=== PATIENT | female | born 1950 | race Caucasian/White ===

== ENCOUNTER 2020-04-11 15:49 | Inpatient (IN) | payer MEDICARE, MEDICAID, SELFPAY ==
[2020-04-11] VITALS (9 sets, daily range): BP systolic 111–132; BP diastolic 52–91; PULSE 130–148; RESP 18–24; TEMP 36.2–37.3; O2SAT 95–98; BMI 43.4
--- NOTE | ~2020-04-11 | US_ITS ---
EXAMINATION: US venous doppler LE DATE: 04/12/2020 12:02 INDICATION: Lower limb swelling TECHNIQUE: Grayscale ultrasound images without and with compression and Doppler ultrasound images of the bilateral lower extremity veins were obtained. COMPARISON: 08/10/2014 FINDINGS: The visualized portions of right common femoral vein, profunda (deep) femoral vein, femoral vein, pop liteal vein, posterior tibial veins, peroneal veins, gastrocnemius vein and greater saphenous vein ou tflow are patent. The visualized portions of left common femoral vein, profunda femoral vein, femoral vein, popliteal v ein, posterior tibial veins, gastrocnemius vein and greater saphenous vein outflow are patent. The le ft peroneal veins are again unable to be identified likely due to patient body habitus. IMPRESSION: 1. No deep venous thrombosis in either lower limb. Reviewed, dictated and finalized at location A. BLOWER
--- NOTE | ~2020-04-11 | XR_ITS ---
EXAMINATION: XR chest 2V EXAM DATE: 04/11/2020 16:45 INDICATION: elevated heart rate, HX HTN . TECHNIQUE: Frontal and lateral projections of the chest obtained and reviewed. There is no prior pilo dy for comparison. FINDINGS: There is cardiomegaly. There is pulmonary vascular congestion. No confluent consolidation, pneumothorax or pleural effusion suspected. There are mild bony degenerative changes. IMPRESSION: 1. Cardiomegaly, congestion. Reviewed, dictated and finalized at location B. E SALES LEADER
--- NOTE | 2020-04-11 15:55 | ECG_ITS ---
Measurements Intervals [employer] Rate: 37 P: -14 [place]: 127 QRS: 44 QRSD: 197 T: 0 QT: 297 QTc: 235 Interpretive Statements ATRIAL FLUTTER/TACHYCARDIA WITH RAPID VENTRICULAR RESPONSE RSR' IN V1 OR V2, CONSIDER RIGHT VENTRICULAR HYPERTROPHY OR RIGHT VCD MINIMAL Q WAVES- INFERIOR LEADS BASELINE ARTIFACT- V3-V5 ABNORMAL ECG Electronically Signed On 04-11-2020 18:55:36 RETAIL PROPERTY MANAGER by Jarek Hall D.O.
[2020-04-11 16:14] LABS: Basophils Percent Auto 0.2 % (0.2-1.2); Hematocrit 44.8 % (37.0-47.0); Hemoglobin 15.1 g/dL (12.0-15.0); Immature Granulocyte Absolute 0.01 K/mm3 (0.00-0.031); Immature Granulocyte Percent A 0.2 % (0-0.5); Lymphocytes Absolute Auto 1.98 K/mm3 (0.9-3.2); Lymphocytes Percent Auto 39.1 % (18.3-44.2); Mean Corpuscular HGB Conc 33.7 g/dl (32-36); Mean Corpuscular Hemoglobin 33.4 pg (26-34); Mean Corpuscular Volume 99.1 fl (80-100); Mean Platelet Volume 9.8 fl (7.4-10.4); Monocytes Absolute Auto 0.5 K/mm3 (0.1-0.6); Monocytes Percent Auto 10.1 % (2.6-8.5); Neutrophils Absolute Auto 2.6 K/mm3 (1.3-6.7); Neutrophils Percent Auto 50.4 % (45.5-73.1); Platelet Count Result 244 k/mm3 (150-375); Red Blood Count 4.52 M/mm3 (4.2-5.4); White Blood Count 5.1 K/mm3 (4.5-10.0)
--- NOTE | 2020-04-11 16:23 | ED.ARRPALP ---
HPI - Arrhythmia/Palpitations General Chief Complaint: Arrhythmia/Palpitations Stated Complaint: aflutter, sent from md office Time Seen by Provider: 04/11/20 16:15 Source: patient Mode of arrival: ambulatory Limitations: no limitations History of Present Illness HPI narrative: Patient is 69 years old white female had a phone call from her art consultant to go to the emergency room for blood work-up because of her Holter monitor showing tachyarrhythmia. Patient is asymptomatic. Patient had exposure to one family member with COVID-19 1 week ago. Patient denies any fever, chills, nausea, vomiting, diarrhea, chest pain, shortness of breath, lightheadedness, headache, sore throat, body aches or chills. History of hypertension hyperlipidemia and hypothyroidism. Patient does not smoke or drink. Related Data Allergies Allergy/AdvReac Type Severity Reaction Status Date / Time No Known Allergies Allergy Unverified 10/06/19 14:22 Review of Systems Review of Systems: Narrative: CONSTITUTIONAL: Denies fever, chills, or sweats. EYES: Denies visual changes, redness, or discharge. ENT: Denies rhinorrhea, congestion, sore throat, or otalgia. CARDIOVASCULAR: Denies chest pain, palpitations, or edema. RESPIRATORY: Denies cough or dyspnea. GASTROINTESTINAL: Denies abdominal pain, nausea, vomiting, or diarrhea. GENITOURINARY: Denies dysuria or hematuria. SKIN: Denies rash or itching. MUSCULOSKELETAL: Denies back pain, joint pain, or myalgia. NEUROLOGIC: Denies headache, numbness, or weakness. PSYCHIATRIC: Denies anxiety or depression. PMFSH Past Medical History Medical History (Updated 04/11/20 @ 17:36 by Elvira Flynn MD) Anxiety Dementia Hyperlipidemia Hypertension Hypothyroid Localized edema Restless leg syndrome Family History Family History Father Hypertension Sibling Hypertension Social History Social History Smoking status: Never smoker Second hand tobacco smoke exposure: No Alcohol intake: current Exam Narrative: Exam Narrative: General appearance: Well-developed, well-nourished Skin: Normal color Head: Normocephalic, nontraumatic Eyes: Clear conjunctiva ENT: Oropharynx normal, ears normal, nose normal Neck: Supple, nontender Chest and respiratory: Airway patent, no respiratory distress, no accessory muscle use Heart: Irregular irregularity, tachycardia Abdomen: Soft, nontender, no organomegaly, quiet bowel sounds Vascular: Normal peripheral pulses, normal capillary refill. Musculoskeletal: Normal range of motion, nontender back Neurologic: Alert and oriented ?3, CHAR HOUSE SUPERVISOR is normal as tested, no gross motor deficit Course Consultations Consultation #1: Dr. Ortiz Unaware what the Holter monitor showed. Date: 04/11/20 Time: 17:33 Vital Signs Vital signs: Vital Signs Temperature 36.2 C L 04/11/20 15:57 Pulse Rate 137 H 04/11/20 15:57 Respiratory Rate 24 H 04/11/20 15:57 Blood Pressure 132/91 H 04/11/20 15:57 Pulse Oximetry 96 04/11/20 15:57 Temperature 36.2 C L 04/11/20 15:57 Pulse Rate 137 H 04/11/20 15:57 Respiratory Rate 24 H 04/11/20 15:57 Blood Pressure 132/91 H 04/11/20 15:57 Pulse Oximetry 96 04/11/20 15:57 MDM - Arrhythmia/Palpitations MDM Narrative Medical decision making narrative: Patient referred to the ED because of abnormal heart valve monitor rhythm. Patient is asymptomatic. EKG showing possible sinus tachycardia with frequent premature complexes. Versus atrial flutter. Patient started on Cardizem bolus and drip. Patient was exposed to her brother who was Covid +6 days ago. Patient i
[2020-04-11 16:25] LABS: Anion Gap 9 mmol/L (8-16); Blood Urea Nitrogen 18 mg/dL (7-17); Calcium 9.4 mg/dL (8.4-10.2); Carbon Dioxide 29 mmol/L (22-30); Chloride 100 mmol/L (98-107); Estimated Glomerular Filt Rate 55; Glucose 101 mg/dL (65-105); Potassium 4.1 mmol/L (3.4-5.0); Sodium 138 mmol/L (137-145)
[2020-04-11 16:26] LABS: INR 0.9; Prothrombin Time 12.9 Seconds (11.1-14.7)
[2020-04-11 16:27] LABS: Partial Thromboplastin Time 28.6 SECONDS (22.3-36.8)
[2020-04-11 16:37] LABS: Troponin I < 0.012 ng/mL (0.000-0.034)
[2020-04-11 17:05] LABS: Thyroid Stimulating Hormone 0.755 uIU/mL (0.465-4.680)
[2020-04-11] MEDS: dilTIAZem HCl INJ 25 MG/5 ML VIAL 10 MG IV PUSH ×2 (17:14→17:45)
--- NOTE | 2020-04-11 17:38 | ECG_ITS ---
Measurements Intervals [place] Rate: 78 P: [place]: 0 QRS: -41 QRSD: 97 T: 28 QT: 309 QTc: 353 Interpretive Statements ATRIAL FLUTTER/TACHYCARDIA WITH RAPID VENTRICULAR RESPONSE RSR' IN V1 OR V2, CONSIDER RIGHT VENTRICULAR HYPERTROPHY OR RIGHT VCD ABNORMAL ECG Electronically Signed On 04-11-2020 18:58:36 SHUTTLER by Jarek Hall D.O.
[2020-04-11] MEDS: FUROSEMIDE INJ 40 MG/4 ML VIAL IV PUSH (18:51)
[2020-04-11 19:27] LABS: NT Pro B Type Natriuretic Pept 1880 PG/ML (5-100); Troponin I < 0.012 ng/mL (0.000-0.034)
--- NOTE | 2020-04-11 19:55 | ADMGEN ---
This patient, Denise Motley, was admitted to Intensive Care Unit-11. Patient/family oriented to hospital policies and general routines including ID bracelet, bed and alarms, visiting hours, pain management, procedures, bathroom and other care routines, personal items, smoking policy, room service/diet, and visiting hours. Information on how to activate the Rapid Response Team has been discussed. Patient/Family are encouraged to report perceived risks to care and to ask questions if they do not understand what they are told or what they should do.
--- NOTE | 2020-04-11 20:40 | PM.IMHP ---
H&P: HPI History of Present Illness Date/Time: 04/11/20 20:40 Chief complaint: A FLUTTER/CHF Narrative: Denise Motley is a 69 year old female who has a history of dementia and is very hard of hearing. The patient tells me that she went to her primary care doctor who discovered a fast heart rate. She was then referred to a gusset maker who is in put her on a Holter monitor. The patient believes she was just on it for 24 hours. The patient received a phone call from her gusset maker today stating that she needed to come to the emergency room. The patient stated that she has seen Dr. kitchen in the past however cannot see and office visit note. The patient is not having any symptoms. No chest pain or palpitations. No fever chills. The patient stated that she was around a group of people a 1 week ago and that her brother that she shook hands with her brother who was found to have COVID-19. This was 1 week ago. However the patient has not had any symptoms. No cough. Patient was found to have atrial flutter with a rapid response. Patient was given IV Cardizem and then started on a drip. She was given Lasix an Ativan as well. Her chest x-ray was read as cardiomegaly congestion. Cardiology consult has been placed. Patient's heart rate remains in the 140s. Blood pressure 127/71. The patient does not appear to be responding to the Cardizem. The patient is on metoprolol at home. Patient is a full admission. She is in IMU status in ICU. Date of service is 04/11/2020 Review of Systems Review of Systems: All systems reviewed & are unremarkable except as noted in HPI and below Constitutional: Constitutional: Reports as per HPI and Reports no additional constitutional complaints Eyes: Eyes: Reports as per HPI and Reports no additional eye complaints ENT: Reports system reviewed and no additional complaints, except as documented and Reports Normal hearing present Cardiovascular: Cardiovascular: Reports no additional cardiovascular complaints Respiratory: Respiratory: Reports no additional respiratory complaints and Reports no additional respiratory complaints Gastrointestinal: Gastrointestinal: Reports as per HPI and Reports no additional gastrointestinal complaints Musculoskeletal: Musculoskeletal: Reports no additional musculoskeletal complaints Integumentary/Breasts: Skin/Breast: Reports system reviewed and no additional complaints, except as docu and Reports as per HPI Neurologic: Reports system reviewed and no additional complaints, except as documented, Reports as per HPI and Reports Normal hearing present Psychiatric: Psychiatric: Reports no additional psychiatric complaints and Reports as per HPI Endocrine: Endocrine: Reports no additional endocrine complaints Hematologic/Lymphatic: Hematologic/Lymphatic: Reports no additional hematologic/lymphatic complaints Allergic/Immunologic: Allergic/Immunologic: Reports no additional allergic/immunologic complaints PMFSH Past Medical History Medical History (Updated 04/11/20 @ 21:05 by Nicolasa Stockton NP) Anxiety Dementia Hyperlipidemia Hypertension Hypothyroid Localized edema Restless leg syndrome Surgical History Surgical History (Updated 04/11/20 @ 20:49 by Nicolasa Stockton NP) H/O splenectomy H/O total hysterectomy History of right hip hemiarthroplasty History of right knee joint replacement Hx of cholecystectomy Family History Family History Father Hypertension Sibling Hypertension Social History Social History (Updated 04/11/20 @ 20:52 by Nicolasa Stockton NP) Social History: the patient stated that she is from her . The patient has a total of 4 children. Chayito Causey is her daughter who is the durable power deputy attorney general for healthcare. The patient desires to be a full code. 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 the patient stated she has never smoked, used
[2020-04-11 22:26] LABS: Troponin I < 0.012 ng/mL (0.000-0.034)
[2020-04-11] MEDS: ENOXAPARIN 100 MG/ML SYRINGE SUB-Q (22:59)
[2020-04-12] VITALS (26 sets, daily range): BP systolic 91–150; BP diastolic 48–98; PULSE 72–147; RESP 14–22; TEMP 36.2–36.9; O2SAT 90–100
[2020-04-12] MEDS: LEVOTHYROXINE SODIUM 100 MCG TABLET PO (05:35)
[2020-04-12] MEDS: LEVOTHYROXINE SODIUM 75 MCG TABLET PO (05:35)
[2020-04-12 05:53] LABS: Basophils Percent Auto 0.2 % (0.2-1.2); Hematocrit 41.5 % (37.0-47.0); Hemoglobin 14.3 g/dL (12.0-15.0); Immature Granulocyte Absolute 0.01 K/mm3 (0.00-0.031); Immature Granulocyte Percent A 0.2 % (0-0.5); Lymphocytes Percent Auto 34.7 % (18.3-44.2); Mean Corpuscular HGB Conc 34.5 g/dl (32-36); Mean Corpuscular Hemoglobin 33.1 pg (26-34); Mean Corpuscular Volume 96.1 fl (80-100); Mean Platelet Volume 10.1 fl (7.4-10.4); Monocytes Absolute Auto 0.5 K/mm3 (0.1-0.6); Monocytes Percent Auto 11.7 % (2.6-8.5); Neutrophils Absolute Auto 2.5 K/mm3 (1.3-6.7); Neutrophils Percent Auto 53.2 % (45.5-73.1); Platelet Count Result 248 k/mm3 (150-375); Red Blood Count 4.32 M/mm3 (4.2-5.4); Red Cell Distribution Width 12.8 % (11.5-14.5); White Blood Count 4.6 K/mm3 (4.5-10.0)
[2020-04-12 06:05] LABS: Alanine Aminotransferase 26 U/L (4-35); Albumin Level 3.4 g/dL (3.5-5.1); Alkaline Phosphatase 66 U/L (38-126); Anion Gap 6 mmol/L (8-16); Aspartate Amino Transferase 32 U/L (14-36); Bilirubin,Total 0.9 mg/dL (0.2-1.3); Blood Urea Nitrogen 19 mg/dL (7-17); Carbon Dioxide 30 mmol/L (22-30); Chloride 102 mmol/L (98-107); Estimated CRCL calculation 49 ml/min; Estimated Glomerular Filt Rate 55; Glucose 89 mg/dL (65-105); Lactate Dehydrogenase 452 U/L (313-618); Magnesium 2.1 mg/dL (1.6-2.3); Sodium 138 mmol/L (137-145)
[2020-04-12] MEDS: DULoxetine HCL 30 MG CAPSULE.DR PO (09:20)
[2020-04-12] MEDS: ENOXAPARIN 100 MG/ML SYRINGE SUB-Q ×2 (09:20→22:58)
[2020-04-12] MEDS: busPIRone HCL 10 MG TABLET PO ×2 (09:20→17:07)
[2020-04-12] MEDS: POTASSIUM CHLORIDE 20 MEQ TABLET.ER PO (09:20)
[2020-04-12] MEDS: FUROSEMIDE INJ 40 MG/4 ML VIAL IV PUSH (09:21)
--- NOTE | 2020-04-12 14:34 | PM.CNCAR ---
Assessment and Plan Assessment and plan (1) Atrial flutter: Code(s): I48.92 - Unspecified atrial flutter Status: Acute Assessment and Plan: will check a free T4 level. Continue diltiazem drip for now. will keep her NPO. she will undergo a ELENITA guided cardioversion this afternoon. ELENITA needed because I am uncertain how long she has been in atrial flutter but certainly greater than 48 hours. Risks, benefits alternatives are discussed. She is agreeable. Enoxaparin 1 milligram/kilogram subcu q.12 hours. Transition to oral anticoagulation before discharge. Preferably Xarelto 20 mg daily or Eliquis 5 mg p.o. b.i.d. depending on cost (2) Hypothyroidism: Qualifiers: Hypothyroidism type: unspecified Qualified Code(s): E03.9 - Hypothyroidism, unspecified Code(s): E03.9 - Hypothyroidism, unspecified Status: Acute Assessment and Plan: on replacement (3) Hypertension: Qualifiers: Hypertension type: essential hypertension Qualified Code(s): I10 - Essential (primary) hypertension Code(s): I10 - Essential (primary) hypertension Status: Chronic Assessment and Plan: at goal (4) Pulmonary edema: Code(s): J81.1 - Chronic pulmonary edema Status: Acute Assessment and Plan: Furosemide 40 mg IV daily. transition to oral furosemide tomorrow History of Present Illness History of Present Illness Consult date/time: 04/12/20 14:34 Requesting physician: Elvira Flynn MD Consult reason: Other ( atrial flutter) Reason For Visit: A FLUTTER/CHF Narrative: date of service 04/12/2020 Reason consultation atrial flutter History: Patient is a 69-year-old female who is a patient of Dr. Sun. She is clearly in atrial flutter. A monitor was put on as an outpatient, her heart rate was noted to be elevated although was elevated in the office also. Regardless she was told to come to the hospital because of some shortness of breath that she was experiencing yesterday. Reportedly she was more dyspneic with walking to and from the bathroom. She has had some exposure COVID-19 in is in the process of being investigated. Test is still pending. She was started on diltiazem drip and her heart rate is better but still bounces around 100-130 beats per minute. Her breathing is much improved today. She denies any chest pain, syncope, presyncope, paroxysmal nocturnal dyspnea, orthopnea, edema or palpitations. It is uncertain how long she has been in atrial fibrillation But likely at least since January when she was seen in Dr. Billy Meza . Review of Systems Review of Systems: All systems reviewed & are unremarkable except as noted in HPI and below Constitutional: Constitutional: Denies weakness Eyes: Eyes: Denies blurry vision ENT: Comments: Hard of hearing Cardiovascular: Cardiovascular: Denies chest pain Respiratory: Respiratory: Reports dyspnea Gastrointestinal: Gastrointestinal: Denies abdominal pain Genitourinary: Genitourinary: Denies flank pain Musculoskeletal: Musculoskeletal: Denies neck pain Integumentary/Breasts: Skin/Breast: Denies dry skin Neurologic: Denies headache(s) and Denies numbness Psychiatric: Psychiatric: Denies anxiety and Denies confusion Endocrine: Endocrine: Denies fatigue and Denies flushing Hematologic/Lymphatic: Hematologic/Lymphatic: Denies easy bleeding and Denies easy bruising Allergic/Immunologic: Allergic/Immunologic: Denies GI upset with certain foods and Denies lip swelling PMFSH Past Medical History Medical History Anxiety Dementia Hyperlipidemia Hypertension Hypothyroid Localized edema Restless leg syndrome Surgical History Surgical History H/O splenectomy H/O total hysterectomy History of right hip hemiarthroplasty History of right knee joint replacement Hx of cholecy
[2020-04-12 15:20] LABS: SARS-CoV-2 RNA PCR Negative
--- NOTE | 2020-04-12 15:41 | WPDMODSED ---
Moderate Sedation Note-Pt Data Patient Data Diagnosis: Atrial flutter Present Complaint: atrial flutter Procedure to be performed/Plan: multiplanar transesophageal echocardiography with color-flow pulse-wave Doppler Moderate sedation Electrical cardioversion Agitated saline study Allergies Allergy/AdvReac Type Severity Reaction Status Date / Time No Known Allergies Allergy Unverified 10/06/19 14:22 Home Medications Medication Instructions Recorded Confirmed Type buspirone 10 mg PO BID 04/11/20 04/11/20 History duloxetine 30 mg PO DAILY 04/11/20 04/11/20 History furosemide 40 mg PO DAILY 04/11/20 04/11/20 History levothyroxine 175 mcg PO QAM 04/11/20 04/11/20 History lovastatin 20 mg PO HS 04/11/20 04/11/20 History metoprolol succinate 100 mg PO HS 04/11/20 04/11/20 History potassium chloride 20 meq PO DAILY 04/11/20 04/11/20 History ropinirole 0.5 mg PO HS 04/11/20 04/11/20 History trazodone 50 mg PO HS 04/11/20 04/11/20 History Current Medications: Active Medications Buspirone HCl (Buspirone Hcl 10 Mg Tablet) 10 mg PO BID [facility] Last Admin: 04/12/20 09:20 Dose: 10 mg Documented by: Duloxetine HCl (Duloxetine Hcl 30 Mg Capsule.Dr) 30 mg PO DAILY [facility] Last Admin: 04/12/20 09:20 Dose: 30 mg Documented by: Enoxaparin Sodium (Enoxaparin 100 Mg/Ml Syringe) 100 mg SUB-Q Q12HR [facility] Last Admin: 04/12/20 09:20 Dose: 100 mg Documented by: Furosemide (Furosemide Inj 40 Mg/4 Ml Vial) 40 mg IV PUSH DAILY [facility] Last Admin: 04/12/20 09:21 Dose: 40 mg Documented by: Acetaminophen (Ofirmev 1,000 Mg Ivpb) 1,000 mg in 100 mls @ 400 mls/hr IVPB Q6H PRN PRN Reason: Mild Pain (1-3) or Fever Stop: 04/12/20 18:13 Diltiazem HCl (Cardizem 100 Mg/D5w 100 Ml) 100 mg in 100 mls @ 5 mls/hr IV CONT .Q20H [facility]; Protocol Last Admin: 04/12/20 11:05 Dose: 15 mg/hr, 15 mls/hr Documented by: Levothyroxine Sodium (Levothyroxine Sodium 100 Mcg Tablet) 100 mcg PO DAILY@0630 [facility] Last Admin: 04/12/20 05:35 Dose: 100 mcg Documented by: Levothyroxine Sodium (Levothyroxine Sodium 75 Mcg Tablet) 75 mcg PO DAILY@0630 [facility] Last Admin: 04/12/20 05:35 Dose: 75 mcg Documented by: Lovastatin (Lovastatin 20 Mg Tablet) 20 mg PO [facility] Last Admin: 04/12/20 01:49 Dose: Not Given Documented by: Potassium Chloride (Potassium Chloride 20 Meq Tablet.Er) 20 meq PO DAILY@0800 [facility] Last Admin: 04/12/20 09:20 Dose: 20 meq Documented by: Ropinirole HCl (Ropinirole Hcl 0.5 Mg Tablet) 0.5 mg PO [facility] Last Admin: 04/12/20 01:49 Dose: Not Given Documented by: Trazodone HCl (Trazodone Hcl 50 Mg Tablet) 50 mg PO [facility] Last Admin: 04/12/20 01:49 Dose: Not Given Documented by: Sedation/Anesthesia: No previous sedation/anesthesia problems (including family history). [facility] Past Medical History Medical History Anxiety Dementia Hyperlipidemia Hypertension Hypothyroid Localized edema Restless leg syndrome Surgical History Surgical History H/O splenectomy H/O total hysterectomy History of right hip hemiarthroplasty History of right knee joint replacement Hx of cholecystectomy Family History Family History Father Hypertension Sibling Hypertension Social History Social History Social History: the patient stated that she is from her . The patient has a total of 4 children. Chayito Causey is her daughter who is the durable power energy attorney for healthcare. The patient desires to be a full code. 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 the patient stated she has never smoked, used marijuana, or use illicit drugs. Smoking status: Never smoker Second hand tobacco smoke exposure: No Alcohol intake: unknown Substance use: unknown Living arrangements: with family
--- NOTE | 2020-04-12 16:14 | PM.IMPN ---
Progress Note: A&P Assessment and Plan (1) Tachyarrhythmia: Code(s): R00.0 - Tachycardia, unspecified Status: Acute Assessment and Plan: The patient is currently on a Cardizem drip. However her atrial flutter is not responding very well to the Cardizem drip. Cardiology has been consulted. Plans for a possible cardioversion, she is asymptomatic despite the persistent RVR. (2) Pulmonary edema: Code(s): J81.1 - Chronic pulmonary edema Status: Acute Assessment and Plan: Echo pending. Continue IV lasix for now, the pulmonary edema was probably triggered by A.Flutter with RVR. (3) Suspected COVID-19 virus infection: Code(s): Z20.828 - Contact with and (suspected) exposure to other viral communicable diseases Status: Acute Assessment and Plan: the patient was in contact the COVID positive person a week ago. Patient is been placed in isolation and Her test is pending. (4) Hypothyroidism: Qualifiers: Hypothyroidism type: unspecified Qualified Code(s): E03.9 - Hypothyroidism, unspecified Code(s): E03.9 - Hypothyroidism, unspecified Status: Acute Assessment and Plan: TSH wnl. (5) Hyperlipidemia: Qualifiers: Hyperlipidemia type: unspecified Qualified Code(s): E78.5 - Hyperlipidemia, unspecified Code(s): E78.5 - Hyperlipidemia, unspecified Status: Chronic Assessment and Plan: Continue with home medications (6) Dementia: Qualifiers: Dementia type: unspecified type Dementia behavioral disturbance: without behavioral disturbance Qualified Code(s): F03.90 - Unspecified dementia without behavioral disturbance Code(s): F03.90 - Unspecified dementia without behavioral disturbance Status: Chronic Assessment and Plan: Alert and answering appropriately to basic questions.. Subjective Date/time seen: No complains, denies chest pain, palpitations , no dyspnea. 04/12/20 16:14 Review of Systems Review of Systems: All systems reviewed & are unremarkable except as noted in HPI and below Exam Const: General: cooperative and comfortable Neck: Neck: supple and no JVD Resp: Effort & Inspection: able to speak in complete sentences Auscultation: clear to auscultation bilaterally and diminished lung sounds Cardio: Jugular venous distension: no JVD Rate: tachycardic Rhythm: abnormal rhythm Other: Irregularly irregular rhythm , tachycardic. GI: GI Palp: Yes Soft to palpation and Yes No hepatosplenomegaly present Auscultation: normal bowel sounds Skin: General skin exam: no rashes or lesions noted Neuro: General: patient oriented x3 and no focal motor deficits Extrem: General: no clubbing, cyanosis or edema Objective Data Vital Signs Vital Signs: Vital Signs - 24 hr 04/11/20 17:10 04/11/20 18:38 04/11/20 19:38 Temperature Pulse Rate 137 H 137 H 135 H Respiratory Rate 18 18 Blood Pressure 130/80 114/73 111/52 L Pulse Oximetry 97 98 04/11/20 20:00 04/11/20 20:15 04/11/20 21:30 Temperature 99.1 F Pulse Rate 148 H 139 H 130 H Respiratory Rate 21 H 20 Blood Pressure 128/83 Pulse Oximetry 96 95 04/11/20 22:00 04/11/20 23:43 04/12/20 00:00 Temperature 98.1 F Pulse Rate 139 H 118 H Respiratory Rate 21 H Blood Pressure 96/80 L Pulse Oximetry 96 04/12/20 02:00 04/12/20 03:21 04/12/20 03:50 Temperature 98.1 F Pulse Rate 137 H 138 H Respiratory Rate Blood Pressure 124/69 Pulse Oximetry 04/12/20 04:00 04/12/20 05:57 04/12/20 08:00 Temperature 97.4 F L Pulse Rate 137 H 139 H 140 H Respiratory Rate 21 H 18 Blood Pressure 127/79 133/87 Pulse Oximetry 96 96 04/12/20 10:00 04/12/20 11:05 04/12/20 11:16 Temperature 97.6 F Pulse Rate 113 H 140 H 131 H Respiratory Rate 18 Blood Pressure 113/67 Pulse Oximetry 96 04/12/20 12:00 04/12/20 14:00 04/12/20 15:58 Temperature Pulse Rate
--- NOTE | 2020-04-12 16:17 | ECG_ITS ---
Measurements Intervals [place] Rate: 81 P: 87 [place]: 219 QRS: 40 QRSD: 91 T: 73 QT: 379 QTc: 441 Interpretive Statements SINUS RHYTHM WITH FIRST DEGREE AV BLOCK ATRIAL PREMATURE COMPLEX CONSIDER INFERIOR INFARCT, AGE INDETERMINATE BASELINE WANDER- V4-V6 ABNORMAL ECG Electronically Signed On 04-15-2020 8:35:39 BUSINESS OBJECTS ANALYST by Jarek Hall D.O.
--- NOTE | 2020-04-12 16:18 | P.PCNTEECA_ITS ---
ELENITA with Cardioversion Date of procedure: 04/12/20 Procedure Type: 1. Multiplanar transesophageal echocardiography with color flow and pulse wave Doppler 2. Agitated saline study 3. Electrical cardioversion 4. Moderate sedation Diagnosis: atrial flutter Indications: atrial flutter Description of Procedure: after discussing the risks benefits alternatives of procedure the patient agreeable via verbal and written informed consent. Risks discussed included esophageal rupture perforation, need for surgery, bleeding, pain, infection, , shocking into more problematic heart rhythm, adverse reaction to anesthesia, skin irritation or burn, stroke. After establishing continuous equipment monitor phototypesetting, pulse oxygenation and serial blood pressure assessments, time-out was taken and procedure was started. Procedure start time 4:02 p.m. Procedure stop time 4:12 p.m. Complications: None Blood loss: None Medications were administered and patient was monitored by Sandra Zacarias RN Sedation: Hurricaine spray to hypopharynx x2 for topical anesthetic. A total of 4 mg of Versed and 50 mcg of fentanyl were given in divided dosages. Findings: transesophageal echocardiogram: Normal left ventricular size. Ejection fraction estimated at 70%. There is at least [id number] left ventricular hypertrophy. Normal right ventricular size and function. Normal biatrial size. At least moderate left atrial enlargement. There is a normal appearing mitral valve with mild mitral regurgitation. Tricuspid valve is normal with mild tricuspid regurgitation. The pulmonic valve is normal with trivial pulmonic insufficiency. The aortic valve is trileaflet minimally sclerotic. There is no significant aortic insufficiency. The aortic root measures 3.6 cm at the sinus of Valsalva. There is no pericardial effusion. The atrial septum is intact without color flow or agitated saline evidence of shunting. Left atrial appendage is normal with pulse-wave velocities of up to 80-90 centimeters/second. Electrical cardioversion: Successful jainism of sinus rhythm from atrial flutter using 125 joules of biphasic synchronized energy Conclusion: 1. Normal left ventricular size and function with left ventricle hypertrophy noted 2. Mild mitral regurgitation 3. At least moderate left atrial enlargement 4. Left atrial appendage is free of mass or thrombus 5. Successful jainism of sinus rhythm using 125 joules of synchronized biphasic energy 6. Negative agitated saline study 7. Moderate sedation
[2020-04-12] MEDS: traZODone HCL 50 MG TABLET PO (22:58)
[2020-04-12] MEDS: LOVASTATIN 20 MG TABLET PO (22:58)
[2020-04-12] MEDS: rOPINIRole HCL 0.5 MG TABLET PO (22:59)
[2020-04-13] VITALS (11 sets, daily range): BP systolic 91–122; BP diastolic 48–94; PULSE 77–97; RESP 16–18; TEMP 36.2–37.1; O2SAT 91–100
--- NOTE | 2020-04-13 | ECHO_ITS ---
Patient Info Name: Denise Motley Age: 69 years : 1950 Gender: Female Ht: 60 in Wt: 222 lbs BSA: 2.13 m2 HR: 93 bpm BP: 122 / 65 mmHg Heart Rhythm: Sinus Rhythm Technical Quality: Good Exam Date: 04/13/2020 9:43 AM Exam Location: [facility] Pulmonary Exam Room: 209 Patient Status: Inpatient Admit Date: 04/11/2020 Staff Ordering Physician: Nicolasa Stockton NP Casino Accountant: Tiffany Mcclellan RDCS Attending Provider: Yves Munson MD Referring Physician: Kath PALUMBO; Exam Type: CA echo doppler color flow Study Info Indications - afib s/p cardioversion chf Complete two-dimensional, color flow and Doppler transthoracic echocardiogram is performed. Summary 1. Complete two-dimensional, color flow and Doppler transthoracic echocardiogram is performed. 2. Left ventricular systolic function is normal, estimated at 65-70%. 3. Left ventricular wall thickness upper limits of normal. 4. The left ventricular diastolic function is abnormal. 5. Right ventricular chamber dimension is mildly enlarged. 6. Right ventricular systolic function is normal. 7. Left atrial chamber dimension is moderately enlarged. 8. Right atrial chamber dimension is moderately enlarged. 9. There is no aortic valve stenosis. 10. There is mild mitral valve regurgitation. 11. There is mild tricuspid valve regurgitation. 12. No pulmonary hypertension, estimated pulmonary arterial systolic pressure is 32 mmHg. Left Ventricle Left ventricular chamber dimension is normal. Left ventricular systolic function is normal, estimated at 65-70%. Left ventricular wall thickness upper limits of normal. The left ventricular diastolic function is abnormal. Right Ventricle Right ventricular chamber dimension is mildly enlarged. Right ventricular systolic function is normal. Left Atria Left atrial chamber dimension is moderately enlarged. Right Atria Right atrial chamber dimension is moderately enlarged. Aortic Valve The aortic valve is trileaflet. There is mild aortic valve sclerosis. There is no aortic valve stenosis. There is no aortic valve regurgitation. Pulmonic Valve The pulmonic valve is not well visualized. There is trace pulmonic regurgitation. Mitral Valve The mitral valve has normal leaflets. There is mild mitral valve regurgitation. The mitral valve annulus is moderately calcified. Tricuspid Valve The tricuspid valve leaflets are normal. There is mild tricuspid valve regurgitation. No pulmonary hypertension, estimated pulmonary arterial systolic pressure is 32 mmHg. Pericardium/Pleural The pericardium appears epicardial fat pad. There is no pericardial effusion. Inferior Vena Cava Normal inferior vena cava with >50% collapse upon inspiration consistent with normal right atrial pressure, 5 mmHg. Aorta The aortic root size at the sinus of Valsalva is normal. Left Ventricular Outflow Tract Name Value Normal LVOT 2D LVOT Diameter 2.0 cm LVOT Doppler LVOT Peak Gradient 4 mmHg LVOT Mean Gradient 3 mmHg LVOT VTI
[2020-04-13] MEDS: LEVOTHYROXINE SODIUM 100 MCG TABLET PO (06:34)
[2020-04-13] MEDS: LEVOTHYROXINE SODIUM 75 MCG TABLET PO (06:34)
[2020-04-13 07:13] LABS: Basophils Percent Auto 0.2 % (0.2-1.2); Hematocrit 41.6 % (37.0-47.0); Immature Granulocyte Absolute 0.01 K/mm3 (0.00-0.031); Immature Granulocyte Percent A 0.2 % (0-0.5); Lymphocytes Absolute Auto 1.46 K/mm3 (0.9-3.2); Lymphocytes Percent Auto 27.5 % (18.3-44.2); Mean Corpuscular HGB Conc 33.7 g/dl (32-36); Mean Corpuscular Hemoglobin 33.5 pg (26-34); Mean Corpuscular Volume 99.5 fl (80-100); Monocytes Absolute Auto 0.7 K/mm3 (0.1-0.6); Monocytes Percent Auto 12.4 % (2.6-8.5); Neutrophils Absolute Auto 3.2 K/mm3 (1.3-6.7); Neutrophils Percent Auto 59.7 % (45.5-73.1); Platelet Count Result 253 k/mm3 (150-375); Red Blood Count 4.18 M/mm3 (4.2-5.4); Red Cell Distribution Width 13.4 % (11.5-14.5); White Blood Count 5.3 K/mm3 (4.5-10.0)
[2020-04-13 07:19] LABS: Anion Gap 4 mmol/L (8-16); Blood Urea Nitrogen 27 mg/dL (7-17); Carbon Dioxide 34 mmol/L (22-30); Chloride 101 mmol/L (98-107); Estimated CRCL calculation 41 ml/min; Estimated Glomerular Filt Rate 44; Glucose 86 mg/dL (65-105); Magnesium 2.2 mg/dL (1.6-2.3); Potassium 3.7 mmol/L (3.4-5.0); Sodium 139 mmol/L (137-145)
[2020-04-13] MEDS: ENOXAPARIN 100 MG/ML SYRINGE SUB-Q (08:58)
[2020-04-13] MEDS: FUROSEMIDE INJ 40 MG/4 ML VIAL IV PUSH (08:58)
[2020-04-13] MEDS: DULoxetine HCL 30 MG CAPSULE.DR PO (08:58)
[2020-04-13] MEDS: METOPROLOL SUCCINATE EXT REL 50 MG TABCR PO ×2 (08:58→10:29)
[2020-04-13] MEDS: busPIRone HCL 10 MG TABLET PO (08:59)
[2020-04-13] MEDS: POTASSIUM CHLORIDE 20 MEQ TABLET.ER PO (08:59)
--- NOTE | 2020-04-13 09:49 | PM.PNCARD ---
Progress Note: A&P Assessment and Plan (1) Atrial flutter: Code(s): I48.92 - Unspecified atrial flutter Status: Acute Assessment and Plan: Status post ELENITA guided cardioversion restoring sinus rhythm. Brief self-limited episodes of SVT probable atrial flutter with RVR overnight. -increase Toprol XL to 100 mg daily. Give additional 50 mg p.o. x1 to equal 100 mg this morning. -patient already CV enoxaparin 1 milligram/kilogram subcutaneous this morning. Discontinue now. Eliquis 5 mg b.i.d. to begin this evening. Care coordination to ensure patient access and cost acceptable prior to discharge. -if patient stable, asymptomatic maintaining sinus rhythm unable to obtain medications patient may be discharged home follow up as an outpatient in the next 2-4 weeks as scheduled. -will review 2D echo being performed at bedside prior to discharge. -discussed anticipated referral for ablation as an outpatient with electrophysiology which is not performed at this institution. -COVID-19 negative. -patient in agreement with the above plan of care. All questions answered to her satisfaction. (2) Hypothyroidism: Qualifiers: Hypothyroidism type: unspecified Qualified Code(s): E03.9 - Hypothyroidism, unspecified Code(s): E03.9 - Hypothyroidism, unspecified Status: Acute Assessment and Plan: on replacement, TSH 1.10 (3) Hypertension: Qualifiers: Hypertension type: essential hypertension Qualified Code(s): I10 - Essential (primary) hypertension Code(s): I10 - Essential (primary) hypertension Status: Chronic Assessment and Plan: at goal (4) Pulmonary edema: Code(s): J81.1 - Chronic pulmonary edema Status: Acute Assessment and Plan: Discontinue IV, resume Lasix 40 mg p.o. daily to start tomorrow. Subjective Date/time seen: Date of service: 04/13/20 09:49 Follow-up for atrial flutter with rapid ventricular response status post cardioversion 04/12/2020 Patient feeling fine. She can tell her heart rate is no longer rapid. Denies shortness of breath. No chest pain. No issues overnight. Maintaining sinus rhythm although had 2 episodes of brief SVT/flutter with RVR spontaneously converted. Review of Systems Review of Systems: All systems reviewed & are unremarkable except as noted in HPI and below Constitutional: Constitutional: Denies fatigue, Denies headache(s) and Denies weakness Eyes: Eyes: Denies blurry vision ENT: Denies headache(s), Denies lip swelling and Denies neck pain Cardiovascular: Cardiovascular: Denies chest pain and Reports dyspnea Respiratory: Respiratory: Reports dyspnea Gastrointestinal: Gastrointestinal: Denies abdominal pain Genitourinary: Genitourinary: Denies flank pain Musculoskeletal: Musculoskeletal: Denies neck pain and Denies numbness Integumentary/Breasts: Skin/Breast: Denies dry skin Neurologic: Denies confusion, Denies headache(s), Denies numbness and Denies weakness Psychiatric: Psychiatric: Denies anxiety and Denies confusion Endocrine: Endocrine: Denies fatigue and Denies flushing Hematologic/Lymphatic: Hematologic/Lymphatic: Denies easy bleeding and Denies easy bruising Allergic/Immunologic: Allergic/Immunologic: Denies GI upset with certain foods and Denies lip swelling Exam Narrative: Exam Narrative: patient is awake alert. Appears to be in no acute distress Const: General: comfortable and no acute distress; No confusion Orientation/consciousness: No confusion HENMT: General nose exam: Normal nares present Eyes: Sclera: sclerae normal Neck: Neck: supple and no JVD Chest: Other: no reproducible chest wall pain to palpation Resp: Auscultation: clear to auscultation bilaterally Cardio: Jugular venous distension: no JVD Rate: regular rate Rhythm: regular rhythm Skin: General skin exam: normal color Other: slightly reddened bilateral anterior pretibial region, no warmth/e
--- NOTE | 2020-04-13 15:11 | PM.DS ---
DS: Admitting Diagnosis Admitting Diagnosis Admitting Diagnosis: A FLUTTER/CHF DS: Discharge Diagnosis Discharge Diagnosis (1) Tachyarrhythmia: Code(s): R00.0 - Tachycardia, unspecified Status: Acute Assessment and Plan: The patient is currently on a Cardizem drip. However her atrial flutter is not responding very well to the Cardizem drip. Cardiology has been consulted. Plans for a possible cardioversion, she is asymptomatic despite the persistent RVR. patient seen by Cardiology and had a ELENITA guided cardioversion patient converted to sinus rhythm, today patient is seen by Cardiology repeat cardiac echo is normal, patient is switched over to Eliquis, patient is clinically stable, will follow-up with network security analyst as scheduled. (2) Pulmonary edema: Code(s): J81.1 - Chronic pulmonary edema Status: Acute Assessment and Plan: Echo pending. Continue IV lasix for now, the pulmonary edema was probably triggered by A.Flutter with RVR. (3) Suspected COVID-19 virus infection: Code(s): Z20.828 - Contact with and (suspected) exposure to other viral communicable diseases Status: Acute Assessment and Plan: the patient was in contact the COVID positive person a week ago. Patient is been placed in isolation and Her test is pending. (4) Hypothyroidism: Qualifiers: Hypothyroidism type: unspecified Qualified Code(s): E03.9 - Hypothyroidism, unspecified Code(s): E03.9 - Hypothyroidism, unspecified Status: Acute Assessment and Plan: TSH wnl. (5) Hyperlipidemia: Qualifiers: Hyperlipidemia type: unspecified Qualified Code(s): E78.5 - Hyperlipidemia, unspecified Code(s): E78.5 - Hyperlipidemia, unspecified Status: Chronic Assessment and Plan: Continue with home medications (6) Dementia: Qualifiers: Dementia behavioral disturbance: without behavioral disturbance Dementia type: unspecified type Qualified Code(s): F03.90 - Unspecified dementia without behavioral disturbance Code(s): F03.90 - Unspecified dementia without behavioral disturbance Status: Chronic Assessment and Plan: Alert and answering appropriately to basic questions.. DS: Summary Hospital Course Reason for hospitalization: Chief complaint: A FLUTTER/CHF Narrative: Denise Motley is a 69 year old female who has a history of dementia and is very hard of hearing. The patient tells me that she went to her primary care doctor who discovered a fast heart rate. She was then referred to a network security analyst who is in put her on a Holter monitor. The patient believes she was just on it for 24 hours. The patient received a phone call from her network security analyst today stating that she needed to come to the emergency room. The patient stated that she has seen Dr. kitchen in the past however cannot see and office visit note. The patient is not having any symptoms. No chest pain or palpitations. No fever chills. The patient stated that she was around a group of people a 1 week ago and that her brother that she shook hands with her brother who was found to have COVID-19. This was 1 week ago. However the patient has not had any symptoms. No cough. Patient was found to have atrial flutter with a rapid response. Patient was given IV Cardizem and then started on a drip. She was given Lasix an Ativan as well. Her chest x-ray was read as cardiomegaly congestion. Cardiology consult has been placed. Patient's heart rate remains in the 140s. Blood pressure 127/71. The patient does not appear to be responding to the Cardizem. The patient is on metoprolol at home. Patient is a full admission. She is in IMU status in ICU. Date of service is 04/11/2020 Hospital Course: The patient is currently on a Cardizem drip. However her atrial flutter is not responding very well to the Cardizem drip. Cardiology has been consulted. Plans for a possible
== END 2020-04-13 16:34 | disposition home or self-care (01) | DRG 309 ==
LOC: ANHED 18:20 → ANHICU 23:04 → ANHIMU 04-12 15:42 → ANHICU 04-16 14:43 → ANHIMU 04-16 14:43
PROVIDERS: Emergency Medicine; Hospitalist; Internal Medicine Cardiovascular Disease; Nurse Practitioner; Admitting Provider Internal Medicine; Emergency Provider Emergency Medicine; PCP Family Medicine; Visit Provider Family Medicine
PROC: 5A2204Z Restoration of Cardiac Rhythm, Single (ICD-10-PCS; principal; 2020-04-12 16:00)
PROC: 5A2204Z Restoration of Cardiac Rhythm, Single (ICD-10-PCS; CPT 93312; 2020-04-12 16:00)
DX: I48.92 Unspecified atrial flutter (principal); J81.1 Chronic pulmonary edema; I47.1 Supraventricular tachycardia; Z20.828 Contact with and (suspected) exposure to other viral communicable diseases; Z23 Encounter for immunization; E78.5 Hyperlipidemia, unspecified; E03.9 Hypothyroidism, unspecified; F03.90 Unspecified dementia, unspecified severity, without behavioral disturbance, psychotic disturbance, mood disturbance, and anxiety; G25.81 Restless legs syndrome; F41.9 Anxiety disorder, unspecified; I10 Essential (primary) hypertension; Z96.651 Presence of right artificial knee joint; Z90.710 Acquired absence of both cervix and uterus; Z90.49 Acquired absence of other specified parts of digestive tract; Z90.81 Acquired absence of spleen
CPT/HCPCS: 36415; 71046; 80048; 80053; 82728; 83615; 83735; 83880; 84443; 84484; 85025; 85610; 85730; 87086; 87635; 90471; 90653; 92960; 93005; 93306; 93312; 93320; 93325; 93970; 96365; 99285; A9270; C9803; G0008; J1650; J1940; J2250; J3010; J7040; U0003

== ENCOUNTER 2020-10-24 14:29 | Observation (INO) | payer MEDICARE, MEDICAID, SELFPAY ==
--- NOTE | ~2020-10-24 | US_ITS ---
EXAMINATION: US venous doppler [facility] EXAM DATE: 10/24/2020 17:12 INDICATION: Bilateral leg pain and swelling. TECHNIQUE: Multiple grayscale, color flow and Doppler images of the lower extremity deep venous syste ms bilaterally were obtained and reviewed. There is no prior study for comparison. FINDINGS: Right side: The right common femoral, femoral and profunda veins demonstrate normal color flow, respi ratory variation, augmentation and compressibility. Compressibility, color flow confirmed within the right popliteal, posterior tibial, peroneal, and greater saphenous veins. Left side: The left common femoral, femoral and profunda veins demonstrate normal color flow, respira tory variation, augmentation and compressibility. Compressibility, color flow confirmed within the l eft popliteal, posterior tibial, peroneal, and greater saphenous veins. IMPRESSION: 1. No lower extremity deep venous thrombosis bilaterally. Reviewed, dictated and finalized at location A.
--- NOTE | ~2020-10-24 | XR_ITS ---
EXAMINATION: XR chest 2V DATE: 10/24/2020 15:23 INDICATION: Lower limb swelling TECHNIQUE: 05/01/2020 COMPARISON: None available FINDINGS: There is a mild diffuse interstitial pattern. There is no pleural effusion or pneumothorax. Cardiomegaly is noted. There is moderate thoracic spondylosis. Surgical clips in the right upper maximo drant are likely from prior cholecystectomy. IMPRESSION: 1. No acute cardiopulmonary abnormality. Reviewed, dictated and finalized at location A.
--- NOTE | 2020-10-24 15:04 | ECG_ITS ---
Measurements Intervals [place] Rate: 61 P: 58 MA: 231 QRS: 4 QRSD: 89 T: 27 QT: 398 QTc: 403 Interpretive Statements SINUS RHYTHM WITH FIRST DEGREE AV BLOCK ABNORMAL ECG Electronically Signed On 10-24-2020 15:15:05 CDT by Jarek Hall D.O.
[2020-10-24 15:05] VITALS: BP 149/78; PULSE 66; RESP 16; TEMP 36.6; O2SAT 98
[2020-10-24 15:24] LABS: Basophils Percent Auto 0.2 % (0.2-1.2); Hematocrit 40.3 % (37.0-47.0); Hemoglobin 13.6 g/dL (12.0-15.0); Immature Granulocyte Absolute 0.01 K/mm3 (0.00-0.031); Immature Granulocyte Percent A 0.2 % (0-0.5); Lymphocytes Absolute Auto 1.27 K/mm3 (0.9-3.2); Mean Corpuscular HGB Conc 33.7 g/dl (32-36); Mean Corpuscular Hemoglobin 32.6 pg (26-34); Mean Corpuscular Volume 96.6 fl (80-100); Mean Platelet Volume 9.3 fl (7.4-10.4); Monocytes Absolute Auto 0.6 K/mm3 (0.1-0.6); Monocytes Percent Auto 10.5 % (2.6-8.5); Neutrophils Absolute Auto 3.7 K/mm3 (1.3-6.7); Neutrophils Percent Auto 66.1 % (45.5-73.1); Platelet Count Result 261 k/mm3 (150-375); Red Blood Count 4.17 M/mm3 (4.2-5.4); Red Cell Distribution Width 12.3 % (11.5-14.5); White Blood Count 5.5 K/mm3 (4.5-10.0)
[2020-10-24 15:35] LABS: INR 1.1; Partial Thromboplastin Time 34.5 SECONDS (22.3-36.8); Prothrombin Time 14.9 Seconds (11.1-14.7)
[2020-10-24 15:36] LABS: Anion Gap 4 mmol/L (8-16); Blood Urea Nitrogen 18 mg/dL (7-17); Calcium 8.9 mg/dL (8.4-10.2); Carbon Dioxide 30 mmol/L (22-30); Chloride 94 mmol/L (98-107); Estimated CRCL calculation 60 ml/min; Estimated Glomerular Filt Rate > 60; Glucose 92 mg/dL (65-105); Potassium 4.3 mmol/L (3.4-5.0); Sodium 128 mmol/L (137-145)
[2020-10-24 15:48] LABS: NT Pro B Type Natriuretic Pept 873 pg/mL (5-100); Troponin I < 0.012 ng/mL (0.000-0.034)
--- NOTE | 2020-10-24 16:52 | PC.NURSE ---
pt to ultrasound
[2020-10-24] MEDS: SODIUM CHLORIDE 0.9% IV 1,000 ML 80 ML IV CONT (17:52)
[2020-10-24] MEDS: LORazepam INJ (*CRX) 2 MG/ML VIAL 0.5 MG IV PUSH (17:52)
[2020-10-24 18:00] LABS: Add Urine Microscopic? YES; Amorphous Sediment Urine Few; Appearance Urine Cloudy (Clear); Bilirubin Urine Negative (Negative); Blood Urine Negative (Negative); Color Urine Yellow (Yellow); Glucose Urine UA Negative (Negative); Ketones Urine Negative (Negative); Leukocyte Esterase Ur Negative LEU/UL (Negative); Mucus Urine Rare /lpf; Nitrate Urine Negative (Negative); Protein Urine Negative (Negative); RBC Urine 0-2 /hpf (0-2); Specific Grav Ur 1.018 (1.001-1.035); Squamous Epithelial Cell Urine Many /hpf (Few); Urobilinogen Urine Negative mg/dL (<2.0); WBC Urine 0-3 /hpf
--- NOTE | 2020-10-24 18:29 | ED.GENADULT ---
HPI - General Adult General Chief complaint: Extremity Problem,Nontraumatic <GISELL Tejada Last Filed: 10/24/20 18:34> Stated complaint: Swollen legs,difficulty standing up <GISELL Tejada Last Filed: 10/24/20 18:34> Time Seen by Provider: 10/24/20 16:04 <GISELL Tejada Last Filed: 10/24/20 18:34> Source: patient, RN notes reviewed and old records reviewed <GISELL Tejada Last Filed: 10/24/20 18:34> Mode of arrival: ambulatory <GISELL Tejada Last Filed: 10/24/20 18:34> Limitations: no limitations <GISELL Tejada Last Filed: 10/24/20 18:34> History of Present Illness HPI narrative: Patient is a 69-year-old female who presents with family for evaluation of leg pain and restlessness and weakness that was noticed today family does note that she was very ambulatory last night appeared to be uncomfortable and today was requesting to go to the hospital given leg pain. Patient on arrival notes aching pain to the bilateral lower extremities where she has history of chronic edema patient is on a water pill and family notes that she has been advised to increase water intake. Patient denies injury or trauma <GISELL Tejada Last Filed: 10/24/20 18:34> Related Data Home medications: Home Medications Medication Instructions Recorded Confirmed buspirone 10 mg PO BID 04/11/20 04/11/20 duloxetine 30 mg PO DAILY 04/11/20 04/11/20 furosemide 40 mg PO DAILY 04/11/20 04/11/20 levothyroxine 175 mcg PO QAM 04/11/20 04/11/20 lovastatin 20 mg PO HS 04/11/20 04/11/20 potassium chloride 20 meq PO DAILY 04/11/20 04/11/20 ropinirole 0.5 mg PO HS 04/11/20 04/11/20 <GISELL Tejada Last Filed: 10/24/20 18:34> Allergies/adverse reactions: Allergies Allergy/AdvReac Type Severity Reaction Status Date / Time No Known Allergies Allergy Verified 10/24/20 15:49 <Percy Duran PA-C - Last Filed: 10/24/20 18:34> Review of Systems Review of Systems: All systems reviewed & are unremarkable except as noted in HPI and below <Percy Duran PA-C - Last Filed: 10/24/20 18:34> [facility] Past Medical History Medical History: Medical History Anxiety Dementia Hyperlipidemia Hypertension Hypothyroid Localized edema Restless leg syndrome <Percy Duran PA-C - Last Filed: 10/24/20 18:34> Surgical History Surgical History: Surgical History H/O splenectomy H/O total hysterectomy History of right hip hemiarthroplasty History of right knee joint replacement Hx of cholecystectomy <Percy Duran PA-C - Last Filed: 10/24/20 18:34> Family History Family History: Family History Father Hypertension Sibling Hypertension <Percy Duran PA-C - Last Filed: 10/24/20 18:34> Social History Social History: Social History Social History: the patient stated that she is from her . The patient has a total of 4 children. Chayito Causey is her daughter who is the durable power make up operator for healthcare. The patient desires to be a full code. 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 the patient stated she has never smoked, used marijuana, or use illicit drugs. Smoking status: Never smoker Second hand tobacco smoke exposure: No Alcohol intake: unknown Substance use: unknown Gender identity (if verbalized by the patient): Female Spiritual care concerns: No <GISELL Tejada Last Filed: 10/24/20 18:34> Exam Narrative: Exam Narrative: GENERAL: Well-appearing, obese, and in no acute distress. HEAD: Normocephalic, atraumatic. EYES: PERRLA and EOMI. ENT: Nares clear, no rhinorrhea or epistaxis. Mucous membranes moist.
--- NOTE | 2020-10-24 18:45 | PC.NURSE ---
called lab to add on Phos MG, and BMP at 1844 -sravan tovar
[2020-10-24 19:01] LABS: Phosphorus 4.1 mg/dL (2.5-4.5)
[2020-10-24 19:43] VITALS: BP 143/51; PULSE 71; RESP 18; O2SAT 97
[2020-10-24 21:19] VITALS: BP 123/55; PULSE 66; RESP 20; TEMP 37; O2SAT 94; BMI 51.6
--- NOTE | 2020-10-24 21:19 | PC.NURSE ---
This patient, Denise Motley, was admitted to [facility] Surg Room 322-01 @1950. Patient/family oriented to hospital policies and general routines including ID bracelet, bed and alarms, visiting hours, pain management, procedures, bathroom and other care routines, personal items, smoking policy, room service/diet, and visiting hours. Information on how to activate the Rapid Response Team has been discussed. Patient/Family are encouraged to report perceived risks to care and to ask questions if they do not understand what they are told or what they should do.
[2020-10-24 21:38] VITALS: BP 123/55; PULSE 66; RESP 20; TEMP 37; O2SAT 94
[2020-10-24 22:33] LABS: Anion Gap 4 mmol/L (8-16); Blood Urea Nitrogen 16 mg/dL (7-17); Calcium 8.8 mg/dL (8.4-10.2); Carbon Dioxide 30 mmol/L (22-30); Chloride 96 mmol/L (98-107); Estimated CRCL calculation 54 ml/min; Estimated Glomerular Filt Rate 55; Glucose 109 mg/dL (65-105); Potassium 4.1 mmol/L (3.4-5.0); Sodium 130 mmol/L (137-145)
[2020-10-25] MEDS: LOVASTATIN 20 MG TABLET PO ×2 (00:22→20:57)
[2020-10-25] MEDS: rOPINIRole HCL 0.5 MG TABLET PO ×3 (00:22→20:56)
[2020-10-25] MEDS: APIXABAN 5 MG TABLET PO ×3 (00:22→20:56)
[2020-10-25 01:29] LABS: Sodium Urine Random 21 meq/L
[2020-10-25 02:32] LABS: Sodium 130 mmol/L (137-145)
[2020-10-25] MEDS: LEVOTHYROXINE SODIUM 75 MCG TABLET PO (05:53)
[2020-10-25] MEDS: LEVOTHYROXINE SODIUM 100 MCG TABLET PO (05:53)
[2020-10-25 06:00] VITALS: BP 122/56; PULSE 57; RESP 18; TEMP 37; O2SAT 96
[2020-10-25] MEDS: SODIUM CHLORIDE 0.9% IV 1,000 ML 80 ML IV CONT (06:00)
--- NOTE | 2020-10-25 06:05 | PM.IMHP ---
H&P: HPI History of Present Illness Date/Time: 10/25/20 05:30 Chief Complaint: Leg swelling and weakness Narrative: 69-year-old female with past medical history of dementia, hypothyroidism, CHF and restless leg syndrome who presented to the ER via private vehicle due to leg swelling and weakness for couple months. However it appears that the patient has chronic lower extremity swelling. On further questioning the patient tells me that her leg swelling goes down when she lays down at night. It seems like her lower extremity swelling is more chronic in nature. She has been evaluated by her primary care physician recently was told to increase her water intake. She reports that she has been drinking 6-8 8 oz glasses of water a day at home. She has continued to take her diuretic therapy. She denies any chest pain or shortness of breath. Her x-ray does not suggest evidence of acute CHF. The patient was admitted for CHF back in April at which time her BNP was 1800 in the ER BNP was 800. The patient has been having increasing leg discomfort but it sounds like her leg discomfort improves after she takes Requip and trazodone. Source of information is past medical records and patient report. The patient is poor to fair historian. Review of Systems Review of Systems: Narrative: 12 systems were reviewed with pertinent positives and negatives per HPI. Except as documented in the HPI, all other systems were reviewed and are negative. [facility] Past Medical History Medical History (Updated 10/25/20 @ 06:10 by Nicole Whaley DO) Anxiety Atrial flutter Dementia Hyperlipidemia Hypertension Hypothyroid Localized edema Restless leg syndrome Surgical History Surgical History H/O splenectomy H/O total hysterectomy History of right hip hemiarthroplasty History of right knee joint replacement Hx of cholecystectomy Family History Family History Father Hypertension Sibling Hypertension Social History Social History (Updated 10/25/20 @ 06:12 by Nicole Whaley DO) Social History: The patient stated that she is from her . The patient has a total of 4 children. Chayito Causey is her daughter who is the durable power banking attorney for healthcare. She lives with her daughter Chayito. The patient desires to be a full code. 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 the patient stated she has never smoked, used marijuana, or use illicit drugs. Smoking status: Never smoker Second hand tobacco smoke exposure: No Alcohol intake: never Substance use: never Gender identity (if verbalized by the patient): Female Spiritual care concerns: No Meds Home Medications and Allergies Home Medications Medication Instructions Recorded Confirmed Type buspirone 10 mg PO BID 04/11/20 10/24/20 History duloxetine 30 mg PO DAILY 04/11/20 10/24/20 History furosemide 40 mg PO DAILY 04/11/20 10/24/20 History levothyroxine 175 mcg PO QAM 04/11/20 10/24/20 History lovastatin 20 mg PO HS 04/11/20 10/24/20 History potassium chloride 20 meq PO DAILY 04/11/20 10/24/20 History ropinirole 0.5 mg PO HS 04/11/20 10/24/20 History apixaban [Eliquis] 5 mg PO Q12HR #60 tablet 04/13/20 10/24/20 Rx metoprolol succinate [Toprol XL] 100 mg PO QAM #30 tablet 04/13/20 10/24/20 Rx trazodone 100 mg tablet See Rx Instructions .ROUTE 10/07/20 10/24/20 Rx .COMPLEX #90 tablet Allergies Allergy/AdvReac Type Severity Reaction Status Date / Time No Known Allergies Allergy Verified 10/24/20 21:34 Vital Signs Vital Signs - 24 hr 10/24/20 15:05 10/24/20 19:43 10/24/20 21:19 Temperature 97.8 F 98.6 F Pulse Rate 66 71 66 Respiratory Rate 16 18 20 Blood Pressure 149/78 H 143/51 H 123/55 L Pulse Oximetry 98 97 94 10/24/20 21:38 Temperature 98.6 F Pulse Rate 66 Respiratory Rate 20 Blood Pressure 123/55 L P
[2020-10-25 06:06] LABS: Creatinine Urine 33.5 mg/dL
[2020-10-25 06:29] LABS: Basophils Percent Auto 0.2 % (0.2-1.2); Hematocrit 37.6 % (37.0-47.0); Hemoglobin 12.7 g/dL (12.0-15.0); Immature Granulocyte Absolute 0.01 K/mm3 (0.00-0.031); Immature Granulocyte Percent A 0.2 % (0-0.5); Lymphocytes Absolute Auto 1.35 K/mm3 (0.9-3.2); Lymphocytes Percent Auto 26.8 % (18.3-44.2); Mean Corpuscular HGB Conc 33.8 g/dl (32-36); Mean Corpuscular Volume 97.7 fl (80-100); Mean Platelet Volume 9.4 fl (7.4-10.4); Monocytes Absolute Auto 0.7 K/mm3 (0.1-0.6); Monocytes Percent Auto 12.9 % (2.6-8.5); Neutrophils Percent Auto 59.9 % (45.5-73.1); Platelet Count Result 256 k/mm3 (150-375); Red Blood Count 3.85 M/mm3 (4.2-5.4); Red Cell Distribution Width 12.2 % (11.5-14.5)
[2020-10-25 06:53] LABS: Alanine Aminotransferase 19 U/L (4-35); Albumin Level 3.3 g/dL (3.5-5.1); Alkaline Phosphatase 58 U/L (38-126); Anion Gap 4 mmol/L (8-16); Aspartate Amino Transferase 27 U/L (14-36); Bilirubin,Total 0.6 mg/dL (0.2-1.3); Blood Urea Nitrogen 15 mg/dL (7-17); Calcium 8.8 mg/dL (8.4-10.2); Carbon Dioxide 30 mmol/L (22-30); Chloride 97 mmol/L (98-107); Estimated CRCL calculation 60 ml/min; Estimated Glomerular Filt Rate > 60; Glucose 87 mg/dL (65-105); Potassium 4.1 mmol/L (3.4-5.0); Sodium 131 mmol/L (137-145)
[2020-10-25 09:04] VITALS: O2SAT 95
[2020-10-25] MEDS: DULoxetine HCL 30 MG CAPSULE.DR PO (09:25)
[2020-10-25] MEDS: busPIRone HCL 10 MG TABLET PO ×2 (09:25→17:08)
[2020-10-25] MEDS: POTASSIUM CHLORIDE 20 MEQ TABLET.ER PO (09:25)
[2020-10-25 09:26] VITALS: PULSE 63
[2020-10-25] MEDS: METOPROLOL SUCCINATE EXT REL 100 MG TABCR PO (09:26)
[2020-10-25 11:03] LABS: Sodium 130 mmol/L (137-145)
--- NOTE | 2020-10-25 13:55 | P.PNIM_ITS ---
Progress Note: A&P Assessment and Plan (1) Acute hyponatremia: Code(s): E87.1 - Hypo-osmolality and hyponatremia Status: Acute Assessment and Plan: * hyponatremia does not appear to be from Lasix as she is always on Lasix. * patient was following a very strict no sodium diet at home per [place] * plus patient was taking in 6-8 of 12-14 oz water tumblers per day. * placed her on sodium chloride 0.9% IV fluids of 50 mils an hour, down from 80ml/hr * changed her to a regular diet until her sodium level normalizes * ordered albumin IV Q4H overnight * consulted lymphedema/wound nurse for evaluation and treatment * ordered strict intake and output * ordered daily weights. * started 20 IV Lasix today, and if sodium level tolerates that Lasix dose, may increase to 40mg IV lasix tomorrow. * after discharge, continue to be managed by a Head Chopper Dr. Major on a close and frequent schedule to keep her BLE edema controlled and her CHF controlled. * continue check serial sodiums q.4 hours x3 and re-evaluate. Will also check serum osmolality. * TSH normal at 1.160 (2) Stasis edema of both lower extremities: Code(s): I87.303 - Chronic venous hypertension (idiopathic) without complications of bilateral lower extremity Status: Acute Assessment and Plan: * bilateral lower extremity edema is acute on chronic. * Patient also used to follow-up at the Wound lymphedema clinic for treatment and her lower extremity edema was more controlled. * Will order knee high [place] hose. * hyponatremia and increased free water at home is likely contributing . * daughter considering chcf placement for patient. * patient not elevating legs when possible * elevate lower extremities * daily weights * moss gatherer/PCP and/or patient needs real-time adjustment to Lasix dosing according to symptoms at that time * consulted lymphedema/wound nurse for evaluation and treatment * Control CHF and BLE edema * continue PT/OT to improve and MAINTAIN vascular health to BLE, especially venous return. (3) Restless leg syndrome: Code(s): G25.81 - Restless legs syndrome Status: Chronic Assessment and Plan: * The patient's symptoms of leg discomfort and restlessness seemed to be worsening. * chronic edema may conteribut, but lack of ambulation and activity do as well. * needs PT/OT eval and therapy to continue after discharge * Increased the patient's Requip to 0.5 mg q.12 hours on 10/24/20 * US venous doppler BLE = no DVT Additional Plan Patient has been admitted as observation status. Subjective Date/time seen: 10/25/20 13:55 Denise was quite talkative today. Her bilateral lower extremity edema is acute on chronic. She has hyponatremia, it does not appear to be from Lasix as she is always on Lasix. Her daughter was following a very strict no sodium diet AND patient was taking in 6-8 of 12-14 oz water tumblers per day. According to her daughter, the patient used to have Home Health PT and OT about 2 years ago and improved. Patient also used to follow-up at the Wound lymphedema clinic for treatment and her lower extremity edema was more controlled. I spoke with her daughter this evening, she stated that she may have to place her mother into a chcf as she is requiring 247 care. She stated that Denise has been getting up in the night, approximately every 2 or 3 hours, wandering around rooms and through the refrigerator. She stated that her mother said that her computer most of the day with her feet dangling on the ground. I explained how this could be contributing to her lo
--- NOTE | 2020-10-25 13:55 | PM.IMPN ---
Progress Note: A&P Assessment and Plan (1) Acute hyponatremia: Code(s): E87.1 - Hypo-osmolality and hyponatremia Status: Acute Assessment and Plan: hyponatremia does not appear to be from Lasix as she is always on Lasix. patient was following a very strict no sodium diet at home per [place] plus patient was taking in 6-8 of 12-14 oz water tumblers per day. placed her on sodium chloride 0.9% IV fluids of 50 mils an hour, down from 80ml/hr changed her to a regular diet until her sodium level normalizes ordered albumin IV Q4H overnight consulted lymphedema/wound nurse for evaluation and treatment ordered strict intake and output ordered daily weights. started 20 IV Lasix today, and if sodium level tolerates that Lasix dose, may increase to 40mg IV lasix tomorrow. after discharge, continue to be managed by a Hand Cooper Helper Dr. Major on a close and frequent schedule to keep her BLE edema controlled and her CHF controlled. continue check serial sodiums q.4 hours x3 and re-evaluate. Will also check serum osmolality. TSH normal at 1.160 (2) Stasis edema of both lower extremities: Code(s): I87.303 - Chronic venous hypertension (idiopathic) without complications of bilateral lower extremity Status: Acute Assessment and Plan: bilateral lower extremity edema is acute on chronic. Patient also used to follow-up at the Wound lymphedema clinic for treatment and her lower extremity edema was more controlled. Will order knee high [place] hose. hyponatremia and increased free water at home is likely contributing . daughter considering long term placement for patient. patient not elevating legs when possible elevate lower extremities daily weights electronic transaction implementer/PCP and/or patient needs real-time adjustment to Lasix dosing according to symptoms at that time consulted lymphedema/wound nurse for evaluation and treatment Control CHF and BLE edema continue PT/OT to improve and MAINTAIN vascular health to BLE, especially venous return. (3) Restless leg syndrome: Code(s): G25.81 - Restless legs syndrome Status: Chronic Assessment and Plan: The patient's symptoms of leg discomfort and restlessness seemed to be worsening. chronic edema may conteribut, but lack of ambulation and activity do as well. needs PT/OT eval and therapy to continue after discharge Increased the patient's Requip to 0.5 mg q.12 hours on 10/24/20 US venous doppler BLE = no DVT Additional Plan Patient has been admitted as observation status. Subjective Date/time seen: 10/25/20 13:55 Densie was quite talkative today. Her bilateral lower extremity edema is acute on chronic. She has hyponatremia, it does not appear to be from Lasix as she is always on Lasix. Her daughter was following a very strict no sodium diet AND patient was taking in 6-8 of 12-14 oz water tumblers per day. According to her daughter, the patient used to have Home Health PT and OT about 2 years ago and improved. Patient also used to follow-up at the Wound lymphedema clinic for treatment and her lower extremity edema was more controlled. I spoke with her daughter this evening, she stated that she may have to place her mother into a long term as she is requiring 247 care. She stated that Denise has been getting up in the night, approximately every 2 or 3 hours, wandering around rooms and through the refrigerator. She stated that her mother said that her computer most of the day with her feet dangling on the ground. I explained how this could be contributing to her lower extremity edema. I instructed the patient and her dauther that she should elevated legs at all times when not ambulating, placed her on sodium chloride 0.9% IV fluids of 50 mils an hour, changed her to a regular diet until her sodium level normalizes, ordered albumin IV Q4H overnight, consulted lymphedema/wound nurse for evaluation and treatment, ordered s
[2020-10-25 14:00] VITALS: BP 122/59; PULSE 59; RESP 20; TEMP 37; O2SAT 99
[2020-10-25 18:20] LABS: Sodium 130 mmol/L (137-145)
[2020-10-25] MEDS: SODIUM CHLORIDE 0.9% IV 1,000 ML 50 ML IV CONT (18:37)
[2020-10-25] MEDS: ALBUMIN HUMAN 25% 12.5 GM/50ML 50 ML IVPB ×2 (18:44→23:50)
[2020-10-25] MEDS: FUROSEMIDE INJ 40 MG/4 ML VIAL 20 MG IV PUSH (18:56)
[2020-10-25 22:00] VITALS: BP 133/59; PULSE 57; RESP 16; TEMP 36.4; O2SAT 97
[2020-10-26 06:00] VITALS: BP 142/63; PULSE 72; RESP 18; TEMP 36.2; O2SAT 100
[2020-10-26] MEDS: ALBUMIN HUMAN 25% 12.5 GM/50ML 50 ML IVPB ×2 (06:08→07:59)
[2020-10-26] MEDS: LEVOTHYROXINE SODIUM 100 MCG TABLET PO (06:09)
[2020-10-26] MEDS: LEVOTHYROXINE SODIUM 75 MCG TABLET PO (06:10)
[2020-10-26] MEDS: FUROSEMIDE INJ 40 MG/4 ML VIAL 20 MG IV PUSH (07:58)
[2020-10-26] MEDS: busPIRone HCL 10 MG TABLET PO ×2 (07:59→18:02)
[2020-10-26] MEDS: DULoxetine HCL 30 MG CAPSULE.DR PO (07:59)
[2020-10-26] MEDS: rOPINIRole HCL 0.5 MG TABLET PO ×2 (07:59→20:41)
[2020-10-26] MEDS: APIXABAN 5 MG TABLET PO ×2 (07:59→20:40)
[2020-10-26] MEDS: POTASSIUM CHLORIDE 20 MEQ TABLET.ER PO (07:59)
[2020-10-26 08:03] VITALS: PULSE 80
[2020-10-26] MEDS: METOPROLOL SUCCINATE EXT REL 100 MG TABCR PO (08:03)
[2020-10-26 08:04] LABS: Hematocrit 37.9 % (37.0-47.0); Hemoglobin 12.5 g/dL (12.0-15.0); Mean Corpuscular Hemoglobin 32.4 pg (26-34); Mean Corpuscular Volume 98.2 fl (80-100); Mean Platelet Volume 9.8 fl (7.4-10.4); Platelet Count Result 257 k/mm3 (150-375); Red Blood Count 3.86 M/mm3 (4.2-5.4); Red Cell Distribution Width 12.6 % (11.5-14.5); White Blood Count 4.2 K/mm3 (4.5-10.0)
[2020-10-26 08:17] LABS: Anion Gap 2 mmol/L (8-16); Blood Urea Nitrogen 19 mg/dL (7-17); Calcium 8.8 mg/dL (8.4-10.2); Carbon Dioxide 31 mmol/L (22-30); Chloride 99 mmol/L (98-107); Estimated CRCL calculation 63 ml/min; Estimated Glomerular Filt Rate > 60; Glucose 124 mg/dL (65-105); Potassium 4.1 mmol/L (3.4-5.0); Sodium 132 mmol/L (137-145)
[2020-10-26 08:25] LABS: NT Pro B Type Natriuretic Pept 1140 pg/mL (5-100)
--- NOTE | 2020-10-26 12:47 | P.PNIM_ITS ---
Progress Note: A&P Assessment and Plan (1) Acute hyponatremia: Code(s): E87.1 - Hypo-osmolality and hyponatremia Status: Acute Assessment and Plan: * hyponatremia does not appear to be from Lasix as she is always on Lasix. * patient was following a very strict no sodium diet at home per [place] * plus patient was taking in 6-8 of 12-14 oz water tumblers per day. * placed her on sodium chloride 0.9% IV fluids of 50 mils an hour, down from 80ml/hr * changed her to a regular diet until her sodium level normalizes * ordered albumin IV Q4H overnight * consulted lymphedema/wound nurse for evaluation and treatment * ordered strict intake and output * ordered daily weights. * started 20 IV Lasix * TSH normal at 1.160 * Continue to diuresis DC tomorrow (2) Stasis edema of both lower extremities: Code(s): I87.303 - Chronic venous hypertension (idiopathic) without complications of bilateral lower extremity Status: Acute Assessment and Plan: * bilateral lower extremity edema is acute on chronic. * Patient also used to follow-up at the Wound lymphedema clinic for treatment and her lower extremity edema was more controlled. * Will order knee high [place] hose. * hyponatremia and increased free water at home is likely contributing . * Control CHF and BLE edema * continue PT/OT to improve and MAINTAIN vascular health to BLE, especially venous return. (3) Restless leg syndrome: Code(s): G25.81 - Restless legs syndrome Status: Chronic Assessment and Plan: * The patient's symptoms of leg discomfort and restlessness seemed to be worsening. * US venous doppler BLE = no DVT Additional Plan Patient has been admitted as observation status. Subjective Date/time seen: 10/26/20 12:47 Review of Systems Review of Systems: All systems reviewed & are unremarkable except as noted in HPI and below Exam Narrative: Exam Narrative: HEENT: Mucous membranes are moist Respiratory: Clear to auscultation bilaterally Cardiovascular: Regular rate, regular rhythm, 2+ bilateral radial pedal pulses Gastrointestinal: Soft, nontender, obese, positive bowel sounds, no distension Skin: Chronic venous stasis dermatitis with bilateral lower extremity erythema Neurological: Alert oriented x3 but poor historian, speech is clear, very hard of hearing overall, [place] in the left ear, principal java developer strength is 5/5 bilaterally, no localizing neurologic deficits noted on limited exam Psychiatric: Appropriate mood and affect, pleasant and cooperative : Deferred, denies constipation Hematologic/lymphatic: No petechiae, no bruising Objective Data Vital Signs Vital Signs: Vital Signs - 24 hr 10/25/20 14:00 10/25/20 22:00 10/26/20 06:00 Temperature 37.0 C 36.4 C L 36.2 C L Pulse Rate 59 L 57 L 72 Respiratory Rate 20 16 18 Blood Pressure 122/59 L 133/59 L 142/63 H Pulse Oximetry 99 97 100 10/26/20 08:03 Temperature Pulse Rate 80 Respiratory Rate Blood Pressure Pulse Oximetry Intake/Output Intake/Output: Intake & Output 10/23/20 10/24/20 10/25/20 10/26/20 23:59 23:59 23:59 23:59 Intake Total 100 1925 960 Output Total 700 3200 Balance 100 1225 -2240 Meds/Results Medications: Active Medications G
--- NOTE | 2020-10-26 12:47 | PM.IMPN ---
Progress Note: A&P Assessment and Plan (1) Acute hyponatremia: Code(s): E87.1 - Hypo-osmolality and hyponatremia Status: Acute Assessment and Plan: hyponatremia does not appear to be from Lasix as she is always on Lasix. patient was following a very strict no sodium diet at home per [place] plus patient was taking in 6-8 of 12-14 oz water tumblers per day. placed her on sodium chloride 0.9% IV fluids of 50 mils an hour, down from 80ml/hr changed her to a regular diet until her sodium level normalizes ordered albumin IV Q4H overnight consulted lymphedema/wound nurse for evaluation and treatment ordered strict intake and output ordered daily weights. started 20 IV Lasix TSH normal at 1.160 Continue to diuresis DC tomorrow (2) Stasis edema of both lower extremities: Code(s): I87.303 - Chronic venous hypertension (idiopathic) without complications of bilateral lower extremity Status: Acute Assessment and Plan: bilateral lower extremity edema is acute on chronic. Patient also used to follow-up at the Wound lymphedema clinic for treatment and her lower extremity edema was more controlled. Will order knee high [place] hose. hyponatremia and increased free water at home is likely contributing . Control CHF and BLE edema continue PT/OT to improve and MAINTAIN vascular health to BLE, especially venous return. (3) Restless leg syndrome: Code(s): G25.81 - Restless legs syndrome Status: Chronic Assessment and Plan: The patient's symptoms of leg discomfort and restlessness seemed to be worsening. US venous doppler BLE = no DVT Additional Plan Patient has been admitted as observation status. Subjective Date/time seen: 10/26/20 12:47 Review of Systems Review of Systems: All systems reviewed & are unremarkable except as noted in HPI and below Exam Narrative: Exam Narrative: HEENT: Mucous membranes are moist Respiratory: Clear to auscultation bilaterally Cardiovascular: Regular rate, regular rhythm, 2+ bilateral radial pedal pulses Gastrointestinal: Soft, nontender, obese, positive bowel sounds, no distension Skin: Chronic venous stasis dermatitis with bilateral lower extremity erythema Neurological: Alert oriented x3 but poor historian, speech is clear, very hard of hearing overall, [place] in the left ear, packaging tech strength is 5/5 bilaterally, no localizing neurologic deficits noted on limited exam Psychiatric: Appropriate mood and affect, pleasant and cooperative : Deferred, denies constipation Hematologic/lymphatic: No petechiae, no bruising Objective Data Vital Signs Vital Signs: Vital Signs - 24 hr 10/25/20 14:00 10/25/20 22:00 10/26/20 06:00 Temperature 37.0 C 36.4 C L 36.2 C L Pulse Rate 59 L 57 L 72 Respiratory Rate 20 16 18 Blood Pressure 122/59 L 133/59 L 142/63 H Pulse Oximetry 99 97 100 10/26/20 08:03 Temperature Pulse Rate 80 Respiratory Rate Blood Pressure Pulse Oximetry Intake/Output Intake/Output: Intake & Output 10/23/20 10/24/20 10/25/20 10/26/20 23:59 23:59 23:59 23:59 Intake Total 100 1925 960 Output Total 700 3200 Balance 100 1225 -2240 Meds/Results Medications: Active Medications Generic Name Dose Route Start Last Admin Trade Name Freq PRN Reason Stop Dose Admin Acetaminophen 650 mg 10/24/20 18:35 Acetaminophen 325 Mg Tablet PO Q4H PRN Mild Pain (1-3) Apixaban 5 mg 10/24/20 23:25 10/26/20 07:59 Apixaban 5 Mg Tablet PO 5 mg Q12HR RAOUL Administration Buspirone HCl 10 mg 10/25/20 09:00 10/26/20 07:59 Buspirone Hcl 10 Mg Tablet PO 10 mg BID RAOUL Administration Duloxetine HCl 30 mg 10/25/20 09:00 10/26/20 07:59 Duloxetine Hcl 30 Mg Capsule.Dr PO 30 mg DAILY RAOUL Administration Furosemide 20 mg 10/26/20 09:00 10/26/20 07:58 Furosemide Inj 40 Mg/4 Ml Vial IV PUSH 20 mg DAILY RAOUL Administration Sodium Chloride 1,0
[2020-10-26 14:00] VITALS: BP 125/54; PULSE 74; RESP 18; TEMP 36.1; O2SAT 95
[2020-10-26 16:08] VITALS: PULSE 84; O2SAT 95
[2020-10-26] MEDS: SODIUM CHLORIDE 0.9% IV 1,000 ML 50 ML IV CONT (20:38)
[2020-10-26] MEDS: LOVASTATIN 20 MG TABLET PO (20:40)
[2020-10-26 22:00] VITALS: BP 134/59; PULSE 55; RESP 18; TEMP 36.2; O2SAT 95
[2020-10-27 06:00] VITALS: BP 137/50; PULSE 57; RESP 16; TEMP 36.6; O2SAT 96
[2020-10-27] MEDS: LEVOTHYROXINE SODIUM 100 MCG TABLET PO (06:08)
[2020-10-27] MEDS: LEVOTHYROXINE SODIUM 75 MCG TABLET PO (06:08)
[2020-10-27 06:36] LABS: Anion Gap 3 mmol/L (8-16); Blood Urea Nitrogen 20 mg/dL (7-17); Calcium 8.7 mg/dL (8.4-10.2); Carbon Dioxide 29 mmol/L (22-30); Chloride 99 mmol/L (98-107); Estimated CRCL calculation 57 ml/min; Estimated Glomerular Filt Rate > 60; Glucose 90 mg/dL (65-105); Potassium 4.1 mmol/L (3.4-5.0); Sodium 131 mmol/L (137-145)
[2020-10-27 08:40] VITALS: PULSE 60
[2020-10-27] MEDS: METOPROLOL SUCCINATE EXT REL 100 MG TABCR PO (08:40)
[2020-10-27] MEDS: APIXABAN 5 MG TABLET PO ×2 (08:41→22:40)
[2020-10-27] MEDS: FUROSEMIDE INJ 40 MG/4 ML VIAL 20 MG IV PUSH (08:41)
[2020-10-27] MEDS: busPIRone HCL 10 MG TABLET PO ×2 (08:41→17:28)
[2020-10-27] MEDS: rOPINIRole HCL 0.5 MG TABLET PO ×2 (08:41→22:41)
[2020-10-27] MEDS: POTASSIUM CHLORIDE 20 MEQ TABLET.ER PO (08:41)
[2020-10-27] MEDS: DULoxetine HCL 30 MG CAPSULE.DR PO (08:41)
--- NOTE | 2020-10-27 13:40 | P.PNIM_ITS ---
Progress Note: A&P Assessment and Plan (1) Acute hyponatremia: Code(s): E87.1 - Hypo-osmolality and hyponatremia Status: Acute Assessment and Plan: * hyponatremia does not appear to be from Lasix as she is always on Lasix. * patient was following a very strict no sodium diet at home per [place] * plus patient was taking in 6-8 of 12-14 oz water tumblers per day. * placed her on sodium chloride 0.9% IV fluids of 50 mils an hour, down from 80ml/hr * changed her to a regular diet until her sodium level normalizes * ordered albumin IV Q4H overnight * consulted lymphedema/wound nurse for evaluation and treatment * ordered strict intake and output * ordered daily weights. * started 20 IV Lasix * TSH normal at 1.160 * Continue to diuresis DC wednesday * sodium is 131 (2) Stasis edema of both lower extremities: Code(s): I87.303 - Chronic venous hypertension (idiopathic) without complications of bilateral lower extremity Status: Acute Assessment and Plan: * bilateral lower extremity edema is acute on chronic. * Patient also used to follow-up at the Wound lymphedema clinic for treatment and her lower extremity edema was more controlled. * Will order knee high [place] hose. * hyponatremia and increased free water at home is likely contributing . * Control CHF and BLE edema * continue PT/OT to improve and MAINTAIN vascular health to BLE, especially venous return. (3) Restless leg syndrome: Code(s): G25.81 - Restless legs syndrome Status: Chronic Assessment and Plan: * The patient's symptoms of leg discomfort and restlessness seemed to be worsening. * US venous doppler BLE = no DVT Subjective Date/time seen: 10/27/20 13:40 Interval history: 69-year-old female with past medical history of dementia, hypothyroidism, CHF and restless leg syndrome who presented to the ER via private vehicle due to leg swelling and weakness for couple months. legs are still swollen. pt is not confused but is [place]. 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 infrastructure 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 strength is 5/5 bilaterally, no localizing neurologic deficits noted on limited exam Psychiatric: Appropriate mood and affect, pleasant and cooperative : Deferred, denies constipation Hematologic/lymphatic: No petechiae, no bruising Objective Data Vital Signs Vital Signs: Vital Signs - 24 hr 10/26/20 14:00 10/26/20 16:08 10/26/20 22:00 Temperature 36.1 C L 36.2 C L Pulse Rate 74 84 55 L Respiratory Rate 18 18 Blood Pressure 125/54 L 134/59 L Pulse Oximetry 95 95 95 10/27/20 06:00 10/27/20 08:40 Temperature 36.6 C Pulse Rate 57 L 60 Respiratory Rate 16 Blood Pressure 137/50 L Pulse Oximetry 96 Intake/Output Intake/Output: Intake & Output 10/24/20 10/25/20 10/26/20 10/27/20
--- NOTE | 2020-10-27 13:40 | PM.IMPN ---
Progress Note: A&P Assessment and Plan (1) Acute hyponatremia: Code(s): E87.1 - Hypo-osmolality and hyponatremia Status: Acute Assessment and Plan: hyponatremia does not appear to be from Lasix as she is always on Lasix. patient was following a very strict no sodium diet at home per [place] plus patient was taking in 6-8 of 12-14 oz water tumblers per day. placed her on sodium chloride 0.9% IV fluids of 50 mils an hour, down from 80ml/hr changed her to a regular diet until her sodium level normalizes ordered albumin IV Q4H overnight consulted lymphedema/wound nurse for evaluation and treatment ordered strict intake and output ordered daily weights. started 20 IV Lasix TSH normal at 1.160 Continue to diuresis DC wednesday sodium is 131 (2) Stasis edema of both lower extremities: Code(s): I87.303 - Chronic venous hypertension (idiopathic) without complications of bilateral lower extremity Status: Acute Assessment and Plan: bilateral lower extremity edema is acute on chronic. Patient also used to follow-up at the Wound lymphedema clinic for treatment and her lower extremity edema was more controlled. Will order knee high [place] hose. hyponatremia and increased free water at home is likely contributing . Control CHF and BLE edema continue PT/OT to improve and MAINTAIN vascular health to BLE, especially venous return. (3) Restless leg syndrome: Code(s): G25.81 - Restless legs syndrome Status: Chronic Assessment and Plan: The patient's symptoms of leg discomfort and restlessness seemed to be worsening. US venous doppler BLE = no DVT Subjective Date/time seen: 10/27/20 13:40 Interval history: 69-year-old female with past medical history of dementia, hypothyroidism, CHF and restless leg syndrome who presented to the ER via private vehicle due to leg swelling and weakness for couple months. legs are still swollen. pt is not confused but is [place]. Review of Systems Review of Systems: All systems reviewed & are unremarkable except as noted in HPI and below Exam Narrative: Exam Narrative: HEENT: Mucous membranes are moist Respiratory: Clear to auscultation bilaterally Cardiovascular: Regular rate, regular rhythm, 2+ bilateral radial pedal pulses Gastrointestinal: Soft, nontender, obese, positive bowel sounds, no distension Skin: Chronic venous stasis dermatitis with bilateral lower extremity erythema Neurological: Alert oriented x3 but poor historian, speech is clear, very hard of hearing overall, [place] in the left ear, clearance diver strength is 5/5 bilaterally, no localizing neurologic deficits noted on limited exam Psychiatric: Appropriate mood and affect, pleasant and cooperative : Deferred, denies constipation Hematologic/lymphatic: No petechiae, no bruising Objective Data Vital Signs Vital Signs: Vital Signs - 24 hr 10/26/20 14:00 10/26/20 16:08 10/26/20 22:00 Temperature 36.1 C L 36.2 C L Pulse Rate 74 84 55 L Respiratory Rate 18 18 Blood Pressure 125/54 L 134/59 L Pulse Oximetry 95 95 95 10/27/20 06:00 10/27/20 08:40 Temperature 36.6 C Pulse Rate 57 L 60 Respiratory Rate 16 Blood Pressure 137/50 L Pulse Oximetry 96 Intake/Output Intake/Output: Intake & Output 10/24/20 10/25/20 10/26/20 10/27/20 23:59 23:59 23:59 23:59 Intake Total 100 1925 3420 980 Output Total 700 5200 550 Balance 100 1225 -1780 430 Meds/Results Medications: Active Medications Generic Name Dose Route Start Last Admin Trade Name Freq PRN Reason Stop Dose Admin Acetaminophen 650 mg 10/24/20 18:35 Acetaminophen 325 Mg Tablet PO Q4H PRN Mild Pain (1-3) Apixaban 5 mg 10/24/20 23:25 10/27/20 08:41 Apixaban 5 Mg Tablet PO 5 mg Q12HR RAOUL Administration Buspirone HCl 10 mg 10/25/20 09:00 10/27/20 08:41 Buspirone Hcl 10 Mg Tablet PO 10 mg BID RAOUL Administration Duloxetine HCl 30 mg 10/25
[2020-10-27 14:00] VITALS: BP 124/55; PULSE 62; RESP 16; TEMP 36.7; O2SAT 97
[2020-10-27] MEDS: SODIUM CHLORIDE 0.9% IV 1,000 ML 50 ML IV CONT (17:30)
[2020-10-27 21:10] VITALS: PULSE 56; RESP 18; O2SAT 94
[2020-10-27 21:39] VITALS: BP 126/60; PULSE 56; RESP 18; TEMP 37.1; O2SAT 94
[2020-10-27] MEDS: LOVASTATIN 20 MG TABLET PO (22:40)
[2020-10-28 05:17] LABS: Osmolality, Urine 203 mOsm/kg (50-1200)
[2020-10-28 06:00] VITALS: BP 148/74; PULSE 68; RESP 22; TEMP 36.3; O2SAT 96
[2020-10-28] MEDS: LEVOTHYROXINE SODIUM 75 MCG TABLET PO (06:11)
[2020-10-28] MEDS: LEVOTHYROXINE SODIUM 100 MCG TABLET PO (06:43)
[2020-10-28] MEDS: FUROSEMIDE INJ 40 MG/4 ML VIAL 20 MG IV PUSH (08:11)
[2020-10-28] MEDS: POTASSIUM CHLORIDE 20 MEQ TABLET.ER PO (08:12)
[2020-10-28] MEDS: rOPINIRole HCL 0.5 MG TABLET PO (08:12)
[2020-10-28] MEDS: DULoxetine HCL 30 MG CAPSULE.DR PO (08:12)
[2020-10-28] MEDS: busPIRone HCL 10 MG TABLET PO (08:12)
[2020-10-28 08:13] VITALS: PULSE 63
[2020-10-28] MEDS: APIXABAN 5 MG TABLET PO (08:13)
[2020-10-28] MEDS: METOPROLOL SUCCINATE EXT REL 100 MG TABCR PO (08:13)
[2020-10-28 14:00] VITALS: BP 135/64; PULSE 62; RESP 20; TEMP 36.9; O2SAT 94
--- NOTE | 2020-10-28 14:45 | P.DS_ITS ---
DS: Admitting Diagnosis Admitting Diagnosis Admitting Diagnosis: Leg swelling and weakness DS: Discharge Diagnosis Discharge Diagnosis (1) Acute hyponatremia: Code(s): E87.1 - Hypo-osmolality and hyponatremia Status: Acute Assessment and Plan: * hyponatremia does not appear to be from Lasix a * patient was following a very strict no sodium diet at home per hermilother * plus patient was taking in 6-8 of 12-14 oz water tumblers per day. * placed her on sodium chloride 0.9% IV fluids of 50 mils an hour, down from 80ml/hr * changed her to a regular diet until her sodium level normalizes * sodium is better pt ready for discharge * consulted lymphedema/wound nurse for evaluation and treatment * Pt can take regular diet not heart healthy * TSH normal at 1.160 (2) Stasis edema of both lower extremities: Code(s): I87.303 - Chronic venous hypertension (idiopathic) without complications of bilateral lower extremity Status: Acute Assessment and Plan: * bilateral lower extremity edema is acute on chronic. * Patient also used to follow-up at the [facility] for treatment and her lower extremity edema was more controlled. * Will order knee high [place] hose. * hyponatremia and increased free water at home is likely contributing . * Control CHF and BLE edema * continue PT/OT to improve and MAINTAIN vascular health to BLE, especially venous return. (3) Restless leg syndrome: Code(s): G25.81 - Restless legs syndrome Status: Chronic Assessment and Plan: * The patient's symptoms of leg discomfort and restlessness seemed to be worsening. * US venous doppler BLE = no DVT DS: Summary Hospital Course Hospital Course: 69-year-old female with past medical history of dementia, hypothyroidism, CHF and restless leg syndrome who presented to the ER via private vehicle due to leg swelling and weakness for couple months. legs are not swollen. pt is not confused but is [place]. Time Spent with Patient Time attestation: Total time spent providing and/or coordinating discharge services:40 minutes on day of discharge Exam Narrative: Exam Narrative: HEENT: Mucous membranes are moist Respiratory: Clear to auscultation bilaterally Cardiovascular: Regular rate, regular rhythm, 2+ bilateral radial pedal pulses Gastrointestinal: Soft, nontender, obese, positive bowel sounds, no distension Skin: Chronic venous stasis dermatitis with bilateral lower extremity erythema, not much swelling presently Neurological: Alert oriented x3 but poor historian, speech is clear, very hard of hearing overall, [place] in the left ear, 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, no localizing neurologic deficits noted on limited exam Psychiatric: Appropriate mood and affect, pleasant and cooperative : Deferred, denies constipation Hematologic/lymphatic: No petechiae, no bruising Neuro: Cranial nerves: No Normal hearing present (very hard of hearing) DS: Data Data Completed and Pending Labs on day of discharge: Labs from last 24 hours 10/25/20 00:21 Urine Osmolality 203 Discharge Plan Discharge Attending physician on discharge: Deidra Burgess Consulting providers: Percy Duran Discharging Clinician: Deidra Burgess Anticipated Discharge Date/Time: 10/28/20 14:44 Patient Disposition: Home, Self-Care Activity: as tolerated Diet: regular Discharge Instructions: If patien
--- NOTE | 2020-10-28 14:45 | PM.DS ---
DS: Admitting Diagnosis Admitting Diagnosis Admitting Diagnosis: Leg swelling and weakness DS: Discharge Diagnosis Discharge Diagnosis (1) Acute hyponatremia: Code(s): E87.1 - Hypo-osmolality and hyponatremia Status: Acute Assessment and Plan: hyponatremia does not appear to be from Lasix a patient was following a very strict no sodium diet at home per [place] plus patient was taking in 6-8 of 12-14 oz water tumblers per day. placed her on sodium chloride 0.9% IV fluids of 50 mils an hour, down from 80ml/hr changed her to a regular diet until her sodium level normalizes sodium is better pt ready for discharge consulted lymphedema/wound nurse for evaluation and treatment Pt can take regular diet not heart healthy TSH normal at 1.160 (2) Stasis edema of both lower extremities: Code(s): I87.303 - Chronic venous hypertension (idiopathic) without complications of bilateral lower extremity Status: Acute Assessment and Plan: bilateral lower extremity edema is acute on chronic. Patient also used to follow-up at the [facility]ema clinic for treatment and her lower extremity edema was more controlled. Will order knee high [place] hose. hyponatremia and increased free water at home is likely contributing . Control CHF and BLE edema continue PT/OT to improve and MAINTAIN vascular health to BLE, especially venous return. (3) Restless leg syndrome: Code(s): G25.81 - Restless legs syndrome Status: Chronic Assessment and Plan: The patient's symptoms of leg discomfort and restlessness seemed to be worsening. US venous doppler BLE = no DVT DS: Summary Hospital Course Hospital Course: 69-year-old female with past medical history of dementia, hypothyroidism, CHF and restless leg syndrome who presented to the ER via private vehicle due to leg swelling and weakness for couple months. legs are not swollen. pt is not confused but is [place]. Time Spent with Patient Time attestation: Total time spent providing and/or coordinating discharge services:40 minutes on day of discharge Exam Narrative: Exam Narrative: HEENT: Mucous membranes are moist Respiratory: Clear to auscultation bilaterally Cardiovascular: Regular rate, regular rhythm, 2+ bilateral radial pedal pulses Gastrointestinal: Soft, nontender, obese, positive bowel sounds, no distension Skin: Chronic venous stasis dermatitis with bilateral lower extremity erythema, not much swelling presently Neurological: Alert oriented x3 but poor historian, speech is clear, very hard of hearing overall, [place] in the left ear, 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, no localizing neurologic deficits noted on limited exam Psychiatric: Appropriate mood and affect, pleasant and cooperative : Deferred, denies constipation Hematologic/lymphatic: No petechiae, no bruising Neuro: Cranial nerves: No Normal hearing present (very hard of hearing) DS: Data Data Completed and Pending Labs on day of discharge: Labs from last 24 hours 10/25/20 00:21 Urine Osmolality 203 Discharge Plan Discharge Attending physician on discharge: Deidra Burgess Consulting providers: Percy Duran Discharging Clinician: Deidra Burgess Anticipated Discharge Date/Time: 10/28/20 14:44 Patient Disposition: Home, Self-Care Activity: as tolerated Diet: regular Discharge Instructions: If patient needs outpatient services for her lypmhedema, her Primary care provider can refer [facility]. Phone number is [phone]. Patient Instructions: Antibiotic Form, Apixaban (By mouth), Heart Failure (GEN), Hyponatremia (GEN), Blood Thinners (DC) Stand Alone Forms: General Discharge Information Follow-up/Referrals: Madisyn,Adriana Ibarra MD [Primary Care Provider] - Discharge Medications: Continued furosemide 40 mg tablet 40 mg PO DAILY RF: 0 levothyroxine 17
== END 2020-10-28 16:15 | disposition home or self-care (01) ==
LOC: ANHED 18:34 → ANH3MEDSUR 18:52
PROVIDERS: Emergency Medicine; Emergency Medicine Emergency Medical Services; Internal Medicine; Nurse Practitioner; Admitting Provider Family Medicine; Emergency Provider General Practice; PCP Family Medicine; Visit Provider Nurse Practitioner
DX: E87.1 Hypo-osmolality and hyponatremia (principal); I87.303 Chronic venous hypertension (idiopathic) without complications of bilateral lower extremity; G25.81 Restless legs syndrome; M79.662 Pain in left lower leg; M79.661 Pain in right lower leg; I10 Essential (primary) hypertension; E78.5 Hyperlipidemia, unspecified; I48.92 Unspecified atrial flutter; F03.90 Unspecified dementia, unspecified severity, without behavioral disturbance, psychotic disturbance, mood disturbance, and anxiety; E03.9 Hypothyroidism, unspecified; F41.9 Anxiety disorder, unspecified; Z79.01 Long term (current) use of anticoagulants
CPT/HCPCS: 36415; 71046; 80048; 80053; 81001; 82570; 83735; 83880; 83935; 84100; 84295; 84300; 84443; 84484; 85025; 85027; 85610; 85730; 93005; 93970; 96361; 96365; 96366; 96367; 96375; 96376; 99285; A9270; G0378; J0131; J1940; J2060; J7030; P9047

== ENCOUNTER 2020-11-27 16:29 | Inpatient (IN) | payer MEDICARE, MEDICAID, SELFPAY ==
[2020-11-27] VITALS (9 sets, daily range): BP systolic 94–125; BP diastolic 55–91; PULSE 84–168; RESP 16–20; TEMP 36.3–36.4; O2SAT 86–99; BMI 43.8
--- NOTE | ~2020-11-27 | US_ITS ---
EXAMINATION: US renal BI DATE: 11/28/2020 10:59 INDICATION: Acute kidney injury TECHNIQUE: Multiple grayscale and Doppler ultrasound images of the kidneys were obtained. COMPARISON: None. FINDINGS: The right kidney measures 8.5 x 4.2 x 4.7 cm. There is a 2.2 x 1.6 x 1.8 cm anechoic lesion with thin septation, posterior enhancement, and no internal vascularity of the right kidney. The lef t kidney measures 9.4 x 5.3 x 4.6 cm. The kidneys demonstrate normal parenchymal echogenicity. There is no hydronephrosis. The bladder is empty and not visualized. IMPRESSION: 1. Bilateral renal atrophy. Reviewed, dictated and finalized at location A. IMPRESSION: 1. Bilateral renal atrophy.
--- NOTE | ~2020-11-27 | XR_ITS ---
EXAMINATION: XR chest 2V DATE: 11/27/2020 17:14 INDICATION: Cough. TECHNIQUE: Frontal and lateral views of the chest were obtained. COMPARISON: Chest 2 views 10/24/2020, CT abdomen and pelvis 07/18/2014 FINDINGS: There is no pneumonia, pleural effusion, or pneumothorax. Cardiomegaly is noted. There are surgical clips in the abdomen. IMPRESSION: 1. Cardiomegaly. Reviewed, dictated and finalized at location A. IMPRESSION: 1. Cardiomegaly.
--- NOTE | 2020-11-27 16:34 | ECG_ITS ---
Measurements Intervals [place] Rate: 168 P: [place]: 0 QRS: -7 QRSD: 74 T: 28 QT: 266 QTc: 445 Interpretive Statements ATRIAL FIBRILLATION WITH RAPID VENTRICULAR RESPONSE BORDERLINE R WAVE PROGRESSION, ANTERIOR LEADS BASELINE ARTIFACT- I, II, III, AVR, AVL, AVF ABNORMAL ECG Electronically Signed On 11-27-2020 21:38:27 CDT by Jarek Hall D.O.
[2020-11-27 16:49] LABS: Basophils Percent Auto 0.2 % (0.2-1.2); Hematocrit 47.6 % (37.0-47.0); Hemoglobin 15.6 g/dL (12.0-15.0); Immature Granulocyte Absolute 0.01 K/mm3 (0.00-0.031); Immature Granulocyte Percent A 0.2 % (0-0.5); Lymphocytes Absolute Auto 1.81 K/mm3 (0.9-3.2); Lymphocytes Percent Auto 34.4 % (18.3-44.2); Mean Corpuscular HGB Conc 32.8 g/dl (32-36); Mean Corpuscular Hemoglobin 32.2 pg (26-34); Mean Corpuscular Volume 98.3 fl (80-100); Mean Platelet Volume 10.7 fl (7.4-10.4); Monocytes Absolute Auto 0.6 K/mm3 (0.1-0.6); Monocytes Percent Auto 12.2 % (2.6-8.5); Neutrophils Absolute Auto 2.8 K/mm3 (1.3-6.7); Platelet Count Result 219 k/mm3 (150-375); Red Blood Count 4.84 M/mm3 (4.2-5.4); Red Cell Distribution Width 13.2 % (11.5-14.5); White Blood Count 5.3 K/mm3 (4.5-10.0)
[2020-11-27 16:59] LABS: Anion Gap 12 mmol/L (8-16); Blood Urea Nitrogen 29 mg/dL (7-17); Calcium 8.9 mg/dL (8.4-10.2); Carbon Dioxide 24 mmol/L (22-30); Chloride 104 mmol/L (98-107); Estimated CRCL calculation 35 ml/min; Estimated Glomerular Filt Rate 37; Glucose 114 mg/dL (65-105); INR 1.2; Partial Thromboplastin Time 34.3 SECONDS (22.3-36.8); Potassium 3.9 mmol/L (3.4-5.0); Prothrombin Time 15.8 Seconds (11.1-14.7); Sodium 140 mmol/L (137-145)
--- NOTE | 2020-11-27 17:02 | PC.NURSE ---
starting Wednesday runny nose, cough, heavy breathing and wheezing , today went to PCP was was told she is in Afib w/RVR, then sent to fence erector office who then sent her here to ED. Today had first two pills of Z pac . Hx dementia, denies CP or palpitations. Per daughter Mar 2020 pt was shocked when she was in Afib w/RVR, they said if it happened again she would need an ablation
[2020-11-27 17:11] LABS: Troponin I 0.019 ng/mL (0.000-0.034)
[2020-11-27] MEDS: ASPIRIN 81 MG CHEWABLE TABLET 324 MG PO (17:38)
[2020-11-27] MEDS: dilTIAZem HCl INJ 25 MG/5 ML VIAL 15 MG IV PUSH (17:38)
[2020-11-27] MEDS: SODIUM CHLORIDE 0.9% IV 1,000 ML 150 ML IV CONT (17:38)
--- NOTE | 2020-11-27 18:04 | ED.ARRPALP ---
HPI - Arrhythmia/Palpitations General Chief Complaint: Arrhythmia/Palpitations Stated Complaint: fever,cough Time Seen by Provider: 11/27/20 17:26 Source: patient and other (By Dr. Major) Mode of arrival: wheelchair Limitations: dementia History of Present Illness HPI narrative: 70-year-old with a history of atrial fibrillation on Eliquis, dementia was sent from doctor's office with complaints of A. fib with RVR. Patient presently denies any chest pain or shortness of breath. Patient states my A. fib is acting up she denies any abdominal pain . Denies any fever or chills. complaint: rapid heart beat Onset (ago): day(s) (1) Duration: constant Severity: moderate Arrhythmia history: atrial fibrillation Associated symptoms: denies other symptoms Related Data Home Medications Medication Instructions Recorded Confirmed buspirone 10 mg PO BID 04/11/20 10/24/20 duloxetine 30 mg PO DAILY 04/11/20 10/24/20 furosemide 40 mg PO DAILY 04/11/20 10/24/20 levothyroxine 175 mcg PO QAM 04/11/20 10/24/20 lovastatin 20 mg PO HS 04/11/20 10/24/20 potassium chloride 20 meq PO DAILY 04/11/20 10/24/20 ropinirole 0.5 mg PO HS 04/11/20 10/24/20 Allergies Allergy/AdvReac Type Severity Reaction Status Date / Time No Known Allergies Allergy Verified 11/27/20 17:06 Review of Systems Review of Systems: All systems reviewed & are unremarkable except as noted in HPI and below Constitutional: Constitutional: Reports as per HPI and Reports no additional constitutional complaints Eyes: Eyes: Reports no additional eye complaints ENT: Reports system reviewed and no additional complaints, except as documented Cardiovascular: Cardiovascular: Reports as per HPI Respiratory: Respiratory: Reports no additional respiratory complaints Gastrointestinal: Gastrointestinal: Reports no additional gastrointestinal complaints Musculoskeletal: Musculoskeletal: Reports no additional musculoskeletal complaints [facility] Past Medical History Medical History Anxiety Atrial flutter Dementia Hyperlipidemia Hypertension Hypothyroid Localized edema Restless leg syndrome Surgical History Surgical History H/O splenectomy H/O total hysterectomy History of right hip hemiarthroplasty History of right knee joint replacement Hx of cholecystectomy Family History Family History Father Hypertension Sibling Hypertension Social History Social History Social History: The patient stated that she is from her . The patient has a total of 4 children. Chayito Causey is her daughter who is the durable power deputy commonwealth's attorney for healthcare. She lives with her daughter Chayito. The patient desires to be a full code. 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 the patient stated she has never smoked, used marijuana, or use illicit drugs. Smoking status: Never smoker Second hand tobacco smoke exposure: No Alcohol intake: never Substance use: never Gender identity (if verbalized by the patient): Female Spiritual care concerns: No Exam Narrative: Exam Narrative: GENERAL: Well-appearing, well-nourished, and in no acute distress, pleasantly confused HEAD: Normocephalic, atraumatic. EYES: PERRLA and EOMI. ENT: Nares clear, no rhinorrhea or epistaxis. Mucous membranes moist. NECK: Supple. CHEST: Clear to auscultation. No respiratory distress. HEART: Irregularly irregular tachycardic. ABDOMEN: Soft, nontender, nondistended, normal active bowel sounds. EXTREMITIES: Has compression dressings on the lower extremities.. SKIN: Warm, dry, no rash. NEURO: No focal deficits. Alert and oriented x3. PSYCH: Normal mood and affect. Course Course Emergency Course: Heart rate was in 150s to 160s upon arrival to the ED, I have
--- NOTE | 2020-11-27 18:49 | PC.NURSE ---
This patient, Denise Motley, was admitted to IMU Room 209-. Patient/family oriented to hospital policies and general routines including ID bracelet, bed and alarms, visiting hours, pain management, procedures, bathroom and other care routines, personal items, smoking policy, room service/diet, and visiting hours. Information on how to activate the Rapid Response Team has been discussed. Patient/Family are encouraged to report perceived risks to care and to ask questions if they do not understand what they are told or what they should do.
[2020-11-27] MEDS: SODIUM CHLORIDE 0.9% IV 1,000 ML 75 ML IV CONT (19:34)
[2020-11-27 20:32] LABS: Troponin I 0.019 ng/mL (0.000-0.034)
--- NOTE | 2020-11-27 22:07 | PM.IMHP ---
H&P: HPI History of Present Illness Date/Time: 11/27/20 22:07 Chief Complaint: Abnormal heart rate Narrative: This is a 70-year-old female with past medical history significant for dementia, atrial fibrillation rate control and anticoagulated patient had transesophageal cardioversion back in April of 2020 today patient was at her follow-up checkup at the quality assurance calibrator office and she was found to have atrial fibrillation with rapid ventricular response and she was sent over to the emergency room for this problem. Patient had a recent hospitalization to our hospital in the last part of October due to worsening bilateral lower extremity edema and she was found to have a low sodium she was successfully treated and discharged home. Patient states that she has dementia and that she cannot give much history she denies any chest discomfort or any other issues at this time she was able to tell me that she was sent over from his quality assurance calibrator's office for treatment of atrial fibrillation. Preliminary workup was significant for atrial fibrillation patient was placed on diltiazem drip and admitted to telemetry unit. Review of Systems Review of Systems: Narrative: I was sent here due to atrial fibrillation from my quality assurance calibrator office. ROS unobtainable: Yes unobtainable due to medical condition (Dementia) [facility] Past Medical History Medical History Anxiety Atrial flutter Dementia Hyperlipidemia Hypertension Hypothyroid Localized edema Restless leg syndrome Surgical History Surgical History H/O splenectomy H/O total hysterectomy History of right hip hemiarthroplasty History of right knee joint replacement Hx of cholecystectomy Family History Family History (Updated 11/27/20 @ 19:54 by Samira Connor RN) Father Hypertension Sibling Hypertension Breast cancer Social History Social History Social History: The patient stated that she is from her . The patient has a total of 4 children. Chayito Causey is her daughter who is the durable power criminal attorney for healthcare. She lives with her daughter Chayito. The patient desires to be a full code. 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 the patient stated she has never smoked, used marijuana, or use illicit drugs. Smoking status: Never smoker Second hand tobacco smoke exposure: No Alcohol intake: never Substance use: never Gender identity (if verbalized by the patient): Female Spiritual care concerns: No Meds Home Medications and Allergies Home Medications Medication Instructions Recorded Confirmed Type buspirone 10 mg PO BID 04/11/20 11/27/20 History duloxetine 30 mg PO DAILY 04/11/20 11/27/20 History furosemide 40 mg PO DAILY 04/11/20 11/27/20 History levothyroxine 175 mcg PO QAM 04/11/20 11/27/20 History lovastatin 20 mg PO HS 04/11/20 11/27/20 History potassium chloride 20 meq PO DAILY 04/11/20 11/27/20 History ropinirole 0.5 mg PO HS 04/11/20 11/27/20 History Eliquis 5 mg PO Q12HR #60 tablet 04/13/20 11/27/20 Rx metoprolol succinate [Toprol XL] 100 mg PO QAM #30 tablet 04/13/20 11/27/20 Rx albuterol sulfate 2 puff INHALATION Q4H PRN 11/27/20 11/27/20 History azithromycin 250 mg PO DAILY 11/27/20 11/27/20 History trazodone 50 mg PO HS PRN 11/27/20 11/27/20 History Allergies Allergy/AdvReac Type Severity Reaction Status Date / Time No Known Allergies Allergy Verified 11/27/20 21:05 Vital Signs Vital Signs - 24 hr 11/27/20 16:31 11/27/20 17:01 11/27/20 17:54 Temperature 97.6 F Pulse Rate 84 168 H 96 Respiratory Rate 16 20 18 Blood Pressure 125/91 H 94/60 L Pulse Oximetry 98 97 94 11/27/20 18:30 11/27/20 19:02 11/27/20 20:00 Temperature 97.4 F L 97.6 F Pulse Rate 125 H 115 H 142 H Respiratory Rate 18 20 20 Blood Pressure 101/78 119/55 L 122/60 P
[2020-11-27] MEDS: FUROSEMIDE INJ 40 MG/4 ML VIAL IV PUSH (23:15)
[2020-11-27 23:51] LABS: Troponin I 0.014 ng/mL (0.000-0.034)
[2020-11-28] VITALS (28 sets, daily range): BP systolic 109–135; BP diastolic 51–90; PULSE 80–142; RESP 12–22; TEMP 36.5–37.4; O2SAT 92–99
--- NOTE | 2020-11-28 | ECHO_ITS ---
Patient Info Name: Denise Motley Age: 70 years : 1950 Gender: Female Ht: 60 in Wt: 224 lbs BSA: 2.14 m2 HR: 81 bpm BP: 109 / 55 mmHg Heart Rhythm: Atrial Fibrillation Technical Quality: Good Exam Date: 11/28/2020 2:04 PM Exam Location: [facility] Patient Status: Outpatient Admit Date: 11/27/2020 Staff Ordering Physician: To Hernández MD Diving Board Assembler: Blair Galeana, TYRELLCS, RT Attending Provider: Marc Choi MD Referring Physician: Edgar BONILLA; Exam Type: CA echo doppler color flow Study Info Indications I48.1 - Persistent atrial fibrillation Complete two-dimensional, color flow and Doppler transthoracic echocardiogram is performed. Summary 1. Complete two-dimensional, color flow and Doppler transthoracic echocardiogram is performed. 2. Left ventricular chamber dimension is normal. 3. Left ventricular systolic function is normal, estimated at 50-55%. 4. There is trace mitral valve regurgitation. 5. The mitral valve annulus is mildly calcified. 6. Left atrial chamber dimension is severely enlarged. Left Ventricle Left ventricular chamber dimension is normal. Left ventricular systolic function is normal, estimated at 50-55%. The left ventricular diastolic function is indeterminate. Right Ventricle Right ventricular chamber dimension is normal. Left Atria Left atrial chamber dimension is severely enlarged. Right Atria Right atrial chamber dimension is mildly enlarged. Aortic Valve The aortic valve is normal. Pulmonic Valve The pulmonic valve is not well visualized. Mitral Valve The mitral valve has normal leaflets. There is trace mitral valve regurgitation. The mitral valve annulus is mildly calcified. Tricuspid Valve The tricuspid valve leaflets are normal. Pericardium/Pleural The pericardium appears normal. Aorta The aortic root size at the sinus of Valsalva is normal. Left Ventricular Outflow Tract Name Value Normal LVOT 2D LVOT Diameter 1.9 cm LVOT Doppler LVOT Peak Velocity 104 cm/s LVOT Peak Gradient 2 mmHg LVOT Mean Gradient 1 mmHg LVOT VTI 19 cm LVOT VTI/AV VTI Ratio 0.9 LVOT Stroke Volume 54 ml LVOT CO 3.5 l/min LVOT CI 1.6 l/min/m2 Mitral Valve Name Value Normal MV Doppler MV Decel Miller 418 cm/s2 MV PHT 54 ms MV Area (PHT) 4.1 cm2 4.0-5.0 MV Diastolic Function MV E Peak Velocity 78 cm/s MV A Peak Velocity 1 cm/s
[2020-11-28] MEDS: ALBUTEROL SULFATE NEB 2.5 MG/0.5 ML INH INHALATION ×4 (02:32→15:36)
[2020-11-28] MEDS: LEVOTHYROXINE SODIUM 75 MCG TABLET PO (05:14)
[2020-11-28] MEDS: LEVOTHYROXINE SODIUM 100 MCG TABLET PO (05:14)
[2020-11-28] MEDS: dilTIAZem HCl INJ 25 MG/5 ML VIAL 10 MG IV PUSH (07:22)
--- NOTE | 2020-11-28 09:47 | PM.CNCAR ---
Assessment and Plan Additional Plan 1-AFib with RVR 2-acute kidney injury. 3-history of hypertension 4-history of hyperlipidemia 5-history of hypothyroidism -regards to the atrial fibrillation with RVR, she is currently at home getting 100 mg of Toprol-XL along with Eliquis 5 mg b.i.d.. She is receiving in the hospital 10 milligrams/hour IV diltiazem and she is still in AFib with RVR. -will administer amiodarone 150 mg bolus and started on amiodarone 400 mg p.o. b.i.d. and wean off the diltiazem drip. -follow-up on echocardiogram. -monitor renal function because of the acute kidney injury History of Present Illness History of Present Illness Consult date/time: 11/28/20 09:47 Requesting physician: Dallin Dash MD Consult reason: atrial fibrillation Reason For Visit: Atrial fibrillation with RVR Narrative: This is a 70-year-old female with past medical history significant for dementia, atrial fibrillation rate control and anticoagulated with Eliquis 5 mg b.i.d. patient had transesophageal cardioversion back in April of 2020 . She follows up with Dr. Major and yesterday she was in his office and was found to AFib with RVR and therefore was sent to the emergency room. Patient had a recent hospitalization to our hospital in the last part of October due to worsening bilateral lower extremity edema and she was found to have a low sodium she was successfully treated and discharged home. Patient states that she has dementia but she states that she does not have chest pain or shortness of breath or dizziness or syncope. She is alert and oriented x3. Hemoglobin 15, serum creatinine 1.4 with a baseline 0.9, troponins x3 negative, chest x-ray reviewed and analyzed myself shows cardiomegaly. Last echo April 2020 shows ejection fraction 65%, moderate biatrial enlargement, mild enlargement of the right ventricle but normal systolic function, mild mitral and tricuspid regurg. EKG reviewed analyze myself shows atrial fibrillation with left axis deviation. TSH was 1.1 October 25, 2020 Review of Systems Constitutional: Constitutional: Denies chills, Denies fever(s) and Denies poor appetite Eyes: Eyes: Denies eye discharge, Denies loss of vision, Denies eye pain and Denies photophobia ENT: Denies dizziness, Denies epistaxis, Denies nasal congestion and Denies sore throat Cardiovascular: Cardiovascular: Denies chest pain, Denies syncope, Reports pedal edema, Reports leg edema, Denies palpitations, Denies dyspnea, Denies dyspnea on exertion and Denies orthopnea Respiratory: Respiratory: Denies cough, Denies dyspnea, Denies dyspnea on exertion and Denies wheezing Gastrointestinal: Gastrointestinal: Denies abdominal pain, Denies diarrhea, Denies nausea and Denies vomiting Genitourinary: Genitourinary: Denies hematuria, Denies genital lesions and Denies dysuria Musculoskeletal: Musculoskeletal: Denies arthralgias, Denies joint swelling and Denies numbness Integumentary/Breasts: Skin/Breast: Denies pruritus and Denies rash Neurologic: Denies dizziness, Denies syncope, Denies loss of vision and Denies numbness Psychiatric: Psychiatric: Denies anxiety and Denies depression Endocrine: Endocrine: Denies cold intolerance, Denies heat intolerance and Denies palpitations Hematologic/Lymphatic: Hematologic/Lymphatic: Denies easy bleeding and Denies easy bruising Allergic/Immunologic: Allergic/Immunologic: Denies urticaria and Denies wheezing PMFSH Past Medical History Medical History Anxiety Atrial flutter Dementia Hyperlipidemia Hypertension Hypothyroid Localized edema Restless leg syndrome Surgical History Surgical History H/O splenectomy H/O total hysterectomy History of right hip hemiarthroplasty History of right knee joint replacement Hx of cholecystectomy Family History Family History (Reviewed 11/28/20 @ 10:05 by Rick Aparicio
[2020-11-28] MEDS: DULoxetine HCL 30 MG CAPSULE.DR PO (09:48)
[2020-11-28] MEDS: APIXABAN 5 MG TABLET PO ×2 (09:48→21:44)
[2020-11-28] MEDS: METOPROLOL SUCCINATE EXT REL 100 MG TABCR PO (09:48)
[2020-11-28] MEDS: busPIRone HCL 10 MG TABLET PO ×2 (09:48→17:05)
[2020-11-28] MEDS: AMIODARONE 150 MG/D5W 100 ML 150 MG/100 ML BAG 600 MG IV CONT (12:12)
--- NOTE | 2020-11-28 13:02 | PM.IMPN ---
Progress Note: A&P Assessment and Plan (1) MICHELLE (acute kidney injury): Code(s): N17.9 - Acute kidney failure, unspecified Status: Acute Assessment and Plan: Monitor renal function and electrolytes Ultrasound negative for obstruction (2) Atrial fibrillation with RVR: Code(s): I48.91 - Unspecified atrial fibrillation Status: Acute Assessment and Plan: Cardiology recommended switching Cardizem drip to amiodarone Monitor heart rate and blood pressure closely Eliquis Rate control (3) Dementia: Qualifiers: Dementia type: unspecified type Dementia behavioral disturbance: without behavioral disturbance Qualified Code(s): F03.90 - Unspecified dementia without behavioral disturbance Code(s): F03.90 - Unspecified dementia without behavioral disturbance Status: Chronic Assessment and Plan: Monitor mental status (4) Hypertension: Qualifiers: Hypertension type: essential hypertension Qualified Code(s): I10 - Essential (primary) hypertension Code(s): I10 - Essential (primary) hypertension Status: Chronic Assessment and Plan: Continue home medications and monitor vital signs closely Subjective Date/time seen: 11/28/20 13:02 Interval history: Patient is resting comfortably, denies chest pain shortness of breath or palpitation, she is hungry. Exam Const: General: cooperative and no acute distress HENMT: Head: normal to inspection Eyes: General: appearance normal, both eyes and all related structures Neck: Neck: normal visual inspection Chest: Chest palpation & inspection: normal inspection of the chest Resp: Effort & Inspection: normal respiratory effort Cardio: Jugular venous distension: no JVD Rate: regular rate GI: Inspection: normal to inspection and non-distended Objective Data Vital Signs Vital Signs: Vital Signs - 24 hr 11/27/20 16:31 11/27/20 17:01 11/27/20 17:54 Temperature 97.6 F Pulse Rate 84 168 H 96 Respiratory Rate 16 20 18 Blood Pressure 125/91 H 94/60 L Pulse Oximetry 98 97 94 11/27/20 18:30 11/27/20 19:02 11/27/20 20:00 Temperature 97.4 F L 97.6 F Pulse Rate 125 H 115 H 98 Respiratory Rate 18 20 20 Blood Pressure 101/78 119/55 L 122/60 Pulse Oximetry 98 99 95 11/27/20 22:00 11/27/20 23:00 11/27/20 23:27 Temperature Pulse Rate 147 H Respiratory Rate Blood Pressure Pulse Oximetry 86 L 92 11/28/20 00:00 11/28/20 01:50 11/28/20 02:36 Temperature 97.7 F Pulse Rate 105 H 122 H Respiratory Rate 20 Blood Pressure 127/51 L Pulse Oximetry 93 99 11/28/20 02:37 11/28/20 03:46 11/28/20 04:00 Temperature 97.8 F Pulse Rate 111 H 119 H Respiratory Rate 18 20 Blood Pressure 109/55 L Pulse Oximetry 93 96 11/28/20 04:02 11/28/20 05:13 11/28/20 05:41 Temperature Pulse Rate 113 H 130 H 112 H Respiratory Rate 18 18 Blood Pressure Pulse Oximetry 11/28/20 05:48 11/28/20 08:00 11/28/20 10:00 Temperature 98.5 F Pulse Rate 100 134 H 132 H Respiratory Rate 12 Blood Pressure 113/74 Pulse Oximetry 97 11/28/20 11:04 11/28/20 12:00 11/28/20 12:12 Temperature 98.5 F Pulse Rate 120 H 130 H 134 H Respiratory Rate 18 20 Blood Pressure 122/86 Pulse Oximetry 97 Intake/Output Intake/Output: Intake & Output 11/25/20 11/26/20 11/27/20 11/28/20 23:59 23:59 23:59 23:59 Intake Total 1200 350 Output Total 700 Balance 1200 -350 Meds/Results Medications: Active Medications Generic Name Dose Route Start Last Admin Trade Name Freq PRN Reason Stop Dose Admin Acetaminophen 650 mg 11/27/20 18:01 Acetaminophen 325 Mg Tablet PO Q4H PRN Mild Pain (1-3) or Fever Albuterol 2.5 mg 11/28/20 00:00 11/28/20 11:04 Albuterol Sulfate Neb 2.5 Mg/0.5 Ml Inh INHALATION 2.5 mg Q4HRT RAOUL Administration Albuterol 2 puff 11/28/20 00:17 Albuterol Sulfate (*Sp) Aerosol 1 Puff INHALATION
[2020-11-28] MEDS: AMIODARONE HCL 200 MG TABLET 400 MG PO (14:53)
[2020-11-28] MEDS: AMIODARONE 360 MG/D5W 200 ML 360 MG/200 ML BAG 33.33 MG IV CONT ×2 (17:05→23:22)
[2020-11-28] MEDS: LOVASTATIN 20 MG TABLET PO (21:44)
[2020-11-28] MEDS: rOPINIRole HCL 0.5 MG TABLET PO (21:44)
[2020-11-28] MEDS: traZODone HCL 50 MG TABLET PO (22:27)
[2020-11-29] VITALS (28 sets, daily range): BP systolic 73–140; BP diastolic 53–92; PULSE 69–148; RESP 12–27; TEMP 36.2–37.6; O2SAT 91–100
[2020-11-29 05:25] LABS: Basophils Percent Auto 0.2 % (0.2-1.2); Hematocrit 40.7 % (37.0-47.0); Hemoglobin 13.3 g/dL (12.0-15.0); Immature Granulocyte Absolute 0.04 K/mm3 (0.00-0.031); Immature Granulocyte Percent A 0.4 % (0-0.5); Lymphocytes Absolute Auto 1.92 K/mm3 (0.9-3.2); Lymphocytes Percent Auto 17.8 % (18.3-44.2); Mean Corpuscular HGB Conc 32.7 g/dl (32-36); Mean Corpuscular Hemoglobin 31.8 pg (26-34); Mean Corpuscular Volume 97.4 fl (80-100); Monocytes Absolute Auto 0.9 K/mm3 (0.1-0.6); Neutrophils Percent Auto 73.6 % (45.5-73.1); Platelet Count Result 176 k/mm3 (150-375); Red Blood Count 4.18 M/mm3 (4.2-5.4); Red Cell Distribution Width 13.3 % (11.5-14.5); White Blood Count 10.8 K/mm3 (4.5-10.0)
[2020-11-29 05:37] LABS: Anion Gap 9 mmol/L (8-16); Blood Urea Nitrogen 29 mg/dL (7-17); Carbon Dioxide 24 mmol/L (22-30); Chloride 104 mmol/L (98-107); Estimated CRCL calculation 48 ml/min; Estimated Glomerular Filt Rate 55; Glucose 103 mg/dL (65-105); Magnesium 1.8 mg/dL (1.6-2.3); Phosphorus 4.3 mg/dL (2.5-4.5); Potassium 3.2 mmol/L (3.4-5.0); Sodium 137 mmol/L (137-145)
[2020-11-29] MEDS: LEVOTHYROXINE SODIUM 75 MCG TABLET PO (06:03)
[2020-11-29] MEDS: LEVOTHYROXINE SODIUM 100 MCG TABLET PO (06:03)
[2020-11-29] MEDS: AMIODARONE 360 MG/D5W 200 ML 360 MG/200 ML BAG 33.33 MG IV CONT ×2 (06:30→13:41)
[2020-11-29] MEDS: DULoxetine HCL 30 MG CAPSULE.DR PO (09:24)
[2020-11-29] MEDS: APIXABAN 5 MG TABLET PO ×2 (09:24→20:43)
[2020-11-29] MEDS: busPIRone HCL 10 MG TABLET PO ×2 (09:24→17:41)
[2020-11-29] MEDS: METOPROLOL SUCCINATE EXT REL 100 MG TABCR PO (09:24)
--- NOTE | 2020-11-29 10:58 | PM.IMPN ---
Progress Note: A&P Assessment and Plan (1) MICHELLE (acute kidney injury): Code(s): N17.9 - Acute kidney failure, unspecified Status: Acute Assessment and Plan: Monitor renal function and electrolytes Ultrasound negative for obstruction (2) Atrial fibrillation with RVR: Code(s): I48.91 - Unspecified atrial fibrillation Status: Acute Assessment and Plan: Cardiology recommended switching Cardizem drip to amiodarone Patient on amiodarone drip Monitor heart rate and blood pressure closely Eliquis Rate control (3) Dementia: Qualifiers: Dementia type: unspecified type Dementia behavioral disturbance: without behavioral disturbance Qualified Code(s): F03.90 - Unspecified dementia without behavioral disturbance Code(s): F03.90 - Unspecified dementia without behavioral disturbance Status: Chronic Assessment and Plan: Monitor mental status (4) Hypertension: Qualifiers: Hypertension type: essential hypertension Qualified Code(s): I10 - Essential (primary) hypertension Code(s): I10 - Essential (primary) hypertension Status: Chronic Assessment and Plan: Continue home medications and monitor vital signs closely Subjective Date/time seen: 11/29/20 10:58 Interval history: Patient is resting comfortably, denies chest pain shortness of breath or palpitation. Exam Const: General: cooperative and no acute distress HENMT: Head: normal to inspection Eyes: General: appearance normal, both eyes and all related structures Neck: Neck: normal visual inspection Chest: Chest palpation & inspection: normal inspection of the chest Resp: Effort & Inspection: normal respiratory effort Cardio: Jugular venous distension: no JVD Rate: regular rate GI: Inspection: normal to inspection and non-distended Objective Data Vital Signs Vital Signs: Vital Signs - 24 hr 11/28/20 11:04 11/28/20 11:15 11/28/20 12:00 Temperature 98.5 F Pulse Rate 120 H 125 H 103 H Respiratory Rate 18 18 20 Blood Pressure 122/86 Pulse Oximetry 97 11/28/20 12:12 11/28/20 14:00 11/28/20 15:36 Temperature Pulse Rate 134 H 125 H 136 H Respiratory Rate 20 Blood Pressure Pulse Oximetry 11/28/20 15:42 11/28/20 16:00 11/28/20 18:00 Temperature 99.3 F Pulse Rate 122 H 142 H 126 H Respiratory Rate 20 12 Blood Pressure 128/90 Pulse Oximetry 97 11/28/20 20:00 11/28/20 22:00 11/28/20 22:49 Temperature 99.1 F Pulse Rate 121 H 119 H 121 H Respiratory Rate 12 Blood Pressure 135/87 Pulse Oximetry 97 92 11/28/20 23:22 11/28/20 23:24 11/28/20 23:30 Temperature Pulse Rate 132 H 133 H 128 H Respiratory Rate 22 H 20 Blood Pressure Pulse Oximetry 11/28/20 23:58 11/29/20 00:00 11/29/20 01:42 Temperature 99.6 F Pulse Rate 137 H 127 H Respiratory Rate 13 Blood Pressure 140/88 Pulse Oximetry 92 91 11/29/20 03:58 11/29/20 04:00 11/29/20 04:03 Temperature 98.9 F Pulse Rate 69 142 H 132 H Respiratory Rate 20 12 20 Blood Pressure 139/80 Pulse Oximetry 95 11/29/20 05:23 11/29/20 06:00 11/29/20 06:30 Temperature Pulse Rate 140 H 148 H 140 H Respiratory Rate Blood Pressure Pulse Oximetry 11/29/20 07:59 11/29/20 08:00 11/29/20 10:00 Temperature 97.2 F L Pulse Rate 134 H 135 H 128 H Respiratory Rate 18 18 Blood Pressure 96/64 L Pulse Oximetry 92 97 Intake/Output Intake/Output: Intake & Output 11/26/20 11/27/20 11/28/20 11/29/20 23:59 23:59 23:59 23:59 Intake Total 1200 890 690 Output Total 1200 400 Balance 1200 -310 290 Meds/Results Medications: Active Medications Generic Name Dose Route Start Last Admin Trade Name Freq PRN Reason Stop Dose Admin Acetaminophen 650 mg 11/27/20 18:01 Acetaminophen 325 Mg Tablet PO Q4H PRN Mild Pain (1-3) or Fever Albuterol 2 puff 11/28/20 00:17 Albuterol Sulfate (*Sp) Aerosol 1 P
--- NOTE | 2020-11-29 11:02 | PM.PNCARD ---
Progress Note: A&P Additional Plan Obese 70-year-old lady with paroxysmal atrial fib admitted to 48 hours ago with a symptomatic recurrence. She is maintaining atrial fib despite IV amiodarone. She is chronically anticoagulated with apixaban. I would recommend proceeding with a DC cardioversion today did attempt to restore sinus rhythm once again. She was in sinus rhythm when she was here in the hospital in October of this year. Patient has been cardioverted last fall she has no questions about this and is agreeable and would like to proceed. Since she was fed breakfast I will wait to do this until mid afternoon. Fabian Perez MD [facility] Subjective Date/time seen: Date of service:11/29/20 11:02 Interval history: Follow-up visit in this 70-year-old woman with: Recurrent atrial fib with RVR patient has a symptomatic recurrence following cardioversion in the fall. She was taking metoprolol and has recurred back into atrial fib. She is now receiving intravenous amiodarone with improvement but very good heart rate control. She is chronically anticoagulated with apixaban and has been compliant with that. Appears to be comfortable otherwise today and offers no complaints. The patient was fed a full breakfast at 7:00 a.m.. Exam Const: General: comfortable and no acute distress Other: Obese woman no apparent distress BMI 43 HENMT: Mouth: Yes moist mucous membranes Eyes: Sclera: sclerae normal Pupils: Equal, round and reactive pupils present Neck: Neck: supple and no JVD Thyroid: thyroid normal Resp: Effort & Inspection: normal respiratory effort Auscultation: clear to auscultation bilaterally Cardio: Rhythm: abnormal rhythm irregularly irregular GI: GI Palp: Yes Soft to palpation Auscultation: normal bowel sounds Skin: General skin exam: normal color Neuro: Cognition (Neuro): normal cognition Extrem: General: normal to inspection Other: No significant edema adequate distal perfusion Objective Data Vital Signs Vital Signs: Vital Signs - 24 hr 11/28/20 11:04 11/28/20 11:15 11/28/20 12:00 Temperature 36.9 C Pulse Rate 120 H 125 H 103 H Respiratory Rate 18 18 20 Blood Pressure 122/86 Pulse Oximetry 97 11/28/20 12:12 11/28/20 14:00 11/28/20 15:36 Temperature Pulse Rate 134 H 125 H 136 H Respiratory Rate 20 Blood Pressure Pulse Oximetry 11/28/20 15:42 11/28/20 16:00 11/28/20 18:00 Temperature 37.4 C Pulse Rate 122 H 142 H 126 H Respiratory Rate 20 12 Blood Pressure 128/90 Pulse Oximetry 97 11/28/20 20:00 11/28/20 22:00 11/28/20 22:49 Temperature 37.3 C Pulse Rate 121 H 119 H 121 H Respiratory Rate 12 Blood Pressure 135/87 Pulse Oximetry 97 92 11/28/20 23:22 11/28/20 23:24 11/28/20 23:30 Temperature Pulse Rate 132 H 133 H 128 H Respiratory Rate 22 H 20 Blood Pressure Pulse Oximetry 11/28/20 23:58 11/29/20 00:00 11/29/20 01:42 Temperature 37.6 C Pulse Rate 137 H 127 H Respiratory Rate 13 Blood Pressure 140/88 Pulse Oximetry 92 91 11/29/20 03:58 11/29/20 04:00 11/29/20 04:03 Temperature 37.2 C Pulse Rate 69 142 H 132 H Respiratory Rate 20 12 20 Blood Pressure 139/80 Pulse Oximetry 95 11/29/20 05:23 11/29/20 06:00 11/29/20 06:30 Temperature Pulse Rate 140 H 148 H 140 H Respiratory Rate Blood Pressure Pulse Oximetry 11/29/20 07:59 11/29/20 08:00 11/29/20 10:00 Temperature 36.2 C L Pulse Rate 134 H 135 H 128 H Respiratory Rate 18 18 Blood Pressure 96/64 L Pulse Oximetry 92 97 Intake/Output Intake/Output: Intake & Output 11/26/20 11/27/20 11/28/20 11/29/20 23:59 23:59 23:59 23:59 Intake Total 1200 890 690 Output Total 1200 400 Balance 1200 -310 290 Meds/Results Medications: Active Medications Generic Name Dose Route Start Last Admin Trade Name José PRN Reason Stop Dose Admin Acetaminophen 650 mg 11/27/20 18:01 Acetaminophen 325 Mg Tablet PO
--- NOTE | 2020-11-29 15:46 | WPDMODSED ---
Moderate Sedation Note-Pt Data Patient Data Diagnosis: Atrial fib with RVR Present Complaint: Dyspnea Procedure to be performed/Plan: DC cardioversion Allergies Allergy/AdvReac Type Severity Reaction Status Date / Time No Known Allergies Allergy Verified 11/27/20 21:05 Home Medications Medication Instructions Recorded Confirmed Type buspirone 10 mg PO BID 04/11/20 11/27/20 History duloxetine 30 mg PO DAILY 04/11/20 11/27/20 History furosemide 40 mg PO DAILY 04/11/20 11/27/20 History levothyroxine 175 mcg PO QAM 04/11/20 11/27/20 History lovastatin 20 mg PO HS 04/11/20 11/27/20 History potassium chloride 20 meq PO DAILY 04/11/20 11/27/20 History ropinirole 0.5 mg PO HS 04/11/20 11/27/20 History Eliquis 5 mg PO Q12HR #60 tablet 04/13/20 11/27/20 Rx metoprolol succinate [Toprol XL] 100 mg PO QAM #30 tablet 04/13/20 11/27/20 Rx albuterol sulfate 2 puff INHALATION Q4H PRN 11/27/20 11/27/20 History azithromycin 250 mg PO DAILY 11/27/20 11/27/20 History trazodone 50 mg PO HS PRN 11/27/20 11/27/20 History Current Medications: Active Medications Acetaminophen (Acetaminophen 325 Mg Tablet) 650 mg PO Q4H PRN PRN Reason: Mild Pain (1-3) or Fever Albuterol (Albuterol Sulfate (*Sp) Aerosol 1 Puff) 2 puff INHALATION Q4H PRN PRN Reason: Wheezing Apixaban (Apixaban 5 Mg Tablet) 5 mg PO Q12HR [facility] Last Admin: 11/29/20 09:24 Dose: 5 mg Documented by: Buspirone HCl (Buspirone Hcl 10 Mg Tablet) 10 mg PO BID [facility] Last Admin: 11/29/20 09:24 Dose: 10 mg Documented by: Duloxetine HCl (Duloxetine Hcl 30 Mg Capsule.Dr) 30 mg PO DAILY [facility] Last Admin: 11/29/20 09:24 Dose: 30 mg Documented by: Amiodarone HCl/Dextrose (Nexterone 360 Mg/D5w 200 Ml) 360 mg in 200 mls @ 33.333 mls/hr IV CONT .Q6H [facility] Last Admin: 11/29/20 13:41 Dose: 1 mg/min, 33.33 mls/hr Documented by: Levalbuterol HCl (Levalbuterol Neb 1.25 Mg/0.5 Ml) 1.25 mg INHALATION Q4HRT [facility] Last Admin: 11/29/20 11:36 Dose: 1.25 mg Documented by: Levothyroxine Sodium (Levothyroxine Sodium 100 Mcg Tablet) 100 mcg PO DAILY@629 [facility] Last Admin: 11/29/20 06:03 Dose: 100 mcg Documented by: Levothyroxine Sodium (Levothyroxine Sodium 75 Mcg Tablet) 75 mcg PO DAILY@629 [facility] Last Admin: 11/29/20 06:03 Dose: 75 mcg Documented by: Lovastatin (Lovastatin 20 Mg Tablet) 20 mg PO [facility] Last Admin: 11/28/20 21:44 Dose: 20 mg Documented by: Metoprolol Succinate (Metoprolol Succinate Ext Rel 100 Mg Tabcr) [facility] [place] Last Admin: 11/29/20 09:24 Dose: 100 mg Documented by: Nitroglycerin (Nitroglycerin Sl 0.4 Mg Tablet) 0.4 mg SUBLINGUAL Q5MIN PRN PRN Reason: Chest Pain Ropinirole HCl (Ropinirole Hcl 0.5 Mg Tablet) 0.5 mg PO [facility] Last Admin: 11/28/20 21:44 Dose: 0.5 mg Documented by: Trazodone HCl (Trazodone Hcl 50 Mg Tablet) 50 mg PO HS PRN PRN Reason: Insomnia Last Admin: 11/28/20 22:27 Dose: 50 mg Documented by: Sedation/Anesthesia: No previous sedation/anesthesia problems (including family history). [facility] Past Medical History Medical History Anxiety Atrial flutter Dementia Hyperlipidemia Hypertension Hypothyroid Localized edema Restless leg syndrome Surgical History Surgical History H/O splenectomy H/O total hysterectomy History of right hip hemiarthroplasty History of right knee joint replacement Hx of cholecystectomy Family History Family History Father Hypertension Sibling Hypertension Breast cancer Social History Social History Social History: The patient stated that she is from her . The patient has a total of 4 children. Chayito Causey is her daughter who is the durable power coding educator for healthcare. She lives with her daughter Chayito. The patient desires to be a full code. The anna
--- NOTE | 2020-11-29 15:54 | ECG_ITS ---
Measurements Intervals [place] Rate: 78 P: 87 ND: 208 QRS: -1 QRSD: 105 T: 29 QT: 408 QTc: 467 Interpretive Statements SINUS RHYTHM ATRIAL PREMATURE COMPLEX BORDERLINE AV CONDUCTION DELAY INFERIOR INFARCT, AGE INDETERMINATE BASELINE WANDER- V6 ABNORMAL ECG Electronically Signed On 11-29-2020 16:10:16 CDT by Jarek Hall D.O.
--- NOTE | 2020-11-29 15:57 | P.PCNCC_ITS ---
Cardiac Cath Procedure Note Date of procedure:: 11/29/20 Performing physician:: Fabian Perez MD Indication:: Recurrent, persistent atrial fibrillation Brief clinical history:: This is a 70-year-old woman with a history of atrial fibrillation admitted for a symptomatic recurrence of this. The patient has been anticoagulated with apixaban. She has been given intravenous amiodarone for treatment of this and despite this is maintaining atrial fib. She is minimally symptomatic with this with some dyspnea. Procedure Procedure performed:: DC cardiovert Sedation/Medication given:: IV propofol 40 mg Estimated blood loss:: No blood loss Procedure note:: Patient was in this postabsorptive state brought to the cardiac catheterization lab holding area in the supine position. Defibrillator patches were placed in the AP position. The patient was then sedated with propofol using the peripheral IV in the left arm. One 40 mg bolus provided excellent sedation. She was then cardioverted with 200 joules in a synchronized fashion x1 shock which restored normal sinus rhythm. Findings:: As above Conclusion:: Successful uncomplicated DC cardioversion of atrial fib to sinus rhythm using 200 joules x1 shock I will transition the patient from IV to p.o. amiodarone to try to maintain sinus rhythm Fabian Perez MD [facility]
[2020-11-29] MEDS: AMIODARONE HCL 200 MG TABLET 400 MG PO ×2 (17:41→23:17)
[2020-11-29 18:48] LABS: Glucose Point of Care 89 mg/dl (65-105)
[2020-11-29 20:24] LABS: Glucose Point of Care 106 mg/dl (65-105)
[2020-11-29] MEDS: traZODone HCL 50 MG TABLET PO (20:43)
[2020-11-29] MEDS: rOPINIRole HCL 0.5 MG TABLET PO (20:43)
[2020-11-29] MEDS: LOVASTATIN 20 MG TABLET PO (20:43)
[2020-11-30] VITALS (32 sets, daily range): BP systolic 101–122; BP diastolic 43–69; PULSE 104–144; RESP 18–24; TEMP 36.1–36.6; O2SAT 88–98
[2020-11-30 05:51] LABS: Basophils Percent Auto 0.1 % (0.2-1.2); Hematocrit 40.7 % (37.0-47.0); Hemoglobin 13.5 g/dL (12.0-15.0); Immature Granulocyte Absolute 0.02 K/mm3 (0.00-0.031); Immature Granulocyte Percent A 0.3 % (0-0.5); Lymphocytes Absolute Auto 1.32 K/mm3 (0.9-3.2); Lymphocytes Percent Auto 16.7 % (18.3-44.2); Mean Corpuscular HGB Conc 33.2 g/dl (32-36); Mean Corpuscular Hemoglobin 32.1 pg (26-34); Mean Corpuscular Volume 96.9 fl (80-100); Mean Platelet Volume 11.7 fl (7.4-10.4); Monocytes Absolute Auto 0.6 K/mm3 (0.1-0.6); Monocytes Percent Auto 7.2 % (2.6-8.5); Neutrophils Percent Auto 75.7 % (45.5-73.1); Platelet Count Result 198 k/mm3 (150-375); Red Cell Distribution Width 13.2 % (11.5-14.5); White Blood Count 7.9 K/mm3 (4.5-10.0)
[2020-11-30 05:59] LABS: Anion Gap 7 mmol/L (8-16); Blood Urea Nitrogen 22 mg/dL (7-17); Calcium 8.2 mg/dL (8.4-10.2); Carbon Dioxide 27 mmol/L (22-30); Chloride 102 mmol/L (98-107); Estimated CRCL calculation 48 ml/min; Estimated Glomerular Filt Rate 55; Glucose 86 mg/dL (65-105); Magnesium 2.1 mg/dL (1.6-2.3); Phosphorus 3.8 mg/dL (2.5-4.5); Potassium 3.7 mmol/L (3.4-5.0); Sodium 136 mmol/L (137-145)
[2020-11-30] MEDS: LEVOTHYROXINE SODIUM 100 MCG TABLET PO (06:49)
[2020-11-30] MEDS: AMIODARONE HCL 200 MG TABLET 400 MG PO ×3 (06:49→21:17)
[2020-11-30] MEDS: LEVOTHYROXINE SODIUM 75 MCG TABLET PO (06:49)
[2020-11-30] MEDS: DULoxetine HCL 30 MG CAPSULE.DR PO (08:25)
[2020-11-30] MEDS: busPIRone HCL 10 MG TABLET PO ×2 (08:25→18:28)
[2020-11-30] MEDS: METOPROLOL SUCCINATE EXT REL 100 MG TABCR PO (08:25)
[2020-11-30] MEDS: APIXABAN 5 MG TABLET PO ×2 (08:50→21:17)
--- NOTE | 2020-11-30 12:30 | PM.IMPN ---
Progress Note: A&P Assessment and Plan (1) MICHELLE (acute kidney injury): Code(s): N17.9 - Acute kidney failure, unspecified Status: Acute Assessment and Plan: Monitor renal function and electrolytes Ultrasound negative for obstruction (2) Atrial fibrillation with RVR: Code(s): I48.91 - Unspecified atrial fibrillation Status: Acute Assessment and Plan: Cardiology recommended switching Cardizem drip to amiodarone Patient on amiodarone po now Monitor heart rate and blood pressure closely Eliquis Rate control (3) Dementia: Qualifiers: Dementia type: unspecified type Dementia behavioral disturbance: without behavioral disturbance Qualified Code(s): F03.90 - Unspecified dementia without behavioral disturbance Code(s): F03.90 - Unspecified dementia without behavioral disturbance Status: Chronic Assessment and Plan: Monitor mental status (4) Hypertension: Qualifiers: Hypertension type: essential hypertension Qualified Code(s): I10 - Essential (primary) hypertension Code(s): I10 - Essential (primary) hypertension Status: Chronic Assessment and Plan: Continue home medications and monitor vital signs closely Subjective Date/time seen: 11/30/20 12:30 Interval history: patient resting comfortably no shortness of breath chest pain or palpitation, patient failed cardioversion yesterday, and she still and AFib with heart rate between 120-140 beats per minute Exam Const: General: cooperative and no acute distress HENMT: Head: normal to inspection Eyes: General: appearance normal, both eyes and all related structures Neck: Neck: normal visual inspection Chest: Chest palpation & inspection: normal inspection of the chest Resp: Effort & Inspection: normal respiratory effort Cardio: Jugular venous distension: no JVD Rate: tachycardic Other: irregularly irregular GI: Inspection: normal to inspection and non-distended Objective Data Vital Signs Vital Signs: Vital Signs - 24 hr 11/29/20 14:00 11/29/20 15:10 11/29/20 15:15 Temperature Pulse Rate 129 H 125 H 125 H Respiratory Rate 21 H 22 H Blood Pressure 113/78 113/78 Pulse Oximetry 100 98 11/29/20 15:50 11/29/20 15:55 11/29/20 16:00 Temperature 97.6 F Pulse Rate 133 H 78 79 Respiratory Rate 20 25 H 27 H Blood Pressure 108/92 H 73/64 L 78/63 L Pulse Oximetry 98 92 97 11/29/20 16:15 11/29/20 16:30 11/29/20 18:00 Temperature Pulse Rate 138 H 115 H 131 H Respiratory Rate 25 H 20 Blood Pressure 118/82 101/82 Pulse Oximetry 100 100 11/29/20 20:00 11/29/20 22:00 11/29/20 23:30 Temperature 97.7 F 97.4 F L Pulse Rate 104 H 119 H 114 H Respiratory Rate 18 20 Blood Pressure 101/58 L 98/59 L Pulse Oximetry 95 98 11/29/20 23:57 11/30/20 00:00 11/30/20 02:00 Temperature Pulse Rate 120 H 126 H Respiratory Rate Blood Pressure Pulse Oximetry 92 11/30/20 02:10 11/30/20 02:11 11/30/20 03:23 Temperature 97.9 F Pulse Rate 114 H 144 H Respiratory Rate 18 20 Blood Pressure 109/65 109/57 L Pulse Oximetry 91 90 11/30/20 03:27 11/30/20 03:40 11/30/20 03:58 Temperature Pulse Rate 111 H Respiratory Rate 18 Blood Pressure Pulse Oximetry 90 88 L 11/30/20 04:00 11/30/20 06:00 11/30/20 06:49 Temperature Pulse Rate 123 H 129 H 135 H Respiratory Rate Blood Pressure Pulse Oximetry 11/30/20 07:27 11/30/20 08:11 11/30/20 08:20 Temperature 97.9 F Pulse Rate 133 H 124 H 122 H Respiratory Rate 20 24 H 20 Blood Pressure 113/59 L Pulse Oximetry 95 95 11/30/20 08:25 11/30/20 11:25 Temperature 97.4 F L Pulse Rate 123 H 120 H Respiratory Rate 20 Blood Pressure 122/69 Pulse Oximetry 98 Intake/Output Intake/Output: Intake & Output 11/27/20 11/28/20 11/29/20 11/30/20 23:59 23:59 23:59 23:59 Intake Total 1193 611 4135 540 Output Total 1200 625 450 Balance 1200
--- NOTE | 2020-11-30 17:51 | PM.PNCARD ---
Progress Note: A&P Assessment and Plan (1) Atrial fibrillation with RVR: Code(s): I48.91 - Unspecified atrial fibrillation Status: Acute Assessment and Plan: heart rate remains poorly controlled. Discontinue Toprol XL. Change to metoprolol tartrate 100 mg q.8 hours. Continue amiodarone oral 400 mg p.o. q.8 hours. Advanced EP evaluation and therapy may be required of heart rate remains refractory such as ablation and or pacemaker. This would not be performed at this institution and would require transfer to outside facility. Focus on heart rate control at this time. Continue systemic anticoagulation. Repeat cardioversion unlikely to be durable even if once again successful. discussed at length with the patient. She verbalized understanding and agreed with plan of care. Further recommendations to follow based upon tolerance medical therapy and heart rate control. Digoxin may be an additional consideration although concern given her advanced age and presentation with acute renal insufficiency. (2) Dementia: Qualifiers: Dementia type: unspecified type Dementia behavioral disturbance: without behavioral disturbance Qualified Code(s): F03.90 - Unspecified dementia without behavioral disturbance Code(s): F03.90 - Unspecified dementia without behavioral disturbance Status: Chronic Assessment and Plan: Per primary service. (3) Hyperlipidemia: Qualifiers: Hyperlipidemia type: unspecified Qualified Code(s): E78.5 - Hyperlipidemia, unspecified Code(s): E78.5 - Hyperlipidemia, unspecified Status: Chronic Assessment and Plan: Continue statin therapy. (4) Hypertension: Qualifiers: Hypertension type: essential hypertension Qualified Code(s): I10 - Essential (primary) hypertension Code(s): I10 - Essential (primary) hypertension Status: Chronic Assessment and Plan: Control, no acute issues. Avoid symptomatic hypotension. monitor volume status. Taken of Lasix due to acute renal insufficiency presentation which has resolved. (5) Hypothyroidism: Qualifiers: Hypothyroidism type: unspecified Qualified Code(s): E03.9 - Hypothyroidism, unspecified Code(s): E03.9 - Hypothyroidism, unspecified Status: Acute Assessment and Plan: Continue levothyroxine. Management per primary service. Subjective Date/time seen: Date of service: 11/30/20 17:51 Follow-up for AFib with RVR. Interval history: Follow-up visit in this 70-year-old woman with: Recurrent atrial fib with RVR patient has a symptomatic recurrence following cardioversion in the fall of 2019. Status post cardioversion which was successful but reverted back to AFib with RVR. Remains on oral amiodarone and Toprol XL 100 mg daily. Patient denies palpitations or significant shortness of breath or chest pain. Review of Systems Constitutional: Constitutional: Denies chills, Denies fever(s) and Denies poor appetite Eyes: Eyes: Denies eye discharge, Denies loss of vision, Denies eye pain and Denies photophobia ENT: Denies dizziness, Denies epistaxis, Denies nasal congestion and Denies sore throat Cardiovascular: Cardiovascular: Denies chest pain, Denies syncope, Reports pedal edema, Reports leg edema, Denies palpitations, Denies dyspnea, Denies dyspnea on exertion and Denies orthopnea Respiratory: Respiratory: Denies cough, Denies dyspnea, Denies dyspnea on exertion and Denies wheezing Gastrointestinal: Gastrointestinal: Denies abdominal pain, Denies diarrhea, Denies nausea and Denies vomiting Genitourinary: Genitourinary: Denies hematuria, Denies genital lesions and Denies dysuria Musculoskeletal: Musculoskeletal: Denies arthralgias, Denies joint swelling and Denies numbness Integumentary/Breasts: Skin/Breast: Denies pruritus and Denies rash Neurologic: Denies dizziness, Denies syncope, Denies loss of vision and Denies numbnes
[2020-11-30 20:07] LABS: Glucose Point of Care 116 mg/dl (65-105)
[2020-11-30] MEDS: LOVASTATIN 20 MG TABLET PO (21:15)
[2020-11-30] MEDS: METOPROLOL TARTRATE 50 MG TAB 100 MG PO (21:16)
[2020-11-30] MEDS: rOPINIRole HCL 0.5 MG TABLET PO (21:17)
[2020-11-30] MEDS: traZODone HCL 50 MG TABLET PO (21:17)
[2020-12-01] VITALS (32 sets, daily range): BP systolic 93–144; BP diastolic 53–90; PULSE 93–126; RESP 18–24; TEMP 35.8–36.4; O2SAT 86–100
[2020-12-01] MEDS: METOPROLOL TARTRATE 50 MG TAB 100 MG PO ×3 (06:31→22:40)
[2020-12-01] MEDS: LEVOTHYROXINE SODIUM 100 MCG TABLET PO (06:31)
[2020-12-01] MEDS: AMIODARONE HCL 200 MG TABLET 400 MG PO ×3 (06:31→21:13)
[2020-12-01] MEDS: LEVOTHYROXINE SODIUM 75 MCG TABLET PO (06:31)
[2020-12-01] MEDS: APIXABAN 5 MG TABLET PO ×2 (08:54→21:13)
[2020-12-01] MEDS: busPIRone HCL 10 MG TABLET PO ×2 (08:54→16:10)
[2020-12-01] MEDS: DULoxetine HCL 30 MG CAPSULE.DR PO (08:54)
--- NOTE | 2020-12-01 10:30 | PM.PNCARD ---
Progress Note: A&P Assessment and Plan (1) Atrial fibrillation with RVR: Code(s): I48.91 - Unspecified atrial fibrillation Status: Acute Assessment and Plan: heart rate remains poorly controlled. Discontinue Toprol XL. Continue Metoprolol tartrate 100 mg q.8 hours for now plan to simplify regimen if HR better controlled. Recommendations to follow as HR overall suboptiomal. Continue amiodarone oral 400 mg p.o. q.8 hours. (2) Dementia: Qualifiers: Dementia type: unspecified type Dementia behavioral disturbance: without behavioral disturbance Qualified Code(s): F03.90 - Unspecified dementia without behavioral disturbance Code(s): F03.90 - Unspecified dementia without behavioral disturbance Status: Chronic Assessment and Plan: Per primary service. (3) Hyperlipidemia: Qualifiers: Hyperlipidemia type: unspecified Qualified Code(s): E78.5 - Hyperlipidemia, unspecified Code(s): E78.5 - Hyperlipidemia, unspecified Status: Chronic Assessment and Plan: Continue statin therapy. (4) Hypertension: Qualifiers: Hypertension type: essential hypertension Qualified Code(s): I10 - Essential (primary) hypertension Code(s): I10 - Essential (primary) hypertension Status: Chronic Assessment and Plan: Control, no acute issues. Avoid symptomatic hypotension. monitor volume status. Taken of Lasix due to acute renal insufficiency presentation which has resolved. (5) Hypothyroidism: Qualifiers: Hypothyroidism type: unspecified Qualified Code(s): E03.9 - Hypothyroidism, unspecified Code(s): E03.9 - Hypothyroidism, unspecified Status: Acute Assessment and Plan: Continue levothyroxine. Management per primary service. Additional Plan Obese 70-year-old lady with paroxysmal atrial fib admitted to 48 hours ago with a symptomatic recurrence. She is maintaining atrial fib despite IV amiodarone. She is chronically anticoagulated with apixaban. I would recommend proceeding with a DC cardioversion today did attempt to restore sinus rhythm once again. She was in sinus rhythm when she was here in the hospital in October of this year. Patient has been cardioverted last fall she has no questions about this and is agreeable and would like to proceed. Since she was fed breakfast I will wait to do this until mid afternoon. Fabian Perez MD [facility] Subjective Date/time seen: 12/01/20 10:30 This note is a late entry with evaluation on December 01, 2020. Interval history: Follow-up visit in this 70-year-old woman with: Recurrent atrial fib with RVR patient has a symptomatic recurrence following cardioversion in the fall of 2019. Status post cardioversion which was successful but reverted back to AFib with RVR. 12/01/20 Patient was feeling okay. Denies palpitations. No significant shortness of breath or dizziness. Heart rate remains rapid although slightly improved although remains elevated after changing metoprolol tartrate to 100 mg every 8 hours on oral amiodarone 400 mg q.8 hours. Review of Systems Constitutional: Constitutional: Denies chills, Denies fever(s) and Denies poor appetite Eyes: Eyes: Denies eye discharge, Denies loss of vision, Denies eye pain and Denies photophobia ENT: Denies dizziness, Denies epistaxis, Denies nasal congestion and Denies sore throat Cardiovascular: Cardiovascular: Denies chest pain, Denies syncope, Reports pedal edema, Reports leg edema, Denies palpitations, Denies dyspnea, Denies dyspnea on exertion and Denies orthopnea Respiratory: Respiratory: Denies cough, Denies dyspnea, Denies dyspnea on exertion and Denies wheezing Gastrointestinal: Gastrointestinal: Denies abdominal pain, Denies diarrhea, Denies nausea and Denies vomiting Genitourinary: Genitourinary: Denies hematuria, Denies genital lesions and Denies dysuria Musculoskeletal: Musculoskeletal: Denie
[2020-12-01 11:42] LABS: Glucose Point of Care 92 mg/dl (65-105)
--- NOTE | 2020-12-01 12:03 | PM.IMPN ---
Progress Note: A&P Assessment and Plan (1) MICHELLE (acute kidney injury): Code(s): N17.9 - Acute kidney failure, unspecified Status: Acute Assessment and Plan: Monitor renal function and electrolytes Ultrasound negative for obstruction (2) Atrial fibrillation with RVR: Code(s): I48.91 - Unspecified atrial fibrillation Status: Acute Assessment and Plan: Cardiology recommended switching Cardizem drip to amiodarone Patient on amiodarone po now Monitor heart rate and blood pressure closely Eliquis Rate control (3) Dementia: Qualifiers: Dementia type: unspecified type Dementia behavioral disturbance: without behavioral disturbance Qualified Code(s): F03.90 - Unspecified dementia without behavioral disturbance Code(s): F03.90 - Unspecified dementia without behavioral disturbance Status: Chronic Assessment and Plan: Monitor mental status (4) Hypertension: Qualifiers: Hypertension type: essential hypertension Qualified Code(s): I10 - Essential (primary) hypertension Code(s): I10 - Essential (primary) hypertension Status: Chronic Assessment and Plan: Continue home medications and monitor vital signs closely Subjective Date/time seen: 12/01/20 12:03 Interval history: Recurrent atrial fib with RVR patient has a symptomatic recurrence following cardioversion in the fall of 2019. Status post cardioversion which was successful but reverted back to AFib with RVR. Remains on oral amiodarone and Toprol XL 100 mg daily. Patient denies palpitations or significant shortness of breath or chest pain. Exam Const: General: cooperative and no acute distress HENMT: Head: normal to inspection Eyes: General: appearance normal, both eyes and all related structures Neck: Neck: normal visual inspection Chest: Chest palpation & inspection: normal inspection of the chest Resp: Effort & Inspection: normal respiratory effort Cardio: Jugular venous distension: no JVD Rate: tachycardic Other: irregularly irregular GI: Inspection: normal to inspection and non-distended Objective Data Vital Signs Vital Signs: Vital Signs - 24 hr 11/30/20 14:00 11/30/20 14:26 11/30/20 15:03 Temperature Pulse Rate 115 H 112 H 115 H Respiratory Rate 18 Blood Pressure Pulse Oximetry 11/30/20 15:10 11/30/20 15:23 11/30/20 16:00 Temperature 97.6 F Pulse Rate 105 H 125 H 124 H Respiratory Rate 18 20 Blood Pressure 115/69 Pulse Oximetry 95 94 11/30/20 18:00 11/30/20 20:00 11/30/20 20:54 Temperature 96.9 F L Pulse Rate 119 H 120 H Respiratory Rate 20 Blood Pressure 101/43 L 109/48 L Pulse Oximetry 98 11/30/20 21:16 11/30/20 21:17 11/30/20 21:51 Temperature Pulse Rate 106 H 117 H 125 H Respiratory Rate Blood Pressure Pulse Oximetry 11/30/20 23:38 12/01/20 00:00 12/01/20 02:00 Temperature 97.1 F L Pulse Rate 104 H 110 H 125 H Respiratory Rate 20 18 Blood Pressure 114/61 Pulse Oximetry 91 91 93 12/01/20 03:12 12/01/20 03:22 12/01/20 04:00 Temperature 97.1 F L Pulse Rate 123 H Respiratory Rate 20 Blood Pressure 96/59 L Pulse Oximetry 86 L 87 L 92 12/01/20 06:00 12/01/20 06:26 12/01/20 06:31 Temperature Pulse Rate 118 H 126 H Respiratory Rate Blood Pressure 107/81 Pulse Oximetry 12/01/20 08:03 12/01/20 08:15 12/01/20 09:26 Temperature 97.6 F Pulse Rate 120 H 101 H 113 H Respiratory Rate 20 20 Blood Pressure 109/53 L Pulse Oximetry 97 95 95 12/01/20 09:46 12/01/20 10:00 Temperature Pulse Rate 102 H 110 H Respiratory Rate 24 H Blood Pressure Pulse Oximetry Intake/Output Intake/Output: Intake & Output 11/28/20 11/29/20 11/30/20 12/01/20 23:59 23:59 23:59 23:59 Intake Total 890 1010 1140 240 Output Total 6258 867 5906 450 Balance -310 385 -135 -870 Meds/Results Medications: Active Medications Generic
--- NOTE | 2020-12-01 18:54 | PCRCNOTE ---
Window of time for administration has passed. See next scheduled administration.
[2020-12-01] MEDS: traZODone HCL 50 MG TABLET PO (21:13)
[2020-12-01] MEDS: LOVASTATIN 20 MG TABLET PO (21:13)
[2020-12-01] MEDS: rOPINIRole HCL 0.5 MG TABLET PO (21:13)
[2020-12-01] MEDS: SODIUM CHLORIDE 0.9% IV 250 ML IV CONT (21:13)
[2020-12-02] VITALS (28 sets, daily range): BP systolic 104–126; BP diastolic 50–95; PULSE 90–120; RESP 16–20; TEMP 35.8–36.3; O2SAT 91–100
[2020-12-02] MEDS: METOPROLOL TARTRATE 50 MG TAB 100 MG PO (06:05)
[2020-12-02] MEDS: LEVOTHYROXINE SODIUM 100 MCG TABLET PO (06:05)
[2020-12-02] MEDS: LEVOTHYROXINE SODIUM 75 MCG TABLET PO (06:05)
[2020-12-02] MEDS: AMIODARONE HCL 200 MG TABLET 400 MG PO (06:06)
[2020-12-02] MEDS: APIXABAN 5 MG TABLET PO ×2 (08:13→20:48)
[2020-12-02] MEDS: DULoxetine HCL 30 MG CAPSULE.DR PO (08:13)
[2020-12-02] MEDS: busPIRone HCL 10 MG TABLET PO ×2 (08:13→16:03)
--- NOTE | 2020-12-02 10:08 | PM.IMPN ---
Progress Note: A&P Assessment and Plan (1) MICHELLE (acute kidney injury): Code(s): N17.9 - Acute kidney failure, unspecified Status: Acute Assessment and Plan: Monitor renal function and electrolytes Ultrasound negative for obstruction (2) Atrial fibrillation with RVR: Code(s): I48.91 - Unspecified atrial fibrillation Status: Acute Assessment and Plan: Cardiology recommended switching Cardizem drip to amiodarone Patient on amiodarone po now Monitor heart rate and blood pressure closely Eliquis Rate control unsuccessful cardioversion (3) Dementia: Qualifiers: Dementia type: unspecified type Dementia behavioral disturbance: without behavioral disturbance Qualified Code(s): F03.90 - Unspecified dementia without behavioral disturbance Code(s): F03.90 - Unspecified dementia without behavioral disturbance Status: Chronic Assessment and Plan: Monitor mental status (4) Hypertension: Qualifiers: Hypertension type: essential hypertension Qualified Code(s): I10 - Essential (primary) hypertension Code(s): I10 - Essential (primary) hypertension Status: Chronic Assessment and Plan: Continue home medications and monitor vital signs closely (5) Localized edema: Code(s): R60.0 - Localized edema Status: Chronic Assessment and Plan: dressing management by wound care Subjective Date/time seen: 12/02/20 10:08 Interval history: patient is still in AFib with heart rate around 110-120 beats per minute, patient denies chest pain shortness of breath or palpitation. Exam Const: General: cooperative and no acute distress HENMT: Head: normal to inspection Eyes: General: appearance normal, both eyes and all related structures Neck: Neck: normal visual inspection Chest: Chest palpation & inspection: normal inspection of the chest Resp: Effort & Inspection: normal respiratory effort Cardio: Jugular venous distension: no JVD Rate: tachycardic Other: irregularly irregular GI: Inspection: normal to inspection and non-distended Objective Data Vital Signs Vital Signs: Vital Signs - 24 hr 12/01/20 12:21 12/01/20 12:30 12/01/20 12:54 Temperature 96.5 F L Pulse Rate 108 H 115 H 110 H Respiratory Rate 21 H Blood Pressure 111/63 Pulse Oximetry 94 100 12/01/20 14:00 12/01/20 14:49 12/01/20 16:00 Temperature Pulse Rate 107 H 115 H 98 Respiratory Rate 20 Blood Pressure Pulse Oximetry 96 06/27/21 17:30 12/01/20 18:00 12/01/20 19:40 Temperature 97.2 F L Pulse Rate 102 H 102 H 112 H Respiratory Rate 20 20 Blood Pressure 93/53 L Pulse Oximetry 96 12/01/20 19:41 12/01/20 19:45 12/01/20 19:48 Temperature 97.5 F L Pulse Rate 109 H 106 H Respiratory Rate 20 20 Blood Pressure 94/54 L Pulse Oximetry 94 95 12/01/20 20:00 12/01/20 20:56 12/01/20 21:13 Temperature Pulse Rate 99 106 H Respiratory Rate Blood Pressure 93/57 L Pulse Oximetry 95 12/01/20 22:00 12/01/20 22:30 12/01/20 22:35 Temperature 97.4 F L Pulse Rate 111 H 121 H Respiratory Rate 18 Blood Pressure 116/73 Pulse Oximetry 88 L 91 12/01/20 22:40 12/02/20 00:00 12/02/20 02:00 Temperature Pulse Rate 117 H 104 H 102 H Respiratory Rate Blood Pressure Pulse Oximetry 92 12/02/20 02:14 12/02/20 04:00 12/02/20 05:52 Temperature 97.3 F L Pulse Rate 104 H 110 H Respiratory Rate 20 Blood Pressure 107/50 L 113/57 L Pulse Oximetry 92 12/02/20 06:04 12/02/20 06:05 12/02/20 06:06 Temperature Pulse Rate 117 H 117 H Respiratory Rate Blood Pressure 108/61 Pulse Oximetry 12/02/20 08:00 12/02/20 08:35 12/02/20 08:36 Temperature Pulse Rate 91 Respiratory Rate 20 Blood Pressure Pulse Oximetry 92 93 12/02/20 08:42 12/02/20 09:09 Temperature 96.5 F L Pulse Rate 90 117 H Respiratory Rate 20 16 Blood Pressure 120/9
--- NOTE | 2020-12-02 10:14 | PC.NURSE ---
Addendum entered by Luigi Ausitn RN 12/02/20 18:13: Left lower leg wrap not to be touched per outpatient physical therapy. Right lower leg wrap can be removed and leg washed, however patient refuses to have wrap touched. Original Note: Spoke with Rafita Ferguson RN this morning regarding patients bilateral wrapped legs. Phyllis stated that Rafita Ware RN spoke directly with the head of the outpatient therapy center who stated that the right lower leg wrap is to be left in place and not touched. The patient gets wrap changed at outpatient physical therapy. Phyllis stated the velcro compression wrap on the left lower leg can be removed for leg to be washed and lotioned and then put back in place.
[2020-12-02 11:54] LABS: Anion Gap 6 mmol/L (8-16); Blood Urea Nitrogen 24 mg/dL (7-17); Calcium 8.9 mg/dL (8.4-10.2); Carbon Dioxide 26 mmol/L (22-30); Chloride 102 mmol/L (98-107); Estimated CRCL calculation 49 ml/min; Estimated Glomerular Filt Rate 55; Glucose 96 mg/dL (65-105); Magnesium 2.2 mg/dL (1.6-2.3); Potassium 4.2 mmol/L (3.4-5.0); Sodium 134 mmol/L (137-145)
[2020-12-02] MEDS: METOPROLOL TARTRATE 50 MG TAB PO (12:01)
--- NOTE | 2020-12-02 12:52 | PM.PNCARD ---
Progress Note: A&P Assessment and Plan (1) Atrial fibrillation with RVR: Code(s): I48.91 - Unspecified atrial fibrillation Status: Acute Assessment and Plan: Heart rate better controlled overall and is acceptable at this time. She is tolerating medications. -Change to amiodarone 400 mg daily. -Change to metoprolol tartrate 150 mg twice daily. -Follow up as an outpatient within 2 weeks with Blanca Lopez NP with [facility] and plan for outpatient elective electrical cardioversion in attempt to restore sinus rhythm to the amiodarone levels to increase to improve likelihood of success with cardioversion and, hopefully, durable maintenance of SR. discussed with the patient at length. She verbalized understanding and agrees with plan of care. Further recommendations and/or referral to electrophysiology if fails repeat cardioversion on amiodarone. Continue systemic anticoagulation without interruption. Laboratory studies stable, magnesium 2.2 potassium 4.2 this morning. -Will give 50 mg p.o. x1 metoprolol to cover in between dosing change with metoprolol prior to discharge. -Resume Lasix but at lower dose 20 mg daily along with potassium chloride 10 mEq daily. Patient stable for discharge home today from a cardiac perspective to follow up as an outpatient as noted above. Office will contact her with follow-up and scheduling for outpatient cardioversion will be done at her outpatient visit. (2) Dementia: Qualifiers: Dementia type: unspecified type Dementia behavioral disturbance: without behavioral disturbance Qualified Code(s): F03.90 - Unspecified dementia without behavioral disturbance Code(s): F03.90 - Unspecified dementia without behavioral disturbance Status: Chronic Assessment and Plan: Per primary service. stable. (3) Hyperlipidemia: Qualifiers: Hyperlipidemia type: unspecified Qualified Code(s): E78.5 - Hyperlipidemia, unspecified Code(s): E78.5 - Hyperlipidemia, unspecified Status: Chronic Assessment and Plan: Continue statin therapy. (4) Hypertension: Qualifiers: Hypertension type: essential hypertension Qualified Code(s): I10 - Essential (primary) hypertension Code(s): I10 - Essential (primary) hypertension Status: Chronic Assessment and Plan: Control, no acute issues. Avoid symptomatic hypotension. monitor volume status. Taken of Lasix due to acute renal insufficiency presentation which has resolved. (5) Hypothyroidism: Qualifiers: Hypothyroidism type: unspecified Qualified Code(s): E03.9 - Hypothyroidism, unspecified Code(s): E03.9 - Hypothyroidism, unspecified Status: Acute Assessment and Plan: Continue levothyroxine. Management per primary service. Subjective Date/time seen: Date of service:12/02/20 12:52 Follow-up for atrial fibrillation with rapid ventricular response patient feels well. No problems today. No palpitation, dizziness or shortness of breath. Heart rate much better controlled averaging 80s to low 100s, increased with ambulation typically to the 120s. Tolerating medications well. Labs were not drawn early this morning. BP was a little soft last night, 250 cc normal saline bolus x1 given. BP is well controlled thereafter. Tolerating medications. Review of Systems Constitutional: Constitutional: Denies chills, Denies fever(s) and Denies poor appetite Eyes: Eyes: Denies eye discharge, Denies loss of vision, Denies eye pain and Denies photophobia ENT: Denies dizziness, Denies epistaxis, Denies nasal congestion and Denies sore throat Cardiovascular: Cardiovascular: Denies chest pain, Denies syncope, Reports pedal edema, Reports leg edema, Denies palpitations, Denies dyspnea, Denies dyspnea on exertion and Denies orthopnea Respiratory: Respiratory: Denies cough, Denies dyspnea, Denies dyspnea on exertion and Denies w
[2020-12-02] MEDS: traZODone HCL 50 MG TABLET PO (20:48)
[2020-12-02] MEDS: rOPINIRole HCL 0.5 MG TABLET PO (20:48)
[2020-12-02] MEDS: LOVASTATIN 20 MG TABLET PO (20:48)
[2020-12-02] MEDS: METOPROLOL TARTRATE 50 MG TAB 150 MG PO (20:48)
[2020-12-03] VITALS (14 sets, daily range): BP systolic 90–129; BP diastolic 50–88; PULSE 97–125; RESP 15–24; TEMP 36.4–36.6; O2SAT 94–97
[2020-12-03 05:13] LABS: Basophils Percent Auto 0.3 % (0.2-1.2); Hemoglobin 13.1 g/dL (12.0-15.0); Immature Granulocyte Absolute 0.02 K/mm3 (0.00-0.031); Immature Granulocyte Percent A 0.3 % (0-0.5); Lymphocytes Absolute Auto 1.58 K/mm3 (0.9-3.2); Lymphocytes Percent Auto 24.4 % (18.3-44.2); Mean Corpuscular HGB Conc 32.8 g/dl (32-36); Mean Corpuscular Hemoglobin 31.6 pg (26-34); Mean Corpuscular Volume 96.6 fl (80-100); Mean Platelet Volume 10.4 fl (7.4-10.4); Monocytes Absolute Auto 0.5 K/mm3 (0.1-0.6); Monocytes Percent Auto 8.3 % (2.6-8.5); Neutrophils Absolute Auto 4.3 K/mm3 (1.3-6.7); Neutrophils Percent Auto 66.7 % (45.5-73.1); Platelet Count Result 306 k/mm3 (150-375); Red Blood Count 4.14 M/mm3 (4.2-5.4); White Blood Count 6.5 K/mm3 (4.5-10.0)
[2020-12-03 05:24] LABS: Anion Gap 4 mmol/L (8-16); Blood Urea Nitrogen 24 mg/dL (7-17); Calcium 8.9 mg/dL (8.4-10.2); Carbon Dioxide 30 mmol/L (22-30); Chloride 103 mmol/L (98-107); Estimated CRCL calculation 45 ml/min; Estimated Glomerular Filt Rate 49; Glucose 96 mg/dL (65-105); Potassium 4.2 mmol/L (3.4-5.0); Sodium 137 mmol/L (137-145)
[2020-12-03] MEDS: LEVOTHYROXINE SODIUM 75 MCG TABLET PO (06:03)
[2020-12-03] MEDS: LEVOTHYROXINE SODIUM 100 MCG TABLET PO (06:03)
[2020-12-03] MEDS: busPIRone HCL 10 MG TABLET PO (09:09)
[2020-12-03] MEDS: DULoxetine HCL 30 MG CAPSULE.DR PO (09:09)
[2020-12-03] MEDS: APIXABAN 5 MG TABLET PO (09:09)
[2020-12-03] MEDS: METOPROLOL TARTRATE 50 MG TAB 150 MG PO (09:10)
[2020-12-03] MEDS: AMIODARONE HCL 200 MG TABLET 400 MG PO (09:10)
[2020-12-03] MEDS: POTASSIUM CHLORIDE 10 MEQ TABLET.ER PO (09:11)
--- NOTE | 2020-12-03 10:48 | PM.PNCARD ---
Progress Note: A&P Assessment and Plan (1) Atrial fibrillation with RVR: Code(s): I48.91 - Unspecified atrial fibrillation Status: Acute Assessment and Plan: Heart rate better controlled overall and is acceptable at this time. She is tolerating medications. -Continue Amiodarone 400 mg daily. -Metoprolol tartrate 150 mg twice daily. -Apixaban 5mg BID monitor for bleeding. -Follow up as an outpatient within 2 weeks with Blanca Lopez NP with [facility] and plan for outpatient elective electrical cardioversion in attempt to restore sinus rhythm to the amiodarone levels to increase to improve likelihood of success with cardioversion and, hopefully, durable maintenance of SR. -Hold off on Lasix due to relative intermittent hypotension, although asymptomatic. Patient stable for discharge home today from a cardiac perspective to follow up as an outpatient as noted above. Office will contact her with follow-up and scheduling for outpatient cardioversion will be done at her outpatient visit. (2) Dementia: Qualifiers: Dementia type: unspecified type Dementia behavioral disturbance: without behavioral disturbance Qualified Code(s): F03.90 - Unspecified dementia without behavioral disturbance Code(s): F03.90 - Unspecified dementia without behavioral disturbance Status: Chronic Assessment and Plan: Per primary service. stable. (3) Hyperlipidemia: Qualifiers: Hyperlipidemia type: unspecified Qualified Code(s): E78.5 - Hyperlipidemia, unspecified Code(s): E78.5 - Hyperlipidemia, unspecified Status: Chronic Assessment and Plan: Continue statin therapy. (4) Hypertension: Qualifiers: Hypertension type: essential hypertension Qualified Code(s): I10 - Essential (primary) hypertension Code(s): I10 - Essential (primary) hypertension Status: Chronic Assessment and Plan: Control, no acute issues. Avoid symptomatic hypotension. monitor volume status. Taken of Lasix due to acute renal insufficiency presentation which has resolved. (5) Hypothyroidism: Qualifiers: Hypothyroidism type: unspecified Qualified Code(s): E03.9 - Hypothyroidism, unspecified Code(s): E03.9 - Hypothyroidism, unspecified Status: Acute Assessment and Plan: Continue levothyroxine. Management per primary service. Subjective Date/time seen: Date of Service: 12/03/20 10:48 Interval history: Follow-up visit in this 70-year-old woman with: Recurrent atrial fib with RVR patient has a symptomatic recurrence following cardioversion in the fall of 2019. Status post cardioversion which was successful but reverted back to AFib with RVR. She feels fine, no new issues overnight. No dizziness, falls, CP, palps, or SOB. Neb tx currently. Feels ready to go home she states. Review of Systems Constitutional: Constitutional: Denies chills, Denies fever(s) and Denies poor appetite Eyes: Eyes: Denies eye discharge, Denies loss of vision, Denies eye pain and Denies photophobia ENT: Denies dizziness, Denies epistaxis, Denies nasal congestion and Denies sore throat Cardiovascular: Cardiovascular: Denies chest pain, Denies syncope, Reports pedal edema, Reports leg edema, Denies palpitations, Denies dyspnea, Denies dyspnea on exertion and Denies orthopnea Respiratory: Respiratory: Denies cough, Denies dyspnea, Denies dyspnea on exertion and Denies wheezing Gastrointestinal: Gastrointestinal: Denies abdominal pain, Denies diarrhea, Denies nausea and Denies vomiting Genitourinary: Genitourinary: Denies hematuria, Denies genital lesions and Denies dysuria Musculoskeletal: Musculoskeletal: Denies arthralgias, Denies joint swelling and Denies numbness Integumentary/Breasts: Skin/Breast: Denies pruritus and Denies rash Neurologic: Denies dizziness, Denies syncope, Denies loss of vision and Denies numbness Psych
--- NOTE | 2020-12-03 11:11 | PM.DS ---
DS: Admitting Diagnosis Admitting Diagnosis Admitting Diagnosis: Atrial fibrillation with rapid ventricular response DS: Discharge Diagnosis Discharge Diagnosis (1) MICHELLE (acute kidney injury): Code(s): N17.9 - Acute kidney failure, unspecified Status: Acute Assessment and Plan: Monitor renal function and electrolytes Ultrasound negative for obstruction (2) Atrial fibrillation with RVR: Code(s): I48.91 - Unspecified atrial fibrillation Status: Acute Assessment and Plan: Cardiology recommended switching Cardizem drip to amiodarone Patient on amiodarone po now Monitor heart rate and blood pressure closely Eliquis Rate control unsuccessful cardioversion (3) Dementia: Qualifiers: Dementia type: unspecified type Dementia behavioral disturbance: without behavioral disturbance Qualified Code(s): F03.90 - Unspecified dementia without behavioral disturbance Code(s): F03.90 - Unspecified dementia without behavioral disturbance Status: Chronic Assessment and Plan: Monitor mental status (4) Hypertension: Qualifiers: Hypertension type: essential hypertension Qualified Code(s): I10 - Essential (primary) hypertension Code(s): I10 - Essential (primary) hypertension Status: Chronic Assessment and Plan: Continue home medications and monitor vital signs closely (5) Localized edema: Code(s): R60.0 - Localized edema Status: Chronic Assessment and Plan: dressing management by wound care DS: Summary Hospital Course Reason for hospitalization: atrial fibrillation with rapid response Hospital Course: patient is 68 years old female history of atrial fibrillation, history of coronary disease, history of dementia was admitted complains of having palpitation. Patient was found to have atrial fibrillation with rapid ventricular response. Cardiology was consulted who advised to give amiodarone and increase dose of beta-blockers. Continue with anticoagulation. After few days of treatment patient started feeling better heart rate was controlled. Today patient was discharged home in stable condition. Follow with cardiology as albert Status at Discharge Cognitive/behavioral status at discharge: Stable Functional status at discharge: independent ambulation Overall status at discharge: patient is back to baseline Time Spent with Patient Time attestation: Total time spent providing and/or coordinating discharge services: Time spent: Less than 30 minutes Exam Narrative: Exam Narrative: Patient is laying in bed Const: General: cooperative, comfortable, no acute distress, well developed, alert and awake Nutritional Appearance: overweight Orientation/consciousness: oriented to person and oriented to place HENMT: Head: normal to inspection, normocephalic and atraumatic Ears: hearing grossly normal bilaterally General nose exam: Normal external nose present Face and sinus: normal facial exam Eyes: General: appearance normal, both eyes and all related structures Alignment and Position: alignment normal Sclera: sclerae normal Pupils: Equal, round and reactive pupils present EOM: EOMs intact bilaterally Neck: Neck: normal visual inspection, full ROM, no lymphadenopathy, supple, no lymphadenopathy noted and no JVD Thyroid: thyroid normal Lymphatic: no lymphadenopathy noted Chest: Chest palpation & inspection: normal inspection of the chest Resp: Effort & Inspection: normal respiratory effort and able to speak in complete sentences Auscultation: clear to auscultation bilaterally, no crackles, no rales and no wheezes Cardio: Jugular venous distension: no JVD Rate: tachycardic Rhythm: abnormal rhythm irregularly irregular Heart sounds: S1 normal heart sound present, S2 normal heart sound present and Murmur heart sound present Other: irregularly irregular GI: Inspection: normal to inspection, non-distended, Pannus present and o
== END 2020-12-03 13:48 | disposition home or self-care (01) | DRG 310 ==
LOC: ANHED 18:10 → ANHIMU 18:22
PROVIDERS: Emergency Medicine; Internal Medicine Cardiovascular Disease; Specialist; Admitting Provider Family Medicine; Emergency Provider Family Medicine; PCP Family Medicine; Visit Provider Internal Medicine
PROC: 5A2204Z Restoration of Cardiac Rhythm, Single (ICD-10-PCS; principal; 2020-11-29 15:00)
DX: I48.91 Unspecified atrial fibrillation (principal); F03.90 Unspecified dementia, unspecified severity, without behavioral disturbance, psychotic disturbance, mood disturbance, and anxiety; E78.5 Hyperlipidemia, unspecified; I10 Essential (primary) hypertension; E03.9 Hypothyroidism, unspecified; I87.303 Chronic venous hypertension (idiopathic) without complications of bilateral lower extremity; G25.81 Restless legs syndrome; Z79.01 Long term (current) use of anticoagulants; Z79.899 Other long term (current) drug therapy
CPT/HCPCS: 36415; 71046; 76775; 80048; 82948; 83735; 84100; 84484; 85025; 85610; 85730; 92960; 93005; 93306; 94640; 96361; 96365; 96366; 96375; 96376; 99285; A9270; G0378; J0282; J1940; J2704; J7030; J7040; J7050

== ENCOUNTER 2020-12-06 10:30 | Outpatient (RCR) | payer MEDICARE, MEDICAID, SELFPAY ==
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
--- NOTE | 2020-11-27 14:10 | PCPTNOTE ---
pt's daughter called and cancelled due to illness.
--- NOTE | 2020-11-29 15:24 | PCPTNOTE ---
pt daughter called and canceled today's treatment due to pt is in the hospital due to a-fib; I talked with daughter on the phone, she will bring her velcro compression garment to the hospital and I will go there this afternoon to put it on her;
--- NOTE | 2020-12-02 15:19 | PCPTNOTE ---
Spoke to Denise's daughter ,: Denise is in the hospital .Appointment was cancelled today.
--- NOTE | 2020-12-05 11:42 | PCPTNOTE ---
LATE entry: 12-04-20: pt was in hospital for cardiac issues and had cardioversion performed. New orders received to continue lymphedema treatment. Continue PT treatment per plan of care. Discussed pt with MARY Carranza.
--- NOTE | 2020-12-16 16:11 | PCPTNOTE ---
PHYSICAL THERAPY DISCHARGE 12-16-20 Attending Provider: Adriana Mars MD Patient:Denise Motley Date of :1950 Mrs. Motley has received 8 PT sessions, for the diagnosis of LE lymphedema, from November 11 to December 06. The goals The goals were partially met. The circumferential measurements of her legs, from the bottom of her foot, up to 64 cm: R is 701.9 cm, decreased by 24.5 cm and the L is 693.3 cm, within 1 cm of the initial evaluation. She has compression garments for both lower legs, CircAid juxtafit essentials lower leg pieces and CircAid capris for her thighs. Her skin has good integrity/no fibrosis, with minimal redness. Denise and her daughter have been educated on skin care, self manual lymph drainage, compression garments and care. Thank you for referring Denise to [facility]. Please review, sign, date and return this discharge summary TIESHA. I have been updated about the patient's current status and I agree with discharge from the above service at this time. Referring Physician Date
== END 2020-12-19 16:48 | disposition home or self-care (01) ==
LOC: ANHPT 10:30
PROVIDERS: PCP Family Medicine; Visit Provider Family Medicine
DX: I89.0 Lymphedema, not elsewhere classified (principal); M62.81 Muscle weakness (generalized)
CPT/HCPCS: 29581; 97016; 97140; 97161

== ENCOUNTER 2021-09-17 21:31 | Inpatient (IN) | payer MEDICARE, MEDICAID, SELFPAY ==
--- NOTE | ~2021-09-17 | XR_ITS ---
EXAM: XR knee RT min 4V HISTORY: fall, pain throughout R knee, Hx of replacement date unknown COMPARISON: 08/10/2014. FINDINGS: Right knee total arthroplasty, in good position. No hardware-related complication. No disl ocation. No osseous fracture. Small volume joint fluid. IMPRESSION: No acute osseous finding in the right knee. Reviewed, dictated and finalized at location K.
--- NOTE | ~2021-09-17 | XR_ITS ---
EXAM: XR hip RT 2V w AP pelvis HISTORY: fall, pain throughout, hip replaced replaced, date unknown COMPARISON: CT pelvis 08/10/2014. FINDINGS: Right hip arthroplasty, in good position, without evidence of perihardware lucency or frac ture. No acute osseous fracture. Old healed pelvic fractures. Severe degenerative change in the lower lumbar spine and pubic symphysis. IMPRESSION: Uncomplicated left hip arthroplasty. No acute osseous finding in the right hip or pelvis. Reviewed, dictated and finalized at location K.
--- NOTE | ~2021-09-17 | CT_ITS ---
EXAMINATION: CT brain wo con DATE: 09/17/2021 22:27 INDICATION: Fall, dementia TECHNIQUE: Computed tomography (CT) of the head was performed without intravenous contrast. The mA wa s adjusted according to patient size. Iterative reconstruction technique was employed. The dose-lengt h product was 605.33 mGy-cm. COMPARISON: 07/19/2014. FINDINGS: No acute intracranial hemorrhage or extra-axial fluid collection. No hydrocephalus, mass, or herniation. No acute ischemic infarct. Unremarkable dural venous sinus attenuation. No acute osseous abnormality. The aerated spaces are clear. Mild atrophy and chronic white matter change. Atherosclerotic intracranial vascular calcification. IMPRESSION: No acute intracranial process. Reviewed, dictated and finalized at location K.
--- NOTE | ~2021-09-17 | XR_ITS ---
EXAMINATION: XR knee RT 2V DATE: 09/20/2021 09:15 INDICATION: Right knee swelling and erythema. TECHNIQUE: 2 views of right knee were obtained. COMPARISON: Right knee radiographs 09/17/2021 FINDINGS: There is a total right knee arthroplasty with patellar resurfacing in near-anatomic alignme nt. No periprosthetic lucency to suggest loosening or infection. No fracture. No knee joint effusion. IMPRESSION: 1. Total right knee arthroplasty in near-anatomic alignment. Reviewed, dictated and finalized at location A.
--- NOTE | ~2021-09-17 | XR_ITS ---
EXAMINATION: XR chest 2V Exam Date/Time: 09/17/2021 22:10 CDT CLINICAL HISTORY: fall tonight, tachypnea hx atrial flutter, htn Comparison: 11/27/2020. RESULT: Lines, tubes, and devices: None. Lungs and pleura: Clear. Cardiomediastinal silhouette: Stable cardiomegaly. Other: No acute osseous or upper abdominal finding. IMPRESSION: No acute cardiopulmonary process Reviewed, dictated and finalized at location K.
--- NOTE | ~2021-09-17 | US_ITS ---
EXAMINATION: US venous doppler [facility] DATE: 09/21/2021 11:52 INDICATION: Lower limb edema and erythema. TECHNIQUE: Grayscale ultrasound images without and with compression and Doppler ultrasound images of the bilateral lower extremity veins were obtained. COMPARISON: Ultrasound 09/19/2021 FINDINGS: The visualized portions of right common femoral vein, profunda (deep) femoral vein, femoral vein, pop liteal vein, peroneal veins, posterior tibial veins, and greater saphenous vein outflow are patent. The visualized portions of left common femoral vein, profunda femoral vein, femoral vein, popliteal v ein, peroneal veins, posterior tibial veins, and greater saphenous vein outflow are patent. IMPRESSION: 1. No deep venous thrombosis. Reviewed, dictated and finalized at location A.
--- NOTE | ~2021-09-17 | US_ITS ---
EXAMINATION: US venous doppler LE RT EXAM DATE: 09/19/2021 10:41 INDICATION: rule out DVT TECHNIQUE: Multiple grayscale, color flow and Doppler images of the right lower extremity deep venous system were obtained and reviewed. Comparison is made to prior examination from 10/24/2020. FINDINGS: The right common femoral, femoral and profunda veins demonstrate normal color flow, respira tory variation, augmentation and compressibility. Compressibility, color flow confirmed within the r ight popliteal, posterior tibial, peroneal, and greater saphenous veins. IMPRESSION: 1. No right lower extremity deep venous thrombosis. Reviewed, dictated and finalized at location B.
--- NOTE | ~2021-09-17 | CT_ITS ---
EXAMINATION: CT cervical spine wo con DATE: 09/17/2021 22:27 INDICATION: Fall, dementia. TECHNIQUE: Computed tomography (CT) of the cervical spine was performed without intravenous contrast. Automated exposure control and iterative reconstruction technique were employed. The dose-length pro duct was 477.81 mGy-cm. COMPARISON: None FINDINGS: Counting reference: Craniocervical junction. There are seven cervical type vertebral bodies. Anatomic Variants: None. Vertebral Body Alignment: Intact. Craniocervical junction: Mild degenerative change. Alignment intact. Osseous structures/fracture: Multiple punched-out appearing lytic lesions within a vertebral tiffanie s. No evidence of acute fracture. Cervical soft tissues: The paraspinal soft tissues planes are maintained. Degenerative changes: Multilevel moderate degenerative disc disease and uncovertebral joint hypertrop hy, with prominent anterior osteophytes. Severe central canal stenosis at C4-5. Multilevel bilateral severe neural foraminal narrowing. IMPRESSION: No acute fracture or traumatic malalignment in the cervical spine. Multiple circumscribed lytic lesio ns within the vertebral bodies of the cervical spine, correlate with history of primary malignancy or multiple myeloma. Reviewed, dictated and finalized at location K. IMPRESSION: No acute fracture or traumatic malalignment in the cervical spine. Multiple cir cumscribed lytic lesions within the vertebral bodies of the cervical spine, cor relate with history of primary malignancy or multiple myeloma.
[2021-09-17 21:32] VITALS: BP 122/93; PULSE 105; RESP 30; TEMP 36.6; O2SAT 92
[2021-09-17 21:42] VITALS: BP 122/93; PULSE 109; RESP 51; O2SAT 91
[2021-09-17 21:47] VITALS: BP 142/75; PULSE 114; RESP 43; O2SAT 92
--- NOTE | 2021-09-17 21:54 | ED.FALL ---
HPI - Fall General Chief Complaint: Fall <Laney Sesay PA-C - Last Filed: 09/18/21 02:32> Stated Complaint: FALL <Laney Sesay PA-C - Last Filed: 09/18/21 02:32> Time Seen by Provider: 09/17/21 21:34 <Laney Sesay PA-C - Last Filed: 09/18/21 02:32> Source: patient, family and EMS <GISELL Oliveira Last Filed: 09/18/21 02:32> Mode of arrival: EMS <GISELL Oliveira Last Filed: 09/18/21 02:32> Limitations: no limitations <GISELL Oliveira Last Filed: 09/18/21 02:32> History of Present Illness HPI Narrative: Patient is a 70-year-old female who presents the ED via EMS with report of multiple falls. Patient has a history of dementia, daughter at bedside assisted in providing information. Patient lives with daughter. She reports patient was walking out to their van [facility] when she was found outside fallen onto her right side. Patient has a history of right hip and right knee replacement. They were able to get patient up off the ground however she was weak and almost fell again. They were able to prevent her from falling again. Patient denies feeling any prodromal symptoms prior to the fall. No dizziness, lightheadedness, chest pain, shortness of breath. Patient does not think she hit her head in the fall, family is not sure of this. Patient denies any neck pain at this time. Patient went to dinner with family after fall, has been able to ambulate since the fall but has been doing so very slowly. Patient currently complains of pain to her right hip and right knee. Patient has a history of atrial fibrillation and takes Eliquis and Amiodarone daily. <GISELL Oliveira Last Filed: 09/18/21 02:32> Related Data Home Medications: Home Medications Medication Instructions Recorded Confirmed buspirone 10 mg PO BID 04/11/20 05/22/21 duloxetine 30 mg PO DAILY 04/11/20 05/22/21 furosemide 40 mg PO DAILY 04/11/20 05/22/21 lovastatin 20 mg PO HS 04/11/20 05/22/21 potassium chloride 20 meq PO DAILY 04/11/20 05/22/21 ropinirole 0.5 mg PO HS 04/11/20 05/22/21 albuterol sulfate 2 puff INHALATION Q4H PRN 11/27/20 05/22/21 trazodone 50 mg PO HS PRN 11/27/20 05/22/21 levothyroxine [Euthyrox] 09/17/21 <Laney Sesay PA-C - Last Filed: 09/18/21 02:32> Allergies/Adverse Reactions: Allergies Allergy/AdvReac Type Severity Reaction Status Date / Time No Known Allergies Allergy Verified 09/17/21 22:09 <Laney Sesay PA-C - Last Filed: 09/18/21 02:32> Review of Systems Review of Systems: CONSTITUTIONAL: Denies fever, chills. EYES: Denies visual changes. CARDIOVASCULAR: Denies chest pain. RESPIRATORY: Denies dyspnea. GASTROINTESTINAL: Denies abdominal pain, nausea, vomiting, or diarrhea. MUSCULOSKELETAL: Reports pain to R hip, R knee. Denies neck pain. NEUROLOGIC: Possible HI. Denies headache, numbness, or weakness. <Laney Sesay PA-C - Last Filed: 09/18/21 02:32> ROS unobtainable: Yes unobtainable due to mental status <Laney Sesay PA-C - Last Filed: 09/18/21 02:32> [facility] Past Medical History Medical History: Medical History Anxiety Atrial flutter Dementia Hyperlipidemia Hypertension Hypothyroid Localized edema Restless leg syndrome <Laney Sesay PA-C - Last Filed: 09/18/21 02:32> Surgical History Surgical History: Surgical History H/O splenectomy H/O total hysterectomy History of right hip hemiarthroplasty History of right knee joint replacement Hx of cholecystectomy <Laney Sesay PA-C - Last Filed: 09/18/21 02:32> Family History Family History: Family History Father Hypertension Sibling Hypertension Breast cancer <Laney Sesay PA-C - Last Filed: 09/18/21 02:32> Social History Social History: Social History (Reviewed 09/17/21 @ 22:
--- NOTE | 2021-09-17 22:08 | ECG_ITS ---
Measurements Intervals [place] Rate: 119 P: SC: 0 QRS: -34 QRSD: 97 T: 6 QT: 352 QTc: 496 Interpretive Statements ATRIAL FIBRILLATION WITH RAPID VENTRICULAR RESPONSE INDETERMINATE AXIS PATTERN CONSISTENT WITH PULMONARY DISEASE NONSPECIFIC ST ABNORMALITY INFERIOR INFARCTION, OLD ABNORMAL ECG Electronically Signed On 09-18-2021 16:46:12 CDT by Khadar Ortiz M.D.
[2021-09-17 23:23] VITALS: PULSE 128
[2021-09-17 23:23] LABS: Alanine Aminotransferase 110 U/L (4-35); Alkaline Phosphatase 90 U/L (38-126); Anion Gap 7 mmol/L (8-16); Aspartate Amino Transferase 179 U/L (14-36); Bilirubin,Total 0.8 mg/dL (0.2-1.3); Blood Urea Nitrogen 30 mg/dL (7-17); Calcium 8.7 mg/dL (8.4-10.2); Carbon Dioxide 31 mmol/L (22-30); Chloride 100 mmol/L (98-107); Estimated CRCL calculation 38 ml/min; Estimated Glomerular Filt Rate 40; Glucose 110 mg/dL (65-110); Potassium 3.8 mmol/L (3.4-5.0); Sodium 138 mmol/L (137-145)
[2021-09-17] MEDS: METOPROLOL TARTRATE INJ 5 MG/5 ML VIAL IV PUSH (23:23)
[2021-09-17 23:25] LABS: INR 1.5; Prothrombin Time 17.2 Seconds (11.1-14.7)
[2021-09-17 23:26] LABS: Partial Thromboplastin Time 33.6 SECONDS (22.3-36.8)
[2021-09-17 23:30] LABS: Appearance Urine Clear (Clear); Bilirubin Urine Negative (Negative); Blood Urine Negative (Negative); Color Urine Yellow (Yellow); Glucose Urine UA Negative (Negative); Ketones Urine Trace mg/dL (Negative); Leukocyte Esterase Ur Negative LEU/UL (Negative); Nitrate Urine Negative (Negative); Protein Urine Negative (Negative); Specific Grav Ur 1.015 (1.001-1.035); Urobilinogen Urine 0.2 mg/dL (<2.0)
[2021-09-17 23:35] LABS: NT Pro B Type Natriuretic Pept 1080 pg/mL (5-100); Troponin I 0.018 ng/mL (0.000-0.034)
[2021-09-17 23:36] LABS: Mucus Urine Rare /lpf; RBC Urine 0-2 /hpf (0-2); Squamous Epithelial Cell Urine Rare /hpf (Few); WBC Urine 0-3 /hpf
[2021-09-17 23:37] LABS: Basophils Percent Auto 0.2 % (0.2-1.2); Hematocrit 43.8 % (37.0-47.0); Hemoglobin 14.3 g/dL (12.0-15.0); Immature Granulocyte Absolute 0.07 K/mm3 (0.00-0.031); Immature Granulocyte Percent A 0.5 % (0-0.5); Lymphocytes Absolute Auto 0.52 K/mm3 (0.9-3.2); Mean Corpuscular HGB Conc 32.6 g/dl (32-36); Mean Corpuscular Volume 104.3 fl (80-100); Monocytes Absolute Auto 0.9 K/mm3 (0.1-0.6); Monocytes Percent Auto 7.2 % (2.6-8.5); Neutrophils Absolute Auto 11.5 K/mm3 (1.3-6.7); Neutrophils Percent Auto 88.1 % (45.5-73.1); Platelet Count Result 234 k/mm3 (150-375); Red Cell Distribution Width 13.9 % (11.5-14.5)
[2021-09-17 23:39] LABS: Add Urine Microscopic? YES
[2021-09-17 23:46] VITALS: BP 118/77; PULSE 129; RESP 41; O2SAT 91
[2021-09-18] VITALS (18 sets, daily range): BP systolic 100–121; BP diastolic 37–81; PULSE 67–120; RESP 16–38; TEMP 35.9–37.8; O2SAT 90–98; BMI 44.7; BMI 43.9
--- NOTE | 2021-09-18 | ECHO_ITS ---
Patient Info Name: Denise Motley Age: 70 years : 1950 Gender: Female Ht: 60 in Wt: 225 lbs BSA: 2.14 m2 HR: 72 bpm BP: 109 / 37 mmHg Heart Rhythm: Sinus Rhythm Technical Quality: Fair Exam Date: 09/18/2021 11:19 AM Exam Location: [facility] Patient Status: Outpatient Admit Date: 09/18/2021 Staff Ordering Physician: To Hernández MD Global Marketing Intern: Hafsa Miller RDCS Attending Provider: To Hernández MD Referring Physician: Edagr BONILLA; Exam Type: CA echo doppler color flow Study Info Indications I48.1 - Persistent atrial fibrillation Complete two-dimensional, color flow and Doppler transthoracic echocardiogram is performed. Summary 1. Complete two-dimensional, color flow and Doppler transthoracic echocardiogram is performed. 2. Left ventricular chamber dimension is normal. 3. Left ventricular systolic function is normal, estimated at 65-70%. 4. There is mildly increased left ventricular wall thickness. 5. The left ventricular diastolic function is normal. 6. Left atrial chamber dimension is severely enlarged. 7. Right atrial chamber dimension is mildly enlarged. 8. There is mild tricuspid valve regurgitation. 9. There is mild pulmonic regurgitation. Left Ventricle Left ventricular chamber dimension is normal. Left ventricular systolic function is normal, estimated at 65-70%. There is mildly increased left ventricular wall thickness. The left ventricular diastolic function is normal. Right Ventricle Right ventricular chamber dimension is normal. Right ventricular systolic function is normal. Left Atria Left atrial chamber dimension is severely enlarged. Right Atria Right atrial chamber dimension is mildly enlarged. Atrial Septum Intact interatrial septum visualized by color flow imaging. Aortic Valve The aortic valve is trileaflet. There is mild aortic valve sclerosis. There is no aortic valve stenosis. There is trace aortic valve regurgitation. Pulmonic Valve The pulmonic valve is normal. There is no pulmonic valve stenosis. There is mild pulmonic regurgitation. Mitral Valve The mitral valve has calcified annulus. There is no mitral valve stenosis. There is trace mitral valve regurgitation. Tricuspid Valve The tricuspid valve leaflets are normal. There is no significant tricuspid valve stenosis. There is mild tricuspid valve regurgitation. No pulmonary hypertension, estimated pulmonary arterial systolic pressure is 28 mmHg. Pericardium/Pleural The pericardium appears normal. There is no pericardial effusion. Inferior Vena Cava Normal inferior vena cava with >50% collapse upon inspiration consistent with normal right atrial pressure, 10 mmHg. Aorta The aortic root size at the sinus of Valsalva is normal. Left Ventricular Outflow Tract Name Value Normal LVOT 2D LVOT Diameter 2.0 cm LVOT Doppler LVOT Peak Gradient 7 mmHg LVOT Mean Gradient 4 mmHg LVOT VTI 33 cm LVOT VTI/AV VTI Ratio 0.8 LVO
--- NOTE | 2021-09-18 00:26 | PM.IMHP ---
H&P: HPI History of Present Illness Date/Time: 09/18/21 00:26 Chief Complaint: Generalized weakness. Narrative: This is a 70-year-old female with past medical history significant for atrial fibrillation anticoagulated and rate controlled, coronary artery disease, restless leg syndrome, hypertension, hypothyroidism, dyslipidemia, dementia. Patient is brought to the emergency room for evaluation after she had a fall during the day on and later room patient was unable to get up from the toilet on her own her current most of the history has been obtained from daughter who is at bedside patient has been in her usual state of health up until this. Preliminary workup was significant for patient being on AFib with rapid ventricular response, creatinine was 1.3, a urinalysis was clean, a chest x-ray did not show any acute cardiopulmonary abnormalities, and multiple x-rays of hands and hips did not show fracture. Patient has been admitted for further evaluation, management and treatment. Review of Systems Review of Systems: ROS unobtainable: Yes unobtainable due to medical condition (Dementia) [facility] Past Medical History Medical History Anxiety Atrial flutter Dementia Hyperlipidemia Hypertension Hypothyroid Localized edema Restless leg syndrome Surgical History Surgical History H/O splenectomy H/O total hysterectomy History of right hip hemiarthroplasty History of right knee joint replacement Hx of cholecystectomy Family History Family History Father Hypertension Sibling Hypertension Breast cancer Social History Social History Social History: The patient stated that she is from her . The patient has a total of 4 children. Chayito Causey is her daughter who is the durable power state attorney for healthcare. She lives with her daughter Chayito. The patient desires to be a full code. 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 the patient stated she has never smoked, used marijuana, or use illicit drugs. Smoking status: Never smoker Second hand tobacco smoke exposure: No Alcohol intake: never Substance use: never Gender identity (if verbalized by the patient): Female Spiritual care concerns: No Meds Home Medications and Allergies Home Medications Medication Instructions Recorded Confirmed Type buspirone 10 mg PO BID 04/11/20 09/18/21 History duloxetine 30 mg PO DAILY 04/11/20 09/18/21 History furosemide 40 mg PO DAILY 04/11/20 09/18/21 History lovastatin 20 mg PO HS 04/11/20 09/18/21 History potassium chloride 20 meq PO DAILY 04/11/20 09/18/21 History ropinirole 0.5 mg PO HS 04/11/20 09/18/21 History Eliquis 5 mg PO Q12HR #60 tablet 04/13/20 09/18/21 Rx trazodone 50 mg PO HS PRN 11/27/20 09/18/21 History amiodarone [Pacerone] 400 mg PO DAILY #60 tablet 12/03/20 09/18/21 Rx metoprolol tartrate 150 mg PO Q12HR #60 tablet 12/03/20 09/18/21 Rx nitroglycerin [Nitrostat] 0.4 mg SUBLINGUAL Q5MIN PRN #20 12/03/20 09/18/21 Rx tablet levothyroxine [Euthyrox] 175 mcg PO DAILY 09/17/21 09/18/21 History Allergies Allergy/AdvReac Type Severity Reaction Status Date / Time No Known Allergies Allergy Verified 09/17/21 22:09 Vital Signs Vital Signs - 24 hr 09/17/21 21:32 09/17/21 23:23 Temperature 97.9 F Pulse Rate 105 H 128 H Respiratory Rate 30 H Blood Pressure 122/93 H Pulse Oximetry 92 Exam Narrative: Patient is laying in a stretcher. Const: General: cooperative, comfortable, no acute distress, well developed, alert and awake Nutritional Appearance: obese morbidly obese Orientation/consciousness: oriented to person HENMT: Head: normal to inspection, normocephalic and atraumatic Ears: hearing grossly normal bilaterally General nose exam: Normal
[2021-09-18] MEDS: DIGOXIN INJ 250 MCG/ML 2 ML AMP (*BKC) 125 MCG IV PUSH (00:42)
[2021-09-18 01:30] LABS: SARS-CoV-2 RNA PCR Negative
--- NOTE | 2021-09-18 02:29 | ADMGEN ---
This patient, Denise Motley, was admitted to IMU Room 210-01 at 0230. Patient/family oriented to hospital policies and general routines including ID bracelet, bed and alarms, visiting hours, pain management, procedures, bathroom and other care routines, personal items, smoking policy, room service/diet, and visiting hours. Information on how to activate the Rapid Response Team has been discussed. Patient/Family are encouraged to report perceived risks to care and to ask questions if they do not understand what they are told or what they should do.
[2021-09-18] MEDS: LEVOTHYROXINE SODIUM 100 MCG TABLET PO (05:32)
[2021-09-18] MEDS: LEVOTHYROXINE SODIUM 75 MCG TABLET PO (05:32)
[2021-09-18] MEDS: METOPROLOL TARTRATE 25 MG TABLET PO ×2 (08:44→20:24)
[2021-09-18] MEDS: APIXABAN 5 MG TABLET PO ×2 (08:44→20:24)
[2021-09-18] MEDS: busPIRone HCL 10 MG TABLET PO ×2 (08:44→17:18)
[2021-09-18] MEDS: AMIODARONE HCL 200 MG TABLET 400 MG PO (08:44)
[2021-09-18] MEDS: DULoxetine HCL 30 MG CAPSULE.DR PO (08:44)
--- NOTE | 2021-09-18 15:26 | PC.NURSE ---
This patient, Denise Motley, was transferred to [facility] on 09/18/21 at 1526. Personal belongings sent with patient. Report given to CARO Allen. Appropriate documentation sent with patient.
[2021-09-18] MEDS: LOVASTATIN 20 MG TABLET PO (20:24)
[2021-09-18] MEDS: rOPINIRole HCL 0.5 MG TABLET PO (20:24)
[2021-09-19] VITALS (11 sets, daily range): BP systolic 100–117; BP diastolic 38–60; PULSE 52–111; RESP 18; TEMP 36.4–36.8; O2SAT 93–99
[2021-09-19] MEDS: LEVOTHYROXINE SODIUM 100 MCG TABLET PO (05:28)
[2021-09-19] MEDS: LEVOTHYROXINE SODIUM 75 MCG TABLET PO (05:28)
[2021-09-19] MEDS: METOPROLOL TARTRATE 25 MG TABLET PO ×2 (08:58→20:42)
[2021-09-19] MEDS: APIXABAN 5 MG TABLET PO ×2 (08:59→20:42)
[2021-09-19] MEDS: DULoxetine HCL 30 MG CAPSULE.DR PO (08:59)
[2021-09-19] MEDS: busPIRone HCL 10 MG TABLET PO ×2 (08:59→16:53)
[2021-09-19] MEDS: AMIODARONE HCL 200 MG TABLET 400 MG PO (08:59)
[2021-09-19 11:08] LABS: Hemoglobin 13.6 g/dL (12.0-15.0); Mean Corpuscular Hemoglobin 34.3 pg (26-34); Mean Platelet Volume 10.7 fl (7.4-10.4); Platelet Count Result 211 k/mm3 (150-375); Red Blood Count 3.96 M/mm3 (4.2-5.4); Red Cell Distribution Width 14.1 % (11.5-14.5); White Blood Count 10.9 K/mm3 (4.5-10.0)
[2021-09-19 11:22] LABS: Anion Gap 8 mmol/L (8-16); Blood Urea Nitrogen 30 mg/dL (7-17); Calcium 8.5 mg/dL (8.4-10.2); Carbon Dioxide 28 mmol/L (22-30); Chloride 97 mmol/L (98-107); Estimated CRCL calculation 38 ml/min; Estimated Glomerular Filt Rate 40; Glucose 97 mg/dL (65-110); Magnesium 2.3 mg/dL (1.6-2.3); Potassium 3.9 mmol/L (3.4-5.0); Sodium 133 mmol/L (137-145)
--- NOTE | 2021-09-19 14:06 | PM.IMPN ---
Progress Note: A&P Assessment and Plan (1) Generalized weakness: Code(s): R53.1 - Weakness Status: Acute Assessment and Plan: Likely secondary to chronic illness and deconditioning PT OT consult (2) MICHELLE (acute kidney injury): Code(s): N17.9 - Acute kidney failure, unspecified Status: Acute Assessment and Plan: Will hold Lasix IV fluids Repeat BMP Continue to monitor 09/19/2021 Interval history: Patient is sitting in the chair, poor historian, not sure why she is here, patient is also dehydrated will gently hydrate the patient and monitor, denies any complaints, will have PT/OT evaluate, patient will benefit from PT and rehab. (3) Atrial fibrillation with RVR: Code(s): I48.91 - Unspecified atrial fibrillation Status: Acute Assessment and Plan: Patient is on amiodarone at home and metoprolol will resume both of these Cardiology consult (4) Stasis edema of both lower extremities: Code(s): I87.303 - Chronic venous hypertension (idiopathic) without complications of bilateral lower extremity Status: Acute Assessment and Plan: Patient with compression stockings on (5) Hypothyroidism: Qualifiers: Hypothyroidism type: unspecified Qualified Code(s): E03.9 - Hypothyroidism, unspecified Code(s): E03.9 - Hypothyroidism, unspecified Status: Acute Assessment and Plan: Continue levothyroxine (6) Dementia: Qualifiers: Dementia type: unspecified type Dementia behavioral disturbance: without behavioral disturbance Qualified Code(s): F03.90 - Unspecified dementia without behavioral disturbance Code(s): F03.90 - Unspecified dementia without behavioral disturbance Status: Chronic Assessment and Plan: Continue duloxetine, buspirone. (7) Restless leg syndrome: Code(s): G25.81 - Restless legs syndrome Status: Chronic Assessment and Plan: Continue ropinirole Subjective Date/time seen: 09/19/21 14:06 Chief Complaint: Generalized weakness. HPI-Narrative: This is a 70-year-old female with past medical history significant for atrial fibrillation anticoagulated and rate controlled, coronary artery disease, restless leg syndrome, hypertension, hypothyroidism, dyslipidemia, dementia. Patient is brought to the emergency room for evaluation after she had a fall during the day on and later room patient was unable to get up from the toilet on her own her current most of the history has been obtained from daughter who is at bedside patient has been in her usual state of health up until this. Preliminary workup was significant for patient being on AFib with rapid ventricular response, creatinine was 1.3, a urinalysis was clean, a chest x-ray did not show any acute cardiopulmonary abnormalities, and multiple x-rays of hands and hips did not show fracture. Patient has been admitted for further evaluation, management and treatment. 09/19/2021 Interval history: Patient is sitting in the chair, poor historian, not sure why she is here, patient is also dehydrated will gently hydrate the patient and monitor, denies any complaints, will have PT/OT evaluate, patient will benefit from PT and rehab. Review of Systems Review of Systems: ROS unobtainable: Yes unobtainable due to medical condition (Dementia) Exam Narrative: morbidly obese Patient is comfortable, NAD HEENT: eyes are clear and none icteric LUNGS: normal respiratory efforts ABD: distended Lower extremities: no edema SKIN: nonjaundiced Neuro: grossly intact. Objective Data Vital Signs Vital Signs: Vital Signs - 24 hr 09/18/21 16:00 09/18/21 20:00 09/18/21 20:24 Temperature 97.6 F Pulse Rate 78 76 80 Respiratory Rate 18 Blood Pressure 121/46 L Pulse Oximetry 93 09/18/21 22:00 09/19/21 00:00 09/19/21 04:00 Temperature 100.1 F H Pulse Rate 74 73 74 Respiratory Rate 18 Blood Pressure 112/56 L Pulse
[2021-09-19] MEDS: SODIUM CHLORIDE 0.9% IV 1,000 ML 75 ML IV CONT (16:53)
[2021-09-19] MEDS: rOPINIRole HCL 0.5 MG TABLET PO (20:42)
[2021-09-19] MEDS: LOVASTATIN 20 MG TABLET PO (20:42)
[2021-09-20] VITALS (11 sets, daily range): BP systolic 110–124; BP diastolic 47–62; PULSE 54–72; RESP 16–20; TEMP 36.3–36.8; O2SAT 95–98
[2021-09-20] MEDS: LEVOTHYROXINE SODIUM 100 MCG TABLET PO (06:18)
[2021-09-20] MEDS: LEVOTHYROXINE SODIUM 75 MCG TABLET PO (06:18)
[2021-09-20] MEDS: SODIUM CHLORIDE 0.9% IV 1,000 ML 75 ML IV CONT (06:24)
[2021-09-20] MEDS: DULoxetine HCL 30 MG CAPSULE.DR PO (08:14)
[2021-09-20] MEDS: busPIRone HCL 10 MG TABLET PO ×2 (08:14→16:22)
[2021-09-20] MEDS: METOPROLOL TARTRATE 25 MG TABLET PO ×2 (08:14→20:31)
[2021-09-20] MEDS: AMIODARONE HCL 200 MG TABLET 400 MG PO (08:15)
[2021-09-20] MEDS: APIXABAN 5 MG TABLET PO ×2 (08:15→20:24)
--- NOTE | 2021-09-20 11:20 | PM.IMPN ---
Progress Note: A&P Assessment and Plan (1) Generalized weakness: Code(s): R53.1 - Weakness Status: Acute Assessment and Plan: Likely secondary to chronic illness and deconditioning PT OT consult (2) MICHELLE (acute kidney injury): Code(s): N17.9 - Acute kidney failure, unspecified Status: Acute Assessment and Plan: Will hold Lasix IV fluids Repeat BMP Continue to monitor 09/19/2021 Interval history: Patient is sitting in the chair, poor historian, not sure why she is here, patient is also dehydrated will gently hydrate the patient and monitor, denies any complaints, will have PT/OT evaluate, patient will benefit from PT and rehab. (3) Atrial fibrillation with RVR: Code(s): I48.91 - Unspecified atrial fibrillation Status: Acute Assessment and Plan: Patient is on amiodarone at home and metoprolol will resume both of these Cardiology consult (4) Stasis edema of both lower extremities: Code(s): I87.303 - Chronic venous hypertension (idiopathic) without complications of bilateral lower extremity Status: Acute Assessment and Plan: Patient with compression stockings on (5) Hypothyroidism: Qualifiers: Hypothyroidism type: unspecified Qualified Code(s): E03.9 - Hypothyroidism, unspecified Code(s): E03.9 - Hypothyroidism, unspecified Status: Acute Assessment and Plan: Continue levothyroxine (6) Dementia: Qualifiers: Dementia type: unspecified type Dementia behavioral disturbance: without behavioral disturbance Qualified Code(s): F03.90 - Unspecified dementia without behavioral disturbance Code(s): F03.90 - Unspecified dementia without behavioral disturbance Status: Chronic Assessment and Plan: Continue duloxetine, buspirone. (7) Restless leg syndrome: Code(s): G25.81 - Restless legs syndrome Status: Chronic Assessment and Plan: Continue ropinirole (8) Cellulitis and abscess of right leg: Code(s): L03.115 - Cellulitis of right lower limb; L02.415 - Cutaneous abscess of right lower limb Status: Acute Assessment and Plan: patient is being treated with cefazolin, will monitor Subjective Date/time seen: 09/20/21 11:20 09/19/2021 Interval history: Patient is sitting in the chair, poor historian, not sure why she is here, patient is also dehydrated will gently hydrate the patient and monitor, denies any complaints, will have PT/OT evaluate, patient will benefit from PT and rehab. 09/20/2021 Interval history: Patient today is lying in the bed, her nurse present, patient poor historian, not sure why she is here, patient has significant cellulitis on right lower extremities not sure how long it present or any of trauma, patient was started on cefzolin and reythema is receding, patient is also dehydrated will gently hydrate the patient and monitor, denies any complaints, will have PT/OT evaluate, patient will benefit from PT and rehab. Review of Systems Review of Systems: ROS unobtainable: Yes unobtainable due to medical condition (Dementia) Exam Narrative: morbidly obese Patient is comfortable, NAD HEENT: eyes are clear and none icteric LUNGS: normal respiratory efforts ABD: distended Lower extremities: no edema SKIN: nonjaundiced Neuro: grossly intact. Objective Data Vital Signs Vital Signs: Vital Signs - 24 hr 09/19/21 12:00 09/19/21 14:00 09/19/21 16:00 Temperature 97.6 F Pulse Rate 56 L 57 L 52 L Respiratory Rate 18 Blood Pressure 100/46 L Pulse Oximetry 99 09/19/21 20:30 09/19/21 22:00 09/20/21 00:00 Temperature 98.1 F Pulse Rate 64 111 H 66 Respiratory Rate 18 Blood Pressure 117/38 L Pulse Oximetry 95 09/20/21 04:00 09/20/21 06:00 09/20/21 08:14 Temperature 98.1 F Pulse Rate 62 69 72 Respiratory Rate 18 Blood Pressure 116/47 L Pulse Oximetry 95 09/20/21 08:15 Temperature P
[2021-09-20] MEDS: rOPINIRole HCL 0.5 MG TABLET PO (20:28)
[2021-09-20] MEDS: LOVASTATIN 20 MG TABLET PO (20:29)
[2021-09-21] VITALS (7 sets, daily range): BP systolic 110–144; BP diastolic 54–79; PULSE 55–66; RESP 16–20; TEMP 36.2–36.9; O2SAT 92–99
[2021-09-21] MEDS: LEVOTHYROXINE SODIUM 75 MCG TABLET PO ×2 (06:06→06:09)
[2021-09-21] MEDS: LEVOTHYROXINE SODIUM 100 MCG TABLET PO (06:08)
[2021-09-21] MEDS: APIXABAN 5 MG TABLET PO ×2 (10:11→20:51)
[2021-09-21] MEDS: AMIODARONE HCL 200 MG TABLET 400 MG PO (10:11)
[2021-09-21] MEDS: METOPROLOL TARTRATE 25 MG TABLET PO ×2 (10:13→20:51)
[2021-09-21] MEDS: DULoxetine HCL 30 MG CAPSULE.DR PO (10:13)
[2021-09-21] MEDS: busPIRone HCL 10 MG TABLET PO ×2 (10:13→17:23)
--- NOTE | 2021-09-21 10:24 | PCPTNOTE ---
Attempted therapy session, RN requested to hold therapy until Doppler of B LE is done. Will attempt again.
--- NOTE | 2021-09-21 10:39 | PM.IMPN ---
Progress Note: A&P Assessment and Plan (1) Generalized weakness: Code(s): R53.1 - Weakness Status: Acute Assessment and Plan: Likely secondary to chronic illness and deconditioning PT OT consult (2) MICHELLE (acute kidney injury): Code(s): N17.9 - Acute kidney failure, unspecified Status: Acute Assessment and Plan: Will hold Lasix IV fluids Repeat BMP Continue to monitor 09/19/2021 Interval history: Patient is sitting in the chair, poor historian, not sure why she is here, patient is also dehydrated will gently hydrate the patient and monitor, denies any complaints, will have PT/OT evaluate, patient will benefit from PT and rehab. 09/20/2021 Interval history: Patient today is lying in the bed, her nurse present, patient poor historian, not sure why she is here, patient has significant cellulitis on right lower extremities not sure how long it present or any of trauma, patient was started on cefzolin and reythema is receding, patient is also dehydrated will gently hydrate the patient and monitor, denies any complaints, will have PT/OT evaluate, patient will benefit from PT and rehab. 09/21/2021 Interval history: Patient today is sitting in the chair, her nurse present, patient poor historian, not sure why she is here, patient has significant cellulitis on right lower extremities not sure how long it present or any of trauma, patient was started on cefzolin and erythema is receding, however today her right lower extremities is more swollen, will gently diures the patient, though highly unlikely patient has DVT as patient is on Eliqus, will do Dopplor of lower extremiites to r/o DVT, patient was also dehydrated was gently hydrated, will stop IVF, will monitor, denies any complaints, will have PT/OT evaluate, patient will benefit from PT and rehab. (3) Atrial fibrillation with RVR: Code(s): I48.91 - Unspecified atrial fibrillation Status: Acute Assessment and Plan: Patient is on amiodarone at home and metoprolol will resume both of these Cardiology consult (4) Stasis edema of both lower extremities: Code(s): I87.303 - Chronic venous hypertension (idiopathic) without complications of bilateral lower extremity Status: Acute Assessment and Plan: Patient with compression stockings on (5) Hypothyroidism: Qualifiers: Hypothyroidism type: unspecified Qualified Code(s): E03.9 - Hypothyroidism, unspecified Code(s): E03.9 - Hypothyroidism, unspecified Status: Acute Assessment and Plan: Continue levothyroxine (6) Dementia: Qualifiers: Dementia type: unspecified type Dementia behavioral disturbance: without behavioral disturbance Qualified Code(s): F03.90 - Unspecified dementia without behavioral disturbance Code(s): F03.90 - Unspecified dementia without behavioral disturbance Status: Chronic Assessment and Plan: Continue duloxetine, buspirone. (7) Restless leg syndrome: Code(s): G25.81 - Restless legs syndrome Status: Chronic Assessment and Plan: Continue ropinirole (8) Cellulitis and abscess of right leg: Code(s): L03.115 - Cellulitis of right lower limb; L02.415 - Cutaneous abscess of right lower limb Status: Acute Assessment and Plan: patient is being treated with cefazolin, will monitor Subjective Date/time seen: 09/21/21 10:39 09/19/2021 Interval history: Patient is sitting in the chair, poor historian, not sure why she is here, patient is also dehydrated will gently hydrate the patient and monitor, denies any complaints, will have PT/OT evaluate, patient will benefit from PT and rehab. 09/20/2021 Interval history: Patient today is lying in the bed, her nurse present, patient poor historian, not sure why she is here, patient has significant cellulitis on right lower extremities not sure how long it present or any of trauma, patient was started on cefzolin
[2021-09-21] MEDS: rOPINIRole HCL 0.5 MG TABLET PO (20:51)
[2021-09-21] MEDS: LOVASTATIN 20 MG TABLET PO (20:51)
[2021-09-22 06:00] VITALS: BP 131/88; PULSE 68; RESP 16; TEMP 36.1; O2SAT 94
[2021-09-22] MEDS: LEVOTHYROXINE SODIUM 100 MCG TABLET PO (06:11)
[2021-09-22] MEDS: LEVOTHYROXINE SODIUM 75 MCG TABLET PO (06:13)
[2021-09-22 09:38] VITALS: PULSE 88
[2021-09-22] MEDS: DULoxetine HCL 30 MG CAPSULE.DR PO (09:38)
[2021-09-22] MEDS: METOPROLOL TARTRATE 25 MG TABLET PO ×2 (09:38→21:43)
[2021-09-22] MEDS: AMIODARONE HCL 200 MG TABLET 400 MG PO (09:38)
[2021-09-22] MEDS: APIXABAN 5 MG TABLET PO ×2 (09:38→21:43)
[2021-09-22] MEDS: busPIRone HCL 10 MG TABLET PO ×2 (09:38→17:08)
[2021-09-22] MEDS: FUROSEMIDE INJ 40 MG/4 ML VIAL IV PUSH (09:38)
[2021-09-22 14:00] VITALS: BP 133/45; PULSE 51; RESP 17; TEMP 35.8; O2SAT 97
--- NOTE | 2021-09-22 17:31 | PCOTNOTE ---
Decreased frequency of therapeutic treatement to 2-3x/wk, as pt. has progressed to near baseline, and will not benefit from greater frequency of therapy
[2021-09-22 21:43] VITALS: PULSE 80
[2021-09-22] MEDS: rOPINIRole HCL 0.5 MG TABLET PO (21:43)
[2021-09-22] MEDS: LOVASTATIN 20 MG TABLET PO (21:44)
[2021-09-22 22:00] VITALS: BP 135/58; PULSE 60; RESP 16; TEMP 37.3; O2SAT 96
[2021-09-23] MEDS: LEVOTHYROXINE SODIUM 100 MCG TABLET PO (05:35)
[2021-09-23 06:00] VITALS: BP 127/61; PULSE 60; RESP 14; TEMP 36.8; O2SAT 97
[2021-09-23 08:41] VITALS: PULSE 60
[2021-09-23] MEDS: AMIODARONE HCL 200 MG TABLET 400 MG PO (08:41)
[2021-09-23] MEDS: APIXABAN 5 MG TABLET PO ×2 (08:42→21:06)
[2021-09-23] MEDS: DULoxetine HCL 30 MG CAPSULE.DR PO (08:42)
[2021-09-23 08:43] VITALS: PULSE 60
[2021-09-23] MEDS: busPIRone HCL 10 MG TABLET PO ×2 (08:43→17:22)
[2021-09-23] MEDS: METOPROLOL TARTRATE 25 MG TABLET PO ×2 (08:43→21:06)
[2021-09-23] MEDS: FUROSEMIDE INJ 40 MG/4 ML VIAL IV PUSH (12:28)
--- NOTE | 2021-09-23 13:45 | PM.IMPN ---
Progress Note: A&P Assessment and Plan (1) Generalized weakness: Code(s): R53.1 - Weakness Status: Acute Assessment and Plan: Likely secondary to chronic illness and deconditioning PT OT consult (2) MICHELLE (acute kidney injury): Code(s): N17.9 - Acute kidney failure, unspecified Status: Acute Assessment and Plan: Will hold Lasix IV fluids Repeat BMP Continue to monitor 09/19/2021 Interval history: Patient is sitting in the chair, poor historian, not sure why she is here, patient is also dehydrated will gently hydrate the patient and monitor, denies any complaints, will have PT/OT evaluate, patient will benefit from PT and rehab. 09/20/2021 Interval history: Patient today is lying in the bed, her nurse present, patient poor historian, not sure why she is here, patient has significant cellulitis on right lower extremities not sure how long it present or any of trauma, patient was started on cefzolin and reythema is receding, patient is also dehydrated will gently hydrate the patient and monitor, denies any complaints, will have PT/OT evaluate, patient will benefit from PT and rehab. 09/21/2021 Interval history: Patient today is sitting in the chair, her nurse present, patient poor historian, not sure why she is here, patient has significant cellulitis on right lower extremities not sure how long it present or any of trauma, patient was started on cefzolin and erythema is receding, however today her right lower extremities is more swollen, will gently diures the patient, though highly unlikely patient has DVT as patient is on Eliqus, will do Dopplor of lower extremiites to r/o DVT, patient was also dehydrated was gently hydrated, will stop IVF, will monitor, denies any complaints, will have PT/OT evaluate, patient will benefit from PT and rehab. 09/22/2021 Interval history: Patient today is sitting in the chair, her nurse present, patient poor historian, not sure why she is here, patient has significant cellulitis on right lower extremities not sure how long it present or any of trauma, patient was started on cefzolin and erythema is receding, however today her right lower extremities is more swollen, will gently diures the patient, though highly unlikely patient has DVT as patient is on Eliqus, Dopplor of lower extremiites was negative, patient was also dehydrated was gently hydrated, will stop IVF, will monitor, denies any complaints, will have PT/OT evaluate, patient will benefit from PT and rehab. 09/23/2021 Interval history: Patient today is sitting in the chair, her nurse present, patient poor historian, not sure why she is here, patient has significant cellulitis on right lower extremities not sure how long it present or any of trauma, patient was started on cefzolin and erythema is receding, however her right lower extremities is more swollen, will gently diures the patient, though highly unlikely patient has DVT as patient is on Eliqus, Dopplor of lower extremiites was negative, patient was also dehydrated was gently hydrated, will stop IVF, will continue to diurese the patient with IV Lasix 40 mg q.day and reassess tomorrow, will monitor, denies any complaints, will have PT/OT evaluate, patient will benefit from PT and rehab. (3) Atrial fibrillation with RVR: Code(s): I48.91 - Unspecified atrial fibrillation Status: Acute Assessment and Plan: Patient is on amiodarone at home and metoprolol will resume both of these Cardiology consult (4) Stasis edema of both lower extremities: Code(s): I87.303 - Chronic venous hypertension (idiopathic) without complications of bilateral lower extremity Status: Acute Assessment and Plan: Patient with compression stockings on (5) Hypothyroidism: Qualifiers: Hypothyroidism type: unspecified Qualified Code(s): E03.9 - Hypothyroidism, unspecified Code(s): E03.9 - Hypothyroidism, unspecified Status: Ac
[2021-09-23 14:00] VITALS: BP 128/71; PULSE 54; RESP 18; TEMP 36.1; O2SAT 99
--- NOTE | 2021-09-23 15:34 | PC.NURSE ---
Pt's daughter, Rebecca, called wanting an update. She informed me that she only called me to be able to get ahold of the acute care nurse with whom she's already spoken. She did ask if there was any change in pt's condition and expressed concerns about pt's legs particularly the left one that is flame red and looks like it is going to split open. She also stated that she needs to know when pt is going to be discharged as she is not always available to fetch pt or to take care of her if SNF is denied. I answered her questions and assured her that someone would be in contact with her when pt is at the point of discharge.
[2021-09-23 21:06] VITALS: PULSE 75
[2021-09-23] MEDS: rOPINIRole HCL 0.5 MG TABLET PO (21:06)
[2021-09-23] MEDS: LOVASTATIN 20 MG TABLET PO (21:07)
[2021-09-23 22:00] VITALS: BP 135/45; PULSE 60; RESP 18; TEMP 36.6; O2SAT 94
[2021-09-24 06:00] VITALS: BP 132/63; PULSE 59; RESP 16; TEMP 36.6; O2SAT 92
[2021-09-24] MEDS: LEVOTHYROXINE SODIUM 100 MCG TABLET PO (06:00)
[2021-09-24] MEDS: LEVOTHYROXINE SODIUM 75 MCG TABLET PO (06:00)
[2021-09-24 08:00] VITALS: O2SAT 93
[2021-09-24 09:17] VITALS: PULSE 65
[2021-09-24] MEDS: FUROSEMIDE INJ 40 MG/4 ML VIAL IV PUSH (09:17)
[2021-09-24] MEDS: METOPROLOL TARTRATE 25 MG TABLET PO (09:17)
[2021-09-24 09:19] VITALS: PULSE 65
[2021-09-24] MEDS: AMIODARONE HCL 200 MG TABLET 400 MG PO (09:19)
[2021-09-24] MEDS: DULoxetine HCL 30 MG CAPSULE.DR PO (09:19)
[2021-09-24] MEDS: busPIRone HCL 10 MG TABLET PO (09:19)
[2021-09-24] MEDS: APIXABAN 5 MG TABLET PO (09:19)
--- NOTE | 2021-09-24 11:43 | PM.DS ---
DS: Admitting Diagnosis Discharge Date 09/24/2021 Admitting Diagnosis generalized weakness DS: Discharge Diagnosis Discharge Diagnosis (1) Generalized weakness: Code(s): R53.1 - Weakness Status: Acute Assessment and Plan: Likely secondary to chronic illness and deconditioning PT OT consult (2) MICHELLE (acute kidney injury): Code(s): N17.9 - Acute kidney failure, unspecified Status: Acute Assessment and Plan: Will hold Lasix IV fluids Repeat BMP Continue to monitor 09/19/2021 Interval history: Patient is sitting in the chair, poor historian, not sure why she is here, patient is also dehydrated will gently hydrate the patient and monitor, denies any complaints, will have PT/OT evaluate, patient will benefit from PT and rehab. 09/20/2021 Interval history: Patient today is lying in the bed, her nurse present, patient poor historian, not sure why she is here, patient has significant cellulitis on right lower extremities not sure how long it present or any of trauma, patient was started on cefzolin and reythema is receding, patient is also dehydrated will gently hydrate the patient and monitor, denies any complaints, will have PT/OT evaluate, patient will benefit from PT and rehab. 09/21/2021 Interval history: Patient today is sitting in the chair, her nurse present, patient poor historian, not sure why she is here, patient has significant cellulitis on right lower extremities not sure how long it present or any of trauma, patient was started on cefzolin and erythema is receding, however today her right lower extremities is more swollen, will gently diures the patient, though highly unlikely patient has DVT as patient is on Eliqus, will do Dopplor of lower extremiites to r/o DVT, patient was also dehydrated was gently hydrated, will stop IVF, will monitor, denies any complaints, will have PT/OT evaluate, patient will benefit from PT and rehab. 09/22/2021 Interval history: Patient today is sitting in the chair, her nurse present, patient poor historian, not sure why she is here, patient has significant cellulitis on right lower extremities not sure how long it present or any of trauma, patient was started on cefzolin and erythema is receding, however today her right lower extremities is more swollen, will gently diures the patient, though highly unlikely patient has DVT as patient is on Eliqus, Dopplor of lower extremiites was negative, patient was also dehydrated was gently hydrated, will stop IVF, will monitor, denies any complaints, will have PT/OT evaluate, patient will benefit from PT and rehab. 09/23/2021 Interval history: Patient today is sitting in the chair, her nurse present, patient poor historian, not sure why she is here, patient has significant cellulitis on right lower extremities not sure how long it present or any of trauma, patient was started on cefzolin and erythema is receding, however her right lower extremities is more swollen, will gently diures the patient, though highly unlikely patient has DVT as patient is on Eliqus, Dopplor of lower extremiites was negative, patient was also dehydrated was gently hydrated, will stop IVF, will continue to diurese the patient with IV Lasix 40 mg q.day and reassess tomorrow, will monitor, denies any complaints, will have PT/OT evaluate, patient will benefit from PT and rehab. (3) Atrial fibrillation with RVR: Code(s): I48.91 - Unspecified atrial fibrillation Status: Acute Assessment and Plan: Patient is on amiodarone at home and metoprolol will resume both of these Cardiology consult (4) Stasis edema of both lower extremities: Code(s): I87.303 - Chronic venous hypertension (idiopathic) without complications of bilateral lower extremity Status: Acute Assessment and Plan: Patient with compression stockings on (5) Hypothyroidism: Qualifiers: Hypothyroidism type: unspecified Qualified Code(s): E0
[2021-09-24 14:00] VITALS: BP 107/47; PULSE 57; RESP 20; TEMP 35.9; O2SAT 94
== END 2021-09-24 17:12 | disposition home health service (06) | DRG 603 ==
LOC: ANHED 09-18 00:20 → ANHIMU 09-18 01:44 → ANH3MED 09-18 12:53 → ANH3MEDSUR 09-18 12:54 → ANHIMU 09-18 12:55 → ANH3MEDSUR 09-18 15:24
PROVIDERS: Physician Assistant; Admitting Provider Internal Medicine; Emergency Provider Emergency Medicine; PCP Family Medicine; Visit Provider Family Medicine
DX: L03.115 Cellulitis of right lower limb (principal); Z68.42 Body mass index [BMI] 45.0-49.9, adult; L02.415 Cutaneous abscess of right lower limb; E86.0 Dehydration; I48.91 Unspecified atrial fibrillation; E66.01 Morbid (severe) obesity due to excess calories; E03.9 Hypothyroidism, unspecified; Z20.822 Contact with and (suspected) exposure to COVID-19; I87.303 Chronic venous hypertension (idiopathic) without complications of bilateral lower extremity; F03.90 Unspecified dementia, unspecified severity, without behavioral disturbance, psychotic disturbance, mood disturbance, and anxiety; G25.81 Restless legs syndrome; I25.10 Atherosclerotic heart disease of native coronary artery without angina pectoris; E78.5 Hyperlipidemia, unspecified; I10 Essential (primary) hypertension; Z96.641 Presence of right artificial hip joint; Z96.651 Presence of right artificial knee joint; Z90.49 Acquired absence of other specified parts of digestive tract; Z90.710 Acquired absence of both cervix and uterus; Z90.81 Acquired absence of spleen; Z79.01 Long term (current) use of anticoagulants
CPT/HCPCS: 36415; 51701; 70450; 71046; 72125; 73502; 73560; 73564; 80048; 80053; 81001; 83735; 83880; 84484; 85025; 85027; 85610; 85730; 93005; 93306; 93970; 93971; 96361; 96365; 96374; 96375; 97110; 97116; 97161; 97165; 97530; 97535; 99285; A9270; C9803; G0378; J0690; J1160; J1940; J7030; U0003; U0005

== ENCOUNTER 2021-11-12 10:10 | Outpatient (CLI) | payer MEDICARE, MEDICAID, SELFPAY ==
--- NOTE | 2021-11-13 10:39 | WPDPFTINT ---
PFT Procedure Performed PFT Procedure Performed Plethysmography (Lung Vol) Diffusing Cap (DLCO) Flow Vol Loop Spirometry w/o Bronchodil PFT Interpretation Lung volumes were measured with the body plethysmography method. The severely reduced expiratory reserve volume is related to morbid obesity. The remaining lung volumes show a borderline total lung capacity. Spirometry showed diminished expiratory flow rates and a normal FEV1 to FVC ratio of 82%. This restrictive pattern on spirometry is likely related to suboptimal effort as shown from the flow volume loop and the discrepancy in the degree of restrictive defect between spirometry and lung volume measurements. Clinical correlation advised. Lung diffusion capacity is within normal range at 76% predicted. Impression: Non-specific pattern, probably related to suboptimal patient effort and obesity. Lung diffusion capacity within normal range.
== END 2021-11-12 10:11 | disposition home or self-care (01) ==
LOC: ANHPFT 10:13
PROVIDERS: PCP Family Medicine; Visit Provider Internal Medicine Cardiovascular Disease
DX: Z91.89 Other specified personal risk factors, not elsewhere classified (principal); Z79.899 Other long term (current) drug therapy
CPT/HCPCS: 94375; 94726; 94729

== ENCOUNTER 2021-12-09 09:45 | Outpatient (RCR) | payer MEDICARE, MEDICAID, SELFPAY ==
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
--- NOTE | 2021-11-18 11:50 | PCPTNOTE ---
pt signed consent and photo was taken of her legs at evaluation session.
--- NOTE | 2021-12-09 10:46 | PTOPEVAL ---
PHYSICAL THERAPY DISCHARGE 12-09-21 Refer to the clinical summary below, for her status today, compared to the initial evaluation. Discharge PT services. Thank you for referring Denise Motley to [facility].? Please review, sign, date and return this Discharge Report TIESHA. I agree with and certify that the following plan of care is medically necessary. Referring Physician Date Attending Provider: Adriana Mars MD Subjective Information Denise reports: legs are good; Query Text:As Reported By Patient/ garments are good; daughter Family is putting them on in morning and taking them off her every night; top of foot does not swell; daughter is having problems putting the ankle piece on; agrees to discharge PT today; Pain Assessment Timing of Pain Assessment Timing of Pain Assessment Assessment Self Report Self Report Pain Level 0 Pain Score Pain Score 0: Self Report Lymphedema Evaluation Skin Inspection Location Left Lower Extremity,Right Lower Extremity Skin Inspection Comment R LE: slight redness over 16 to 20 cm from bottom of foot-- anterior leg; small red area ~ 1x .5 cm at crease of anterior ankle--it is not open but there is an indentation/ crease-? where sock bunched up ; instructed pt to monitor it L LE: slight redness over anterior adams; crease/ indentation at anterior ankle B thigh with good skin color and soft tissue with 2-3 areas of bruising over anterior thighs to dept with R and L lower leg circaid juxtafit essential garments-medium long; removed for treatment, cleansed legs, measured and lotion to legs prior to reapplication of garments. she has PAC band foot piece and ishaan compression but has not been wearing them; she stated daughter had problems putting the foot piece on and dorsum of foot is not swollen,
== END 2021-12-10 08:30 | disposition home or self-care (01) ==
LOC: ANHPT 09:45
PROVIDERS: PCP Family Medicine; Visit Provider Family Medicine
DX: I89.0 Lymphedema, not elsewhere classified (principal)
CPT/HCPCS: 97140; 97161

== ENCOUNTER 2022-01-14 11:00 | Outpatient (CLI) | payer MEDICARE, MEDICAID, SELFPAY | END 2022-01-14 11:01 | disposition home or self-care (01) | LOC: ANHAUDIO 11:02 | PROVIDERS: PCP Family Medicine; Visit Provider Psychiatry & Neurology Neurology | DX: H91.90 Unspecified hearing loss, unspecified ear (principal) | CPT/HCPCS: 99199 ==

== ENCOUNTER 2022-01-22 10:51 | Outpatient (CLI) | payer MEDICARE, MEDICAID, SELFPAY | END 2022-01-22 10:52 | disposition home or self-care (01) | LOC: ANHAUDIO 10:52 | PROVIDERS: PCP Family Medicine; Visit Provider Psychiatry & Neurology Neurology | DX: H91.90 Unspecified hearing loss, unspecified ear (principal) | CPT/HCPCS: 99199 ==

== ENCOUNTER 2022-03-29 18:07 | Inpatient (IN) | payer MEDICARE, MEDICAID, SELFPAY ==
[2022-03-29] VITALS (9 sets, daily range): BP systolic 90–147; BP diastolic 42–54; PULSE 75–82; RESP 20–28; TEMP 37.5; O2SAT 89–96
--- NOTE | ~2022-03-29 | XR_ITS ---
EXAMINATION: XR chest 2V DATE: 03/30/2022 14:31 INDICATION: Tachypnea. TECHNIQUE: Frontal and lateral views of the chest were obtained. COMPARISON: Chest 2 views 09/17/2021 FINDINGS: Sensitivity is decreased by obesity. There is no pneumonia, pleural effusion, or pneumothor ax. Cardiomegaly is noted. There are surgical clips in the abdomen. IMPRESSION: 1. Cardiomegaly. Reviewed, dictated and finalized at location A. IMPRESSION: 1. Cardiomegaly.
--- NOTE | ~2022-03-29 | US_ITS ---
EXAMINATION: US retroperitoneal limited DATE: 03/31/2022 17:44 INDICATION: Renal failure TECHNIQUE: Multiple ultrasound grayscale images of the kidneys were obtained. COMPARISON: 11/28/2020 FINDINGS: The right kidney measures 8.6 x 4.2 x 4.8 cm. The suboptimally visualized left kidney measures 9.1 x 4.2 x 4.6 cm. The kidneys demonstrate normal echogenicity. 2.0 cm anechoic cyst at the upper pole of the right kidney. There is no hydronephrosis in either kidney. No stones identified. The bladder is normal. IMPRESSION: 1. 2 cm right renal cyst. Otherwise normal kidneys without hydronephrosis. Reviewed, dictated and finalized at location A.
--- NOTE | 2022-03-29 18:13 | ECG_ITS ---
Measurements Intervals [place] Rate: 79 P: 35 AR: 239 QRS: -31 QRSD: 99 T: 13 QT: 386 QTc: 443 Interpretive Statements SINUS RHYTHM WITH FIRST DEGREE AV BLOCK MARKED LEFT AXIS DEVIATION [QRS AXIS < -30] S1-S2-S3 PATTERN, CONSISTENT WITH PULMONARY DISEASE, RVH, OR NORMAL VARIANT PATTERN CONSISTENT WITH PULMONARY DISEASE COMPARED TO ECG 09/17/2021 21:47:17 SINUS RHYTHM HAS BEEN RESTORED Electronically Signed On 03-29-2022 19:51:31 CDT by Rocio Gilbert M.D.
--- NOTE | 2022-03-29 20:21 | ED.GENADULT ---
HPI - General Adult General Chief complaint: Unspecified Stated complaint: legs are tingling Time Seen by Provider: 03/29/22 19:59 History of Present Illness HPI narrative: Patient is a 71-year-old female with a history of hypothyroidism, restless leg syndrome, anxiety, hypertension, hyperlipidemia presenting with bilateral leg pain. Patient's daughter states that the patient has been complaining of bilateral leg pain for several weeks now. She describes it as a tickling. Patient saw her PCP 2 days ago and was prescribed gabapentin. They just had this filled and she has not yet received a dose. Today, patient was noted to be persistently crying due to the pain so they brought her in for evaluation. On my evaluation, patient continues to complain of bilateral leg pain. She denies numbness or weakness. She denies fevers, chest pain, shortness of breath, abdominal pain, nausea or vomiting, diarrhea. Patient's daughter is concerned that she has cellulitis on her right thigh. Related Data Home Medications Medication Instructions Recorded Confirmed buspirone 10 mg tablet 10 mg PO BID 04/11/20 03/30/22 duloxetine 30 mg capsule,delayed 30 mg PO DAILY 04/11/20 03/30/22 release furosemide 40 mg tablet 40 mg PO DAILY 04/11/20 03/30/22 lovastatin 20 mg tablet 20 mg PO HS 04/11/20 03/30/22 potassium chloride 20 mEq 20 meq PO DAILY 04/11/20 03/30/22 tablet,extended release ropinirole 0.5 mg tablet 0.5 mg PO HS 04/11/20 03/30/22 trazodone 100 mg tablet 50 mg PO HS PRN Insomnia 11/27/20 03/30/22 levothyroxine 175 mcg tablet 175 mcg PO DAILY 09/17/21 03/30/22 (Euthyrox) amiodarone 200 mg tablet (Pacerone) 200 mg PO DAILY 03/30/22 03/30/22 gabapentin 100 mg capsule 100 mg PO TID 03/30/22 03/30/22 Allergies Allergy/AdvReac Type Severity Reaction Status Date / Time No Known Allergies Allergy Verified 03/29/22 21:37 Review of Systems Review of Systems: All systems reviewed & are unremarkable except as noted in HPI and below PMFSH Past Medical History Medical History (Updated 03/31/22 @ 17:12 by Jefry Garcia MD) Anxiety Atrial flutter Dementia Hyperlipidemia Hypertension Hypothyroid Localized edema Restless leg syndrome Stage 3b chronic kidney disease (CKD) Surgical History Surgical History H/O splenectomy H/O total hysterectomy History of right hip hemiarthroplasty History of right knee joint replacement Hx of cholecystectomy Family History Family History Father Hypertension Sibling Hypertension Breast cancer Social History Social History Social History: The patient stated that she is from her . The patient has a total of 4 children. Chayito Causey is her daughter who is the durable power litigation attorney for healthcare. She lives with her daughter Chayito. The patient desires to be a full code. 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 the patient stated she has never smoked, used marijuana, or use illicit drugs. Smoking status: Never smoker Second hand tobacco smoke exposure: No Alcohol intake: never Substance use: never Has the Lack of Transportation Kept You From Medical Appointments or From Getting Medications?: No Within the Past 12 Months, Were You Worried Whether Your Food Would Run Out Before You Got Money to Buy More?: Never True What is Your Housing Situation Today?: I Have Housing Are You Worried That in the Next 2 Months, You May Not Have Your Own Housing to Live In?: No Do You Have Trouble Paying Your Heating Or Electricity Bill?: No Do You Have Trouble Paying For Medicines?: No Are You Currently Unemployed and Looking for Work?: No Highest Level of Education Completed: Don't Know Do You Have Trouble With Childcare or the Care of a Family Member?: No Gender identity (if verbal
[2022-03-29] MEDS: SODIUM CHLORIDE 0.9% IV 1,000 ML 999 ML IV CONT ×2 (20:32→23:01)
[2022-03-29 20:35] LABS: Basophils Percent Auto 0.2 % (0.2-1.2); Hematocrit 43.3 % (37.0-47.0); Hemoglobin 14.2 g/dL (12.0-15.0); Immature Granulocyte Absolute 0.05 K/mm3 (0.00-0.031); Immature Granulocyte Percent A 0.4 % (0-0.5); Lymphocytes Absolute Auto 0.48 K/mm3 (0.9-3.2); Lymphocytes Percent Auto 4.2 % (18.3-44.2); Mean Corpuscular HGB Conc 32.8 g/dl (32-36); Mean Corpuscular Hemoglobin 34.1 pg (26-34); Mean Corpuscular Volume 104.1 fl (80-100); Mean Platelet Volume 10.4 fl (7.4-10.4); Monocytes Absolute Auto 0.6 K/mm3 (0.1-0.6); Monocytes Percent Auto 5.3 % (2.6-8.5); Neutrophils Absolute Auto 10.2 K/mm3 (1.3-6.7); Neutrophils Percent Auto 89.9 % (45.5-73.1); Platelet Count Result 216 k/mm3 (150-375); Red Blood Count 4.16 M/mm3 (4.2-5.4); Red Cell Distribution Width 14.1 % (11.5-14.5); White Blood Count 11.3 K/mm3 (4.5-10.0)
[2022-03-29] MEDS: GABAPENTIN 300 MG CAPSULE PO (20:37)
[2022-03-29 20:45] LABS: Alanine Aminotransferase 49 U/L (6-35); Albumin Level 3.9 g/dL (3.5-5.1); Alkaline Phosphatase 94 U/L (38-126); Anion Gap 9 mmol/L (8-16); Aspartate Amino Transferase 76 U/L (14-36); Bilirubin,Total 0.7 mg/dL (0.2-1.3); Blood Urea Nitrogen 29 mg/dL (7-17); Calcium 8.6 mg/dL (8.4-10.2); Carbon Dioxide 31 mmol/L (22-30); Chloride 102 mmol/L (98-107); Creatine Kinase 48 U/L (30-135); Estimated CRCL calculation 35 ml/min; Estimated Glomerular Filt Rate 37; Glucose 112 mg/dL (65-110); Potassium 3.4 mmol/L (3.4-5.0); Sodium 142 mmol/L (137-145)
--- NOTE | 2022-03-29 23:09 | PC.NURSE ---
Report given to Trina RN
--- NOTE | 2022-03-29 23:24 | PM.IMHP ---
H&P: HPI History of Present Illness Date/Time: 03/29/22 23:24 Chief Complaint: leg pain Narrative: This is a 71-year-old female with past medical history significant for dementia, chronic kidney disease, atrial fibrillation, rate controlled and anticoagulated, chronic lymphedema, hypothyroidism, restless leg syndrome, morbid obesity. Patient was brought to the emergency room due to bilateral lower extremity pain she had seen her primary care physician on Wednesday who prescribed gabapentin however was not able to get the script refilled on till today. Patient is unable to give any history. Most of the history has been obtained from daughter who is at bedside according to daughter patient has been complaining of leg pain for several days now, believed to be secondary to neuropathy, did not notice any nausea or vomiting or cough or fevers, rigors or chills, has area of redness and tenderness on her right thigh. patient [facility] but has not been able to make the trip there today due to other issues. In the emergency room when patient was ready to be discharged upon standing her blood pressure systolic dropped to 70 and it was noted that her gait was wobbly hence decision was made to admit the patient. Preliminary workup workup was significant for a creatinine of 1.4 AST/ALT 76/49 respectively. Patient is been admitted for further evaluation management and treatment. Review of Systems Review of Systems: ROS unobtainable: Yes unobtainable due to mental status ( Dementia) [facility] Past Medical History Medical History Anxiety Atrial flutter Dementia Hyperlipidemia Hypertension Hypothyroid Localized edema Restless leg syndrome Surgical History Surgical History H/O splenectomy H/O total hysterectomy History of right hip hemiarthroplasty History of right knee joint replacement Hx of cholecystectomy Family History Family History Father Hypertension Sibling Hypertension Breast cancer Social History Social History Social History: The patient stated that she is from her . The patient has a total of 4 children. Chayito Causey is her daughter who is the durable power commonwealth attorney for healthcare. She lives with her daughter Chayito. The patient desires to be a full code. 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 the patient stated she has never smoked, used marijuana, or use illicit drugs. Smoking status: Never smoker Second hand tobacco smoke exposure: No Alcohol intake: never Substance use: never Gender identity (if verbalized by the patient): Female Spiritual care concerns: No Has the Lack of Transportation Kept You From Medical Appointments or From Getting Medications?: No Within the Past 12 Months, Were You Worried Whether Your Food Would Run Out Before You Got Money to Buy More?: Never True What is Your Housing Situation Today?: I Have Housing Are You Worried That in the Next 2 Months, You May Not Have Your Own Housing to Live In?: No Do You Have Trouble Paying Your Heating Or Electricity Bill?: No Do You Have Trouble Paying For Medicines?: No Are You Currently Unemployed and Looking for Work?: No Highest Level of Education Completed: Don't Know Do You Have Trouble With Childcare or the Care of a Family Member?: No Meds Home Medications and Allergies Home Medications Medication Instructions Recorded Confirmed Type buspirone 10 mg tablet 10 mg PO BID 04/11/20 03/30/22 History duloxetine 30 mg capsule,delayed 30 mg PO DAILY 04/11/20 03/30/22 History release furosemide 40 mg tablet 40 mg PO DAILY 04/11/20 03/30/22 History lovastatin 20 mg tablet 20 mg PO HS 04/11/20 03/30/22 H
--- NOTE | 2022-03-29 23:28 | PC.NURSE ---
Report received from CRAO Reyes. Assumed care of patient at this time.
[2022-03-30] VITALS (8 sets, daily range): BP systolic 100–119; BP diastolic 42–65; PULSE 75–88; RESP 18–32; TEMP 36.4–37.1; O2SAT 90–94; BMI 46.9
[2022-03-30 00:39] LABS: Influenza A QL RT-PCR Negative (Negative); Influenza B QL RT-PCR Negative (Negative); SARS-CoV-2 RNA PCR Negative
--- NOTE | 2022-03-30 00:43 | ADMGEN ---
This patient, Denise Motley, was admitted to [facility] Surg Room 306-01. Patient/family oriented to hospital policies and general routines including ID bracelet, bed and alarms, visiting hours, pain management, procedures, bathroom and other care routines, personal items, smoking policy, room service/diet, and visiting hours. Information on how to activate the Rapid Response Team has been discussed. Patient/Family are encouraged to report perceived risks to care and to ask questions if they do not understand what they are told or what they should do.
[2022-03-30] MEDS: ceFAZolin 2 GM/D5W 50 ML 2 GM/50 ML BAG IVPB ×3 (06:14→22:21)
[2022-03-30] MEDS: SODIUM CHLORIDE 0.9% IV 1,000 ML 125 ML IV CONT (06:14)
[2022-03-30] MEDS: LEVOTHYROXINE SODIUM 100 MCG TABLET PO (06:15)
[2022-03-30] MEDS: LEVOTHYROXINE SODIUM 75 MCG TABLET PO (06:16)
--- NOTE | 2022-03-30 08:15 | PM.IMPN ---
Progress Note: A&P Assessment and Plan (1) Cellulitis and abscess of right leg: Code(s): L03.115 - Cellulitis of right lower limb; L02.415 - Cutaneous abscess of right lower limb Status: Acute Assessment and Plan: Started on cefazolin in the emergency department and will continue for now. -CRP -ESR (2) Generalized weakness: Code(s): R53.1 - Weakness Status: Acute Assessment and Plan: Baseline does not move very much. Unclear if the orthostasis and weakness are new. Could be exacerbated by the infection with cellulitis. Will continue treatment for cellulitis. 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 Appears chronic and is improved compared to September 2021 LFTs. Acute hepatitis panel negative. Will monitor. (4) MICHELLE (acute kidney injury): Code(s): N17.9 - Acute kidney failure, unspecified Status: Acute Assessment and Plan: Will order urine lytes and monitor for now. (5) Atrial fibrillation with RVR: Code(s): I48.91 - Unspecified atrial fibrillation Status: Acute Assessment and Plan: Rate controlled with amiodarone and metoprolol at home. Anticoagulation with apixaban at home. Continue home medications. (6) Acute leg pain: Code(s): M79.606 - Pain in leg, unspecified Status: Acute Assessment and Plan: Restart gabapentin 100 mg p.o. t.i.d. (7) Hypertension: Qualifiers: Hypertension type: essential hypertension Qualified Code(s): I10 - Essential (primary) hypertension Code(s): I10 - Essential (primary) hypertension Status: Chronic Assessment and Plan: BP improved. Will continue to hold antihypertensives. (8) Restless leg syndrome: Code(s): G25.81 - Restless legs syndrome Status: Chronic Assessment and Plan: continue ropinirole Subjective Date/time seen: 03/30/22 08:15 Patient seen and examined with no family present. Patient denies having any difficulty breathing, chest pain or shortness of breath. Patient says she sits in the chair normally at home. She doesn't go to out with her daughter when she runs errands. Review of Systems Respiratory: Respiratory: Denies dyspnea Exam Narrative: GENERAL: NAD, cooperative HEENT: Normocephalic, atraumatic, anicteric NECK: Supple CV: Regular rate RESP: CTAB, Normal work of breathing. EXTREMITIES: Warm and well perfused, no clubbing, cyanosis, or edema. SKIN: warm, dry and intact. NEURO: CN 2-12 grossly intact. Objective Data Vital Signs Vital Signs: Vital Signs - 24 hr 03/29/22 18:11 03/29/22 20:30 03/29/22 20:55 Temperature 37.5 C Pulse Rate 81 82 82 Respiratory Rate 20 28 H Blood Pressure 147/54 H 118/43 L Pulse Oximetry 96 94 Oxygen Delivery Room Air Room Air 03/29/22 22:31 03/29/22 22:19 03/29/22 22:00 Temperature Pulse Rate 77 75 76 Respiratory Rate 22 H 20 20 Blood Pressure 94/45 L 93/42 L 93/42 L Pulse Oximetry 89 L 90 90 Oxygen Delivery 03/29/22 21:55 03/29/22 21:30 03/29/22 20:51 Temperature Pulse Rate 77 77 81 Respiratory Rate 20 20 20 Blood Pressure 90/42 L 96/44 L 118/43 L Pulse Oximetry 91 91 93 Oxygen Delivery 03/30/22 00:09 03/30/22 00:20 03/30/22 06:00 Temperature 37.1 C 36.4 C 36.8 C Pulse Rate 75 76 88 Respiratory Rate 24 H 18 18 Blood Pressure 100/45 L 101/46 L 104/50 L Pulse Oximetry 93 93 90 Oxygen Delivery Intake/Output Intake/Output: Intake & Output 03/27/22 03/28/22 03/29/22 03/30/22 23:59 23:59 23:59 23:59 Intake Total 1150 1000 Balance 1150 1000 Meds/Results Medications: Active Medications Generic Name Dose Route Start Last Admin Trade Name Freq PRN Reason Stop Dose Admin Amiodarone HCl
[2022-03-30] MEDS: DULoxetine HCL 30 MG CAPSULE.DR PO (08:49)
[2022-03-30] MEDS: busPIRone HCL 10 MG TABLET PO ×2 (08:49→17:36)
[2022-03-30] MEDS: AMIODARONE HCL 200 MG TABLET PO (08:49)
[2022-03-30] MEDS: GABAPENTIN 100 MG CAPSULE PO ×3 (08:49→17:35)
[2022-03-30] MEDS: APIXABAN 5 MG TABLET PO ×2 (08:50→20:51)
[2022-03-30] MEDS: POTASSIUM CHLORIDE 20 MEQ TABLET 40 MEQ PO (08:55)
[2022-03-30] MEDS: traMADol HCL (*CRX) 25 MG TABLET PO (13:27)
[2022-03-30] MEDS: rOPINIRole HCL 0.5 MG TABLET PO (20:50)
[2022-03-30] MEDS: LOVASTATIN 20 MG TABLET PO (20:50)
[2022-03-30] MEDS: METOPROLOL TARTRATE 25 MG TABLET PO (20:50)
--- NOTE | 2022-03-30 23:19 | PC.NURSE ---
Pt was up in chair at beginning of shift. Pt ambulated to bathroom with gait belt and walker. Pt unsteady on feet and is 1-2 assist with walker. Pt attempted to call daughter regarding pt belongings being the wrong item brought in from home. Daughter not reached. Pt resting comfortably. Pt participated and contributed to plan of care for the shift. Will continue to monitor pt.
[2022-03-31 05:52] VITALS: BP 133/52; PULSE 75; RESP 20; TEMP 36.6; O2SAT 90
[2022-03-31] MEDS: ceFAZolin 2 GM/D5W 50 ML 2 GM/50 ML BAG IVPB (06:17)
[2022-03-31] MEDS: LEVOTHYROXINE SODIUM 75 MCG TABLET PO (06:18)
[2022-03-31] MEDS: LEVOTHYROXINE SODIUM 100 MCG TABLET PO (06:18)
[2022-03-31 07:41] LABS: Basophils Percent Auto 0.2 % (0.2-1.2); Eosinophils Percent Auto 0.1 % (0-4.4); Hematocrit 36.8 % (37.0-47.0); Hemoglobin 12.1 g/dL (12.0-15.0); Immature Granulocyte Absolute 0.07 K/mm3 (0.00-0.031); Immature Granulocyte Percent A 0.6 % (0-0.5); Lymphocytes Absolute Auto 1.07 K/mm3 (0.9-3.2); Lymphocytes Percent Auto 8.8 % (18.3-44.2); Mean Corpuscular HGB Conc 32.9 g/dl (32-36); Mean Corpuscular Hemoglobin 33.4 pg (26-34); Mean Corpuscular Volume 101.7 fl (80-100); Mean Platelet Volume 10.9 fl (7.4-10.4); Monocytes Absolute Auto 0.8 K/mm3 (0.1-0.6); Monocytes Percent Auto 6.4 % (2.6-8.5); Neutrophils Absolute Auto 10.3 K/mm3 (1.3-6.7); Neutrophils Percent Auto 83.9 % (45.5-73.1); Platelet Count Result 177 k/mm3 (150-375); Red Blood Count 3.62 M/mm3 (4.2-5.4); White Blood Count 12.2 K/mm3 (4.5-10.0)
--- NOTE | 2022-03-31 08:02 | PM.IMPN ---
Progress Note: A&P Assessment and Plan (1) Cellulitis and abscess of right leg: Code(s): L03.115 - Cellulitis of right lower limb; L02.415 - Cutaneous abscess of right lower limb Status: Acute Assessment and Plan: Started on cefazolin in the emergency department but leukocytosis slightly increased overnight, so will switch clindamycin. Baseline ESR 61 and CRP 16 today. Will continue to monitor. -Discontinue cefazolin -Clindamycin 600 mg q8h -Trend ESR & CRP (2) Generalized weakness: Code(s): R53.1 - Weakness Status: Acute Assessment and Plan: Baseline does not move very much. Unclear if the orthostasis and weakness are new. Could be exacerbated by the infection with cellulitis. Will continue treatment for cellulitis. 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 Appears chronic and is improved compared to September 2021 LFTs. Acute hepatitis panel negative. Will monitor. (4) MICHELLE (acute kidney injury): Code(s): N17.9 - Acute kidney failure, unspecified Status: Acute Assessment and Plan: Urine urea pending. Urine sodium 21 and urine creatinine 33.5. -Nephrology consult - will see tomorrow -Avoid nephrotoxic agents -Renally dose medications (5) Atrial fibrillation with RVR: Code(s): I48.91 - Unspecified atrial fibrillation Status: Acute Assessment and Plan: Rate controlled with amiodarone and metoprolol at home. Anticoagulation with apixaban at home. Continue home medications. (6) Acute leg pain: Code(s): M79.606 - Pain in leg, unspecified Status: Acute Assessment and Plan: Restart gabapentin 100 mg p.o. t.i.d. (7) Hypertension: Qualifiers: Hypertension type: essential hypertension Qualified Code(s): I10 - Essential (primary) hypertension Code(s): I10 - Essential (primary) hypertension Status: Chronic Assessment and Plan: BP higher this morning. Continue metoprolol. (8) Restless leg syndrome: Code(s): G25.81 - Restless legs syndrome Status: Chronic Assessment and Plan: Continue ropinirole. (9) Hypothyroidism: Qualifiers: Hypothyroidism type: unspecified Qualified Code(s): E03.9 - Hypothyroidism, unspecified Code(s): E03.9 - Hypothyroidism, unspecified Status: Acute Assessment and Plan: On levothyroxine 175 mcg daily. Continue home medication. (10) Hyperlipidemia: Qualifiers: Hyperlipidemia type: unspecified Qualified Code(s): E78.5 - Hyperlipidemia, unspecified Code(s): E78.5 - Hyperlipidemia, unspecified Status: Chronic Assessment and Plan: Takes lovastatin 20 mg po daily. Continue home medication. (11) Localized edema: Code(s): R60.0 - Localized edema Status: Chronic Assessment and Plan: Holding home furosemide and potassium. Subjective Date/time seen: 03/31/22 08:02 Patient denies having leg pain. Denies having any pain. Denies fever or chills. Review of Systems Integumentary/Breasts: Skin/Breast: Reports erythema, Reports rash and Denies skin pain Exam Narrative: GENERAL: NAD, cooperative HEENT: Normocephalic, atraumatic, anicteric NECK: Supple CV: Regular rate RESP: CTAB, Normal work of breathing. EXTREMITIES: Warm and well perfused, no clubbing, cyanosis, or edema. RLE with erythema and warmth below the knee extending down to the foot. No crepitus. No bleeding or drainage. SKIN: warm, dry and intact. NEURO: CN 2-12 grossly intact. Objective Data Vital Signs Vital Signs: Vital Signs - 24 hr 03/30/22 08:49 03/30/22 09:19 03/30/22 08:46 Temperature Pulse Rate 84 80 Re
[2022-03-31 08:19] LABS: Anion Gap 10 mmol/L (8-16); Blood Urea Nitrogen 26 mg/dL (7-17); CRP 21.7 mg/dL (<1.0); Carbon Dioxide 27 mmol/L (22-30); Chloride 100 mmol/L (98-107); Estimated CRCL calculation 39 ml/min; Estimated Glomerular Filt Rate 40; Glucose 95 mg/dL (65-110); Potassium 4.2 mmol/L (3.4-5.0); Sodium 137 mmol/L (137-145)
[2022-03-31 08:37] LABS: Erythrocyte Sedimentation Rate 61 mm/hr (0-20)
[2022-03-31] MEDS: DULoxetine HCL 30 MG CAPSULE.DR PO (09:16)
[2022-03-31] MEDS: GABAPENTIN 100 MG CAPSULE PO ×3 (09:16→17:08)
[2022-03-31] MEDS: METOPROLOL TARTRATE 25 MG TABLET PO ×2 (09:17→21:04)
[2022-03-31] MEDS: CLINDAMYCIN 600 MG/D5W 50 ML 600 MG/50 ML PIGGYBACK 100 MG IVPB ×3 (09:17→21:03)
[2022-03-31] MEDS: APIXABAN 5 MG TABLET PO ×2 (09:17→21:03)
[2022-03-31] MEDS: AMIODARONE HCL 200 MG TABLET PO (09:17)
[2022-03-31] MEDS: busPIRone HCL 10 MG TABLET PO ×2 (09:17→17:08)
[2022-03-31 11:43] VITALS: O2SAT 91
[2022-03-31] MEDS: traMADol HCL (*CRX) 25 MG TABLET PO (13:32)
[2022-03-31 13:54] VITALS: BP 150/61; PULSE 65; RESP 18; TEMP 36.4; O2SAT 91
--- NOTE | 2022-03-31 15:18 | PC.NURSE ---
Spoke with Rebecca Causey (patients daughter/POA) regarding which blueprint processor patient was referred to by her primary physician. According to Rebecca, patient was referred to Dr. Jefry Garcia due to patient's low kidney function . Rebecca stated patient has not seen Dr. Garcia as of yet, this is a new referral/consult.
--- NOTE | 2022-03-31 17:06 | PM.CNNEP ---
Assessment and Plan Assessment and plan (1) Stage 3b chronic kidney disease (CKD): Code(s): N18.32 - Chronic kidney disease, stage 3b Status: Acute Assessment and Plan: the patient has an elevated creatinine. This has been stable since September. Her GFR is 40 and so she has chronic kidney disease stage 3 B. the etiology of this is not entirely clear. She has hypertension which could cause this. She does have some hyperlipidemia and so could have some vascular disease in the kidneys. She does not seem to be on any medications that would do this. She denies diabetes. I will check a renal ultrasound, serology an immunofixation. Looks like things are stable right now swelling think we need to do anything special other than control high blood pressure at this point. (2) Hypertension: Qualifiers: Hypertension type: essential hypertension Qualified Code(s): I10 - Essential (primary) hypertension Code(s): I10 - Essential (primary) hypertension Status: Chronic Assessment and Plan: Patient's blood pressure is under good control she is not on any antihypertensive agents. (3) Hyperlipidemia: Qualifiers: Hyperlipidemia type: unspecified Qualified Code(s): E78.5 - Hyperlipidemia, unspecified Code(s): E78.5 - Hyperlipidemia, unspecified Status: Chronic Assessment and Plan: On a statin for this (4) Dementia: Qualifiers: Dementia type: unspecified type Dementia behavioral disturbance: without behavioral disturbance Qualified Code(s): F03.90 - Unspecified dementia without behavioral disturbance Code(s): F03.90 - Unspecified dementia, unspecified severity, without behavioral disturbance, psychotic disturbance, mood disturbance, and anxiety Status: Chronic History of Present Illness Reason for Consult Consult date: 03/31/22 Chief Complaint Chief complaint: Cellulitis History of Present Illness Narrative: Denise is a very pleasant 71-year-old lady who has multiple medical problems including anxiety, dementia, hyperlipidemia, paroxysmal Atrial fibrillation, neuropathy, hypothyroidism, edema, restless leg syndrome. The patient came in the hospital few days ago for leg pain. she was seen in the emergency room and this was felt to be due to neuropathy.However upon discharge she was still asked to stand up on her head she became lightheaded and her blood pressure is only 70 so she was admitted to the hospital. She was felt to be dehydrated shows series given some IV fluids. Her creatinine on admission was 1.3. Her baseline creatinine year goes around 1-1.1. His felt that this might get better with hydration however the creatinine stayed elevated so renal consultation was requested. The patient denies any bloody urine foamy urine kidney stones bladder infections or pain with urination. She does not take any Advil Aleve ibuprofen or Motrin. She does have some swelling. this is been going on a long time. She had a venous Doppler Last September and this was negative.. Review of Systems Constitutional: Constitutional: Reports no additional constitutional complaints Eyes: Eyes: Reports no additional eye complaints ENT: Reports system reviewed and no additional complaints, except as documented Cardiovascular: Cardiovascular: Reports no additional cardiovascular complaints Respiratory: Respiratory: Reports no additional respiratory complaints Gastrointestinal: Gastrointestinal: Reports no additional gastrointestinal complaints Genitourinary: Genitourinary: Reports no additional female genitourinary complaints Musculoskeletal: Musculoskeletal: Reports no additional musculoskeletal complaints Integumentary/Breasts: Skin/Breast: Reports system reviewed and no additional complaints, except as docu Neurologic: Reports system reviewed and no additional complaints, except as documented Psychiatric: Psychiatric: Reports no
[2022-03-31 19:25] LABS: Creatine Kinase 40 U/L (30-135)
[2022-03-31 19:34] LABS: Complement C3 86 mg/dL (88-165)
[2022-03-31 19:58] LABS: Cortisol Random 6.96 ug/dL
[2022-03-31 20:38] LABS: Creatinine Urine 126.7 mg/dL; Total Protein Urine Random 26 mg/dL; Ur Ttl Prot Creatinine Ratio 0.21 mg/mg (0-0.20)
[2022-03-31 20:39] LABS: Sodium Urine Random 8 meq/L
[2022-03-31] MEDS: rOPINIRole HCL 0.5 MG TABLET PO (21:03)
[2022-03-31 21:04] VITALS: PULSE 64
[2022-03-31] MEDS: LOVASTATIN 20 MG TABLET PO (21:04)
[2022-03-31 22:08] VITALS: BP 122/66; PULSE 62; RESP 18; TEMP 36.4; O2SAT 100
--- NOTE | 2022-03-31 23:35 | PC.NURSE ---
Pts daughter brought in her leg wraps to take place of the charlene wraps ordered. Daughter educated nurse on how to apply. Pt is doing a 24 hour urine study and ordered urine sample has been sent off. Pt was in chair and ambulated to the bathroom and then to bed with walker. Pt more sturdy on feet than last night. Pt participated and contributed to plan of care. Pt has no complaints and expresses no needs at this time. Pt resting comfortably. Will continue to monitor pt.
[2022-04-01 06:10] VITALS: BP 128/64; PULSE 67; RESP 18; TEMP 36.8; O2SAT 91
--- NOTE | 2022-04-01 07:02 | PM.PNNEP ---
Progress Note: A&P Assessment and Plan (1) Stage 3b chronic kidney disease (CKD): Code(s): N18.32 - Chronic kidney disease, stage 3b Status: Acute Assessment and Plan: the patient has an elevated creatinine. This has been stable since September. Her GFR is 40 and so she has chronic kidney disease stage 3 B. renal ultrasound is pending UA is bland urine electrolytes are pre renal she has 210 mg of protein in the urine per g of creatinine ESR 61 CK is normal probably due to hypertension and vascular disease. Evaluation for other causes underway (2) Hypertension: Qualifiers: Hypertension type: essential hypertension Qualified Code(s): I10 - Essential (primary) hypertension Code(s): I10 - Essential (primary) hypertension Status: Chronic Assessment and Plan: Patient's blood pressure is under good control she is not on any antihypertensive agents. (3) Hyperlipidemia: Qualifiers: Hyperlipidemia type: unspecified Qualified Code(s): E78.5 - Hyperlipidemia, unspecified Code(s): E78.5 - Hyperlipidemia, unspecified Status: Chronic Assessment and Plan: On a statin for this (4) Dementia: Qualifiers: Dementia type: unspecified type Dementia behavioral disturbance: without behavioral disturbance Qualified Code(s): F03.90 - Unspecified dementia without behavioral disturbance Code(s): F03.90 - Unspecified dementia, unspecified severity, without behavioral disturbance, psychotic disturbance, mood disturbance, and anxiety Status: Chronic Assessment and Plan: stable and compensated Subjective Date/time seen: 04/01/22 07:02 Interval history: Denise is feeling about the same. No chest pain or shortness of breath Review of Systems Cardiovascular: Cardiovascular: Reports no additional cardiovascular complaints Respiratory: Respiratory: Reports no additional respiratory complaints Gastrointestinal: Gastrointestinal: Reports no additional gastrointestinal complaints Genitourinary: Genitourinary: Reports no additional female genitourinary complaints Exam Narrative: WDWN in NAD skin no rash head ncat lungs clear cor reg no rub abd BS+ nontender and soft ext 1+ bilateral edema. Objective Data Vital Signs Vital Signs: Vital Signs - 24 hr 03/31/22 11:43 03/31/22 13:54 03/31/22 21:04 Temperature 36.4 C Pulse Rate 65 64 Respiratory Rate 18 Blood Pressure 150/61 H Pulse Oximetry 91 91 Oxygen Delivery Room Air 03/31/22 22:08 03/31/22 21:03 04/01/22 06:10 Temperature 36.4 C 36.8 C Pulse Rate 62 67 Respiratory Rate 18 18 Blood Pressure 122/66 128/64 Pulse Oximetry 100 91 Oxygen Delivery Room Air Intake/Output Intake/Output: Intake & Output 03/29/22 03/30/22 03/31/22 04/01/22 23:59 23:59 23:59 23:59 Intake Total 1150 3350 1560 Output Total 200 Balance 1150 3350 1560 -200 Meds/Results Medications: Active Medications Generic Name Dose Route Start Last Admin Trade Name Freq PRN Reason Stop Dose Admin Acetaminophen 650 mg 03/30/22 13:13 Acetaminophen 325 Mg Tablet PO Q6H PRN Mild Pain (1-3) or Fever Amiodarone HCl 200 mg 03/30/22 08:00 03/31/22 09:17 Amiodarone Hcl 200 Mg Tablet PO 200 mg DAILY@0800 RAOUL Administration Apixaban 5 mg 03/30/22 08:00 03/31/22 21:03 Apixaban 5 Mg Tablet PO 5 mg Q12H RAOUL Administration Buspirone HCl 10 mg 03/30/22 09:00 03/31/22 17:08 Buspirone Hcl 10 Mg Tablet PO 10 mg BID RAOUL Administration Duloxetine HCl 30 mg 03/30/22 09:00 03/31/22 09:16 Duloxetine Hcl 30 Mg Capsule.Dr PO 30 mg DAILY RAOUL Administration Gabapentin 100 mg 03/30/22 09:00 03/31/22 17:08 Gabapentin 100 Mg Capsule PO 100 mg TID RAOUL Administration Clindamycin Phosphate 600 mg in 50 mls @ 100 mls/hr 03/31/22 08:00 03/31/22 21:33 Clindamycin 600 Mg/D5w 50 Ml IVPB Infus
[2022-04-01 07:03] LABS: Basophils Percent Auto 0.3 % (0.2-1.2); Hematocrit 37.1 % (37.0-47.0); Immature Granulocyte Absolute 0.05 K/mm3 (0.00-0.031); Immature Granulocyte Percent A 0.6 % (0-0.5); Lymphocytes Percent Auto 10.3 % (18.3-44.2); Mean Corpuscular HGB Conc 32.3 g/dl (32-36); Mean Corpuscular Hemoglobin 33.1 pg (26-34); Mean Corpuscular Volume 102.5 fl (80-100); Mean Platelet Volume 11.8 fl (7.4-10.4); Monocytes Absolute Auto 0.5 K/mm3 (0.1-0.6); Monocytes Percent Auto 6.3 % (2.6-8.5); Neutrophils Absolute Auto 6.4 K/mm3 (1.3-6.7); Neutrophils Percent Auto 82.5 % (45.5-73.1); Platelet Count Result 165 k/mm3 (150-375); Red Blood Count 3.62 M/mm3 (4.2-5.4); Red Cell Distribution Width 14.6 % (11.5-14.5); White Blood Count 7.7 K/mm3 (4.5-10.0)
[2022-04-01 07:20] LABS: Albumin Level 3.1 g/dL (3.5-5.1); Anion Gap 9 mmol/L (8-16); Blood Urea Nitrogen 21 mg/dL (7-17); Calcium 8.4 mg/dL (8.4-10.2); Carbon Dioxide 28 mmol/L (22-30); Chloride 99 mmol/L (98-107); Estimated CRCL calculation 45 ml/min; Estimated Glomerular Filt Rate 49; Glucose 98 mg/dL (65-110); Phosphorus 3.2 mg/dL (2.5-4.5); Potassium 4.3 mmol/L (3.4-5.0); Sodium 136 mmol/L (137-145)
[2022-04-01 07:31] LABS: CRP 16.7 mg/dL (<1.0)
[2022-04-01 07:44] LABS: Erythrocyte Sedimentation Rate 71 mm/hr (0-20)
[2022-04-01] MEDS: busPIRone HCL 10 MG TABLET PO ×2 (10:08→18:52)
[2022-04-01] MEDS: GABAPENTIN 100 MG CAPSULE PO ×3 (10:08→18:52)
[2022-04-01] MEDS: APIXABAN 5 MG TABLET PO ×2 (10:08→21:10)
[2022-04-01] MEDS: METOPROLOL TARTRATE 25 MG TABLET PO ×2 (10:09→21:10)
[2022-04-01] MEDS: DULoxetine HCL 30 MG CAPSULE.DR PO (10:09)
[2022-04-01] MEDS: AMIODARONE HCL 200 MG TABLET PO (10:09)
[2022-04-01] MEDS: CLINDAMYCIN 600 MG/D5W 50 ML 600 MG/50 ML PIGGYBACK 100 MG IVPB ×2 (13:31→21:10)
[2022-04-01 14:00] VITALS: BP 120/51; PULSE 54; RESP 22; TEMP 36.3; O2SAT 93
--- NOTE | 2022-04-01 14:45 | PM.IMPN ---
Progress Note: A&P Assessment and Plan (1) Cellulitis and abscess of right leg: Code(s): L03.115 - Cellulitis of right lower limb; L02.415 - Cutaneous abscess of right lower limb Status: Acute Assessment and Plan: Started on cefazolin in the emergency department but leukocytosis slightly increased overnight, so will switch clindamycin. Baseline ESR 61 and CRP 16 today. Will continue to monitor. -Discontinue cefazolin -Clindamycin 600 mg q8h -Trend ESR & CRP 04/01/2022 interval history: patient with right lower extremity cellulitis being treated with clindamycin blood culture were not collected, patient with dementia unable to provide detailed review of symptom, upon arrival her CRP was 21.7 it is trending down and today 16.7, will continue to monitor. (2) Generalized weakness: Code(s): R53.1 - Weakness Status: Acute Assessment and Plan: Baseline does not move very much. Unclear if the orthostasis and weakness are new. Could be exacerbated by the infection with cellulitis. Will continue treatment for cellulitis. 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 Appears chronic and is improved compared to September 2021 LFTs. Acute hepatitis panel negative. Will monitor. (4) MICHELLE (acute kidney injury): Code(s): N17.9 - Acute kidney failure, unspecified Status: Acute Assessment and Plan: Urine urea pending. Urine sodium 21 and urine creatinine 33.5. -Nephrology consult - will see tomorrow -Avoid nephrotoxic agents -Renally dose medications (5) Atrial fibrillation with RVR: Code(s): I48.91 - Unspecified atrial fibrillation Status: Acute Assessment and Plan: Rate controlled with amiodarone and metoprolol at home. Anticoagulation with apixaban at home. Continue home medications. (6) Acute leg pain: Code(s): M79.606 - Pain in leg, unspecified Status: Acute Assessment and Plan: Restart gabapentin 100 mg p.o. t.i.d. (7) Hypertension: Qualifiers: Hypertension type: essential hypertension Qualified Code(s): I10 - Essential (primary) hypertension Code(s): I10 - Essential (primary) hypertension Status: Chronic Assessment and Plan: BP higher this morning. Continue metoprolol. (8) Restless leg syndrome: Code(s): G25.81 - Restless legs syndrome Status: Chronic Assessment and Plan: Continue ropinirole. (9) Hypothyroidism: Qualifiers: Hypothyroidism type: unspecified Qualified Code(s): E03.9 - Hypothyroidism, unspecified Code(s): E03.9 - Hypothyroidism, unspecified Status: Acute Assessment and Plan: On levothyroxine 175 mcg daily. Continue home medication. (10) Hyperlipidemia: Qualifiers: Hyperlipidemia type: unspecified Qualified Code(s): E78.5 - Hyperlipidemia, unspecified Code(s): E78.5 - Hyperlipidemia, unspecified Status: Chronic Assessment and Plan: Takes lovastatin 20 mg po daily. Continue home medication. (11) Localized edema: Code(s): R60.0 - Localized edema Status: Chronic Assessment and Plan: Holding home furosemide and potassium. Subjective Date/time seen: 04/01/22 14:45 Started on cefazolin in the emergency department but leukocytosis slightly increased overnight, so will switch clindamycin. Baseline ESR 61 and CRP 16 today. Will continue to monitor. -Discontinue cefazolin -Clindamycin 600 mg q8h -Trend ESR & CRP 04/01/2022 interval history: patient with right lower extremity cellulitis being treated with clindamycin blood culture were not collected, patient with dementia unable to provide detailed review of symp
[2022-04-01 21:10] VITALS: PULSE 64
[2022-04-01] MEDS: rOPINIRole HCL 0.5 MG TABLET PO (21:10)
[2022-04-01] MEDS: LOVASTATIN 20 MG TABLET PO (21:10)
[2022-04-01] MEDS: TOLNAFTATE 1% POWDER 45 GM BTL 1 APPLIC TOPICAL (21:11)
[2022-04-01 22:00] VITALS: BP 118/44; PULSE 65; RESP 18; TEMP 35.9; O2SAT 94
--- NOTE | 2022-04-01 22:40 | PC.NURSE ---
Pt resting comfortably in bed. Pt verbalizes that she has no needs or complaints at this time. Pt participated and contributed in plan of care. Will continue to monitor pt.
[2022-04-02] MEDS: LEVOTHYROXINE SODIUM 100 MCG TABLET PO (05:37)
[2022-04-02] MEDS: LEVOTHYROXINE SODIUM 75 MCG TABLET PO (05:37)
[2022-04-02] MEDS: CLINDAMYCIN 600 MG/D5W 50 ML 600 MG/50 ML PIGGYBACK 100 MG IVPB (05:37)
[2022-04-02 06:00] VITALS: BP 133/58; PULSE 56; RESP 16; TEMP 36.3; O2SAT 93
[2022-04-02 06:23] LABS: Basophils Percent Auto 0.2 % (0.2-1.2); Eosinophils Percent Auto 0.2 % (0-4.4); Hematocrit 37.4 % (37.0-47.0); Immature Granulocyte Absolute 0.03 K/mm3 (0.00-0.031); Immature Granulocyte Percent A 0.5 % (0-0.5); Lymphocytes Absolute Auto 1.17 K/mm3 (0.9-3.2); Lymphocytes Percent Auto 20.9 % (18.3-44.2); Mean Corpuscular HGB Conc 32.1 g/dl (32-36); Mean Corpuscular Hemoglobin 33.4 pg (26-34); Mean Corpuscular Volume 104.2 fl (80-100); Mean Platelet Volume 10.8 fl (7.4-10.4); Monocytes Absolute Auto 0.5 K/mm3 (0.1-0.6); Neutrophils Absolute Auto 3.9 K/mm3 (1.3-6.7); Neutrophils Percent Auto 70.2 % (45.5-73.1); Platelet Count Result 189 k/mm3 (150-375); Red Blood Count 3.59 M/mm3 (4.2-5.4); Red Cell Distribution Width 14.5 % (11.5-14.5); White Blood Count 5.6 K/mm3 (4.5-10.0)
[2022-04-02 06:38] LABS: Albumin Level 3.1 g/dL (3.5-5.1); Anion Gap 6 mmol/L (8-16); Blood Urea Nitrogen 18 mg/dL (7-17); CRP 6.6 mg/dL (<1.0); Calcium 8.3 mg/dL (8.4-10.2); Carbon Dioxide 28 mmol/L (22-30); Chloride 101 mmol/L (98-107); Estimated CRCL calculation 42 ml/min; Estimated Glomerular Filt Rate 44; Glucose 99 mg/dL (65-110); Phosphorus 3.8 mg/dL (2.5-4.5); Potassium 4.4 mmol/L (3.4-5.0); Sodium 135 mmol/L (137-145)
[2022-04-02 07:08] LABS: Erythrocyte Sedimentation Rate 80 mm/hr (0-20)
[2022-04-02 08:37] VITALS: PULSE 60
[2022-04-02] MEDS: AMIODARONE HCL 200 MG TABLET PO (08:37)
[2022-04-02 08:38] VITALS: PULSE 60
[2022-04-02] MEDS: METOPROLOL TARTRATE 25 MG TABLET PO (08:38)
[2022-04-02] MEDS: busPIRone HCL 10 MG TABLET PO ×2 (08:38→16:53)
[2022-04-02] MEDS: DULoxetine HCL 30 MG CAPSULE.DR PO (08:38)
[2022-04-02] MEDS: GABAPENTIN 100 MG CAPSULE PO ×3 (08:38→16:52)
[2022-04-02] MEDS: APIXABAN 5 MG TABLET PO (08:38)
[2022-04-02] MEDS: TOLNAFTATE 1% POWDER 45 GM BTL 1 APPLIC TOPICAL (08:39)
--- NOTE | 2022-04-02 10:04 | PM.PNNEP ---
Progress Note: A&P Assessment and Plan (1) Stage 3b chronic kidney disease (CKD): Code(s): N18.32 - Chronic kidney disease, stage 3b Status: Acute Assessment and Plan: the patient has an elevated creatinine. This has been stable since September. Her GFR is 40 and so she has chronic kidney disease stage 3 B. renal ultrasound is Normal except for a simple cyst. UA is bland urine electrolytes are pre renal she has 210 mg of protein in the urine per g of creatinine ESR 61 CK is normal probably due to hypertension and vascular disease. Evaluation for other causes underway (2) Hypertension: Qualifiers: Hypertension type: essential hypertension Qualified Code(s): I10 - Essential (primary) hypertension Code(s): I10 - Essential (primary) hypertension Status: Chronic Assessment and Plan: Patient's blood pressure is under good control she is not on any antihypertensive agents. (3) Hyperlipidemia: Qualifiers: Hyperlipidemia type: unspecified Qualified Code(s): E78.5 - Hyperlipidemia, unspecified Code(s): E78.5 - Hyperlipidemia, unspecified Status: Chronic Assessment and Plan: On a statin for this (4) Dementia: Qualifiers: Dementia type: unspecified type Dementia behavioral disturbance: without behavioral disturbance Qualified Code(s): F03.90 - Unspecified dementia without behavioral disturbance Code(s): F03.90 - Unspecified dementia, unspecified severity, without behavioral disturbance, psychotic disturbance, mood disturbance, and anxiety Status: Chronic Assessment and Plan: stable and compensated Subjective Date/time seen: 04/02/22 10:04 Interval history: Denise is feeling about the same. In good spirits. Breathing well. Exam Narrative: WDWN in NAD skin no rash head ncat lungs clear bilaterally cor reg no rub or gallop abd BS+ nontender and soft ext 1+ bilateral edema. Objective Data Vital Signs Vital Signs: Vital Signs - 24 hr 04/01/22 14:00 04/01/22 21:10 04/01/22 22:00 Temperature 36.3 C L 35.9 C L Pulse Rate 54 L 64 65 Respiratory Rate 22 H 18 Blood Pressure 120/51 L 118/44 L Pulse Oximetry 93 94 Oxygen Delivery 04/01/22 21:02 04/02/22 06:00 04/02/22 08:37 Temperature 36.3 C L Pulse Rate 56 L 60 Respiratory Rate 16 Blood Pressure 133/58 L Pulse Oximetry 93 Oxygen Delivery Room Air 04/02/22 08:38 04/02/22 08:00 Temperature Pulse Rate 60 Respiratory Rate Blood Pressure Pulse Oximetry Oxygen Delivery Room Air Intake/Output Intake/Output: Intake & Output 03/30/22 03/31/22 04/01/22 04/02/22 23:59 23:59 23:59 23:59 Intake Total 3350 1560 1060 0 Output Total 540 400 Balance 3350 1560 520 -400 Meds/Results Medications: Active Medications Generic Name Dose Route Start Last Admin Trade Name Freq PRN Reason Stop Dose Admin Acetaminophen 650 mg 03/30/22 13:13 Acetaminophen 325 Mg Tablet PO Q6H PRN Mild Pain (1-3) or Fever Amiodarone HCl 200 mg 03/30/22 08:00 04/02/22 08:37 Amiodarone Hcl 200 Mg Tablet PO 200 mg DAILY@0800 RAOUL Administration Apixaban 5 mg 03/30/22 08:00 04/02/22 08:38 Apixaban 5 Mg Tablet PO 5 mg Q12H RAOUL Administration Buspirone HCl 10 mg 03/30/22 09:00 04/02/22 08:38 Buspirone Hcl 10 Mg Tablet PO 10 mg BID RAOUL Administration Duloxetine HCl 30 mg 03/30/22 09:00 04/02/22 08:38 Duloxetine Hcl 30 Mg Capsule.Dr PO 30 mg DAILY ROAUL Administration Gabapentin 100 mg 03/30/22 09:00 04/02/22 08:38 Gabapentin 100 Mg Capsule PO 100 mg TID RAOUL Administration Clindamycin Phosphate 600 mg in 50 mls @ 100 mls/hr 03/31/22 08:00 04/02/22 05:37 Clindamycin 600 Mg/D5w 50 Ml IVPB 100 mls/hr Q8HR RAOUL Administration Levothyroxine Sodium 100 mcg 03/30/22 06:30 04/02/22 05:37 Levothyroxine Sodium 100 Mcg Tablet PO
[2022-04-02] MEDS: DOXYCYCLINE HYCLATE 100 MG TABLET PO (13:47)
[2022-04-02 14:31] VITALS: BP 112/57; PULSE 58; RESP 18; TEMP 36.7; O2SAT 96
--- NOTE | 2022-04-02 15:35 | PM.DS ---
DS: Admitting Diagnosis Discharge Date 04/02/2022 Admitting Diagnosis lower extremity cellulitis DS: Discharge Diagnosis Discharge Diagnosis (1) Cellulitis and abscess of right leg: Code(s): L03.115 - Cellulitis of right lower limb; L02.415 - Cutaneous abscess of right lower limb Status: Acute Assessment and Plan: Started on cefazolin in the emergency department but leukocytosis slightly increased overnight, so will switch clindamycin. Baseline ESR 61 and CRP 16 today. Will continue to monitor. -Discontinue cefazolin -Clindamycin 600 mg q8h -Trend ESR & CRP 04/01/2022 interval history: patient with right lower extremity cellulitis being treated with clindamycin blood culture were not collected, patient with dementia unable to provide detailed review of symptom, upon arrival her CRP was 21.7 it is trending down and today 16.7, will continue to monitor. (2) Generalized weakness: Code(s): R53.1 - Weakness Status: Acute Assessment and Plan: Baseline does not move very much. Unclear if the orthostasis and weakness are new. Could be exacerbated by the infection with cellulitis. Will continue treatment for cellulitis. 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 Appears chronic and is improved compared to September 2021 LFTs. Acute hepatitis panel negative. Will monitor. (4) MICHELLE (acute kidney injury): Code(s): N17.9 - Acute kidney failure, unspecified Status: Acute Assessment and Plan: Urine urea pending. Urine sodium 21 and urine creatinine 33.5. -Nephrology consult - will see tomorrow -Avoid nephrotoxic agents -Renally dose medications (5) Atrial fibrillation with RVR: Code(s): I48.91 - Unspecified atrial fibrillation Status: Acute Assessment and Plan: Rate controlled with amiodarone and metoprolol at home. Anticoagulation with apixaban at home. Continue home medications. (6) Acute leg pain: Code(s): M79.606 - Pain in leg, unspecified Status: Acute Assessment and Plan: Restart gabapentin 100 mg p.o. t.i.d. (7) Hypertension: Qualifiers: Hypertension type: essential hypertension Qualified Code(s): I10 - Essential (primary) hypertension Code(s): I10 - Essential (primary) hypertension Status: Chronic Assessment and Plan: BP higher this morning. Continue metoprolol. (8) Restless leg syndrome: Code(s): G25.81 - Restless legs syndrome Status: Chronic Assessment and Plan: Continue ropinirole. (9) Hypothyroidism: Qualifiers: Hypothyroidism type: unspecified Qualified Code(s): E03.9 - Hypothyroidism, unspecified Code(s): E03.9 - Hypothyroidism, unspecified Status: Acute Assessment and Plan: On levothyroxine 175 mcg daily. Continue home medication. (10) Hyperlipidemia: Qualifiers: Hyperlipidemia type: unspecified Qualified Code(s): E78.5 - Hyperlipidemia, unspecified Code(s): E78.5 - Hyperlipidemia, unspecified Status: Chronic Assessment and Plan: Takes lovastatin 20 mg po daily. Continue home medication. (11) Localized edema: Code(s): R60.0 - Localized edema Status: Chronic Assessment and Plan: Holding home furosemide and potassium. DS: Summary Hospital Course Reason for hospitalization: leg pain Narrative: ?This is a 71-year-old female with past medical history significant for dementia, chronic kidney disease, atrial fibrillation, rate controlled and anticoagulated, chronic lymphedema, hypothyroidism, restless leg syndrome, morbid obesity.? Patient was brought to the emergency room due to bilateral lower extremity pain sh
[2022-04-06 11:06] LABS: Kappa\\Lambda Light Chains 1.05 (0.26-1.65); Lambda Light Chain 36.2 mg/L (5.7-26.3)
== END 2022-04-02 17:30 | disposition home health service (06) | DRG 603 ==
LOC: ANHED 22:37 → ANHIMU 03-30 00:12 → ANH3MEDSUR 03-30 05:32 → ANHIMU 03-30 07:44
PROVIDERS: Family Medicine; Internal Medicine Nephrology; Admitting Provider Internal Medicine; Emergency Provider Emergency Medicine; PCP Family Medicine; Visit Provider Family Medicine
DX: L03.115 Cellulitis of right lower limb (principal); N17.9 Acute kidney failure, unspecified; Z68.42 Body mass index [BMI] 45.0-49.9, adult; L02.415 Cutaneous abscess of right lower limb; Z20.822 Contact with and (suspected) exposure to COVID-19; R74.01 Elevation of levels of liver transaminase levels; G25.81 Restless legs syndrome; E03.9 Hypothyroidism, unspecified; E78.5 Hyperlipidemia, unspecified; I89.0 Lymphedema, not elsewhere classified; I48.0 Paroxysmal atrial fibrillation; E86.0 Dehydration; R60.0 Localized edema; I12.9 Hypertensive chronic kidney disease with stage 1 through stage 4 chronic kidney disease, or unspecified chronic kidney disease; N18.32 Chronic kidney disease, stage 3b; F03.90 Unspecified dementia, unspecified severity, without behavioral disturbance, psychotic disturbance, mood disturbance, and anxiety; G62.9 Polyneuropathy, unspecified; E66.01 Morbid (severe) obesity due to excess calories; F41.9 Anxiety disorder, unspecified; Z96.651 Presence of right artificial knee joint; Z90.49 Acquired absence of other specified parts of digestive tract; Z90.710 Acquired absence of both cervix and uterus; Z90.81 Acquired absence of spleen
CPT/HCPCS: 36415; 71046; 76775; 80048; 80053; 80069; 82533; 82550; 82570; 83883; 84156; 84300; 85025; 85652; 86038; 86140; 86160; 86162; 86334; 87502; 93005; 96361; 96365; 96367; 97110; 97116; 97161; 97165; 97530; 97535; 99285; A9270; C9803; G0378; J0131; J0690; J7030; U0003; U0005

== ENCOUNTER 2022-05-20 16:15 | Inpatient (IN) | payer MEDICARE, MEDICAID, SELFPAY ==
[2022-05-20] VITALS (16 sets, daily range): BP systolic 90–127; BP diastolic 41–74; PULSE 57–76; RESP 16–33; TEMP 36.7–38; O2SAT 90–98; BMI 47.5
--- NOTE | ~2022-05-20 | XR_ITS ---
EXAMINATION: XR chest 1V portable INDICATION: COVID pneumonia TECHNIQUE: Portable AP chest at 0700 hours COMPARISON: 05/20/2022 FINDINGS: Diffuse interstitial and airspace opacities have developed. Linear airspace opacities of th e left midlung zone could reflect subsegmental atelectasis. Cardiomegaly is noted. No pleural effusio n or pneumothorax. IMPRESSION: 1. Diffuse lung disease, consistent with pneumonia and/or pulmonary edema. 2. Cardiomegaly. Reviewed, dictated and finalized at location A. QUALITY CONTROL TECHNICIAN
--- NOTE | ~2022-05-20 | XR_ITS ---
EXAMINATION: XR chest 1V portable INDICATION: Shortness of breath, cough TECHNIQUE: Portable AP chest at 1640 hours COMPARISON: 03/30/2022 FINDINGS: Cardiomegaly is noted. There are minimal airspace opacities of the lung bases and left midl altagracia zone. No definite pleural effusion or pneumothorax. IMPRESSION: 1. Cardiomegaly. 2. Minimal airspace opacities of the lung bases and left midlung zone, consistent with atelectasis ve rsus pneumonia. Reviewed, dictated and finalized at location A. OR TECHNICAL ARCHITECT IMPRESSION: 1. Cardiomegaly. 2. Minimal airspace opacities of the lung bases and left midlung zone, consiste nt with atelectasis versus pneumonia.
--- NOTE | ~2022-05-20 | XR_ITS ---
EXAMINATION: XR chest 1V portable DATE: 05/25/2022 06:47 INDICATION: Pneumonia. TECHNIQUE: A single frontal view of the chest was obtained. COMPARISON: Chest single view 05/23/2022, CT abdomen and pelvis 07/18/2014 FINDINGS: There is a diffuse interstitial pattern in the lungs, consistent with mild pulmonary edema. No pleural effusion or pneumothorax. Cardiomegaly is noted. Surgical clips in the right upper quadra nt are likely from cholecystectomy. IMPRESSION: 1. Mild pulmonary edema. 2. Cardiomegaly. Reviewed, dictated and finalized at location A. NISTRATION DEAN
--- NOTE | 2022-05-20 16:32 | ECG_ITS ---
Rate 73 VA 210 QRSd 87 QT 316 QTc 349 --[place]-- P 86 QRS -38 T 15 SINUS RHYTHM WITH MARKED SINUS ARRHYTHMIA WITH FIRST DEGREE AV BLOCK LEFT AXIS DEVIATION [QRS AXIS < -30] PATTERN CONSISTENT WITH PULMONARY DISEASE NONSPECIFIC ST & T-WAVE ABNORMALITY COMPARED TO ECG 03/29/2022 18:17:37 SINUS ARRHYTHMIA NOW PRESENT MINIMAL CHANGE Electronically Signed On 05-21-2022 11:38:39 POLITICAL AIDE by Rocio MORALES
--- NOTE | 2022-05-20 16:34 | ED.GENADULT ---
HPI - General Adult General Chief complaint: Weakness Stated complaint: increased weakness Time Seen by Provider: 05/20/22 16:20 History of Present Illness HPI narrative: 71-year-old female history of dementia presenting the emergency department for evaluation of increased generalized weakness over the course of the last week. Patient reportedly had a fall off the toilet but denies hitting head denies any loss of consciousness. Upon arrival to the scene by EMS patient was saturating at 80% on room air. Patient does not normally have an O2 requirement. Upon emergency room patient was 90% on room air and was placed on 2 L of oxygen by nasal cannula Patient states she did not receive the COVID-vaccine and does not get the flu shot. Related Data Home Medications Medication Instructions Recorded Confirmed buspirone 10 mg tablet 10 mg PO BID 04/11/20 03/30/22 duloxetine 30 mg capsule,delayed 30 mg PO DAILY 04/11/20 03/30/22 release furosemide 40 mg tablet 40 mg PO DAILY 04/11/20 03/30/22 lovastatin 20 mg tablet 20 mg PO HS 04/11/20 03/30/22 potassium chloride 20 mEq 20 meq PO DAILY 04/11/20 03/30/22 tablet,extended release ropinirole 0.5 mg tablet 0.5 mg PO HS 04/11/20 03/30/22 trazodone 100 mg tablet 50 mg PO HS PRN Insomnia 11/27/20 03/30/22 levothyroxine 175 mcg tablet 175 mcg PO DAILY 09/17/21 03/30/22 (Euthyrox) amiodarone 200 mg tablet (Pacerone) 200 mg PO DAILY 03/30/22 03/30/22 gabapentin 100 mg capsule 100 mg PO TID 03/30/22 03/30/22 Allergies Allergy/AdvReac Type Severity Reaction Status Date / Time No Known Allergies Allergy Verified 05/20/22 16:32 Review of Systems Review of Systems: CONSTITUTIONAL: Generalized fatigue and subjective fever EYES: Denies visual changes, redness, or discharge. ENT: Denies rhinorrhea, congestion, sore throat, or otalgia. CARDIOVASCULAR: Denies chest pain, palpitations, or edema. RESPIRATORY: Some cough and shortness of breath GASTROINTESTINAL: Denies abdominal pain, nausea, vomiting, or diarrhea. GENITOURINARY: Denies dysuria or hematuria. SKIN: Denies rash or itching. MUSCULOSKELETAL: Denies back pain, joint pain, or myalgia. NEUROLOGIC: Denies headache, numbness, or weakness. [facility] Past Medical History Medical History (Updated 05/20/22 @ 18:30 by Sher Heard MD) Anxiety Atrial flutter Dementia Hyperlipidemia Hypertension Hypothyroid Localized edema Restless leg syndrome Stage 3b chronic kidney disease (CKD) Surgical History Surgical History H/O splenectomy H/O total hysterectomy History of right hip hemiarthroplasty History of right knee joint replacement Hx of cholecystectomy Family History Family History Father Hypertension Sibling Hypertension Breast cancer Social History Social History Social History: The patient stated that she is from her . The patient has a total of 4 children. Chayito Causey is her daughter who is the durable power real estate associate attorney for healthcare. She lives with her daughter Chayito. The patient desires to be a full code. 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 the patient stated she has never smoked, used marijuana, or use illicit drugs. Smoking status: Never smoker Second hand tobacco smoke exposure: No Alcohol intake: never Substance use: never Lack of Transportation: No Lack of Food: Never True Current Housing: I Have Housing Concerned About Future Housing: No Difficulty Paying Gas/Electric Bills: No Difficulty Paying for Meds: No Currently Unemployed: No Education: Don't Know Difficulty w/ Childcare or Family Care: No Gender identity (if verbalized by the patient): Female Spiritual care concerns: No Exam Narrative: APPEARANCE: Ill-appearing HEAD: normocephalic, atraumatic. EYES: P
[2022-05-20 16:58] LABS: Basophils Percent Auto 0.2 % (0.2-1.2); Hematocrit 41.2 % (37.0-47.0); Hemoglobin 13.5 g/dL (12.0-15.0); Immature Granulocyte Absolute 0.04 K/mm3 (0.00-0.031); Immature Granulocyte Percent A 0.4 % (0-0.5); Lymphocytes Percent Auto 8.2 % (18.3-44.2); Mean Corpuscular HGB Conc 32.8 g/dl (32-36); Mean Corpuscular Volume 103.8 fl (80-100); Mean Platelet Volume 10.1 fl (7.4-10.4); Monocytes Percent Auto 9.2 % (2.6-8.5); Platelet Count Result 205 k/mm3 (150-375); Red Blood Count 3.97 M/mm3 (4.2-5.4); Red Cell Distribution Width 14.7 % (11.5-14.5)
[2022-05-20 17:13] LABS: INR 1.6; Partial Thromboplastin Time 40.1 SECONDS (22.3-36.8); Prothrombin Time 18.2 Seconds (11.1-14.7)
[2022-05-20 17:22] LABS: Alanine Aminotransferase 114 U/L (6-35); Albumin Level 4.1 g/dL (3.5-5.1); Alkaline Phosphatase 70 U/L (38-126); Anion Gap 6 mmol/L (8-16); Aspartate Amino Transferase 164 U/L (14-36); Bilirubin,Total 0.4 mg/dL (0.2-1.3); Blood Urea Nitrogen 32 mg/dL (7-17); Calcium 8.1 mg/dL (8.4-10.2); Carbon Dioxide 30 mmol/L (22-30); Chloride 98 mmol/L (98-107); Estimated CRCL calculation 44 ml/min; Estimated Glomerular Filt Rate 40; Glucose 98 mg/dL (65-110); Potassium 4.2 mmol/L (3.4-5.0); Sodium 134 mmol/L (137-145)
[2022-05-20 17:30] LABS: Influenza A QL RT-PCR Negative (Negative); Influenza B QL RT-PCR Negative (Negative); SARS-CoV-2 RNA PCR Positive
[2022-05-20 17:31] LABS: NT Pro B Type Natriuretic Pept 1140 pg/mL (5-100)
[2022-05-20] MEDS: REMDESIVIR 200 MG/NS 250 ML 200 MG/250 ML BAG 250 MG IVPB (19:06)
[2022-05-20] MEDS: ALBUTEROL SULFATE NEB 2.5 MG/3 ML INH 5 MG INHALATION (20:27)
--- NOTE | 2022-05-20 21:42 | PM.IMHP ---
H&P: HPI History of Present Illness Date/Time: 05/20/22 21:42 Chief Complaint: Weakness Narrative: This is a 71-year-old female who resides with her daughter. The patient came to the emergency room for evaluation of increased generalized weakness over the course of the last week. The patient reportedly had fallen off the toilet but denies hitting her head or losing consciousness. The patient was only saturating 80% on room air when EMS was on scene. Patient does not typically wear oxygen at home. Upon arrival to emergency room patient was 90% with oxygen placed on a 2 L per nasal cannula. The patient stated she did not receive a COVID vaccine. Her white count was found to be 11.0. Sodium slightly low at 134. Creatinine 1.30 and her GFR is 40. AST is 164 ALT is 114. BNP 1140. Patient was negative for influenza a and B but was found to be positive for COVID. Chest x-ray was read as cardiomegaly and minimal airspace opacities in lung bases and left mid lung zone consistent with atelectasis versus pneumonia. The patient was given IV Tylenol and Decadron in the emergency room. She was also given remdesivir in the emergency room. The patient was admitted to inpatient status on the date of service of 05/20/2022. Review of Systems Review of Systems: See HPI All systems reviewed & are unremarkable except as noted in HPI and below Constitutional: Constitutional: Reports as per HPI and Reports no additional constitutional complaints Eyes: Eyes: Reports as per HPI and Reports no additional eye complaints ENT: Reports system reviewed and no additional complaints, except as documented and Reports Normal hearing present Cardiovascular: Cardiovascular: Reports no additional cardiovascular complaints Respiratory: Respiratory: Reports no additional respiratory complaints and Reports no additional respiratory complaints Gastrointestinal: Gastrointestinal: Reports as per HPI and Reports no additional gastrointestinal complaints Musculoskeletal: Musculoskeletal: Reports no additional musculoskeletal complaints Integumentary/Breasts: Skin/Breast: Reports system reviewed and no additional complaints, except as docu and Reports as per HPI Neurologic: Reports system reviewed and no additional complaints, except as documented, Reports as per HPI and Reports Normal hearing present Psychiatric: Psychiatric: Reports no additional psychiatric complaints and Reports as per HPI Endocrine: Endocrine: Reports no additional endocrine complaints Hematologic/Lymphatic: Hematologic/Lymphatic: Reports no additional hematologic/lymphatic complaints Allergic/Immunologic: Allergic/Immunologic: Reports no additional allergic/immunologic complaints [facility] Past Medical History Medical History (Updated 05/20/22 @ 22:55 by Nicolasa Stockton NP) Anxiety Atrial flutter Dementia Depression History of pelvic fracture Hyperlipidemia Hypertension Hypothyroid Localized edema Restless leg syndrome Stage 3b chronic kidney disease (CKD) Surgical History Surgical History (Updated 05/20/22 @ 22:43 by Nicolasa Stockton NP) H/O splenectomy H/O total hysterectomy History of inguinal herniorrhaphy History of right hip hemiarthroplasty History of right knee joint replacement Hx of cholecystectomy Hx of total knee replacement Family History Family History Father Hypertension Sibling Hypertension Breast cancer Social History Social History (Updated 05/20/22 @ 22:44 by iNcolasa Stockton NP) Social History: The patient stated that she is . The patient has a total of 4 children. Chayito Causey is her daughter who is the durable power county attorney for healthcare. She lives with her daughter Chayito. The patient desires to be a full code. 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 the patient stated she has never smoked, used marijuana, or use illicit drugs. Code status full code
[2022-05-20 23:14] LABS: Alanine Aminotransferase 135 U/L (6-35); Estimated CRCL calculation 32 ml/min; Estimated Glomerular Filt Rate 32
[2022-05-20 23:18] LABS: INR 1.6; Prothrombin Time 18.2 Seconds (11.1-14.7)
[2022-05-20] MEDS: rOPINIRole HCL 0.5 MG TABLET PO (23:35)
[2022-05-20] MEDS: APIXABAN 5 MG TABLET PO (23:35)
[2022-05-20] MEDS: METOPROLOL TARTRATE 25 MG TABLET PO (23:36)
[2022-05-20] MEDS: GABAPENTIN 100 MG CAPSULE PO (23:36)
[2022-05-21] VITALS (11 sets, daily range): BP systolic 110–113; BP diastolic 55–59; PULSE 49–65; RESP 14–16; TEMP 36.4–36.7; O2SAT 93–99
[2022-05-21 00:07] LABS: Hepatitis B Surface Antigen Negative (Negative)
[2022-05-21 00:44] LABS: Hepatitis B Core IgM Result Negative (Negative)
[2022-05-21 01:01] LABS: HAV RESULT Negative (Negative)
[2022-05-21 01:15] LABS: Hepatitis C Virus Antibody Negative (Negative)
--- NOTE | 2022-05-21 04:18 | PC.NURSE ---
Pt admitted from the ER to 255 with weakness and + fall from toilet at home. Lives with daughter (POA) and son in law .Dx COVID Pt walked few unsteady steps in room with assist. Uses cane at home. SOB while doing activity, coarse, wheezes noted 2L NC. 95-97% Received incontinent of urine. Skin reddened between abdominal folds and bilateral groin areas. Pt obese, can move side to side in bed with minimal assist. Pt- glasses,.... extremely [place]. Pt cannot understand unless staff speaks directly close to pt and speak loudly. Tele- SR Tolerated po meds with water. Denied pain. HOB elevated Fall precautions in place . In isolation room near nursing station.
[2022-05-21 05:46] LABS: Hematocrit 36.5 % (37.0-47.0); Hemoglobin 11.9 g/dL (12.0-15.0); Mean Corpuscular HGB Conc 32.6 g/dl (32-36); Mean Corpuscular Hemoglobin 33.7 pg (26-34); Mean Corpuscular Volume 103.4 fl (80-100); Mean Platelet Volume 10.9 fl (7.4-10.4); Platelet Count Result 193 k/mm3 (150-375); Red Blood Count 3.53 M/mm3 (4.2-5.4); Red Cell Distribution Width 14.9 % (11.5-14.5); White Blood Count 11.8 K/mm3 (4.5-10.0)
[2022-05-21 05:55] LABS: Alanine Aminotransferase 139 U/L (6-35); Estimated CRCL calculation 36 ml/min; Estimated Glomerular Filt Rate 37; INR 1.7; Magnesium 2.2 mg/dL (1.6-2.3); Prothrombin Time 19.3 Seconds (11.1-14.7)
[2022-05-21 05:59] LABS: Lactic Acid Reflex 1.7 mmol/L (0.7-2.0)
[2022-05-21] MEDS: LEVOTHYROXINE SODIUM 100 MCG TABLET PO (06:30)
[2022-05-21] MEDS: LEVOTHYROXINE SODIUM 75 MCG TABLET PO (06:30)
[2022-05-21 06:36] LABS: Thyroid Stimulating Hormone Reflex 0.669 uIU/mL (0.465-4.68)
[2022-05-21 08:33] LABS: Anisocytosis 1+ (NORMAL); Band Neutrophils Percent 20 % (0-6); Lymphocytes Absolute Manual 0.59 K/mm3 (1.1-4.5); Monocytes Absolute Manual 0.11 K/mm3 (0.1-0.90); Monocytes Percent Manual 1 % (3-9); Neutrophils Absolute Manual 11.09 K/mm3 (1.7-7.2); Neutrophils Percent Manual 74 % (46-73); Platelet Estimate Adequate (Adequate); Schistocytes None Seen (NORMAL); Total Cells Counted 100
[2022-05-21] MEDS: busPIRone HCL 10 MG TABLET PO ×2 (09:20→16:18)
[2022-05-21] MEDS: AMIODARONE HCL 200 MG TABLET PO (09:20)
[2022-05-21] MEDS: METOPROLOL TARTRATE 25 MG TABLET PO ×2 (09:20→22:24)
[2022-05-21] MEDS: POTASSIUM CHLORIDE 20 MEQ TABLET.ER PO (09:20)
[2022-05-21] MEDS: FUROSEMIDE 40 MG TABLET PO (09:20)
[2022-05-21] MEDS: APIXABAN 5 MG TABLET PO ×2 (09:20→22:24)
[2022-05-21] MEDS: DULoxetine HCL 30 MG CAPSULE.DR PO (09:20)
[2022-05-21] MEDS: GABAPENTIN 100 MG CAPSULE PO ×3 (09:21→16:18)
[2022-05-21] MEDS: DEXAMETHASONE 2 MG TABLET 6 MG PO (10:38)
--- NOTE | 2022-05-21 11:40 | PM.IMPN ---
Progress Note: A&P Assessment and Plan (1) COVID: Code(s): U07.1 - COVID-19 Status: Acute Assessment and Plan: -greater than average risk due to multiple medical comorbidities, obesity, as well as unvaccinated status -remdesivir dexamethasone day 2 -anticoagulation with Eliquis - Supplemental O2, droplet/contact iso. - Mild elevation of wbc count, likely steroid induced - a procalcitonin will be ordered for the am. - Care coordination consult for POLST update, patient not certain if willing to undergo [facility] if needed. (2) Atrial flutter: Code(s): I48.92 - Unspecified atrial flutter Status: Acute Assessment and Plan: - Not a new finding. - Grossly in rhythm on auscultation - Cont. amiodarone, metoprolol - Eliquis anticoagulation (3) Stage 3b chronic kidney disease (CKD): Code(s): N18.32 - Chronic kidney disease, stage 3b Status: Acute Assessment and Plan: - Monitor renal function daily - if gfr<30 consider adjust remdesivir dosing. (4) Transaminitis: Code(s): R74.01 - Elevation of levels of liver transaminase levels Status: Acute Assessment and Plan: - Appears chronic on chart review, additionally note elevated INR. - Liver u/s is pending. - Note that remdesivir may enhance hepatoxicity of remdesivir - trend liver enzymes. - hepatitis panel. (5) Generalized weakness: Code(s): R53.1 - Weakness Status: Acute Assessment and Plan: - May require pt/ot evaluation prior to discharge pending covid course. (6) Pulmonary edema: Code(s): J81.1 - Chronic pulmonary edema Status: Acute Assessment and Plan: - BNP elevated, hypoxic on presentation. Lasix chronically which will continue. - Reviewed last echo - EF is preserved. (7) Dementia: Qualifiers: Dementia type: unspecified type Dementia behavioral disturbance: without behavioral disturbance Qualified Code(s): F03.90 - Unspecified dementia without behavioral disturbance Code(s): F03.90 - Unspecified dementia, unspecified severity, without behavioral disturbance, psychotic disturbance, mood disturbance, and anxiety Status: Chronic (8) Hypothyroid: Code(s): E03.9 - Hypothyroidism, unspecified Status: Chronic Assessment and Plan: - Cont. levothyroxine. (9) Hypertension: Qualifiers: Hypertension type: essential hypertension Qualified Code(s): I10 - Essential (primary) hypertension Code(s): I10 - Essential (primary) hypertension Status: Chronic Assessment and Plan: - Stable BP on current meds, cont. same. (10) Restless leg syndrome: Code(s): G25.81 - Restless legs syndrome Status: Chronic Assessment and Plan: - Cont. ropinorole. Time Spent With Patient Time with patient: 25 - 35 minutes Subjective Date/time seen: 05/21/22 11:40 Interval history: Denise states she doesn't feel short of breath this morning. She is pleasant and answers questions appropriately although I feel a little less than good historian. Review of Systems Review of Systems: All systems reviewed & are unremarkable except as noted in HPI and below Constitutional: Constitutional: Reports fatigue Respiratory: Respiratory: Reports no additional respiratory complaints Comments: States not short of breath at this time. Exam Narrative: GENERAL APPEARANCE: Appears to be in no acute distress. HEAD: normocephalic atraumatic EYES: PERRL, EOMI. Vision grossly intact. ENT: Hearing grossly intact, no nasal discharge NECK: Neck supple, trachea midline. CARDIAC: Normal S1/S2. Rhythm is regular. No murmurs, rubs, or gallops. No cyanosis or pallor. Extremities are warm and well perfused. LUNGS: Lungs quite diminished bilaterally with lower than expected resp. exursion likely 2/2 habitus. There are mild exp. wheezes in the upper lobes.. Respirations even and unlabored. ABDOMEN: B
[2022-05-21] MEDS: ALBUTEROL SULFATE NEB 2.5 MG/3 ML INH 5 MG INHALATION (15:02)
[2022-05-21] MEDS: traZODone HCL 50 MG TABLET PO (22:24)
[2022-05-21] MEDS: REMDESIVIR 100 MG/NS 250 ML 100 MG/250 ML BAG 250 MG IVPB (22:24)
[2022-05-21] MEDS: rOPINIRole HCL 0.5 MG TABLET PO (22:24)
[2022-05-22] VITALS (18 sets, daily range): BP systolic 112–128; BP diastolic 48–64; PULSE 52–62; RESP 16–20; TEMP 36.5–36.6; O2SAT 93–98
[2022-05-22] MEDS: ALBUTEROL SULFATE NEB 2.5 MG/3 ML INH 5 MG INHALATION ×4 (02:15→20:29)
[2022-05-22 06:04] LABS: Hematocrit 37.6 % (37.0-47.0); Hemoglobin 12.3 g/dL (12.0-15.0); Mean Corpuscular HGB Conc 32.7 g/dl (32-36); Mean Corpuscular Hemoglobin 33.2 pg (26-34); Mean Corpuscular Volume 101.6 fl (80-100); Mean Platelet Volume 11.4 fl (7.4-10.4); Platelet Count Result 222 k/mm3 (150-375); Red Cell Distribution Width 14.9 % (11.5-14.5)
[2022-05-22 06:12] LABS: Alanine Aminotransferase 209 U/L (6-35); Albumin Level 3.2 g/dL (3.5-5.1); Alkaline Phosphatase 58 U/L (38-126); Anion Gap 3 mmol/L (8-16); Aspartate Amino Transferase 160 U/L (14-36); Bilirubin,Total 0.3 mg/dL (0.2-1.3); Blood Urea Nitrogen 35 mg/dL (7-17); Carbon Dioxide 30 mmol/L (22-30); Chloride 100 mmol/L (98-107); Estimated CRCL calculation 50 ml/min; Estimated Glomerular Filt Rate 54; Glucose 141 mg/dL (65-110); Magnesium 2.4 mg/dL (1.6-2.3); Sodium 133 mmol/L (137-145)
[2022-05-22 06:16] LABS: INR 1.7; Prothrombin Time 19.6 Seconds (11.1-14.7)
[2022-05-22 06:20] LABS: NT Pro B Type Natriuretic Pept 1270 pg/mL (5-100)
[2022-05-22 06:41] LABS: Procalcitonin 1.2 ng/mL
[2022-05-22] MEDS: LEVOTHYROXINE SODIUM 75 MCG TABLET PO (06:44)
[2022-05-22] MEDS: LEVOTHYROXINE SODIUM 100 MCG TABLET PO (06:44)
[2022-05-22 06:56] LABS: Hepatitis B Surface Antigen Negative (Negative)
[2022-05-22 07:01] LABS: HAV RESULT Negative (Negative); Hepatitis B Core IgM Result Negative (Negative)
[2022-05-22 07:13] LABS: Hepatitis C Virus Antibody Negative (Negative)
[2022-05-22] MEDS: POTASSIUM CHLORIDE 20 MEQ TABLET.ER PO (09:50)
[2022-05-22] MEDS: GABAPENTIN 100 MG CAPSULE PO ×3 (09:50→17:14)
[2022-05-22] MEDS: DEXAMETHASONE 2 MG TABLET 6 MG PO (09:50)
[2022-05-22] MEDS: busPIRone HCL 10 MG TABLET PO ×2 (09:50→17:14)
[2022-05-22] MEDS: DULoxetine HCL 30 MG CAPSULE.DR PO (09:50)
[2022-05-22] MEDS: APIXABAN 5 MG TABLET PO ×2 (09:51→20:10)
[2022-05-22] MEDS: FUROSEMIDE 40 MG TABLET PO (09:51)
[2022-05-22] MEDS: METOPROLOL TARTRATE 25 MG TABLET PO ×2 (09:51→20:10)
[2022-05-22] MEDS: AMIODARONE HCL 200 MG TABLET PO (09:51)
--- NOTE | 2022-05-22 11:56 | PM.IMPN ---
Progress Note: A&P Assessment and Plan (1) COVID: Code(s): U07.1 - COVID-19 Status: Acute Assessment and Plan: -greater than average risk due to multiple medical comorbidities, obesity, as well as unvaccinated status -remdesivir dexamethasone day 2 -anticoagulation with Eliquis - Supplemental O2, droplet/contact iso. - Mild elevation of wbc count, likely steroid induced - a procalcitonin will be ordered for the am. - Care coordination consult for POLST update, patient not certain if willing to undergo intubation/[facility] ventilation if needed. (2) Atrial flutter: Code(s): I48.92 - Unspecified atrial flutter Status: Acute Assessment and Plan: - Not a new finding. - Grossly in rhythm on auscultation - Cont. amiodarone, metoprolol - Eliquis anticoagulation (3) Stage 3b chronic kidney disease (CKD): Code(s): N18.32 - Chronic kidney disease, stage 3b Status: Acute Assessment and Plan: - Monitor renal function daily - if gfr<30 consider adjust remdesivir dosing. (4) Transaminitis: Code(s): R74.01 - Elevation of levels of liver transaminase levels Status: Acute Assessment and Plan: - Appears chronic on chart review, additionally note elevated INR. - Liver u/s is pending. - Note that remdesivir may enhance hepatoxicity of remdesivir - trend liver enzymes. - hepatitis panel. (5) Generalized weakness: Code(s): R53.1 - Weakness Status: Acute Assessment and Plan: - May require pt/ot evaluation prior to discharge pending covid course. (6) Pulmonary edema: Code(s): J81.1 - Chronic pulmonary edema Status: Acute Assessment and Plan: - BNP elevated, hypoxic on presentation. Lasix chronically which will continue. - Reviewed last echo - EF is preserved. (7) Dementia: Qualifiers: Dementia type: unspecified type Dementia behavioral disturbance: without behavioral disturbance Qualified Code(s): F03.90 - Unspecified dementia without behavioral disturbance Code(s): F03.90 - Unspecified dementia, unspecified severity, without behavioral disturbance, psychotic disturbance, mood disturbance, and anxiety Status: Chronic (8) Hypothyroid: Code(s): E03.9 - Hypothyroidism, unspecified Status: Chronic Assessment and Plan: - Cont. levothyroxine. (9) Hypertension: Qualifiers: Hypertension type: essential hypertension Qualified Code(s): I10 - Essential (primary) hypertension Code(s): I10 - Essential (primary) hypertension Status: Chronic Assessment and Plan: - Stable BP on current meds, cont. same. (10) Restless leg syndrome: Code(s): G25.81 - Restless legs syndrome Status: Chronic Assessment and Plan: - Cont. ropinorole. Subjective Date/time seen: 05/22/22 11:56 Patient was seen during the morning rounds today. Patient is feeling much better. Patient still has mild shortness of breath. No chest pain. No abdominal pain, nausea, vomiting. Mood stable. Review of Systems Review of Systems: All systems reviewed & are unremarkable except as noted in HPI and below Constitutional: Constitutional: Reports as per HPI, Reports no additional constitutional complaints and Reports fatigue Eyes: Eyes: Reports as per HPI and Reports no additional eye complaints ENT: Reports system reviewed and no additional complaints, except as documented and Reports Normal hearing present Cardiovascular: Cardiovascular: Reports no additional cardiovascular complaints Respiratory: Respiratory: Reports no additional respiratory complaints and Reports no additional respiratory complaints Gastrointestinal: Gastrointestinal: Reports as per HPI and Reports no additional gastrointestinal complaints Musculoskeletal: Musculoskeletal: Reports no additional musculoskeletal complaints Integumentary/Breasts: Skin/Breast: Reports system reviewed and no addition
[2022-05-22] MEDS: rOPINIRole HCL 0.5 MG TABLET PO (20:10)
[2022-05-22] MEDS: REMDESIVIR 100 MG/NS 250 ML 100 MG/250 ML BAG 250 MG IVPB (22:23)
[2022-05-23] VITALS (17 sets, daily range): BP systolic 119–138; BP diastolic 60–64; PULSE 51–69; RESP 16–20; TEMP 36.5; O2SAT 92–96
[2022-05-23] MEDS: ALBUTEROL SULFATE NEB 2.5 MG/3 ML INH 5 MG INHALATION ×4 (03:04→21:50)
[2022-05-23 05:27] LABS: Hematocrit 36.1 % (37.0-47.0); Hemoglobin 11.9 g/dL (12.0-15.0); Mean Corpuscular Hemoglobin 33.4 pg (26-34); Mean Corpuscular Volume 101.4 fl (80-100); Mean Platelet Volume 11.2 fl (7.4-10.4); Platelet Count Result 209 k/mm3 (150-375); Red Blood Count 3.56 M/mm3 (4.2-5.4); Red Cell Distribution Width 14.7 % (11.5-14.5)
[2022-05-23] MEDS: LEVOTHYROXINE SODIUM 100 MCG TABLET PO (05:28)
[2022-05-23] MEDS: LEVOTHYROXINE SODIUM 75 MCG TABLET PO (05:28)
[2022-05-23 05:31] LABS: INR 1.8; Prothrombin Time 20.3 Seconds (11.1-14.7)
[2022-05-23 05:49] LABS: Alanine Aminotransferase 210 U/L (6-35); Albumin Level 3.2 g/dL (3.5-5.1); Alkaline Phosphatase 55 U/L (38-126); Anion Gap 2 mmol/L (8-16); Aspartate Amino Transferase 127 U/L (14-36); Bilirubin,Total 0.3 mg/dL (0.2-1.3); Blood Urea Nitrogen 29 mg/dL (7-17); Carbon Dioxide 34 mmol/L (22-30); Chloride 97 mmol/L (98-107); Estimated CRCL calculation 50 ml/min; Estimated Glomerular Filt Rate 54; Glucose 149 mg/dL (65-110); Potassium 4.4 mmol/L (3.4-5.0); Sodium 133 mmol/L (137-145)
--- NOTE | 2022-05-23 09:19 | PM.IMPN ---
Subjective Date/time seen: 05/23/22 09:19 Patient was seen during the morning rounds today. Patient is feeling slightly better. Decreased shortness of breath. No chest pain. No abdominal pain, nausea, no vomiting. Mood stable. Objective Data Vital Signs Vital Signs: Vital Signs - 24 hr 05/22/22 11:25 05/22/22 13:43 05/22/22 13:35 Temperature Pulse Rate 55 L 55 L Respiratory Rate 16 16 Blood Pressure Pulse Oximetry 93 Oxygen Delivery Nasal Cannula Nasal Cannula Oxygen Flow Rate 3 3 Fraction of Inspired Oxygen 32 05/22/22 13:47 05/22/22 14:00 05/22/22 12:00 Temperature 36.5 C Pulse Rate 53 L 62 54 L Respiratory Rate 16 16 Blood Pressure 128/62 Pulse Oximetry 98 Oxygen Delivery Oxygen Flow Rate Fraction of Inspired Oxygen 05/22/22 16:00 05/22/22 17:19 05/22/22 19:37 Temperature 36.6 C Pulse Rate 56 L 58 L Respiratory Rate 20 Blood Pressure 112/48 L Pulse Oximetry 94 98 Oxygen Delivery Nasal Cannula Oxygen Flow Rate 2 Fraction of Inspired Oxygen 05/22/22 20:30 05/22/22 20:30 05/22/22 20:00 Temperature Pulse Rate 60 56 L Respiratory Rate 17 Blood Pressure Pulse Oximetry 94 Oxygen Delivery Nasal Cannula Oxygen Flow Rate 2 Fraction of Inspired Oxygen 05/23/22 03:07 05/23/22 03:46 05/23/22 00:00 Temperature 36.5 C Pulse Rate 69 58 L 57 L Respiratory Rate 16 20 Blood Pressure 119/62 Pulse Oximetry 92 Oxygen Delivery Oxygen Flow Rate Fraction of Inspired Oxygen 05/23/22 04:00 05/23/22 08:27 Temperature Pulse Rate 55 L 55 L Respiratory Rate 18 Blood Pressure Pulse Oximetry Oxygen Delivery Oxygen Flow Rate Fraction of Inspired Oxygen Intake/Output Intake/Output: Intake & Output 05/20/22 05/21/22 05/22/22 05/23/22 23:59 23:59 23:59 23:59 Intake Total 350 1530 1182 630 Output Total 850 Balance 105 117 4130 630 Meds/Results Medications: Active Medications Generic Name Dose Route Start Last Admin Trade Name Freq PRN Reason Stop Dose Admin Albuterol 5 mg 05/20/22 20:00 05/23/22 08:27 Albuterol Sulfate Neb 2.5 Mg/3 Ml Inh INHALATION 5 mg Q6HRT RAOUL Administration Amiodarone HCl 200 mg 05/21/22 08:00 05/22/22 09:51 Amiodarone Hcl 200 Mg Tablet PO 200 mg DAILY@0800 RAOUL Administration Apixaban 5 mg 05/20/22 23:10 05/22/22 20:10 Apixaban 5 Mg Tablet PO 5 mg Q12HR RAOUL Administration Buspirone HCl 10 mg 05/21/22 09:00 05/22/22 17:14 Buspirone Hcl 10 Mg Tablet PO 10 mg BID RAOUL Administration Dexamethasone 6 mg 05/21/22 09:30 05/22/22 09:50 Dexamethasone 2 Mg Tablet PO 05/30/22 08:01 6 mg DAILY@0800 RAOUL Administration Duloxetine HCl 30 mg 05/21/22 09:00 05/22/22 09:50 Duloxetine Hcl 30 Mg Capsule.Dr PO 30 mg DAILY RAOUL Administration Furosemide 40 mg 05/21/22 09:00 05/22/22 09:51 Furosemide 40 Mg Tablet PO 40 mg DAILY RAOUL Administration Gabapentin 100 mg 05/20/22 23:10 05/22/22 17:14 Gabapentin 100 Mg Capsule PO 100 mg TID RAOUL Administration Remdesivir 100 mg in 250 mls @ 250 mls/hr 05/21/22 22:00 05/22/22 22:23 IVPB 05/24/22 22:59 250 mls/hr Q24H RAOUL Administration Levothyroxine Sodium 100 mcg 05/21/22 06:30 05/23/22 05:28 Levothyroxine Sodium 100 Mcg Tablet PO 100 mcg DAILY@0630 RAOUL Administration Levothyroxine Sodium 75 mcg 05/21/22 06:30 05/23/22 05:28 Levothyroxine Sodium 75 Mcg Tablet PO 75 mcg DAILY@0630 RAOUL Administration Metoprolol Tartrate 25 mg 05/20/22 23:10 05/22/22 20:10 Metoprolol Tartrate 25 Mg Tablet PO 25 mg Q12HR RAOUL Administration Miconazole Nitrate 1 applic 05/21/22 21:00 05/22/22 20:10 Miconazole 2% Antifungal Ointment 56 Gm TOPICAL 1 applic Q12HR RAOUL Administration Potassium Chloride 20 meq 05/21/22 08:00 05/22/22 09:50 Potassium Chloride 20 Meq Tablet.Er PO 20 meq DAILY@0800 RAOUL Administration
[2022-05-23] MEDS: DULoxetine HCL 30 MG CAPSULE.DR PO (10:01)
[2022-05-23] MEDS: FUROSEMIDE 40 MG TABLET PO (10:01)
[2022-05-23] MEDS: DEXAMETHASONE 2 MG TABLET 6 MG PO (10:01)
[2022-05-23] MEDS: AMIODARONE HCL 200 MG TABLET PO (10:02)
[2022-05-23] MEDS: METOPROLOL TARTRATE 25 MG TABLET PO ×2 (10:02→21:45)
[2022-05-23] MEDS: APIXABAN 5 MG TABLET PO ×2 (10:02→21:51)
[2022-05-23] MEDS: busPIRone HCL 10 MG TABLET PO ×2 (10:03→17:17)
[2022-05-23] MEDS: GABAPENTIN 100 MG CAPSULE PO ×3 (10:03→17:17)
[2022-05-23] MEDS: POTASSIUM CHLORIDE 20 MEQ TABLET.ER PO (10:03)
[2022-05-23] MEDS: rOPINIRole HCL 0.5 MG TABLET PO (21:51)
[2022-05-23] MEDS: REMDESIVIR 100 MG/NS 250 ML 100 MG/250 ML BAG 250 MG IVPB (23:00)
[2022-05-24] VITALS (17 sets, daily range): BP systolic 130–145; BP diastolic 62–77; PULSE 53–68; RESP 16–18; TEMP 36.5–36.8; O2SAT 90–98
[2022-05-24] MEDS: ALBUTEROL SULFATE NEB 2.5 MG/3 ML INH 5 MG INHALATION ×3 (03:27→20:55)
[2022-05-24] MEDS: LEVOTHYROXINE SODIUM 75 MCG TABLET PO (06:10)
[2022-05-24] MEDS: LEVOTHYROXINE SODIUM 100 MCG TABLET PO (06:10)
[2022-05-24 06:30] LABS: INR 1.7
[2022-05-24 06:34] LABS: Alanine Aminotransferase 207 U/L (6-35); Estimated CRCL calculation 50 ml/min; Estimated Glomerular Filt Rate 54
--- NOTE | 2022-05-24 10:00 | PM.IMPN ---
Progress Note: A&P Assessment and Plan (1) COVID: Code(s): U07.1 - COVID-19 Status: Acute Assessment and Plan: -greater than average risk due to multiple medical comorbidities, obesity, as well as unvaccinated status -remdesivir dexamethasone day 2 -anticoagulation with Eliquis - Supplemental O2, droplet/contact iso. - Mild elevation of wbc count, likely steroid induced - a procalcitonin will be ordered for the am. - Care coordination consult for POLST update, patient not certain if willing to undergo [facility]. (2) Atrial flutter: Code(s): I48.92 - Unspecified atrial flutter Status: Acute Assessment and Plan: - Not a new finding. - Grossly in rhythm on auscultation - Cont. amiodarone, metoprolol - Eliquis anticoagulation (3) Stage 3b chronic kidney disease (CKD): Code(s): N18.32 - Chronic kidney disease, stage 3b Status: Acute Assessment and Plan: - Monitor renal function daily - if gfr<30 consider adjust remdesivir dosing. (4) Transaminitis: Code(s): R74.01 - Elevation of levels of liver transaminase levels Status: Acute Assessment and Plan: - Appears chronic on chart review, additionally note elevated INR. - Liver u/s is pending. - Note that remdesivir may enhance hepatoxicity of remdesivir - trend liver enzymes. - hepatitis panel. (5) Generalized weakness: Code(s): R53.1 - Weakness Status: Acute Assessment and Plan: - May require pt/ot evaluation prior to discharge pending covid course. (6) Pulmonary edema: Code(s): J81.1 - Chronic pulmonary edema Status: Acute Assessment and Plan: - BNP elevated, hypoxic on presentation. Lasix chronically which will continue. - Reviewed last echo - EF is preserved. (7) Dementia: Qualifiers: Dementia type: unspecified type Dementia behavioral disturbance: without behavioral disturbance Qualified Code(s): F03.90 - Unspecified dementia without behavioral disturbance Code(s): F03.90 - Unspecified dementia, unspecified severity, without behavioral disturbance, psychotic disturbance, mood disturbance, and anxiety Status: Chronic (8) Hypothyroid: Code(s): E03.9 - Hypothyroidism, unspecified Status: Chronic Assessment and Plan: - Cont. levothyroxine. (9) Hypertension: Qualifiers: Hypertension type: essential hypertension Qualified Code(s): I10 - Essential (primary) hypertension Code(s): I10 - Essential (primary) hypertension Status: Chronic Assessment and Plan: - Stable BP on current meds, cont. same. (10) Restless leg syndrome: Code(s): G25.81 - Restless legs syndrome Status: Chronic Assessment and Plan: - Cont. ropinorole. Subjective Date/time seen: 05/24/22 10:00 Patient was seen during the morning rounds today. Patient breathing is slightly better. Decreased shortness of breath. No chest pain. No abdominal pain, nausea, no vomiting. Mood stable. Review of Systems Review of Systems: All systems reviewed & are unremarkable except as noted in HPI and below Constitutional: Constitutional: Reports as per HPI, Reports no additional constitutional complaints and Reports fatigue Eyes: Eyes: Reports as per HPI and Reports no additional eye complaints ENT: Reports system reviewed and no additional complaints, except as documented and Reports Normal hearing present Cardiovascular: Cardiovascular: Reports no additional cardiovascular complaints Respiratory: Respiratory: Reports no additional respiratory complaints and Reports no additional respiratory complaints Gastrointestinal: Gastrointestinal: Reports as per HPI and Reports no additional gastrointestinal complaints Musculoskeletal: Musculoskeletal: Reports no additional musculoskeletal complaints Integumentary/Breasts: Skin/Breast: Reports system reviewed and no additional com
[2022-05-24] MEDS: DULoxetine HCL 30 MG CAPSULE.DR PO (11:09)
[2022-05-24] MEDS: DEXAMETHASONE 2 MG TABLET 6 MG PO (11:09)
[2022-05-24] MEDS: APIXABAN 5 MG TABLET PO ×2 (11:10→21:12)
[2022-05-24] MEDS: POTASSIUM CHLORIDE 20 MEQ TABLET.ER PO (11:15)
[2022-05-24] MEDS: AMIODARONE HCL 200 MG TABLET PO (11:16)
[2022-05-24] MEDS: GABAPENTIN 100 MG CAPSULE PO ×3 (11:16→17:35)
[2022-05-24] MEDS: busPIRone HCL 10 MG TABLET PO ×2 (11:16→17:35)
[2022-05-24] MEDS: FUROSEMIDE 40 MG TABLET PO (11:16)
[2022-05-24] MEDS: REMDESIVIR 100 MG/NS 250 ML 100 MG/250 ML BAG 250 MG IVPB (21:08)
[2022-05-24] MEDS: rOPINIRole HCL 0.5 MG TABLET PO (21:12)
[2022-05-25 05:26] VITALS: BP 142/70; PULSE 70; RESP 20; TEMP 36.3; O2SAT 97
[2022-05-25 05:41] LABS: Alanine Aminotransferase 166 U/L (6-35); Albumin Level 3.6 g/dL (3.5-5.1); Alkaline Phosphatase 55 U/L (38-126); Anion Gap 4 mmol/L (8-16); Aspartate Amino Transferase 68 U/L (14-36); Bilirubin,Total 0.5 mg/dL (0.2-1.3); Blood Urea Nitrogen 29 mg/dL (7-17); Calcium 8.6 mg/dL (8.4-10.2); Carbon Dioxide 35 mmol/L (22-30); Chloride 95 mmol/L (98-107); Estimated CRCL calculation 50 ml/min; Estimated Glomerular Filt Rate 54; Glucose 134 mg/dL (65-110); Potassium 5.1 mmol/L (3.4-5.0); Sodium 134 mmol/L (137-145)
[2022-05-25] MEDS: LEVOTHYROXINE SODIUM 100 MCG TABLET PO (05:47)
[2022-05-25] MEDS: LEVOTHYROXINE SODIUM 75 MCG TABLET PO (05:48)
[2022-05-25 06:54] LABS: Hematocrit 37.3 % (37.0-47.0); Hemoglobin 12.6 g/dL (12.0-15.0); Mean Corpuscular HGB Conc 33.8 g/dl (32-36); Mean Corpuscular Hemoglobin 33.2 pg (26-34); Mean Corpuscular Volume 98.4 fl (80-100); Mean Platelet Volume 10.7 fl (7.4-10.4); Platelet Count Result 230 k/mm3 (150-375); Red Blood Count 3.79 M/mm3 (4.2-5.4); Red Cell Distribution Width 14.6 % (11.5-14.5); White Blood Count 8.2 K/mm3 (4.5-10.0)
[2022-05-25 08:32] VITALS: PULSE 71
[2022-05-25] MEDS: AMIODARONE HCL 200 MG TABLET PO (08:32)
[2022-05-25] MEDS: GABAPENTIN 100 MG CAPSULE PO (08:32)
[2022-05-25] MEDS: DEXAMETHASONE 2 MG TABLET 6 MG PO (08:33)
[2022-05-25 08:34] VITALS: PULSE 71
[2022-05-25] MEDS: busPIRone HCL 10 MG TABLET PO (08:34)
[2022-05-25] MEDS: FUROSEMIDE 40 MG TABLET PO (08:34)
[2022-05-25] MEDS: METOPROLOL TARTRATE 25 MG TABLET PO (08:34)
[2022-05-25] MEDS: APIXABAN 5 MG TABLET PO (08:34)
[2022-05-25] MEDS: DULoxetine HCL 30 MG CAPSULE.DR PO (08:34)
[2022-05-25 08:37] VITALS: O2SAT 94
--- NOTE | 2022-05-25 10:40 | PM.DS ---
DS: Admitting Diagnosis Discharge Date 05/25/22 Admitting Diagnosis Covid 19 DS: Summary Hospital Course Reason for hospitalization: Acute hypoxemic respiratory failure Hospital Course: (1) COVID: ?Code(s): U07.1 - COVID-19 ?Status:?Acute ?Assessment and Plan: -greater than average risk due to multiple medical comorbidities, obesity, as well as unvaccinated status -Received 4 days of Remdesivir and 5 days of Dexamethasone -on room air, off oxygen - discharged on 5 day course of Dexamethasone and with home health. F/u with PCP in 3-5 days Mild potassium elevation K this morning 5.1 hold home KCl, repeat Outpatient BMP in 3 days PCP will evaluated and adjust KCl appropriately (2) Atrial flutter: ?Code(s): I48.92 - Unspecified atrial flutter ?Status:?Acute ?Assessment and Plan: - Not a new finding. - Grossly in rhythm on auscultation - Cont. amiodarone, metoprolol - Eliquis anticoagulation (3) Stage 3b chronic kidney disease (CKD): ?Code(s): N18.32 - Chronic kidney disease, stage 3b ?Status:?Acute ?Assessment and Plan: - Monitor renal function daily - if gfr<30 consider adjust remdesivir dosing. (4) Transaminitis: ?Code(s): R74.01 - Elevation of levels of liver transaminase levels ?Status:?Acute ?Assessment and Plan: - Appears chronic on chart review, additionally note elevated INR. - Liver u/s is pending. - Note that remdesivir may enhance hepatoxicity of remdesivir - trend liver enzymes. - hepatitis panel. (5) Generalized weakness: ?Code(s): R53.1 - Weakness ?Status:?Acute ?Assessment and Plan: - May require pt/ot evaluation prior to discharge pending covid course. (6) Pulmonary edema: ?Code(s): J81.1 - Chronic pulmonary edema ?Status:?Acute ?Assessment and Plan: - BNP elevated, hypoxic on presentation.? Lasix chronically which will continue. - Reviewed last echo - EF is preserved. (7) Dementia: ?Qualifiers: ?Dementia type:?unspecified type??Dementia behavioral disturbance:?without behavioral disturbance? Qualified Code(s):?F03.90 - Unspecified dementia without behavioral disturbance ?Code(s): F03.90 - Unspecified dementia, unspecified severity, without behavioral disturbance, psychotic disturbance, mood disturbance, and anxiety ?Status:?Chronic (8) Hypothyroid: ?Code(s): E03.9 - Hypothyroidism, unspecified ?Status:?Chronic ?Assessment and Plan: - Cont. levothyroxine. (9) Hypertension: ?Qualifiers: ?Hypertension type:?essential hypertension? Qualified Code(s):?I10 - Essential (primary) hypertension ?Code(s): I10 - Essential (primary) hypertension ?Status:?Chronic ?Assessment and Plan: - Stable BP on current meds, cont. same. (10) Restless leg syndrome: ?Code(s): G25.81 - Restless legs syndrome ?Status:?Chronic ?Assessment and Plan: - Cont. ropinorole. Status at Discharge Cognitive/behavioral status at discharge: alert and oriented Time Spent with Patient Time attestation: Total time spent providing and/or coordinating discharge services: 40 mins Exam HENMT: Mouth: Yes moist mucous membranes Eyes: General: appearance normal, both eyes and all related structures Pupils: Equal, round and reactive pupils present EOM: EOMs intact bilaterally Neck: Thyroid: thyroid normal Resp: Effort & Inspection: normal respiratory effort Auscultation: clear to auscultation bilaterally Cardio: Rate: regular rate Rhythm: regular rhythm GI: GI Palp: Yes Soft to palpation and Yes Firmness to palpation present (GI) Other: no tenderness Skin: General skin exam: normal color and no rashes or lesions noted Neuro: Motor exam (neuro): 5/5 motor strength present throughout and Normal motor muscle tone present throughout Extrem: General: normal to inspection and normal exam except as noted Psych: Mental Status: mental status grossly normal
== END 2022-05-25 12:19 | disposition home health service (06) | DRG 177 ==
LOC: ANHED 18:30 → ANH2MED 20:46
PROVIDERS: Internal Medicine; Nurse Practitioner; Nurse Practitioner Family; Admitting Provider Internal Medicine; Emergency Provider Emergency Medicine; PCP Family Medicine; Visit Provider Internal Medicine
DX: U07.1 COVID-19 (principal); J96.01 Acute respiratory failure with hypoxia; I48.92 Unspecified atrial flutter; J81.1 Chronic pulmonary edema; F32.A Depression, unspecified; E03.9 Hypothyroidism, unspecified; F03.90 Unspecified dementia, unspecified severity, without behavioral disturbance, psychotic disturbance, mood disturbance, and anxiety; E78.5 Hyperlipidemia, unspecified; F41.9 Anxiety disorder, unspecified; G25.81 Restless legs syndrome; I12.9 Hypertensive chronic kidney disease with stage 1 through stage 4 chronic kidney disease, or unspecified chronic kidney disease; N18.32 Chronic kidney disease, stage 3b; Z79.899 Other long term (current) drug therapy
CPT/HCPCS: 36415; 71045; 80053; 80074; 82565; 83605; 83735; 83880; 84145; 84443; 84460; 85025; 85027; 85610; 85730; 87636; 93005; 94640; 96365; 97110; 97116; 97161; 97165; 97530; 97535; 99285; A9270; J0131; J0248; J1100; J8540

== ENCOUNTER 2022-06-01 11:45 | Outpatient (NON) | payer MEDICARE, MEDICAID, SELFPAY ==
[2022-06-01 12:23] LABS: Anion Gap 4 mmol/L (8-16); Blood Urea Nitrogen 28 mg/dL (7-17); Calcium 8.1 mg/dL (8.4-10.2); Carbon Dioxide 28 mmol/L (22-30); Chloride 105 mmol/L (98-107); Estimated Glomerular Filt Rate 44; Glucose 142 mg/dL (65-110); Potassium 3.9 mmol/L (3.4-5.0); Sodium 137 mmol/L (137-145)
== END 2022-06-01 11:46 | disposition home or self-care (01) ==
PROVIDERS: PCP Family Medicine; Visit Provider Internal Medicine
DX: E87.5 Hyperkalemia (principal)
CPT/HCPCS: 80048

== ENCOUNTER 2022-06-17 13:08 | Outpatient (NON) | payer MEDICARE, MEDICAID, SELFPAY ==
[2022-06-17 14:40] LABS: Alanine Aminotransferase 27 U/L (6-35); Albumin Level 3.3 g/dL (3.5-5.1); Alkaline Phosphatase 62 U/L (38-126); Anion Gap 3 mmol/L (8-16); Aspartate Amino Transferase 27 U/L (14-36); Bilirubin,Total 0.4 mg/dL (0.2-1.3); Blood Urea Nitrogen 29 mg/dL (7-17); Calcium 8.3 mg/dL (8.4-10.2); Carbon Dioxide 30 mmol/L (22-30); Chloride 101 mmol/L (98-107); Estimated Glomerular Filt Rate 40; Glucose 95 mg/dL (65-110); Potassium 3.6 mmol/L (3.4-5.0); Sodium 134 mmol/L (137-145)
== END 2022-06-17 13:09 | disposition home or self-care (01) ==
LOC: HOME HLTH 13:11
PROVIDERS: PCP Family Medicine; Visit Provider Family Medicine
DX: E87.5 Hyperkalemia (principal)
CPT/HCPCS: 80053

== ENCOUNTER 2022-10-17 10:24 | Outpatient (CLI) | payer MEDICARE, MEDICAID, SELFPAY ==
--- NOTE | ~2022-10-17 | MR_ITS ---
EXAMINATION: MR brain/brain stem wo con DATE: 10/17/2022 11:17 INDICATION: F03.90 - Unspecified dementia, unspecified severity, with... TECHNIQUE: Magnetic resonance imaging (MRI) of the brain and brainstem was performed without intraven ous contrast. Sequences included sagittal and axial T1-weighted FSE, axial diffusion-weighted FS EPI, axial T2*-weighted GRE, axial T2-weighted FLAIR Propeller, and axial T2-weighted Propeller. Apparent diffusion coefficient (ADC) maps were created. COMPARISON: CT brain 09/17/2021. FINDINGS: No abnormal restricted diffusion to suggest acute ischemic infarct. No MRI evidence of hemorrhage or extra-axial collection. No suspicious foci of susceptibility to suggest prior intraparenchymal hemorr kalyani. Scattered foci of white matter hyperintensity, likely representing mild small vessel ischemic d isease. Mild generalized parenchymal volume loss. The basilar cisterns are patent. Flow voids are pre served. Paranasal sinuses are within normal limits. Globes and orbital contents are within normal live its. IMPRESSION: 1. No acute intracranial process. 2. Mild atrophy and chronic white matter change. Reviewed, dictated and finalized at location K.
== END 2022-10-17 10:25 | disposition home or self-care (01) ==
PROVIDERS: PCP Family Medicine; Visit Provider Student in an Organized Health Care Education/Training Program
DX: F03.90 Unspecified dementia, unspecified severity, without behavioral disturbance, psychotic disturbance, mood disturbance, and anxiety (principal); R93.0 Abnormal findings on diagnostic imaging of skull and head, not elsewhere classified
CPT/HCPCS: 70551

== ENCOUNTER 2023-03-12 19:12 | Emergency (ER) | payer MEDICARE, MEDICAID, SELFPAY ==
[2023-03-12 19:14] VITALS: BP 175/64; PULSE 62; RESP 20; TEMP 36.7; O2SAT 95
--- NOTE | 2023-03-12 19:30 | ED.GENADULT ---
HPI - General Adult General Chief complaint: Neck Pain/Injury Stated complaint: neck pain Time Seen by Provider: 03/12/23 19:17 History of Present Illness HPI narrative: 72-year-old female presented the emergency department for evaluation of sided neck pain and shoulder pain has been ongoing for the last few days. Patient states the pain started when she woke up in the morning. Patient denies any associated numbness or weakness. Patient denies any falls or injury. Patient is able to turn her head to the right shoulder with no pain but does have some pain when turning her head to her left shoulder. Related Data Home Medications Medication Instructions Recorded Confirmed buspirone 10 mg tablet 10 mg PO BID 04/11/20 10/12/22 duloxetine 30 mg capsule,delayed 30 mg PO DAILY 04/11/20 10/12/22 release furosemide 40 mg tablet 40 mg PO DAILY 04/11/20 10/12/22 lovastatin 20 mg tablet 20 mg PO HS 04/11/20 10/12/22 potassium chloride 20 mEq 20 meq PO DAILY 04/11/20 10/12/22 tablet,extended release ropinirole 0.5 mg tablet 0.5 mg PO HS 04/11/20 10/12/22 levothyroxine 175 mcg tablet 175 mcg PO DAILY 09/17/21 10/12/22 (Euthyrox) amiodarone 200 mg tablet (Pacerone) 200 mg PO DAILY 03/30/22 10/12/22 nitroglycerin 0.4 mg sublingual 0.4 mg sublingual Q5M PRN 10/12/22 10/12/22 tablet ropinirole 0.5 mg tablet 0.5 mg PO DAILY 10/12/22 10/12/22 Allergies Allergy/AdvReac Type Severity Reaction Status Date / Time No Known Allergies Allergy Verified 03/12/23 19:31 Review of Systems Review of Systems: All systems reviewed & are unremarkable except as noted in HPI and below PMFSH Past Medical History Medical History Anxiety Atrial flutter Dementia Depression History of pelvic fracture Hyperlipidemia Hypertension Hypothyroid Localized edema Restless leg syndrome Stage 3b chronic kidney disease (CKD) Surgical History Surgical History H/O splenectomy H/O total hysterectomy History of inguinal herniorrhaphy History of right hip hemiarthroplasty History of right knee joint replacement Hx of cholecystectomy Hx of total knee replacement Family History Family History Father Hypertension Sibling Hypertension Breast cancer Social History Social History Social History: The patient stated that she is . The patient has a total of 4 children. Chayito Causey is her daughter who is the durable power trial attorney for healthcare. She lives with her daughter Chayito. The patient desires to be a full code. 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 the patient stated she has never smoked, used marijuana, or use illicit drugs. Code status full code Smoking status: Never smoker Second hand tobacco smoke exposure: No Alcohol intake: never Substance use: never Substance use type: does not use Lack of Transportation: No Lack of Food: Never True Current Housing: I Have Housing Concerned About Future Housing: No Difficulty Paying Gas/Electric Bills: No Difficulty Paying for Meds: No Currently Unemployed: No Education: High School Diploma/GED Difficulty w/ Childcare or Family Care: No Living arrangements: with family Occupation/Education: retired Gender identity (if verbalized by the patient): Female Spiritual care concerns: No Exam Narrative: APPEARANCE: Well appearing, no pain, no distress, well-nourished. HEAD: normocephalic, atraumatic. EYES: PERRLA/EOMI, conjunctivae clear. NOSE: Normal no drainage NECK: Supple. No adenopathy, no masses. RESPIRATORY: Airway patent, respirations nonlabored. Clear to auscultation bilaterally, no rales, rhonchi, wheezing. CARDIOVASCULAR: Regular rate and rhythm without murmurs rubs or gallops. ABDOMINAL: Soft, nontend
[2023-03-12] MEDS: CYCLOBENZAPRINE HCL 10 MG TABLET PO (19:34)
[2023-03-12] MEDS: HYDROcodone/acetaminophen (*CRX) 5-325 MG TABLET 1 TAB PO (19:34)
== END 2023-03-12 20:04 | disposition home or self-care (01) ==
PROVIDERS: Emergency Provider Emergency Medicine; PCP Family Medicine
DX: S16.1XXA Strain of muscle, fascia and tendon at neck level, initial encounter (principal); F03.90 Unspecified dementia, unspecified severity, without behavioral disturbance, psychotic disturbance, mood disturbance, and anxiety; I12.9 Hypertensive chronic kidney disease with stage 1 through stage 4 chronic kidney disease, or unspecified chronic kidney disease; N18.32 Chronic kidney disease, stage 3b; I48.92 Unspecified atrial flutter; E78.5 Hyperlipidemia, unspecified; E03.9 Hypothyroidism, unspecified; G25.81 Restless legs syndrome; F41.9 Anxiety disorder, unspecified; F32.A Depression, unspecified; Z96.641 Presence of right artificial hip joint; Z96.651 Presence of right artificial knee joint; Z90.710 Acquired absence of both cervix and uterus; Z90.81 Acquired absence of spleen; Z90.49 Acquired absence of other specified parts of digestive tract; Z79.01 Long term (current) use of anticoagulants; X58.XXXA Exposure to other specified factors, initial encounter
CPT/HCPCS: 99283; A9270

== ENCOUNTER 2023-06-24 22:40 | Emergency (ER) | payer MEDICARE, SELFPAY ==
--- NOTE | ~2023-06-24 | XR_ITS ---
EXAMINATION: XR chest 2V DATE: 06/24/2023 23:12 INDICATION: Shortness of breath TECHNIQUE: Frontal and lateral views of the chest are obtained COMPARISON: 05/25/2022 FINDINGS: There is a mild, diffuse interstitial pattern. No pleural effusion or pneumothorax. Cardiom egaly is noted. There is moderate thoracic spondylosis. Surgical clips in the right upper quadrant ar e likely from prior cholecystectomy. IMPRESSION: 1. Cardiomegaly with pulmonary edema. Reviewed, dictated and finalized at location F. ING SPECIALIST
[2023-06-24 22:41] VITALS: BP 153/56; PULSE 70; RESP 18; TEMP 37.1; O2SAT 97
--- NOTE | 2023-06-24 22:47 | ECG_ITS ---
Measurements Intervals Prentice Rate: 65 P: 69 UT: 243 QRS: -17 QRSD: 98 T: 49 QT: 334 QTc: 349 Interpretive Statements SINUS RHYTHM WITH FIRST DEGREE AV BLOCK DELAYED PRECORDIAL R/S TRANSITION CONSIDER INFERIOR INFARCT, AGE INDETERMINATE BORDERLINE T WAVE ABNORMALITY- ANTERIOR LEADS ABNORMAL ECG COMPARED TO ECG 05/20/2022 17:01:52 NO SIGNIFICANT CHANGES Electronically Signed On 06-25-2023 6:30:35 SALES ANALYST by Jarek Hall D.O.
[2023-06-24 23:31] LABS: Basophils Percent Auto 0.4 % (0.2-1.2); Eosinophils Absolute Auto 0.2 K/mm3 (0-0.3); Hemoglobin 12.8 g/dL (12.0-15.0); Immature Granulocyte Absolute 0.05 K/mm3 (0.00-0.031); Immature Granulocyte Percent A 0.9 % (0-0.5); Lymphocytes Absolute Auto 1.28 K/mm3 (0.9-3.2); Lymphocytes Percent Auto 22.5 % (18.3-44.2); Mean Platelet Volume 9.6 fl (7.4-10.4); Monocytes Absolute Auto 0.7 K/mm3 (0.1-0.6); Monocytes Percent Auto 11.8 % (2.6-8.5); Neutrophils Absolute Auto 3.5 K/mm3 (1.3-6.7); Neutrophils Percent Auto 61.4 % (45.5-73.1); Platelet Count Result 297 k/mm3 (150-375); Red Cell Distribution Width 13.6 % (11.5-14.5); White Blood Count 5.7 K/mm3 (4.5-10.0)
[2023-06-24 23:44] LABS: Alanine Aminotransferase 24 U/L (6-35); Albumin Level 3.7 g/dL (3.5-5.1); Alkaline Phosphatase 95 U/L (38-126); Anion Gap 9 mmol/L (8-16); Aspartate Amino Transferase 27 U/L (14-36); Bilirubin,Total 0.5 mg/dL (0.2-1.3); Blood Urea Nitrogen 18 mg/dL (7-17); Calcium 8.7 mg/dL (8.4-10.2); Carbon Dioxide 30 mmol/L (22-30); Chloride 96 mmol/L (98-107); Estimated CRCL calculation 38 ml/min; Estimated Glomerular Filt Rate 40; Glucose 94 mg/dL (65-110); Potassium 3.4 mmol/L (3.4-5.0); Sodium 135 mmol/L (137-145)
[2023-06-25 00:24] VITALS: BP 138/59; PULSE 60; RESP 18; O2SAT 94
--- NOTE | 2023-06-25 02:31 | ED.URI ---
HPI - URI/Sore Throat General Chief Complaint: Upper Respiratory Infection Stated Complaint: cough Time Seen by Provider: 06/25/23 02:30 Source: patient and family Limitations: no limitations History of Present Illness HPI Narrative: patient is a 72-year-old female presents to the emergency department complaining of runny nose, sore throat, cough for the past 1 week. Patient states this started with runny nose and then a couple days and she developed a cough with a cough productive of white sputum. Patient admits to possible sick contacts in the family with similar upper respiratory infections. Patient denies fever, difficulty breathing, recent injuries. Patient has been taking [id number] decongestants to help with her symptoms. Related Data Home Medications Medication Instructions Recorded Confirmed buspirone 10 mg tablet 10 mg PO BID 04/11/20 10/12/22 duloxetine 30 mg capsule,delayed 30 mg PO DAILY 04/11/20 10/12/22 release furosemide 40 mg tablet 40 mg PO DAILY 04/11/20 10/12/22 lovastatin 20 mg tablet 20 mg PO HS 04/11/20 10/12/22 ropinirole 0.5 mg tablet 0.5 mg PO HS 04/11/20 10/12/22 levothyroxine 175 mcg tablet 175 mcg PO DAILY 09/17/21 10/12/22 (Euthyrox) nitroglycerin 0.4 mg sublingual 0.4 mg sublingual Q5M PRN 10/12/22 10/12/22 tablet dronedarone 400 mg tablet 400 mg PO Q12H 04/26/23 04/28/23 gabapentin 100 mg capsule 100 mg PO TID 04/26/23 04/28/23 trazodone 100 mg tablet 100 mg PO QHS PRN 04/26/23 04/28/23 Allergies Allergy/AdvReac Type Severity Reaction Status Date / Time No Known Allergies Allergy Verified 04/26/23 10:40 Review of Systems Review of Systems: A 10 system review of systems was completed on the patient and is negative except for what is stated in the HPI. Nursing and ancillary documentation was reviewed. [facility] Past Medical History Medical History Anxiety Atrial flutter Dementia Depression History of pelvic fracture Hyperlipidemia Hypertension Hypothyroid Localized edema Restless leg syndrome Stage 3b chronic kidney disease (CKD) Surgical History Surgical History H/O splenectomy H/O total hysterectomy History of inguinal herniorrhaphy History of right hip hemiarthroplasty History of right knee joint replacement Hx of cholecystectomy Hx of total knee replacement Family History Family History Father Hypertension Sibling Hypertension Breast cancer Social History Social History Social History: The patient stated that she is . The patient has a total of 4 children. Chayito Causey is her daughter who is the durable power gas engine operator compressors for healthcare. She lives with her daughter Chayito. The patient desires to be a full code. 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 the patient stated she has never smoked, used marijuana, or use illicit drugs. Code status full code Smoking status: Never smoker Second hand tobacco smoke exposure: No Alcohol intake: never Substance use: never Substance use type: does not use Lack of Transportation: No Lack of Food: Never True Current Housing: I Have Housing Concerned About Future Housing: No Difficulty Paying Gas/Electric Bills: No Difficulty Paying for Meds: No Currently Unemployed: No Education: High School Diploma/GED Difficulty w/ Childcare or Family Care: No Living arrangements: with family Occupation/Education: retired Gender identity (if verbalized by the patient): Female Spiritual care concerns: No Comments At time of signature, I have reviewed and agree with nursing past medical, surgical, social and family history unless otherwise noted. Please see the nursing chart for further information. There is no relevant family history pert
[2023-06-25 02:36] LABS: Influenza A QL RT-PCR Negative (Negative); Influenza B QL RT-PCR Negative (Negative); RSV RNA, RT-PCR Negative (Negative); SARS-CoV-2 RNA PCR Negative (Negative)
[2023-06-25 03:04] VITALS: BP 132/94; PULSE 65; RESP 16; TEMP 36.8; O2SAT 99
== END 2023-06-25 03:05 | disposition home or self-care (01) ==
LOC: ANHED 06-25 02:52
PROVIDERS: Emergency Provider Student in an Organized Health Care Education/Training Program; PCP Family Medicine
DX: J06.9 Acute upper respiratory infection, unspecified (principal); Z20.822 Contact with and (suspected) exposure to COVID-19; I12.9 Hypertensive chronic kidney disease with stage 1 through stage 4 chronic kidney disease, or unspecified chronic kidney disease; N18.32 Chronic kidney disease, stage 3b; I48.92 Unspecified atrial flutter; F03.90 Unspecified dementia, unspecified severity, without behavioral disturbance, psychotic disturbance, mood disturbance, and anxiety; E78.5 Hyperlipidemia, unspecified; E03.9 Hypothyroidism, unspecified; G25.81 Restless legs syndrome; F32.A Depression, unspecified; F41.9 Anxiety disorder, unspecified; Z96.641 Presence of right artificial hip joint; Z96.651 Presence of right artificial knee joint; Z90.81 Acquired absence of spleen; Z90.710 Acquired absence of both cervix and uterus; Z90.49 Acquired absence of other specified parts of digestive tract; I51.7 Cardiomegaly; J81.1 Chronic pulmonary edema; I44.0 Atrioventricular block, first degree; R94.31 Abnormal electrocardiogram [ECG] [EKG]
CPT/HCPCS: 36415; 71046; 80053; 85025; 87637; 93005; 99284

== ENCOUNTER 2023-07-19 18:03 | Emergency (ER) | payer MEDICARE, SELFPAY ==
[2023-07-19] VITALS (8 sets, daily range): BP systolic 123–147; BP diastolic 57–85; PULSE 50–54; RESP 13–18; TEMP 36.5; O2SAT 95–100
--- NOTE | ~2023-07-19 | CT_ITS ---
EXAMINATION: CT abdomen pelvis w con DATE: 07/19/2023 21:57 INDICATION: Gastrointestinal bleed TECHNIQUE: Computed tomography (CT) of the abdomen and pelvis was performed with 100 mL Omnipaque-350 intravenous contrast. Automated exposure control and iterative reconstruction technique were employe d. The dose-length product was 1496.06 mGy-cm. COMPARISON: 07/18/14 FINDINGS: Mild atelectasis at the bilateral lower lobes. Mild cardiomegaly. No pericardial or pleural effusion. Small sliding-type hiatal hernia. 2 cm centrally low attenuation hemangioma in the right hepatic lob e with peripheral discontiguous puddling of contrast isointense to the aorta. Cholecystectomy clips t he gallbladder fossa. Likely prior splenectomy or partial splenectomy with surgical clips and suture lines and splenosis pancreas and bilateral adrenal glands are normal. Bilateral renal cysts, the larg est a 2.1 cm parapelvic cyst in the right kidney with additional right-sided and 2 left-sided subcent imeter renal cysts. There is a new 1.7 cm cystic lesion at the lower pole of the left kidney with per ipheral enhancing wall, portions of which appear relatively thin an portions with convex enhancing pr otrusions measuring up to 4 5 mm in thickness consistent with a Bosniak 4 lesion. There is moderate d iverticulosis along the sigmoid colon without adjacent inflammatory stranding to suggest acute append icitis. No bowel obstruction. No evident active contrast extravasation the bowels. The appendix is no t definitively visualized. No pericecal inflammatory change to suggest acute appendicitis. Bladder is normal. The uterus is not identified and has likely been surgically resected. No free intraperitonea l gas or fluid. No pathologically enlarged abdominal or pelvic lymphadenopathy. There is streak artif act in the pelvis associated with a bipolar type right hip hemiarthroplasty. Moderate lumbar and lowe r thoracic spondylosis with bridging osteophytes at multiple levels consistent with diffuse idiopathi c skeletal hyperostosis (DISH). IMPRESSION: 1. Diverticulosis. No evident active gastrointestinal contrast intravasation or other acute intra-abd ominal/pelvic process. 2. Highly concerning new 1.7 cm complex cystic left renal lesion which would be consistent with a Alban niak 4 lesion although definitive assessment is limited by the absence of precontrast imaging. Recomm end urologic consultation and consider follow-up pre and postcontrast or MRI or CT. 3. Small sliding-type hiatal hernia. 4. Mild cardiomegaly. Reviewed, dictated and finalized at location A. RD CHANGER ASSEMBLER IMPRESSION: 1. Diverticulosis. No evident active gastrointestinal contrast intravasation or other acute intra-abdominal/pelvic process. 2. Highly concerning new 1.7 cm complex cystic left renal lesion which would be consistent with a Bosniak 4 lesion although definitive assessment is limited b y the absence of precontrast imaging. Recommend urologic consultation and consi lawrence follow-up pre and postcontrast or MRI or CT. 3. Small sliding-type hiatal hernia. 4. Mild cardiomegaly.
[2023-07-19 19:58] LABS: Basophils Percent Auto 0.3 % (0.2-1.2); Hematocrit 44.1 % (37.0-47.0); Hemoglobin 13.8 g/dL (12.0-15.0); Immature Granulocyte Absolute 0.01 K/mm3 (0.00-0.031); Immature Granulocyte Percent A 0.3 % (0-0.5); Lymphocytes Percent Auto 26.6 % (18.3-44.2); Mean Corpuscular HGB Conc 31.3 g/dl (32-36); Mean Corpuscular Volume 102.3 fl (80-100); Mean Platelet Volume 9.7 fl (7.4-10.4); Monocytes Absolute Auto 0.4 K/mm3 (0.1-0.6); Monocytes Percent Auto 11.2 % (2.6-8.5); Neutrophils Absolute Auto 2.3 K/mm3 (1.3-6.7); Neutrophils Percent Auto 61.6 % (45.5-73.1); Platelet Count Result 274 k/mm3 (150-375); Red Blood Count 4.31 M/mm3 (4.2-5.4); Red Cell Distribution Width 14.5 % (11.5-14.5); White Blood Count 3.8 K/mm3 (4.5-10.0)
[2023-07-19 20:11] LABS: INR 1.1; Prothrombin Time 14.9 Seconds (11.1-14.7)
[2023-07-19 20:12] LABS: Partial Thromboplastin Time 33.5 SECONDS (22.3-36.8)
[2023-07-19 20:16] LABS: Alanine Aminotransferase 22 U/L (6-35); Albumin Level 3.9 g/dL (3.5-5.1); Alkaline Phosphatase 87 U/L (38-126); Anion Gap 4 mmol/L (8-16); Aspartate Amino Transferase 29 U/L (14-36); Bilirubin,Total 0.6 mg/dL (0.2-1.3); Blood Urea Nitrogen 32 mg/dL (7-17); Calcium 8.9 mg/dL (8.4-10.2); Carbon Dioxide 31 mmol/L (22-30); Chloride 103 mmol/L (98-107); Estimated CRCL calculation 40 ml/min; Estimated Glomerular Filt Rate 44; Glucose 96 mg/dL (65-110); Potassium 4.2 mmol/L (3.4-5.0); Sodium 138 mmol/L (137-145)
--- NOTE | 2023-07-19 20:57 | ED.GIBLEED ---
HPI - GI Bleed General Chief complaint: GI Bleed Stated complaint: blood in stool, on blood thinner Time Seen by Provider: 07/19/23 20:30 Source: patient Mode of arrival: ambulatory Limitations: dementia History of Present Illness HPI Narrative: This is a 72-year-old female that presents to the emergency department for evaluation of bright red blood per rectum. Reports today she had episode of bright red blood in the stool. She had a similar experience 2 days ago. She takes Eliquis. Denies fever, abdominal pain, vomiting. Related Data Home Medications Medication Instructions Recorded Confirmed buspirone 10 mg tablet 10 mg PO BID 04/11/20 10/12/22 duloxetine 30 mg capsule,delayed 30 mg PO DAILY 04/11/20 10/12/22 release furosemide 40 mg tablet 40 mg PO DAILY 04/11/20 10/12/22 lovastatin 20 mg tablet 20 mg PO HS 04/11/20 10/12/22 ropinirole 0.5 mg tablet 0.5 mg PO HS 04/11/20 10/12/22 levothyroxine 175 mcg tablet 175 mcg PO DAILY 09/17/21 10/12/22 (Euthyrox) nitroglycerin 0.4 mg sublingual 0.4 mg sublingual Q5M PRN 10/12/22 10/12/22 tablet dronedarone 400 mg tablet 400 mg PO Q12H 04/26/23 04/28/23 gabapentin 100 mg capsule 100 mg PO TID 04/26/23 04/28/23 trazodone 100 mg tablet 100 mg PO QHS PRN 04/26/23 04/28/23 Allergies Allergy/AdvReac Type Severity Reaction Status Date / Time No Known Allergies Allergy Verified 07/19/23 18:06 Review of Systems Review of Systems: CONSTITUTIONAL: Denies fever GASTROINTESTINAL: Reports diarrhea. Denies abdominal pain, nausea, vomiting All systems reviewed & are unremarkable except as noted in HPI and below PMFSH Past Medical History Medical History Anxiety Atrial flutter Dementia Depression History of pelvic fracture Hyperlipidemia Hypertension Hypothyroid Localized edema Restless leg syndrome Stage 3b chronic kidney disease (CKD) Surgical History Surgical History H/O splenectomy H/O total hysterectomy History of inguinal herniorrhaphy History of right hip hemiarthroplasty History of right knee joint replacement Hx of cholecystectomy Hx of total knee replacement Family History Family History Father Hypertension Sibling Hypertension Breast cancer Social History Social History (Updated 07/13/23 @ 09:14 by POLLY Hankins) Social History: The patient stated that she is . The patient has a total of 4 children. Chayito Causey is her daughter who is the durable power criminal defense attorney for healthcare. She lives with her daughter Chayito. The patient desires to be a full code. 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 the patient stated she has never smoked, used marijuana, or use illicit drugs. Code status full code Smoking status: Never smoker Second hand tobacco smoke exposure: No Alcohol intake: never Substance use: never Substance use type: does not use Do You Feel Safe in your Home?: Yes Lack of Transportation: No Lack of Food: Never True Current Housing: I Have Housing Concerned About Future Housing: No Difficulty Paying Gas/Electric Bills: No Difficulty Paying for Meds: No Currently Unemployed: No Education: High School Diploma/GED Difficulty w/ Childcare or Family Care: No Living arrangements: with family Occupation/Education: retired Gender identity (if verbalized by the patient): Female Spiritual care concerns: No Exam Narrative: GENERAL: Well-appearing, well-nourished, and in no acute distress. HEAD: Normocephalic, atraumatic. EYES: EOMI. CHEST: Clear to auscultation. No respiratory distress. No wheezes rales or rhonchi HEART: Regular rate and rhythm. No murmur heard. Normal peripheral pulses. ABDOMEN: Soft, nontender, nondistended, normal active bowel sounds. EXTREMITIES: Normal range of motion. No e
--- NOTE | 2023-07-19 21:37 | PC.NURSE ---
Pt to CT at this time.
== END 2023-07-19 23:59 | disposition home or self-care (01) ==
PROVIDERS: Emergency Medicine; Emergency Provider Physician Assistant; PCP Family Medicine
DX: K62.5 Hemorrhage of anus and rectum (principal); N28.1 Cyst of kidney, acquired; I48.92 Unspecified atrial flutter; F03.90 Unspecified dementia, unspecified severity, without behavioral disturbance, psychotic disturbance, mood disturbance, and anxiety; E78.5 Hyperlipidemia, unspecified; E03.9 Hypothyroidism, unspecified; I12.9 Hypertensive chronic kidney disease with stage 1 through stage 4 chronic kidney disease, or unspecified chronic kidney disease; N18.32 Chronic kidney disease, stage 3b; G25.81 Restless legs syndrome; F41.9 Anxiety disorder, unspecified; F32.A Depression, unspecified; Z79.01 Long term (current) use of anticoagulants; Z90.710 Acquired absence of both cervix and uterus; Z90.81 Acquired absence of spleen; Z96.641 Presence of right artificial hip joint; Z96.652 Presence of left artificial knee joint; Z90.49 Acquired absence of other specified parts of digestive tract; I51.7 Cardiomegaly; K57.90 Diverticulosis of intestine, part unspecified, without perforation or abscess without bleeding; K44.9 Diaphragmatic hernia without obstruction or gangrene
CPT/HCPCS: 36415; 74177; 80053; 85025; 85610; 85730; 86850; 86900; 86901; 99284; Q9967

== ENCOUNTER 2023-10-15 01:57 | Day surgery (SDC) | payer MEDICARE, SELFPAY ==
[2023-08-27 10:18] VITALS: BMI 46.5
--- NOTE | 2023-09-01 15:05 | PC.NURSE ---
Spoke with _YASMIN_ regarding medication _ELLIQUIS_. Pt. verbalizes understanding that the last dose of _ELIQUIS is to be taken on _09/04/2023_ and the Endoscopist will instruct them when to restart after the procedure.
--- NOTE | 2023-09-03 10:53 | SUR.PREOP ---
Patient called regarding upcoming procedure. Reviewed preop instructions, appointment times, and procedure prep.
--- NOTE | 2023-09-03 10:58 | SUR.PREOP ---
Patient called regarding upcoming procedure. Spoke with her daughter regarding appointment times, and procedure prep. Instructions emailed to daughter per her request.
[2023-10-07 15:19] VITALS: BMI 46.5
--- NOTE | 2023-10-12 12:00 | PC.NURSE ---
Spoke with _DAUGHTER, DEBRA_ regarding medication _ELIQUIS_. Pt. verbalizes understanding that the last dose of ELIQUIS_ is to be taken on 10/12/2023 and the Endoscopist will instruct them when to restart after the procedure.
[2023-10-15 09:41] VITALS: BP 146/74; PULSE 113; RESP 20; TEMP 36.1; O2SAT 97
[2023-10-15] MEDS: LACTATED RINGERS 1,000 ML 150 ML IV CONT ×2 (09:52→09:54)
--- NOTE | 2023-10-15 10:45 | WPDANESEPPF ---
Anes - Initial Pre Proc Eval Procedure: Operation Date: 10/15/23 11:00 Proposed Procedures p Colonoscopy - Srini Landa MD Date/Time: 10/15/23 10:45 Surgeon: Srini Landa MD Pre Op Diagnosis: melena Patient Data Age: 72 Gender: F Height: 1.52 m Weight: 106.6 kg Last Vital Signs Temp 97 F L 10/15/23 09:41 Pulse 113 H 10/15/23 09:41 Resp 20 10/15/23 09:41 BP 146/74 H 10/15/23 09:41 Pulse Ox 97 10/15/23 09:41 O2 Del Method Room Air 10/15/23 09:41 Allergies Allergy/AdvReac Type Severity Reaction Status Date / Time No Known Allergies Allergy Verified 10/15/23 09:40 Home Medications Medication Instructions Recorded Confirmed Type buspirone 10 mg tablet 10 mg PO BID 04/11/20 10/07/23 History duloxetine 30 mg capsule,delayed 30 mg PO DAILY 04/11/20 10/07/23 History release furosemide 40 mg tablet 40 mg PO DAILY 04/11/20 10/07/23 History lovastatin 20 mg tablet 20 mg PO HS 04/11/20 10/07/23 History apixaban 5 mg tablet (Eliquis) 5 mg PO Q12HR #60 tabs 04/13/20 10/07/23 Rx levothyroxine 175 mcg tablet 175 mcg PO DAILY 09/17/21 10/15/23 History (Euthyrox) nitroglycerin 0.4 mg sublingual 0.4 mg sublingual Q5M PRN Chest 10/12/22 10/07/23 History tablet Pain dronedarone 400 mg tablet 400 mg PO Q12H 04/26/23 10/15/23 History gabapentin 100 mg capsule 100 mg PO TID 04/26/23 10/15/23 History trazodone 100 mg tablet 50 mg PO QHS 04/26/23 10/07/23 History empagliflozin 10 mg tablet 10 mg PO DAILY #30 tabs 04/29/23 10/07/23 Rx (Jardiance) donepezil 5 mg tablet 5 mg PO QHS #30 tabs 07/13/23 10/07/23 Rx memantine 10 mg tablet See Rx Instructions .Route 07/27/23 10/07/23 Rx .COMPLEX #60 tabs ropinirole 1 mg tablet 1 mg PO HS 08/27/23 10/07/23 History Patient hx anesthesia problems: none Family hx anesthesia problems: none Results Review: All pre-operative results and documents have been reviewed as part of the pre-operative evaluation. [facility] Past Medical History Medical History (Updated 07/28/23 @ 11:35 by Kat Rodriguez APRN) Anxiety Atrial flutter Dementia Depression Hematochezia History of pelvic fracture Hyperlipidemia Hypertension Hypothyroid Localized edema [facility] current use of anticoagulant Restless leg syndrome Stage 3b chronic kidney disease (CKD) Surgical History Surgical History H/O splenectomy H/O total hysterectomy History of inguinal herniorrhaphy History of right hip hemiarthroplasty History of right knee joint replacement Hx of cholecystectomy Hx of total knee replacement Family History Family History Father Hypertension Sibling Hypertension Breast cancer Social History Social History Social History: The patient stated that she is . The patient has a total of 4 children. Chayito Causey is her daughter who is the durable power erisa attorney for healthcare. She lives with her daughter Chayito. The patient desires to be a full code. 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 the patient stated she has never smoked, used marijuana, or use illicit drugs. Code status full code Smoking status: Never smoker Second hand tobacco smoke exposure: No Alcohol intake: current Substance use: never Substance use type: does not use Do You Feel Safe in your Home?: Yes Lack of Transportation: No Lack of Food: Never True Current Housing: I Have Housing Concerned About Future Housing: No Difficulty Paying Gas/Electric Bills: No Difficulty Paying for Meds: No Currently Unemployed: No Education: High School Diploma/GED Difficulty w/ Childcare or Family Care: No Living arrangements: other Occupation/Education: retired Gender identity (if verbalized by the patient): Female Spiritual care concerns:
--- NOTE | 2023-10-15 10:56 | PM.HPGS ---
History of Present Illness History of Present Illness Consent: Risks, benefits, and alternatives have been discussed and questions answered. Patient agrees to proceed with procedure. Chief complaint: melena Narrative: Denise Motley is a 72 year old female with rectal bleeding, does not remember how long ago was her last colonoscopy Review of Systems Review of Systems: All systems reviewed & are unremarkable except as noted in HPI and below PMFSH Past Medical History Medical History (Updated 07/28/23 @ 11:35 by Kat Rodriguez APRN) Anxiety Atrial flutter Dementia Depression Hematochezia History of pelvic fracture Hyperlipidemia Hypertension Hypothyroid Localized edema [facility] current use of anticoagulant Restless leg syndrome Stage 3b chronic kidney disease (CKD) Surgical History Surgical History H/O splenectomy H/O total hysterectomy History of inguinal herniorrhaphy History of right hip hemiarthroplasty History of right knee joint replacement Hx of cholecystectomy Hx of total knee replacement Family History Family History Father Hypertension Sibling Hypertension Breast cancer Social History Social History Social History: The patient stated that she is . The patient has a total of 4 children. Chayito Causey is her daughter who is the durable power ammonia technician for healthcare. She lives with her daughter Chayito. The patient desires to be a full code. 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 the patient stated she has never smoked, used marijuana, or use illicit drugs. Code status full code Smoking status: Never smoker Second hand tobacco smoke exposure: No Alcohol intake: current Substance use: never Substance use type: does not use Do You Feel Safe in your Home?: Yes Lack of Transportation: No Lack of Food: Never True Current Housing: I Have Housing Concerned About Future Housing: No Difficulty Paying Gas/Electric Bills: No Difficulty Paying for Meds: No Currently Unemployed: No Education: High School Diploma/GED Difficulty w/ Childcare or Family Care: No Living arrangements: other Occupation/Education: retired Gender identity (if verbalized by the patient): Female Spiritual care concerns: No Meds Home Medications and Allergies Home Medications Medication Instructions Recorded Confirmed Type buspirone 10 mg tablet 10 mg PO BID 04/11/20 10/07/23 History duloxetine 30 mg capsule,delayed 30 mg PO DAILY 04/11/20 10/07/23 History release furosemide 40 mg tablet 40 mg PO DAILY 04/11/20 10/07/23 History lovastatin 20 mg tablet 20 mg PO HS 04/11/20 10/07/23 History apixaban 5 mg tablet (Eliquis) 5 mg PO Q12HR #60 tabs 04/13/20 10/07/23 Rx levothyroxine 175 mcg tablet 175 mcg PO DAILY 09/17/21 10/15/23 History (Euthyrox) nitroglycerin 0.4 mg sublingual 0.4 mg sublingual Q5M PRN Chest 10/12/22 10/07/23 History tablet Pain dronedarone 400 mg tablet 400 mg PO Q12H 04/26/23 10/15/23 History gabapentin 100 mg capsule 100 mg PO TID 04/26/23 10/15/23 History trazodone 100 mg tablet 50 mg PO QHS 04/26/23 10/07/23 History empagliflozin 10 mg tablet 10 mg PO DAILY #30 tabs 04/29/23 10/07/23 Rx (Jardiance) donepezil 5 mg tablet 5 mg PO QHS #30 tabs 07/13/23 10/07/23 Rx memantine 10 mg tablet See Rx Instructions .Route 07/27/23 10/07/23 Rx .COMPLEX #60 tabs ropinirole 1 mg tablet 1 mg PO HS 08/27/23 10/07/23 History Allergies Allergy/AdvReac Type Severity Reaction Status Date / Time No Known Allergies Allergy Verified 10/15/23 09:40 Vital Signs Vital Signs - 24 hr 10/15/23 09:41 Temperature 97 F L Pulse Rate 113 H Respiratory Rate 20 Blood Pressure 146/74 H Pulse Oximetry 97 Oxygen Delivery Room Air Exam Const: General: comfortab
[2023-10-15 11:35] VITALS: BP 118/70; PULSE 110; RESP 20; O2SAT 94
[2023-10-15 11:45] VITALS: BP 123/80; PULSE 78; RESP 20; O2SAT 97
[2023-10-15 11:55] VITALS: BP 139/96; PULSE 92; RESP 20; O2SAT 100
== END 2023-10-15 12:13 | disposition home or self-care (01) ==
PROVIDERS: PCP Physician Assistant; Visit Provider Internal Medicine Gastroenterology
PROC: 0DJD8ZZ Inspection of Lower Intestinal Tract, Via Natural or Artificial Opening Endoscopic (ICD-10-PCS; CPT 45378; principal; 2023-10-15 11:00)
DX: D12.2 Benign neoplasm of ascending colon (principal); D12.3 Benign neoplasm of transverse colon; K57.30 Diverticulosis of large intestine without perforation or abscess without bleeding; K64.8 Other hemorrhoids; I12.9 Hypertensive chronic kidney disease with stage 1 through stage 4 chronic kidney disease, or unspecified chronic kidney disease; N18.32 Chronic kidney disease, stage 3b; I48.92 Unspecified atrial flutter; E78.5 Hyperlipidemia, unspecified; E03.9 Hypothyroidism, unspecified; F03.90 Unspecified dementia, unspecified severity, without behavioral disturbance, psychotic disturbance, mood disturbance, and anxiety; F41.9 Anxiety disorder, unspecified; F32.A Depression, unspecified; G25.81 Restless legs syndrome; E66.01 Morbid (severe) obesity due to excess calories; Z68.42 Body mass index [BMI] 45.0-49.9, adult; Z79.84 Long term (current) use of oral hypoglycemic drugs; Z79.01 Long term (current) use of anticoagulants
CPT/HCPCS: 45385; 88305; J2704; J7120

== ENCOUNTER 2024-02-08 01:21 | Day surgery (SDC) | payer MEDICARE, SELFPAY ==
--- NOTE | 2024-02-08 09:00 | ECG_ITS ---
Test Date: 2024-02-08 11:54:09 Measurements Intervals [place] Rate: 100 P: 0 MT: 0 QRS: 240 QRSD: 12 T: 267 QT: 177 QTc: 228 Interpretive Statements SINUS BRADYCARDIA WITH FIRST DEGREE AV BLOCK CONSIDER INFERIOR INFARCT, AGE INDETERMINATE ABNORMAL ECG Compared to ECG 02/08/2024 10:34:35 ATRIAL FIBRILLATION NO LONGER PRESENT Electronically Signed On 02-08-2024 12:07:12 CDT by Jarek Hall D.O.
[2024-02-08 10:53] VITALS: BP 121/96; PULSE 109; RESP 22; TEMP 36.3; O2SAT 95
--- NOTE | 2024-02-08 11:00 | ECG_ITS ---
Test Date: 2024-02-08 10:34:35 Measurements Intervals [place] Rate: 108 P: 0 FL: 0 QRS: 35 QRSD: 96 T: 31 QT: 337 QTc: 453 Interpretive Statements ATRIAL FIBRILLATION WITH RAPID VENTRICULAR RESPONSE CONSIDER INFERIOR INFARCT, AGE INDETERMINATE ABNORMAL ECG No previous ECG available for comparison Electronically Signed On 02-08-2024 10:42:03 CDT by Jarek Hall D.O.
[2024-02-08 11:08] LABS: Anion Gap 6 mmol/L (4-12); Blood Urea Nitrogen 34 mg/dL (7-17); Carbon Dioxide 32 mmol/L (22-30); Chloride 103 mmol/L (98-107); Potassium 4.2 mmol/L (3.4-5.0); Sodium 141 mmol/L (137-145)
[2024-02-08 11:09] LABS: Calcium 8.9 mg/dL (8.4-10.2); Estimated Glomerular Filt Rate 54; Glucose 97 mg/dL (65-110); Magnesium 2.5 mg/dL (1.6-2.3)
--- NOTE | 2024-02-08 11:22 | WPDHPUPDATE1 ---
History and Physical Update Update Date/Time: 02/08/24 11:22 History and Physical has been reviewed, including an updated exam of the patient. There are NO changes in the patient's condition. Risks, benefits, and alternatives have been discussed and questions answered. Patient agrees to proceed with procedure.
--- NOTE | 2024-02-08 11:41 | WPDANESEPPF ---
Anes - Initial Pre Proc Eval Procedure: Operation Date: 02/08/24 09:00 Proposed Procedures p Electrical Cardioversion - Wicho Valentine MD Date/Time: 02/08/24 11:41 Surgeon: Wicho Valentine MD Pre Op Diagnosis: a-fib Patient Data Age: 73 Gender: F Height: Weight: 107.7 kg Last Vital Signs Temp 36.3 C L 02/08/24 10:53 Pulse 109 H 02/08/24 10:53 Resp 22 H 02/08/24 10:53 BP 121/96 H 02/08/24 10:53 Pulse Ox 95 02/08/24 10:53 O2 Del Method Room Air 02/08/24 10:53 Allergies Allergy/AdvReac Type Severity Reaction Status Date / Time No Known Allergies Allergy Verified 11/10/23 10:51 Home Medications Medication Instructions Recorded Confirmed Type buspirone 10 mg tablet 10 mg PO BID 04/11/20 02/04/24 History duloxetine 30 mg capsule,delayed 30 mg PO DAILY 04/11/20 02/04/24 History release furosemide 40 mg tablet 40 mg PO DAILY 04/11/20 02/04/24 History lovastatin 20 mg tablet 20 mg PO HS 04/11/20 02/04/24 History apixaban 5 mg tablet (Eliquis) 5 mg PO Q12HR #60 tabs 04/13/20 02/04/24 Rx levothyroxine 175 mcg tablet 175 mcg PO DAILY 09/17/21 02/04/24 History (Euthyrox) nitroglycerin 0.4 mg sublingual 0.4 mg sublingual Q5M PRN Chest 10/12/22 02/04/24 History tablet Pain dronedarone 400 mg tablet 400 mg PO Q12H 04/26/23 02/04/24 History trazodone 100 mg tablet 50 mg PO QHS 04/26/23 02/04/24 History empagliflozin 10 mg tablet 10 mg PO DAILY #30 tabs 04/29/23 02/04/24 Rx (Jardiance) ropinirole 1 mg tablet 1 mg PO HS 08/27/23 02/04/24 History gabapentin 100 mg capsule 100 mg PO TID 10/26/23 02/04/24 History donepezil 10 mg tablet 10 mg PO QHS #30 tabs 12/16/23 02/04/24 Rx memantine 10 mg tablet See Rx Instructions .Route 01/21/24 02/04/24 Rx .COMPLEX #60 tabs Laboratory Tests 02/08/24 10:36 Sodium 141 mmol/L (137-145) Potassium 4.2 mmol/L (3.4-5.0) Chloride 103 mmol/L (98-107) Carbon Dioxide 32 H mmol/L (22-30) Anion Gap 6 mmol/L (4-12) BUN 34 H mg/dL (7-17) Creatinine 1.00 mg/dL (0.7-1.0) Estim Creat Clear Calc Not Reportable Estimated GFR 54 L (59 - ) Glucose 97 mg/dL (65-110) Calcium 8.9 mg/dL (8.4-10.2) Magnesium 2.5 H mg/dL (1.6-2.3) Patient hx anesthesia problems: none Family hx anesthesia problems: none Results Review: All pre-operative results and documents have been reviewed as part of the pre-operative evaluation. 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 The patient has a total of 4 children. Chayito Causey is her daughter who is the durable power stoneworker for healthcare. She lives with her daughter Chayito. The patient desires to be a full code. 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 the patient stated she has never smoked, used marijuana, or use illicit drugs. Code status full code Smoking status: Never smoker Second hand tobacco smoke exposure: No Alcohol intake: current Substance use: never Substance use type: does not use Do You Feel Safe in your Home?:
[2024-02-08 12:00] VITALS: BP 93/57; PULSE 54; RESP 14; O2SAT 99
[2024-02-08 12:15] VITALS: BP 95/55; PULSE 58; RESP 15; O2SAT 96
[2024-02-08 12:30] VITALS: BP 110/56; PULSE 59; RESP 16; O2SAT 94
--- NOTE | 2024-02-08 12:41 | P.PCNCVR_ITS ---
Cardioversion Cardioversion Date of procedure: 02/08/24 Procedure: Synchronized electrical cardioversion Pre-op diagnosis: Atrial fibrillation Post-op diagnosis: Other (Successful cardioversion to sinus rhythm. ) Indications: Atrial fibrillation Description of procedure: Written informed consent obtained. Defibrillator pads placed in an anterior- posterior position. Time out performed by CARO Morton. Sedation was administered by Anesthesia team. Once patient was adequately sedated, synchronized electrical cardioversion was performed with 1 shock at 200 joules, which successfully restored sinus rhythm. Patient's hemodynamics and respiratory status was monitored throughout the procedure. No periprocedural complications. Procedure start time: 11:49 AM Procedure end time: 11:51 AM Sedation: Sedation was administered by Anesthesia team. Findings: Successful synchronized electrical cardioversion to sinus rhythm with 1 shock at 200 joules. Conclusion: Successful synchronized electrical cardioversion to sinus rhythm with 1 shock at 200 joules.
[2024-02-08 12:45] VITALS: BP 115/57; PULSE 62; RESP 15; O2SAT 95
[2024-02-08 13:00] VITALS: BP 112/65; PULSE 57; RESP 16; O2SAT 95
== END 2024-02-08 13:15 | disposition home or self-care (01) ==
PROVIDERS: PCP Physician Assistant; Visit Provider Internal Medicine
PROC: 5A2204Z Restoration of Cardiac Rhythm, Single (ICD-10-PCS; principal; 2024-02-08 09:00)
DX: I48.19 Other persistent atrial fibrillation (principal); I12.9 Hypertensive chronic kidney disease with stage 1 through stage 4 chronic kidney disease, or unspecified chronic kidney disease; N18.32 Chronic kidney disease, stage 3b; E78.5 Hyperlipidemia, unspecified; E03.9 Hypothyroidism, unspecified; F03.90 Unspecified dementia, unspecified severity, without behavioral disturbance, psychotic disturbance, mood disturbance, and anxiety; G25.81 Restless legs syndrome; F41.9 Anxiety disorder, unspecified; F32.A Depression, unspecified; Z79.01 Long term (current) use of anticoagulants; Z79.51 Long term (current) use of inhaled steroids; Z79.84 Long term (current) use of oral hypoglycemic drugs; E66.9 Obesity, unspecified
CPT/HCPCS: 36415; 80048; 83735; 92960; J7030

== ENCOUNTER 2024-07-30 12:21 | Emergency (ER) | payer MEDICARE, SELFPAY ==
--- NOTE | ~2024-07-30 | CT_ITS ---
Clinical indication:Indeterminate appearance of the left scapula on CT of the cervical spine COMPARISON:CT examination of the cervical spine, performed the same day TECHNIQUE: Multiple contiguous axial images of the chest were performed without the administration of intravenous contrast. FINDINGS: LUNG:Interstitial thickening is detected bilaterally, likely chronic. MEDIASTINUM:Unremarkable. HEART:The heart is enlarged, without pericardial effusion. Calcification of the aortic valve is prese nt. SOFT TISSUES OF THE CHEST: Unremarkable BONES OF THE CHEST: No acute fracture. Specifically, no acute left scapular fracture is present. VISUALIZED PORTION OF THE UPPER ABDOMEN: The gallbladder is surgically absent. Small hiatal hernia. Densely calcified atherosclerotic abdominal aorta IMPRESSION: No acute findings within the chest. Specifically, no acute left scapular fracture is present. Reviewed, dictated and finalized at location A. ITY MECHANIC SUPERVISOR
--- NOTE | ~2024-07-30 | CT_ITS ---
History: Fall PROCEDURE: CT head without contrast. COMPARISON: 09/17/2021 TECHNIQUE: Axial imaging of the head performed from the skull base to the vertex without IV contrast. Sagittal a nd coronal reformations obtained. DLP: 605 mGy-cm FINDINGS: The ventricles are enlarged. The dilatation of the ventricles is proportional to the degree of sulcal prominence, not uncommon in the senescent brain. There is no mass, mass effect or midline shift. There is no abnormal extra-axial fluid collection or intracranial hemorrhage. Visualized paranasal sinuses are clear. The mastoid air cells are well aerated. No acute displaced fractures within the overlying cranium. Left frontal scalp hematoma. Impression: No acute intracranial hemorrhage or suspicious mass effect. Reviewed, dictated and finalized at location A. DING KENNEL OR CATTERY OPERATOR Impression: No acute intracranial hemorrhage or suspicious mass effect.
--- NOTE | ~2024-07-30 | CT_ITS ---
History: Fall PROCEDURE: CT cervical spine and facial bones without intravenous contrast. COMPARISON: 09/17/2021 TECHNIQUE: Multiple contiguous axial images of the cervical spine and facial bones were performed without the ad ministration of intravenous contrast. DLP: 431 mGy-cm FINDINGS: Preservation of the normal curvature of the cervical spine is identified. Significant degenerative disease is identified, with osteophyte formation, disc space narrowing, endp late changes, subchondral cyst formation and facet arthropathy. No acute fractures are present within the cervical spine. Limited view of the left scapula demonstrate findings which may represent a prominent nutrient forame n, but also a acute nondisplaced fracture has a similar appearance. Cross-sectional imaging through t he chest would provide additional information, if patient is clinically able. The bilateral lung apices are unremarkable. No soft tissue abnormality is present. The airway is patent. No acute facial bone fracture is identified. Impression: Significant degenerative disease, without acute fracture within the cervical spine. No acute facial bone fracture is identified. Indeterminate findings within the left scapula for which further cross-sectional or or imaging throug h the chest is suggested. Findings and recommendations discussed with Dr. Heard at 2:25 PM on 07/30/2024 Reviewed, dictated and finalized at location A. IAC RN Impression: Significant degenerative disease, without acute fracture within the cervical sp ine. No acute facial bone fracture is identified. Indeterminate findings within the left scapula for which further cross-sectiona l or or imaging through the chest is suggested. Findings and recommendations discussed with Dr. Heard at 2:25 PM on
--- OUTSIDE RECORDS SUMMARY | 2024-07-30 12:23 | XMS_ITS | Referral Summary ---
Author Organization [facility] [place] [address] Address [address] [place] [address] Care Team Providers Care Caul Puller Name Role Phone Iván Hernandez Primary Care Provider + Encounters Date Type Department Care Team Description 05/15/2024 11:00 AM CITY DISPATCHER Office Visit [facility] Sleep Medicine at [address] [place] [address] Tiesha Alegria MD ADA (obstructive sleep apnea) (Primary Dx); Restless leg syndrome; Insomnia, unspecified type from Last 3 Months Allergies No known active allergies Medications busPIRone (BUSPAR) 10 mg tablet Take 1 tablet (10 mg total) by mouth 2 (two) times a day [address] (CYMBALTA) 30 mg capsule Take 1 capsule (30 mg total) by mouth daily 0 Active furosemide (LASIX) 40 mg tablet TAKE 1 TABLET BY MOUTH ONCE DAILY IN THE MORNING 0 Active lovastatin (MEVACOR) 20 mg tablet Take 1 tablet (20 mg total) by mouth daily 0 Active traZODone (DESYREL) 100 mg tablet 0.5 tablets (50 mg total) 0 Active Euthyrox 175 mcg tablet Take 1 tablet (175 mcg total) by mouth daily 0 Active Eliquis 5 mg tablet every 12 (twelve) hours 0 Active nitroglycerin (NITROSTAT) 0.[address] 1 tablet (0.4 mg total) under the tongue every 5 (five) minutes as needed for chest pain Active albuterol HFA (PROVENTIL HFA,VENTOLIN HFA,PROAIR HFA) 90 mcg/actuation inhaler Inhale 2 puffs every 6 (six) hours as needed for wheezing Active memantine (NAMENDA) 10 mg tablet Take 1 tablet (10 mg total) by mouth 2 (two) times a day 3 Active gabapentin (NEURONTIN) 100 mg capsule gabapentin 100 mg capsule TAKE 1 CAPSULE BY MOUTH THREE TIMES DAILY 2 Active Jardiance 10 mg tablet Take 1 tablet (10 mg total) by mouth daily 4 Active donepeziL (ARICEPT) 5 mg tablet Take 2 tablets (10 mg total) by mouth nightly at bedtime 4 Active HYDROcodone-aceta minophen (NORCO) 5-325 mg per tablet Take 1 tablet by mouth every 12 (twelve) hours as needed Active dronedarone (Multaq) 400 mg tablet TAKE 1 TABLET BY MOUTH TWICE DAILY WITH MEALS 180 tablet 2 4 Active rOPINIRole (REQUIP) 1 mg tablet 4 Active metoprolol tartrate (LOPRESSOR) 25 mg immediate release tabletIndications :Persistent atrial fibrillation (HCC) Take 2 tablets (50 mg total) by mouth 2 (two) times a day 120 tablet 11 4 01/20/20 25 Active cyclobenzaprine (FLEXERIL) 10 mg tablet Take 0.5 tablets (5 mg total) by mouth 2 (two) times a day as needed Active chlorpheniram-DM- acetaminophen 2-15-500 mg tablet Take by mouth Active Active Problems Problem Noted Date Diagnosed Date ADA (obstructive sleep apnea) 11/10/2023 Morbid (severe) obesity due to excess calories 0 07/21/2023 Body mass index (BMI) 45.0-49.9, adult 4 Bradycardia 07/21/2023 Morbid obesity with BMI of 40.0-44.9, adult 05/0 11/2021 Mixed hyperlipidemia 05/14/2021 Paroxysmal atrial fibrillation (CMS/HCC) 021 At risk for amiodarone toxicity with 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 terminal u se 01/29/2021 Atrial fibrillation and flutter 09/25/2020 History of cardioversion 09/25/2020 Chronic anticoagulation 09/25/2020 Atrial fibrillation with RVR (CMS/HCC) 0 HTN (hypertension), benign 04/04/2020 Acquired hypothyroidism 04/04/2020 Localized edema 04/04/2020 Lymphedema of both lower extremities 04/04/2020 Dementia 04/04/2020 Surgical follow-up care 04/17/2014 Knee pain 01/03/2014 Resolved Problems Problem Noted Date Diagnosed Date Resolved Date Dyslipidemia 09/25/2020 05/14/2021 Social History Tobacco Use Types Packs/Day Years Used Date Smoking Tobacco: Never Smokeless Tobacco: Never Tobacco Cessation:Counseling Given: Not Answered Comments Unknown Sex and Gender Information Value Date Recorded Sex Assigned at Not on file Legal Sex Female 8:37 PM CITY DISPATCHER Gender Identity Not on file Sexual Orientation Not on file Last Filed Vital Signs Vital Sign Reading Time Taken Comments Blood Pressure 122/70 05/15/2024 11:23 AM CITY DISPATCHER Pulse 121 05/15/2024 11:23 AM CITY DISPATCHER Temperature 36.5 C (97.7 F) 04/04/2020 10:13 AM CDT Respiratory Rate 18 02/11/2024 11:0 5 AM CDT Oxygen Saturation 93% 05/15/2024 11: 23 AM CITY DISPATCHER Inhaled Oxygen Concentration - - Weight 113.2 kg (249 lb 9.6 oz) 024 11:23 AM CITY DISPATCHER Height 152.4 cm (5') 05/15/2024 11:23 AM CITY DISPATCHER Body Mass Index 48.75 05/15/2024 11:23 AM CITY DISPATCHER Plan of Treatment Not on file Insurance MEDICARE SOLUTIONS MEDICARE SOLUTIONS Care Teams Caul Puller Relationship Specialty Start Date End Date Iván Hernandez PA [facility] [address] PCP - General Internal Medicine 10/26/23
--- OUTSIDE RECORDS SUMMARY | 2024-07-30 12:23 | XMS_ITS | Patient Health Summary ---
Author Organization [facility] Address [address] [place] [address] Care Team Providers Care Business Mail Entry Clerk Name Role Phone Unavailable Primary Care Provider Unavailabl e Note from [facility],non-owned Affiliates and Associated Physician Practices is amultiple site organization consisting of ambulatory clinics and hospital sitesin [place], [place], [place] and [place]. This disclosure is being madepursuant to the Care Everywhere program and may not contain all information available regarding this patient. Last updated 18.[facility] Content [employer] Social History Tobacco Use Types Packs/Day Years Used Date Smoking Tobacco: Never Assessed Sex and Gender Information Value Date Recorded Sex Assigned at Not on file Gender Identity Not on file Sexual Orientation Not on file Procedures * GROSS + MICRO EXAM(Performed 02/01/1998) Results * GROSS + MICRO EXAM (02/01/1998 2:00 PM CDT) Result CASE NUMBER [id number] Comment: ORDERING PHYSICIAN CALI SYED SPECIMEN TYPE Breast, lt female Pathology Report DATE OF 46 CLINICAL DIAGNOSIS Breast disorder. SPECIMEN Left breast. MACROSCOPIC A single specimen is received in formalin labeled with the patient's name. The specimen consists of a 3.0 x 1.5 x 0.4-cm aggregate of [id number] cores of fatty tissue which are submitted totally in one cassette. 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 No evidence of atypia or malignancy. COMMENT Sections show predominantly fatty breast tissue and a few fragments showing stromal proliferation within a myxoid background containing benign ducts showing focal intraductal hyperplasia. Focal eosinophilic and lymphocytic infiltrate is noted in the stroma. The histologic findings are most consistent with fragments of a fibroadenoma. After School Driver hw/santosh D 02/04/98 T 02/04/98 Released By Lois Hyman MISCELLANEOUS SAMPLES / Unknown 02/01/1998 2:00 PM CDT 02/01/1998 2:46 PM CDT Historical Provider LAB - PATHOLOGY/C YTOLOGY ORDERABLES
--- OUTSIDE RECORDS SUMMARY | 2024-07-30 12:23 | XMS_ITS | Clinical Summary ---
Author Organization [facility] Address [address] [place] [address] Care Team Providers Care Library Helper Name Role Phone Unavailable Primary Care Provider Unavailabl e Source Comments [facility],non-owned Affiliates and Associated Physician Practices is amultiple site organization consisting of ambulatory clinics and hospital sitesin [place], [place], [place] and [place]. This disclosure is being madepursuant to the Care Everywhere program and may not contain all information available regarding this patient. Last updated 18.[facility] [employer] Social History Tobacco Use Types Packs/Day Years Used Date Smoking Tobacco: Never Assessed Sex and Gender Information Value Date Recorded Sex Assigned at Not on file Gender Identity Not on file Sexual Orientation Not on file Plan of Treatment Health Maintenance Due Date Last Done Comments BONE DENSITY TESTING 1948 COLOGUARD (AGES 45-75) - COL ON CA SCREENING 1948 COLON MONITORING 1948 COLONOSCOPY - COLON CA SCREENING 1948 CT COLONOGRAPHY - COLON CA SCREENING 1948 Colorectal Cancer Screening 1948 FIT - COLON CA SCREENING 1948 FLEX SIG - COLON CA SCREENING 1948 LIPID TESTING 1948 MAMMOGRAM 1948 HEPATITIS C SCREENING 11/14/1966 DTAP/TDAP/TD VACCINES (1 - Tdap) 11/19/1967 PNEUMOCOCCAL VACCINE 50+ (1 of 1 - PCV) 1998 ZOSTER VACCINE (1 of 2) 1998 Respiratory Syncytial Virus (RSV) Vaccine Pt: or over 60 yrs (1 - 1-dose 75+ series) 11/19/2023 COVID-19 VACCINE (1 - 2023-2 5 season) 2024 INFLUENZA VACCINE (#1) 2024 DEPRESSION SCREENING 06/07/2024 MEDICARE AWV CALENDAR YEAR 2024 HEPATITIS B VACCINE Aged Out No longe r eligible based on patient's age to complete this topic HIB VACCINE Aged Out No longer eligi ble based on patient's age to complete this topic HPV VACCINE Aged Out No longer eligi ble based on patient's age to complete this topic MENINGOCOCCAL (Group B) VACCINE Aged Out No longer eligible based on patient's age to complete this topic MENINGOCOCCAL VACCINE Aged Out No jose francisco jac eligible based on patient's age to complete this topic Guarantor Name Account Type Relation to Patient Date of Phone Billing Address DENISE MOTLEY Personal/Family [address] [place] [address] DENISE MOTLEY Personal/Family [address] [place] [address] DENISE MOTLEY Personal/Family [address] [place] [address]
--- OUTSIDE RECORDS SUMMARY | 2024-07-30 12:23 | XMS_ITS | Clinical Summary ---
Author Organization [facility] [place] [address] Address [address] [place] [address] Care Team Providers Care Development Administrator Name Role Phone Iván Hernandez Primary Care Provider + Allergies No known active allergies Medications busPIRone [...] 021 At risk for amiodarone toxicity with terminal carman u se 01/29/2021 Atrial fibrillation and flutter 09/25/2020 History of cardioversion 09/25/2020 Chronic anticoagulation 09/25/2020 Atrial fibrillation with RVR (CMS/HCC) 0 HTN (hypertension), benign 04/04/2020 Acquired hypothyroidism 04/04/2020 Localized edema 04/04/2020 Lymphedema of both lower extremities 04/04/2020 Dementia 04/04/2020 Surgical follow-up care 04/17/2014 Knee pain 01/03/2014 Resolved Problems Problem Noted Date Diagnosed Date Resolved Date Dyslipidemia 09/25/2020 05/14/2021 Encounters Date Type Department Care Team Description 05/15/2024 11:00 AM REAL ESTATE RENTAL AGENT Office Visit [facility] Sleep Medicine at [address] [place] [address] Tiesha Alegria MD ADA (obstructive sleep apnea) (Primary Dx); Restless leg syndrome; Insomnia, unspecified type from Last 3 Months Surgical History Surgery Date Site/Laterality Comments SPLENECTOMY, TOTAL TOTAL HIP ARTHROPLASTY REPLACEMENT TOTAL KNEE HYSTERECTOMY Medical History Medical History Date Comments Hyperlipidemia Atrial fibrillation (CMS/HCC) (HCC) Family History Medical History Relation Name Comments Aneurysm Father Cancer Sister Relation Name Status Comments Father Sister Social History Tobacco Use Types Packs/Day Years Used Date Smoking Tobacco: Never Smokeless Tobacco: Never Tobacco Cessation:Counseling Given: Not Answered Comments Unknown Sex and Gender Information Value Date Recorded Sex Assigned at Not on file Legal Sex Female 8:37 PM REAL ESTATE RENTAL AGENT Gender Identity Not on file Sexual Orientation Not on file Obstetrics History Last Filed Vital Signs Vital Sign Reading Time Taken Comments Blood Pressure 122/70 05/15/2024 11:23 AM REAL ESTATE RENTAL AGENT Pulse 121 05/15/2024 11:23 AM REAL ESTATE RENTAL AGENT Temperature 36.5 C (97.7 F) 04/04/2020 10:13 AM CDT Respiratory Rate 18 02/11/2024 11:0 5 AM CDT Oxygen Saturation 93% 05/15/2024 11: 23 AM REAL ESTATE RENTAL AGENT Inhaled Oxygen Concentration - - Weight 113.2 kg (249 lb 9.6 oz) 024 11:23 AM REAL ESTATE RENTAL AGENT Height 152.4 cm (5') 05/15/2024 11:23 AM REAL ESTATE RENTAL AGENT Body Mass Index 48.75 05/15/2024 11:23 AM REAL ESTATE RENTAL AGENT Plan of Treatment Health Maintenance Due Date Last Done Comments Colon Cancer Screening-Colonoscopy 1950 Depression Screening 1950 Fall Risk Assessment 1950 Hepatitis C Screening 1950 Osteoporosis Screening-Bone Density Scan 1950 DTaP/Tdap/Td Vaccine (1 - Tdap) 11/19/1959 Hepatitis B Screening 1966 Zoster Vaccine (1 of 2) 1998 Well Visit 65+ 2013 Influenza Vaccine (#1) 2024 1, 04/13/2020, 03/09/2017, Additional history exists Pneumococcal vaccine 65+ Completed 021, 03/09/2017, 06/07/2016, Additional history exists Insurance MED[employer]IONS MED[employer]IONS Care Teams Development Administrator Relationship Specialty Start Date End Date Iván Hernandez PA [address] [place] [address] [place] [address] PCP - General Internal Medicine 10/26/23
--- OUTSIDE RECORDS SUMMARY | 2024-07-30 12:23 | XMS_ITS | Clinical Summary ---
Author Organization [facility] Address [address] [place] [phone] Phone Care Team Providers Care Construction Carpenters Helper Name Role Phone Adriana Mars MD Primary Care Provider [phone] Allergies No known active allergies Medications Medication Sig Dispensed Refills Start Date End Date Status albuterol HFA (PROVENTIL HFA) 108 (90 Base) MCG/ACT inhaler albuterol sulfate HFA 90 mcg/actuation aerosol inhaler Active amiodarone (PACERONE) 200 MG tablet TAKE 1 TABLET BY MOUTH ONCE DAILY NEED APPOINTMENT 05/01/2022 Active Eliquis 5 MG tablet Take 5 mg by mouth every 12 (twelve) hours 03/25/2022 Active busPIRone (BUSPAR) 10 MG tablet 05/14/2022 Active DULoxetine (CYMBALTA) [address] capsule 05/13/2022 Active furosemide (LASIX) 40 MG tablet 03/30/2022 Active gabapentin (NEURONTIN) 100 MG capsule 05/23/2022 Active Euthyrox 175 MCG tablet Take 175 mcg by mouth 1 (one) time each day 04/21/2022 Active lovastatin (MEVACOR) 20 MG tablet TAKE 1 TABLET BY MOUTH ONCE DAILY WITH EVENING MEAL 03/30/2022 Active metoprolol tartrate (LOPRESSOR) 25 MG tablet TAKE 1 TABLET BY MOUTH TWICE DAILY NEED APPOINTMENT 05/01/2022 Active potassium chloride (K-TAB) 20 MEQ CR tablet Take 20 mEq by mouth 1 (one) time each day 03/30/2022 Active rOPINIRole (REQUIP) 0.5 MG tablet 05/04/2022 Active traZODone (DESYREL) 100 MG tablet TAKE 1/2 (ONE-HALF) TABLET BY MOUTH ONCE DAILY NEEDED FOR INSOMNIA 03/30/2022 Active Active Problems Problem Noted Date Diagnosed Date Chronic kidney disease stage 3A 05/27/2022 Atrial fibrillation and flutter 09/25/2020 Benign hypertension 04/04/2020 Lymphedema of bilateral lower limbs 04/04/2020 Acquired hypothyroidism 01/08/2020 Mixed hyperlipidemia 01/08/2020 Unspecified dementia, unspecified severity 01/07 Social History Tobacco Use Types Packs/Day Years Used Date Smoking Tobacco: Never Smokeless Tobacco: Never Tobacco Cessation:Counseling Given: Not Answered Alcohol Use Standard Drinks/Week Comments Not Currently 0 (1 standard drink = 0.6 oz pur e alcohol) Sex and Gender Information Value Date Recorded Sex Assigned at Not on file Gender Identity Not on file Sexual Orientation Not on file Last Filed Vital Signs Vital Sign Reading Time Taken Comments Blood Pressure 118/70 05/27/2022 1:57 PM TOOL MAINTENANCE WORKER Pulse 72 05/27/2022 1:57 PM TOOL MAINTENANCE WORKER Temperature 36.6 C (97.8 F) 05/27/2022 1:57 PM TOOL MAINTENANCE WORKER Respiratory Rate - - Oxygen Saturation - - Inhaled Oxygen Concentration - - Weight 108 kg (239 lb) 05/27/2022 1:57 PM TOOL MAINTENANCE WORKER Height 152.4 cm (5') 05/27/2022 1:57 PM TOOL MAINTENANCE WORKER Body Mass Index 46.68 05/27/2022 1:57 PM TOOL MAINTENANCE WORKER Plan of Treatment Health Maintenance Due Date Last Done Comments Pneumococcal PPSV23/PCV13 65 + Years / Low and Medium Risk (1 of 4 - PCV) 2013 Influenza Vaccine (#1) 2024 Care Teams Construction Carpenters Helper Relationship Specialty Start Date End Date Adriana Mars MD [address] [place] [address] [address] [place] [address] PCP - General Family Medicine 04/07/22
--- OUTSIDE RECORDS SUMMARY | 2024-07-30 12:23 | XMS_ITS | Continuity of Care Document ---
Author Organization [facility] Address [address] [place] [address] Insurance Providers Payer Plan Claims Address Claims Phone Policy Number Group Number Relation Employer Guarantor Name Guarantor Guarantor Address Guarantor Phone [employer] [address] [address], [place] [address] [id number] Self Denise Motley 1950 [address] [place] [address] [employer] [address] [address], [place] [address] tel:[phone] Self Denise Tolu 1950 [address] [place] [address] [facility] [employer] ARE ADV [address] [address], [place] [address] tel:[phone] [id number] [phone] Self Denise Tolu 1950 [address] [place] [address] Problems Unknown Problems Results No Results Allergies, adverse reactions, alerts No known allergies and adverse reactions Medications No administered medications reported Vital Signs No vital signs reported Social History No smoking Hx information available
--- OUTSIDE RECORDS SUMMARY | 2024-07-30 12:23 | XMS_ITS | Referral Summary ---
Author Organization [facility] Address [address] [place] [address] Care Team Providers Care Animal Pathologist Name Role Phone Unavailable Primary Care Provider Unavailabl e Source Comments [facility],non-owned Affiliates and Associated Physician Practices is amultiple site organization consisting of ambulatory clinics and hospital sitesin [place], [place], [place] and [place]. This disclosure is being madepursuant to the Care Everywhere program and may not contain all information available regarding this patient. Last updated 18.[facility] [employer] Social History Tobacco Use Types Packs/Day Years Used Date Smoking Tobacco: Never Assessed Sex and Gender Information Value Date Recorded Sex Assigned at Not on file Gender Identity Not on file Sexual Orientation Not on file Plan of Treatment Not on file Guarantor Name Account Type Relation to Patient Date of Phone Billing Address DENISE MOTLEY Personal/Family [address] [place] [address] DENISE MOTLEY Personal/Family [address] [place] [address] DENISE MOTLEY Personal/Family [address] [place] [address]
--- OUTSIDE RECORDS SUMMARY | 2024-07-30 12:23 | XMS_ITS | Data Portability ---
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 Plan of Treatment Reminders Order Date Submit Date Provider Last Modified By Organization Details Last Modified Time Details Appointments Follow Up 30 2024 11:00A GIN Drummond Not available Not available Not available Lab TSH + free T4, serum 2023 024 [email or web address] Not available 02/17/2024 08:31:47 Referral nephrolog ist referral - 73 y/o with chronic kidney disease . Please continue to treat. Please call patient to schedule an appointme nt. Thank you . 2023 024 SHIRLEY Garcia MD, [address], [facility], [place], [address], 01/13/2024 08:20:44 Procedures None recorded. Surgeries None recorded. Imaging MAMMO, screening , digital, bilateral [address] [facility], [address], [place], [address], 05/23/2024 09:04:09 DEXA, axial skeleton [address] [facility], [address], [place], [address], 05/23/2024 09:04:09 MAMMO, screening , digital, bilateral [address] [facility], [address], [place], [address], 01/27/2024 10:25:13 DEXA, axial skeleton 2023 [email or web address] [place] [address], [address], [place], [address], 01/27/2024 10:25:13 Medication Orders buspirone 10 mg tablet 2023 024 [facility], [address] [facility], [place], [address], 05/09/2024 12:13:57 levothyro xine 175 mcg tablet 2023 024 [facility], [address] [facility], [place], [address], 01/11/2024 12:35:36 Patient TargetsNo targets recorded. Patient Instructions Encounter Date Encounter Id Patient Instructions Last Modified By Organization Details Last Modified Time 11/29/2023 [id number] lymphedema: care instructions [email or web address] Not available 12/05/2023 16:48:12 Learning About B E FAST: Stroke Warning Signs [email or web address] Not available 12/05/2023 16:48:12 12/29/2023 [id number] dementia education Not amaya ilable 01/11/2024 11:38:44 atrial fibrillat ion education [email or web address] Not available 01/11/2024 11:38:44 high blood pressure: care instructions [email or web address] Not available 01/11/2024 11:38:44 statins information [email or web address] Not amaya ilable 01/11/2024 11:38:44 No notes from Nephrology since 05/27/2022 , sending back to them now Not available 01/11/2024 11:37:19 01/11/2024 [id number] dementia rating scale-2* [email or web address] Not available 01/11/2024 12:29:02 alcohol misuse* [email or web address] Not availab le 01/11/2024 12:29:02 depression screening* [email or web address] Not available 01/11/2024 12:29:02 multi-dimensiona l health assessment questionnaire* [email or web address] Not available 01/11/2024 12:46:05 Personalized a [facility] Plan and Screening Recommendations Advance Directives - Do you have one? Yes Advance Directives - Do we have your advance directive on file in your health record? Primary Prevention/Interven tion (prevents or decreases the chance of common diseases from occurring) Smoking Risk: Non Smoker Alcohol Misuse Screening: Negative Weight: Appropriate Overwei ght continue your current weight loss efforts try to lose 5% of your body weight try to lose 10% of your body weight Physical activity: Need more exercise/physical activity minimum of 10-20 minutes of activity that causes mild breathlessness/day minimum of 20-30 minutes activity that causes mild breathlessness/day Nutrition: Good Average Fall Risk (screened today): Low Vaccines Pneumococcal: Ordered Recommended today Recommended today, but you have declined No further needed Influenza: Your next one in the fall of this year Chronic Disease Risks Stroke: Low Risk Intermediate Risk I have no recommendations Act poornima diagnosis, Continue current treatment plan Heart Attack: Low risk Intermediate Risk I have no recommendations Act poornima diagnosis, Continue current treatment plan Clogging of the Arteries: Low risk Intermediate Risk I have no recommendations Act poornima diagnosis, Continue current treatment plan Diabetes: Low Risk I have no recommendations Secondary Prevention/Interven tion (detects treatable diseases before they may cause symptoms, disability, or ) Breast Cancer Screening with mammogram: Your next mammogram: Ordered Recommended today Cervical/Uterine/Ov ede Cancer Screening: No screening necessary Osteoporosis Screening: Your next DEXA in: Ordered Recomme nded today Date Screening Last Performed: Colon Cancer Screening: No screening necessary Date Screening Last Performed: 10/15/23 Eye Disease Screening: No Eye exam necessary Dementia Risk: Low Intermediate I have no recommendations Depression Screening: Negative [email or web address] Not available 01/11/2024 12:20:43 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 Please continue to treat. Please call patient to schedule an appointment. Thank you . Referring Physician: Iván Hernandez, Family Medicine, Encounter Date: 12/29/2023 Results Created Date Observation Date Name Description Value Unit Range Abnormal Flag Note LastModifiedBy Organization Detail LastModifiedTime Result Notes None recorded. Problems Name Problem SNOMED Code Status Onset Date Resolution Date Notes Provider Name and Address Organization Details Recorded Time Lymphedema 225734622 Active 2019 Not Available [facility] 3 22:04:51 Restless legs 32794529 Active 2019 Not Available [facility] 3 22:04:52 Hypertensi ve disorder 90283546 Active 2019 Not Available [facility] 3 22:04:52 Ingrowing toenail 634459884 Active 2021 Not Available [facility] 3 22:04:52 Hypothyroi dism 77278327 Active 2019 Not Available [facility] 3 22:04:52 Anxiety 64269688 Active 2019 Not Available [facility] 3 22:04:52 Dementia 93160761 Active 2019 Not Available [facility] 3 22:04:52 Hyperlipid emia 55499703 Active 2019 Not Available [facility] 3 22:04:52 Muscle weakness 35658355 Active 2022 POLLY Diaz, [employer] 3 11:23:11 Edema of lower extremity 773507105 Active 2022 Adriana Mars MD [address], [place], [address] , [employer] 3 05:55:15 Swelling of bilateral lower limbs 841636109 Active 2022 MD [address], [place], [address] , [employer] 3 14:33:44 Mild dementia 5051482203887 08 Active 2022 MD [address], [place], [address] , [employer] 3 05:51:27 Chronic kidney disease 406002318 Active 2022 Adriana Mars MD [address], [address], [place], [address] , [employer] [place] [employer] 3 12:16:53 Atheroscle rosis of coronary artery without angina pectoris 8842445784907 03 Active 2022 Adriana Mars MD [address], [address], [place], [address] , [employer] 3 12:17:21 Atrial fibrillati on 91510261 Active 2022 Adriana Mars MD [address], [address], [place], [address] , [employer] [facility] [employer] 3 20:18:56 Essential hypertensi on 40802560 Active 2023 Fabiola Connor [facility], [place] [employer] [facility] [employer] 4 17:22:11 Adult health examinatio n Active 2023 GIN Avendano [address], [address], [place], [address] , [employer] [facility] [employer] 4 12:29:28 Sleep apnea 12164630 Active 2023 GIN Avendano [address], [address], [place], [address] , [employer] [facility] [employer] 4 12:32:38 Screening for osteoporos is Active 2023 GIN Avendano [address], [address], [place], [address] , [facility] [employer] [facility] [employer] 4 12:33:12 Screening for malignant neoplasm of breast Active 2023 GIN Avendano [address], [address], [place], [address] , [facility] [employer] [facility] [employer] 4 12:33:42 Screening mammograph y Active 2023 GIN Avendano [address], [address], [place], [address] , [facility] [employer] [facility] 4 12:16:42 Notes:Some problems listed i n Document: #[id number] could not be added to this patient's chart. Please review this document and add these problems to the patient's chart manually as needed. Problem Notes None recorded. Procedures Surgical History Date Name Laterality Status Provider Name and Address Organization Details Recorded Time 4 Medicare Wellness CPT Code, subsequent completed Cassidy Schmid RN [facility] [employer] [facility] 01/11/2024 12:11:51 4 Chronic care management services completed Fabiola Connor [facility] [employer] [facility] 12/31/2023 14:29:29 4 Chronic care management services completed Fabiola Connor [facility] [employer] [facility] 11/29/2023 16:52:44 4 Chronic care management services completed Fabiola Connor [facility] [employer] [facility] 10/28/2023 13:19:49 4 Chronic care management services completed Fabiola Connor [facility] [employer] [facility] 09/28/2023 17:27:23 4 Transitional_Ca re_Management completed Amy Kim RN [facility] [employer] [facility] 08/09/2023 15:52:58 Imaging Results None recorded. Procedure Notes None recorded. Medical Equipment None Reported. Allergies No known drug allergies Medications Name Sig Start Date Stop Date Status Note LastModified by Organization Details LastModified Time cyclobenzap rine 10 mg tablet TAKE 1 TABLET BY MOUTH TWICE DAILY NEEDED 08/08 completed Not Available Not Available Not Available furosemide 40 mg tablet Take 1 tablet by mouth once daily active Not Available Not Available No t Available buspirone 5 mg tablet TAKE 1 TABLET BY MOUTH THREE TIMES DAILY 01/07 completed Not Available Not Available Not Available levothyroxi ne 175 mcg tablet Take 1 tablet by mouth once daily 2023 active Not Available Not Available Not Avai lable doxycycline hyclate 100 mg capsule TAKE 1 CAPSULE BY MOUTH TWICE DAILY FOR 7 DAYS 06/16 completed Not Available Not Available Not Available ropinirole 1 mg tablet TAKE 1 TABLET BY MOUTH ONCE DAILY AT BEDTIME 2024 active Not Available Not Available Not Avai lable donepezil 5 mg tablet TAKE 1 TABLET BY MOUTH EVERY DAY AT BEDTIME 12/30 completed Not Available Not Available Not Available azithromyci n 250 mg tablet TAKE 2 TABLETS BY MOUTH ON DAY 1 AND THEN TAKE 1 TABLET BY MOUTH ONCE A DAY ON DAY 2 THROUGH DAY 5 04/11 completed Not Available Not Available Not Available amiodarone 200 mg tablet TAKE 1/2 (ONE-HALF ) TABLET BY MOUTH ONCE DAILY 04/20 completed Not Available Not Available Not Available benzonatate 200 mg capsule Take 1 capsule 3 times a day by oral route. 03/27 completed Not Available Not Available Not Available metoprolol succinate ER 50 mg tablet,exte nded release 24 hr TAKE 1 TABLET BY MOUTH ONCE DAILY active Not Available Not Available No t Available hydrocodone 5 mg-acetamin ophen 325 mg tablet TAKE 1 TABLET BY MOUTH EVERY 12 HOURS NEEDED 08/08 completed Not Available Not Available Not Available donepezil 10 mg tablet TAKE 1 TABLET BY MOUTH EVERY DAY AT BEDTIME active Not Available Not Available No t Available metoprolol succinate ER 100 mg tablet,exte nded release 24 hr TAKE 1 TABLET BY MOUTH ONCE DAILY 04/11 completed Not Available Not Available Not Available Debrox 6.5 % ear drops INSTILL 5 DROPS INTO AFFECTED EAR(S) BY OTIC ROUTE 2 TIMES PER DAY 03/27 completed Not Available Not Available Not Available potassium chloride ER 20 mEq tablet,exte nded release(par t/cryst) TAKE 1 TABLET BY MOUTH ONCE DAILY WITH FOOD 01/07 completed Not Available Not Available Not Available trazodone 100 mg tablet TAKE 1/2 (ONE-HALF ) TABLET BY MOUTH ONCE DAILY NEEDED FOR INSOMNIA active Not Available Not Available No t Available dexamethaso ne 2 mg tablet TAKE 3 TABLETS BY MOUTH ONCE DAILY AT 8 AM FOR 5 DAYS 08/08 completed Not Available Not Available Not Available ropinirole 0.5 mg tablet TAKE 1 TABLET BY MOUTH ONCE DAILY 09/27 completed Not Available Not Available Not Available buspirone 10 mg tablet Take 1 tablet by mouth twice daily after food 2024 active Not Available Not Available Not Avai lable metoprolol tartrate 50 mg tablet Take 3 tablets twice a day by oral route. active Not Available Not Available No t Available nitroglycer in 0.4 mg sublingual tablet TAKE ONE TABLET (0.4 MG) BY SUBLINGUA L ROUTE EVERY 5 MINUTES NEEDED FOR CHEST PAIN active Not Available Not Available No t Available gabapentin 100 mg capsule TAKE 1 CAPSULE BY MOUTH in am , 1 cap at noon , 2 caps at bedtime for 7 day , 1 cap in am , 2 caps at noon , 2 caps at bedtime for 7 days , 2 caps 3 times per day and maintain 2024 active Not Available Not Available Not Avai lable lovastatin 20 mg tablet TAKE 1 TABLET BY MOUTH ONCE DAILY WITH EVENING MEAL active Not Available Not Available No t Available methylpredn isolone 4 mg tablets in a dose pack TAKE BY MOUTH DIRECTED ON INSIDE OF PACKAGE 08/08 completed Not Available Not Available Not Available albuterol sulfate HFA 90 mcg/actuati on aerosol inhaler INHALE 2 PUFFS BY MOUTH EVERY 4 HOURS NEEDED active Not Available Not Available No t Available doxycycline hyclate 100 mg tablet TAKE 1 TABLET BY MOUTH EVERY 12 HOURS FOR 5 DAYS 06/16 completed Not Available Not Available Not Available memantine 10 mg tablet TAKE 1 TABLET BY MOUTH TWICE DAILY active Not Available Not Available No t Available metoprolol tartrate 25 mg tablet TAKE 2 TABLETS BY MOUTH TWICE DAILY active Not Available Not Available No t Available duloxetine 30 mg capsule,del ayed release TAKE 1 CAPSULE BY MOUTH ONCE DAILY DIRECTED active Not Available Not Available No t Available Multaq 400 mg tablet TAKE 1 TABLET BY MOUTH TWICE DAILY WITH MEALS active Not Available Not Available No t Available Eliquis 5 mg tablet TAKE 1 TABLET BY MOUTH EVERY 12 HOURS active Not Available Not Available No t Available potassium chloride ER 20 mEq tablet,exte nded release TAKE 1 TABLET BY MOUTH ONCE DAILY 08/08 completed Not Available Not Available Not Available Jardiance 10 mg tablet TAKE 1 TABLET BY MOUTH ONCE DAILY active Not Available Not Available No t Available BinaxNOW COVID-19 Ag Self Test kit Use as Directed on the Package 03/27 completed Not Available Not Available Not Available Vitals Date Recorded Body height Provider Name an d Address Organization Details Last Updated DateTime 10/28/2023 152.4 cm Fabiola Connor [facility] [place] [employer] [facility] 10/28/2023 13:15:12 Date Recorded Body height Provider Name an d Address Organization Details Last Updated DateTime 11/29/2023 152.4 cm Fabiola Connor [facility] [employer] [facility] 11/29/2023 16:51:11 Date Recorded Body height Provider Name an d Address Organization Details Last Updated DateTime 12/29/2023 152.4 cm Fabiola Nikolas [facility] [employer] [facility] 12/31/2023 14:28:05 Date Recorded Body height Body mass index (BMI) Body weight Body temperature Heart rate Oxygen saturation Oxygen saturation in Arterial blood by Pulse oximetry Respiratory rate Systolic blood pressure Diastolic blood pressure Provider Name and Address Organization Details Last Updated DateTime 152.4 cm 46.9 kg/m2 247013. 17 g 97.8 [degF] 63 /min 91 % 91 % 18 /min 96 mm[Hg] 62 mm[Hg] Cassidy Schmid RN [facility] [employer] [facility] 12:17:08 Date Recorded Body height Body mass index (BMI) Body weight Body temperature Heart rate Oxygen saturation Oxygen saturation in Arterial blood by Pulse oximetry Systolic blood pressure Diastolic blood pressure Provider Name and Address Organization Details Last Updated DateTime 152.4 cm 48.2 kg/m2 466951. 32 g 97.9 [degF] 76 /min 100 % 100 % 100 mm[Hg] 60 mm[Hg] Cassidy Schmid RN [facility] [employer] [facility] 12:09:03 Social History Question Answer Notes LastModified by Organizat ion Details LastModified Time Tobacco Smoking Status Never Smoker Not Available [employer] 08/05/2022 22:04:15 Do You Have An Advance Directive? No [email or web address] Information not available 09/28/2023 What Is Your Level Of Alcohol Consumption? None [id number] Information not available 08/05/2022 Are You Blind Or Do You Have Difficulty Seeing? No [email or web address] Information not available 09/28/2023 In The 14 Days Before Symptom Onset, Have You Had Close Contact With A Laboratory-confir med COVID-19 While That Case Was Ill? No [id number] Information not available 08/05/2022 In The 14 Days Before Symptom Onset, Have You Had Close Contact With A Person Who Is Under Investigation For COVID-19 While That Person Was Ill? No [id number] Information not available 08/05/2022 Are You Currently Employed? No [email or web address] Information not available 09/28/2023 Are You Deaf Or Do You Have Serious Difficulty Hearing? No [email or web address] Information not available 09/28/2023 What Type Of Diet Are You Following? CARDIAC [email or web address] Information not available 09/28/2023 What Is The Highest Grade Or Level Of School You Have Completed Or The Highest Degree You Have Received? MI71239-2 [email or web address] Information not available 09/28/2023 Have There Been Any Changes To Your Family Or Social Situation? No [email or web address] Information no t available 09/28/2023 What Is The Fluoride Status Of Your Home? Unknown [email or web address] Information not available 09/28/2023 Are There Any Guns Present In Your Home? No [email or web address] Information not available 09/28/2023 Do You Use Insect Repellent Routinely? No [email or web address] Information not available 09/28/2023 Where Do You Live? SingleLevelHouse [email or web address] Information not available 09/28/2023 Do You Have A Medical Power Of Field Specialist? Yes [email or web address] Information not available 09/28/2023 What Was The Date Of Your Most Recent Tobacco Screening? 01/11/2024 [email or web address] Information not available 01/11/2024 How Many Children Do You Have? 1 [email or web address] Information not available 09/28/2023 Do You Have Any Pets? Yes [email or web address] Information not available 09/28/2023 What Is Your Relationship Status? [email or web address] Information not available 09/28/2023 Do You Use Your Seat Belt Or Car Seat Routinely? Yes [email or web address] Information not available 09/28/2023 Are You Sexually Active? No [email or web address] Information not available 09/28/2023 Do You Have Smoke And Carbon Monoxide Detectors In Your Home? Yes [email or web address] Information not available 09/28/2023 Are You Passively Exposed To Smoke? No [email or web address] Information no t available 09/28/2023 Are There Any Smokers In Your House? No [email or web address] Information not available 09/28/2023 Do You Participate In Social Media? No [email or web address] Information not available 09/28/2023 Do You Feel Stressed (tense, Restless, Nervous, Or Anxious, Or Unable To Sleep At Night)? [id number] [email or web address] Information not available 09/28/2023 Do You Use Sunscreen Routinely? Yes [email or web address] Information not available 09/28/2023 Have You Recently Traveled Abroad? No [email or web address] Information not available 09/28/2023 Are You Currently In School? No [email or web address] Information not available 09/28/2023 Do You Have Any Dietary Restrictions? No [email or web address] Information not available 09/28/2023 Sex: Female Functional Status Question Answer Note LastModified by Organizat ion Details LastModified Time Do you have difficulty walking or climbing stairs? No [email or web address] Information not available 09/28/2023 Do you have transportation difficulties? Yes [email or web address] Information not available 09/28/2023 Are you able to walk? YESWOREST [email or web address] Information not available 09/28/2023 Do you have difficulty doing errands alone? Yes [email or web address] Information not available 09/28/2023 Are you able to care for yourself? Yes [email or web address] Information not available 09/28/2023 Do you have difficulty dressing or bathing? No [email or web address] Information not available 09/28/2023 What is your exercise level? None [email or web address] Information not available 09/28/2023 Mental Status Question Answer Note LastModified by Organization D etails LastModified Time Do you have difficulty concentrating, remembering or making decisions? Yes [email or web address] Information no t available 09/28/2023 Family History Relationship Description Onset Age of this Age Resolved Age Notes LastModified by Organization Details LastModified Time Sister Family history of malignant neoplasm [id number] Not available 08/05/2022 22:04:17 Paternal Aunt Family history of malignant neoplasm [id number] Not available 08/05/2022 22:04:17 Paternal Grandfather Family history of malignant neoplasm [id number].701 [id number] Not available 08/05/2022 22:04:17 Father History of macular degeneration [id number].026 [id number] Not available 08/05/2022 22:04:17 Brother History of macular degeneration [id number].873 [id number] Not available 08/05/2022 22:04:18 Brother Cellulitis [id number].847 [id number] Not available 08/05/2022 22:04:18 Medical History Condition Response BLINDNESS N KIDNEY STONES N BLADDER PROBLEMS N ALLERGIES/HAYFEVER N BACK INJECTIONS N INFECTIOUS DISEASE N HEART ARRHYTHMIA Y LUNG DISEASE/DISORDER N HISTORY OF DRUG ABUSE N INSOMNIA Y HIGH CHOLESTEROL / HYPERLIPIDEMIA Y HYPERTHYROIDISM N PVD Y BLOOD DISEASES N BOWEL PROBLEMS N BACK / NECK PROBLEMS N HAVE YOU BEEN HOSPITALIZED OR SEEN IN [facility] IN THE PAST YEAR ? Y ATHEROSCLEROSIS Y BENIGN PROSTATIC HYPERPLASIA N MEASLES N HYPOTENSION N ANEURYSM N MENIERE'S DISEASE N ARTHRITIS Y ADDICTION CONCERNS N APPENDICITIS N PERIPHERAL ARTERY DISEASE Y HEARTBURN / REFLUX N ADD/ADHD N BLOOD CLOTS N AUTISM SPECTRUM DISORDER (ASD) N HEPATITIS / LIVER DISEASE N ASTHMA Y Abdominal Pain Y GOUT N SLEEP DISORDER Y ALZHEIMER'S DISEASE N HERPES N DEMENTIA Y ARTERIAL INSUFFICIENCY Y HEADACHES/MIGRAINES N CHF Y Low Testosterone N KIDNEY DISEASE N INFERTILITY N HEART DISEASE/HEART PROBLEMS Y AIDS/HIV N LIVER DISEASE N HYPERTENSION Y ANXIETY DISORDER Y BLOOD TRANSFUSION N ANEMIA/BLOOD DISORDER N Gall Stones Y ATRIAL FIBRILLATION Y AUTOIMMUNE DISEASE N Gynecological HistoryNo gynecological history recorded. Obstetrics History GPAL:G 0 P 0 0 0 0 Immunizations Vaccine Type Date Status Note Provider Nam e and Address Organization Details Recorded Time pneumococcal polysaccharide PPV23 6 [facility] 16:33:02 pneumococcal polysaccharide PPV23 7 [facility] 16:33:02 pneumococcal polysaccharide PPV23 1 [facility] 16:33:02 Pneumococcal conjugate PCV 13 7 [facility] 16:33:02 Influenza, split virus, quadrivalent, PF 7 NIKKIE Hobbs, [facility] 09/28/2023 16:33:02 Influenza, split virus, quadrivalent, PF 0 [facility] 16:33:02 Influenza, split virus, quadrivalent, PF completed Fabiola Connor, [facility] null, [place] [facility] [employer] [facility] 09/28/2023 16:33:02 Past Encounters Encounter ID Performer Location Encounter Start Date Encounter Closed Date Diagnosis/Indication Diagnosis SNOMED-CT Code Diagnosis ICD10 Code Diagnosis Note [id number] [facility] [place] [address] [place] [address] 09/27/2020 00:00:00 09/28/2020 13:18:41 [id number] [facility] [place] [address] [place] [address] 10/29/2020 00:00:00 10/29/2020 20:42:25 [id number] [facility] [place] [address] [place] [address] 11/27/2020 00:00:00 11/27/2020 14:36:07 [id number] [facility] [place] [address] [place] [address] 12/10/2020 00:00:00 12/11/2020 06:47:07 [id number] [facility] [place] [address] [place] [address] 04/11/2021 00:00:00 04/11/2021 15:53:08 [id number] [facility] [place] [address] [place] [address] 10/28/2021 00:00:00 10/29/2021 06:12:21 [id number] [facility] [place] [address] [place] [address] 01/14/2022 00:00:00 01/14/2022 19:48:23 [id number] [facility] [place] [address] [place] [address] 03/27/2022 00:00:00 03/27/2022 15:49:23 [id number] [facility] Lonniekyrie bryant [address] [place] [address] [place] [address] 04/24/2022 00:00:00 04/24/2022 17:55:47 [id number] [facility] Florence bryant [address] [place] [address] [place] [address] 06/16/2022 00:00:00 06/16/2022 13:53:01 [id number] Adriana Mars MD [facility] Lonniekyrie bryant [address] [place] [address] [place] [address] 09/15/2022 14:05:08 09/15/2022 14:32:27 Hyperlipidemia 60689413 E78.5 Hypothyroidism 97654255 E03.9 Edema of l ower extremity 304136069 R60.0 Continue compressio n wraps and elevate legs. Watch salt intake. [id number] Adriana Mars MD [facility] Lonniekyrie bryant [address] [place] [address] y [place] [address] 12/15/2022 14:13:52 12/30/2022 16:06:39 Screening for malignant neoplasm of breast 495627973 Z12.39 Swelling o f bilateral lower limbs 827926380 M79.89 Use wraps on legs. Mild dementia 1478228716 54724 F03.A0 [id number] Adriana Mars MD [facility] Lonniekyrie bryant [address] [place] [address] [place] [address] 04/20/2023 11:55:44 04/20/2023 12:24:44 Chronic kidney disease 134655865 N18.9 F/u with nephrologi st Edema of l ower extremity 883335836 R60.0 Continue compressio n wraps and elevate legs. Watch salt intake. Atheroscle rosis of coronary artery without angina pectoris [id number] 82236 I25.10 F/u with cardiologi st Mild dementia 9322659133 85149 F03.A0 See neurologis t Atrial fibrillation 4943 6004 I48.91 Continue dronedaron e and eliquis [id number] GIN Avendano [facility] [place] [address] [place] [address] 08/09/2023 15:48:25 08/09/2023 16:16:28 Transition of care 6991071732 105 Z75.8 Muscle weakness 00583010 M62.81 Anxiety 57131563 F41.9 Atrial fibrillation 4943 6004 I48.91 Atheroscle rosis of coronary artery without angina pectoris 9922459742 12338 I25.10 Chronic ki dney disease 479777182 N18.9 Hyperlipidemia 43351179 E78.5 Hypertensive disorder 38 700957 I10 Hypothyroidism 56628827 E03.9 Restless legs 69387553 G 25.81 Dementia 64171175 F03.90 [id number] Lisaher Jordan [facility] [place] [address] [place] [address] 09/28/2023 15:22:09 10/14/2023 08:18:32 Lymphedema 748714023 I89.0 Edema of l ower extremity 160519323 R60.0 Essential hypertension 29302561 I10 [id number] GIN Avendano [facility] [place] [address] [place] [address] 10/11/2023 12:05:58 10/11/2023 12:44:43 Anxiety 86391610 F41.9 Atrial fibrillation 4943 6004 I48.91 Chronic ki dney disease 932233705 N18.9 Dementia 64725303 F03.90 Essential hypertension 37902755 I10 Hyperlipidemia 89643722 E78.5 Hypothyroidism 74680695 E03.9 Restless legs 54409729 G 25.81 [id number] Lisaher Jordan [facility] [place] [address] [place] [address] 10/28/2023 13:11:12 10/28/2023 13:34:28 Atrial fibrillation 94839598 I48.91 Chronic ki dney disease 370282362 N18.9 Hypertensive disorder 38 286657 I10 Lymphedema 607349592 I89 .0 History of fall 99802524 9 Z91.81 [id number] [facility]IN [facility] [address] [place] [address] [place] [address] 11/29/2023 16:47:28 12/06/2023 13:10:28 Dementia 41128312 F03.90 Lymphedema 318326609 I89 .0 Essential hypertension 74671736 I10 Hyperlipidemia 10198479 E78.5 Anxiety 13600108 F41.9 Atheroscle rosis of coronary artery without angina pectoris 1895502685 65364 I25.10 Atrial fibrillation 4943 6004 I48.91 Chronic ki dney disease 251755025 N18.9 Hypothyroidism 81837875 E03.9 Mild dementia 3357850003 10431 F03.A0 Restless legs 51125543 G 25.81 [id number] GIN Avendano [facility] [place] [address] [place] [address] 12/31/2023 14:26:59 01/11/2024 12:38:33 Dementia 80439286 F03.90 Hyperlipidemia 29746969 E78.5 Essential hypertension 56612926 I10 Atrial fibrillation 4943 6004 I48.91 Anxiety 36160044 F41.9 Chronic ki dney disease 936954813 N18.9 Hypothyroidism 46874479 E03.9 Mild dementia 4759496121 67140 F03.A0 Restless legs 61866400 G 25.81 Atheroscle rosis of coronary artery without angina pectoris 1125599342 54841 I25.10 [id number] GIN Avendano [facility] [place] [address] 01/11/2024 11:57:03 01/11/2024 12:39:39 Adult health examination 028641408 Z00.00 Screening for disorder 322039665 Z13.9 Anxiety 39944368 F41.9 Atrial fibrillation 4943 6004 I48.91 Chronic ki dney disease 358333746 N18.9 Essential hypertension 69505781 I10 Hyperlipidemia 97868353 E78.5 Hypothyroidism 15223068 E03.9 Restless legs 59840023 G 25.81 Sleep apnea 78593028 G47 .30 Screening for osteoporosis 448849163 Z13.820 Screening for malignant neoplasm of breast 367719046 Z12.39 [id number] GIN Avendano [facility] [address] [address] 05/09/2024 11:57:58 05/09/2024 12:29:34 Anxiety 31593171 F41.9 Mild dementia 7862754989 53258 F03.A0 Screening mammography 24 794073 Z12.31 Screening for osteoporosis 047381392 Z13.820 Goals Section Goal Description Progress Status Start Date LastModified by Organization Details LastModified Time Adequate Sleep Achieves adequate, well-rested sleep with minimal disruption Progressing active 2023 Fabiola Connor CCM Information not available 10/28/2023 17:40:41 Activiti es of Daily Living Performs activities of daily living independently or with minimal assistance Regressing active 2023 Fabiola Connor CCM Information not available 10/28/2023 17:40:44 Quality of Life Reports satisfaction with quality of life Regressing active 2023 Fabiola Connor CCM Information not available 10/28/2023 17:40:47 Food Security Reports ability to access and obtain foods to meet nutritional needs NoChange active 2023 Fabiola Connor CCM Information not available 09/28/2023 22:01:11 Financia l Stabilit y Reports financial status and/or income meets needs NoChange active 2023 Fabiola Connor CCM Information not available 09/28/2023 22:01:11 Diet Adherenc e Follows prescribed or recommended diet Regressing active 2023 Fabiola Connor CCM Information not available 10/28/2023 17:40:55 Stress Manageme nt Reports effective management of stress NoChange active 2023 Fabiola Connor CCM Information not available 09/28/2023 22:01:11 Symptom Manageme nt Demonstrates ability to manage and/or control symptoms Regressing active 2023 Fabiola Connor CCM Information not available 10/28/2023 17:40:58 Adequate Housing Conditio ns Maintains adequate housing with satisfactory living conditions Progressing active 2023 Fabiola Connor CCM Information not available 10/28/2023 17:41:01 Cognitiv e Awarenes s Maintains baseline level of cognitive awareness Regressing active 2023 Fabiola Connor CCM Information not available 10/28/2023 17:41:05 Effectiv e Coping Manages life events with effective coping methods NoChange active 2023 Fabiola Connor CCM Information not available 09/28/2023 22:01:11 Knowledg e of Disease or Conditio n Demonstrates understanding of disease(s) or condition(s) NoChange active 2023 Fabiola Connor CCM Information not available 09/28/2023 22:01:11 Follow-u p Appointm ent(s) Attends referral and/or follow-up appointment(s) as per care team recommendation (s) Progressing active 2023 Fabiola Connor CCM Information not available 10/28/2023 17:41:11 Blood Pressure Maintains blood pressure goal as defined by care team Progressing active 2023 Fabiola Connor CCM Information not available 10/28/2023 17:41:14 Self-Adv ocacy Advocates effectively for self by communicating desires, feelings and concerns to care team NoChange active 2023 Fabiola Connor CCM Information not available 09/28/2023 22:01:11 Family and Social Support Reports family and/or social support needs are met Progressing active 2023 Fabiola Connor CCM Information not available 10/28/2023 17:41:19 Weight Anna nce Exhibits stable weight with normal fluctuation NoChange active 2023 Fabiola Connor CCM Information not available 09/28/2023 22:01:11 Home/Env ironment Safety Reports having a safe environment that promotes independence and prevents injury Regressing active 2023 Fabiola Connor CCM Information not available 10/28/2023 17:41:25 Medicati on Regimen Follows medication regimen as per care team recommendation (s) Progressing active 2023 Fabiola Connor CCM Information not available 10/28/2023 17:41:27 Exercise Regularl y Follows a regular exercise regimen or instructed exercise plan as per care team recommendation (s) Regressing active 2023 Fabiola Connor CCM Information not available 10/28/2023 17:41:30 Caregive r Educatio n and/or Support Reports being supported in caregiver role NoChange active 2023 Fabiola Connor CCM Information not available 09/28/2023 22:01:11 Recreati onal Activiti es Participates in recreational activities NoChange active 2023 Fabiola Connor CCM Information not available 09/28/2023 22:01:11 Health Concerns Section Related Observation LastModified by Organization Detai ls LastModified Time None Recorded Concern Status LastModified by Organization Details LastModified Time Hyperlipidemia Active Fabiola Connor CCM Not Available 0 11/29/2023 20:58:13 Essential hypertension Active Fbaiola Connor CCM Not Amaya ilable 11/29/2023 20:58:05 Lymphedema Active Fabiola Connor CCM Not Available 11/28 20:58:22 Dementia Active Fabiola Connor CCM Not Available 11/28 20:57:57 Advance Directives Directive N: Payers Encounter Date Sequence Insurance Name Policy Number Policy Holden Covered Member ID Holden Member ID Guarantor Name 10/28/2023 1 [facility] (MEDICARE REPLACEMENT/A DVANTAGE - HMO) [id number] Denise A Tolu [id number] Denise Tolu 11/29/2023 1 [facility] (MEDICARE REPLACEMENT/A DVANTAGE - HMO) [id number] Denise A Tolu [id number] Denise Tolu 12/29/2023 1 [facility] (MEDICARE REPLACEMENT/A DVANTAGE - HMO) [id number] Denise A Tolu [id number] Denise Tolu 01/11/2024 1 [facility] (MEDICARE REPLACEMENT/A DVANTAGE - HMO) [id number] Denise A Tolu [id number] Denise Tolu 05/09/2024 1 [facility] (MEDICARE REPLACEMENT/A DVANTAGE - HMO) [id number] Denise A Tolu [id number] Denise Tolu Notes Date Note Type Note Provider Name and Address Organization Details Recorded Time 11/29/2023 text/html no changes GIN Avendano [address], [place], [address], [employer] 12/05/2023 16:48:15 12/29/2023 text/html 73 y/o here for f/u , doing well . She sees Cardiology at [facility] GIN Avendano [address], [place], [address], [employer] 01/11/2024 11:38:51 01/11/2024 text/html saw Dr. Garcia in October . back in a fib . Just started a cpap machine. they just put her on metoprolol tartrate 25 mg twice daily GIN Avendano [address], [place], [address], [employer] 01/24/2024 14:10:26 05/09/2024 text/html needs an occasional extra gabapentin. in the afternoon at 2 pm GIN Avendano [address], [place], [address], [employer] 05/18/2024 11:04:57 OBGyn Episode No OBEpisode recorded.
[2024-07-30 12:42] VITALS: BP 129/69; PULSE 96; RESP 15; TEMP 36.7; O2SAT 100
--- OUTSIDE RECORDS SUMMARY | 2024-07-30 13:19 | XMS_ITS | Patient Health Summary ---
Author Organization [facility] Address [address] [place] [address] Care Team Providers Care Sales Director Name Role Phone Unavailable Primary Care Provider Unavailabl e Note from [facility],non-owned Affiliates and Associated Physician Practices is amultiple site organization consisting of ambulatory clinics and hospital sitesin [place], [place], [place] and [place]. This disclosure is being madepursuant to the Care Everywhere program and may not contain all information available regarding this patient. Last updated 18.[facility] [employer] Social History Tobacco Use Types Packs/Day Years Used Date Smoking Tobacco: Never Assessed Sex and Gender Information Value Date Recorded Sex Assigned at Not on file Gender Identity Not on file Sexual Orientation Not on file Procedures * GROSS + MICRO EXAM(Performed 02/01/1998) Results * GROSS + MICRO EXAM (02/01/1998 2:00 PM CDT) Result CASE NUMBER [id number] Comment: ORDERING PHYSICIAN CLAI SYED SPECIMEN TYPE Breast, lt female Pathology Report DATE OF 46 CLINICAL DIAGNOSIS Breast disorder. SPECIMEN Left breast. MACROSCOPIC A single specimen is received in formalin labeled with the patient's name. 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 Didactic Instructor hw/santosh D 02/04/98 T 02/04/98 Released By Lois Hyman MISCELLANEOUS SAMPLES / Unknown 02/01/1998 2:00 PM CDT 02/01/1998 2:46 PM CDT Historical Provider LAB - PATHOLOGY/C YTOLOGY ORDERABLES
--- OUTSIDE RECORDS SUMMARY | 2024-07-30 13:19 | XMS_ITS | Clinical Summary ---
Author Organization [facility] Address [address] [place] [address] Phone Care Team Providers Care Window Shade Ring Coverer Name Role Phone Adriana Mars MD Primary Care Provider [phone] Allergies No known active allergies Medications Medication [...] Comments Blood Pressure 118/70 05/27/2022 1:57 PM AREA CAPTAIN Pulse 72 05/27/2022 1:57 PM AREA CAPTAIN Temperature 36.6 C (97.8 F) 05/27/2022 1:57 PM AREA CAPTAIN Respiratory Rate - - Oxygen Saturation - - Inhaled Oxygen Concentration - - Weight 108 kg (239 lb) 05/27/2022 1:57 PM AREA CAPTAIN Height 152.4 cm (5') 05/27/2022 1:57 PM AREA CAPTAIN Body Mass Index 46.68 05/27/2022 1:57 PM AREA CAPTAIN Plan of Treatment Health Maintenance Due Date Last Done Comments Pneumococcal PPSV23/PCV13 65 + Years / Low and Medium Risk (1 of 4 - PCV) 2013 Influenza Vaccine (#1) 2024 Care Teams Window Shade Ring Coverer Relationship Specialty Start Date End Date Adriana Mars MD [address] [place] [address] [address] [place] [address] PCP - General Family Medicine 04/07/22
--- OUTSIDE RECORDS SUMMARY | 2024-07-30 13:19 | XMS_ITS | Referral Summary ---
Author Organization [facility] Address [address] [place] [address] Care Team Providers Care Informatics Manager Name Role Phone Unavailable Primary Care Provider Unavailabl e Source Comments [facility],non-owned Affiliates and Associated Physician Practices is amultiple site organization consisting of ambulatory clinics and hospital sitesin [place], [place], [place] and [place]. This disclosure is being madepursuant to the Care Everywhere program and may not contain all information available regarding this patient. Last updated 18.[facility] [employer] Social History Tobacco Use Types Packs/Day Years Used Date Smoking Tobacco: Never Assessed Sex and Gender Information Value Date Recorded Sex Assigned at Not on file Gender Identity Not on file Sexual Orientation Not on file Plan of Treatment Not on file Guarantor Name Account Type Relation to Patient Date of Phone Billing Address DENISE MOTLEY Personal/Family [address] [place] [address] DENISE MOTLEY Personal/[address] [place] [address] DENISE MOTLEY Personal/Family [address] [place] [address]
--- OUTSIDE RECORDS SUMMARY | 2024-07-30 13:19 | XMS_ITS | Clinical Summary ---
Author Organization [facility] Address [address] [place] [address] Care Team Providers Care Production Clerks Supervisor Name Role Phone Unavailable Primary Care Provider Unavailabl e Source Comments [facility],non-owned Affiliates and Associated Physician Practices is amultiple site organization consisting of ambulatory clinics and hospital sitesin [place], [place], [place] and [place]. This disclosure is being madepursuant to the Care Everywhere program and may not contain all information available regarding this patient. Last updated 18.[facility] Social History Tobacco Use Types Packs/Day Years [...] Phone Billing Address DENISE MOTLEY Personal/Family [address] [place] [address] DENISE MOTLEY Personal/Family [address] [place] [address] DENISE MOTLEY Personal/Family [address] [place] [address]
--- OUTSIDE RECORDS SUMMARY | 2024-07-30 13:19 | XMS_ITS | Referral Summary ---
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 helper u se 01/29/2021 Atrial fibrillation and flutter [...] on file Legal Sex Female 8:37 PM HULL AND DECK REMOVER Gender Identity Not on file Sexual Orientation Not on file Last Filed Vital Signs Vital Sign Reading Time Taken Comments Blood Pressure 122/70 05/15/2024 11:23 AM HULL AND DECK REMOVER Pulse 121 05/15/2024 11:23 AM HULL AND DECK REMOVER Temperature 36.5 C (97.7 F) 04/04/2020 10:13 AM CDT Respiratory Rate 18 02/11/2024 11:0 5 AM CDT Oxygen Saturation 93% 05/15/2024 11: 23 AM HULL AND DECK REMOVER Inhaled Oxygen Concentration - - Weight 113.2 kg (249 lb 9.6 oz) 024 11:23 AM HULL AND DECK REMOVER Height 152.4 cm (5') 05/15/2024 11:23 AM HULL AND DECK REMOVER Body Mass Index 48.75 05/15/2024 11:23 AM HULL AND DECK REMOVER Plan of Treatment Not on file Insurance [employer] Care Teams General Dentist Relationship Specialty Start Date End Date Iván Hernandez PA [facility] [place] [address] PCP - General Internal Medicine 10/26/23
--- OUTSIDE RECORDS SUMMARY | 2024-07-30 13:19 | XMS_ITS | Clinical Summary ---
Author Organization [facility] [address] Address [address] [place] [address] Care Team Providers Care County Library Director Name Role Phone Iván Hernandez Primary Care [...] 021 At risk for amiodarone toxicity with supervisor intermediates u se 01/29/2021 Atrial fibrillation and flutter [...] Department Care Team Description 05/15/2024 11:00 AM MINE ENGINEER Office Visit [facility] Sleep Medicine at [address] [place] [address] Tiesha Alegria MD ADA (obstructive [...] on file Legal Sex Female 8:37 PM MINE ENGINEER Gender Identity Not on file Sexual Orientation Not on file Obstetrics History Last Filed Vital Signs Vital Sign Reading Time Taken Comments Blood Pressure 122/70 05/15/2024 11:23 AM MINE ENGINEER Pulse 121 05/15/2024 11:23 AM MINE ENGINEER Temperature 36.5 C (97.7 F) 04/04/2020 10:13 AM CDT Respiratory Rate 18 02/11/2024 11:0 5 AM CDT Oxygen Saturation 93% 05/15/2024 11: 23 AM MINE ENGINEER Inhaled Oxygen Concentration - - Weight 113.2 kg (249 lb 9.6 oz) 024 11:23 AM MINE ENGINEER Height 152.4 cm (5') 05/15/2024 11:23 AM MINE ENGINEER Body Mass Index 48.75 05/15/2024 11:23 AM MINE ENGINEER Plan of Treatment Health Maintenance Due Date [...] 06/07/2016, Additional history exists Insurance [employer] [facility] MEDICARE Address: [address] [address] [place] [address] [employer] [facility] MEDICARE Address: [address] [address] [place] [address] Care Teams County Library Director Relationship Specialty Start Date End Date Iván Hernandez PA [address] [place] [address] [place] [address] PCP - General Internal Medicine 10/26/23
--- NOTE | 2024-07-30 15:44 | ED.GENADULT ---
HPI - General Adult General Chief complaint: Head Injury Stated complaint: fall this AM, on blood thinners Time Seen by Provider: 07/30/24 13:06 History of Present Illness HPI narrative: 73-year-old female presented to the emergency department for evaluation after having a ground level fall. Patient reports she was walking her cane gave way causing her to fall and strike her left side of her face. Patient does have some ecchymosis on her forehead and around her left eye. Patient denies any pain with range of motion of the left eye. Related Data Home Medications ?Medication ?Instructions ?Recorded ?Confirmed ?Last Taken ?Type buspirone 10 mg tablet 10 mg PO BID 04/11/20 04/25/24 02/04/24 History duloxetine 30 mg capsule,delayed 30 mg PO DAILY 04/11/20 04/25/24 02/04/24 History release furosemide 40 mg tablet 40 mg PO DAILY 04/11/20 04/25/24 02/04/24 History lovastatin 20 mg tablet 20 mg PO HS 04/11/20 04/25/24 02/04/24 History levothyroxine 175 mcg tablet 175 mcg PO DAILY 09/17/21 04/25/24 02/04/24 History (Euthyrox) nitroglycerin 0.4 mg sublingual 0.4 mg sublingual Q5M PRN Chest 10/12/22 04/25/24 02/04/24 History tablet Pain dronedarone 400 mg tablet 400 mg PO Q12H 04/26/23 04/25/24 02/04/24 History trazodone 100 mg tablet 50 mg PO QHS 04/26/23 04/25/24 02/04/24 History ropinirole 1 mg tablet 1 mg PO HS 08/27/23 04/25/24 02/04/24 History gabapentin 100 mg capsule 100 mg PO TID 10/26/23 04/25/24 02/04/24 History metoprolol tartrate 50 mg tablet 50 mg PO BID 03/07/24 04/25/24 Unknown History Allergies Allergy/AdvReac Type Severity Reaction Status Date / Time No Known Allergies Allergy Verified 07/30/24 12:46 Review of Systems Review of Systems: All systems reviewed & are unremarkable except as noted in HPI and below PMFSH Past Medical History Medical History Anxiety Atrial flutter Dementia Dementia of Alzheimer's type with behavioral disturbance Depression Hematochezia History of pelvic fracture Hyperlipidemia Hypertension Hypothyroid Localized edema long-term current use of anticoagulant Restless leg syndrome Stage 3b chronic kidney disease (CKD) Surgical History Surgical History H/O splenectomy H/O total hysterectomy History of inguinal herniorrhaphy History of right hip hemiarthroplasty History of right knee joint replacement Hx of cholecystectomy Hx of total knee replacement Family History Family History Father Hypertension Sibling Hypertension Breast cancer Social History Social History Social History: The patient stated that she is . The patient has a total of 4 children. Chayito Causey is her daughter who is the durable power disability attorney for healthcare. She lives with her daughter Chayito. The patient desires to be a full code. 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 the patient stated she has never smoked, used marijuana, or use illicit drugs. Code status full code Smoking status: Never smoker Second hand tobacco smoke exposure: No Alcohol intake: current Substance use: never Substance use type: does not use Do You Feel Safe in your Home?: Yes Lack of Transportation: No Lack of Food: Never True Current Housing: I Have Housing Concerned About Future Housing: No Difficulty Paying Gas/Electric Bills: No Difficulty Paying for Meds: No Currently Unemployed: No Education: High School Diploma/GED Difficulty w/ Childcare or Family Care: No Living arrangements: other Occupation/Education: retired Gender identity (if verbalized by the patient): Female Spiritual care concerns: No Exam Narrative: APPEARANCE: Well appearing, no pain, no distress, well-nourished. HEAD: normocephalic, left eye ecchymosis. EYES: PERRLA/EOMI, conjunctivae clear. NOSE: Normal no drainage EARS:TMS clear with good light reflex. THROAT: Pharynx clear, no exudate. NECK: Supple. No adenopathy, no masses. RESPIRATORY: Airway patent, respirations nonlabored. Clear to auscultation bilaterally, no rales, rhonchi, wheezing. CARDIOVASCULAR: Regular rate and rhythm without murmurs rubs or gallops. ABDOMINAL: Soft, nontender, nondistended, normal bowel sounds MUSCULOSKELETAL: Moves all extremities. Strength/ROM intact, No edema, No calf tenderness. NEURO: Alert. Cranial nerves II through XII intact. Good gait. Good coordination SKIN: Ecchymosis around the left eye, contusion to the for . Course Vital Signs Vital signs: Vital Signs Temperature 98.0 F 07/30/24 12:42 Pulse Rate 96 07/30/24 12:42 Respiratory Rate 15 07/30/24 12:42 Blood Pressure 129/69 07/30/24 12:42 Pulse Oximetry 100 07/30/24 12:42 Oxygen Delivery Room Air 07/30/24 12:42 Temperature 97.7 F 07/30/24 16:14 Pulse Rate 81 07/30/24 16:14 Respiratory Rate 18 07/30/24 16:14 Blood Pressure 130/77 07/30/24 16:14 Pulse Oximetry 97 07/30/24 16:14 Oxygen Delivery Room Air 07/30/24 12:42 Medical Decision Making MDM Narrative Medical decision making narrative: 73-year-old female presents emergency department for evaluation after having a ground level fall. Patient does have ecchymosis to left eye and left forehead. CT head face neck were negative. Shoulder was concerning the CT cervical spine so a dedicated chest CT was requested by Radiology. This was negative for acute scapular fracture. An re-evaluation patient is well-appearing denies any complaints other than the contusion to left face. Patient family updated on the results of the workup and plan for discharge home. Differential Diagnosis Differential Diagnosis: Subdural hematoma, subarachnoid hemorrhage, cervical spine fracture, facial fracture Vital Signs Vital Signs: Vital Signs Temperature 98.0 F 07/30/24 12:42 Pulse Rate 96 07/30/24 12:42 Respiratory Rate 15 07/30/24 12:42 Blood Pressure 129/69 07/30/24 12:42 Pulse Oximetry 100 07/30/24 12:42 Oxygen Delivery Room Air 07/30/24 12:42 Temperature 97.7 F 07/30/24 16:14 Pulse Rate 81 07/30/24 16:14 Respiratory Rate 18 07/30/24 16:14 Blood Pressure 130/77 07/30/24 16:14 Pulse Oximetry 97 07/30/24 16:14 Oxygen Delivery Room Air 07/30/24 12:42 Imaging Data Radiologist's impression: Impressions Head CT 07/30/24 14:17 Impression: No acute intracranial hemorrhage or suspicious mass effect. Head/Cervical Spine/Facial Bones CT 07/30/24 14:20 Impression: Significant degenerative disease, without acute fracture within the cervical spine. No acute facial bone fracture is identified. Indeterminate findings within the left scapula for which further cross-sectional or or imaging through the chest is suggested. Findings and recommendations discussed with Dr. Heard at 2:25 PM on 07/30/[address] 07/30/24 15:06 IMPRESSION: No acute findings within the chest. Specifically, no acute left scapular fracture is present. Discharge Plan Discharge Clinical Impression: Facial injury, Contusion of forehead Patient Disposition: Home, Self-Care Condition: Stable Instructions: Antibiotic Form, Black Eye (ED), Head Injury (ED) Additional Instructions: Have close follow-up with your primary care physician. If you have any worsening symptoms please call or return to the emergency department. Patient Language: Hong Konger Prescriptions: No Action trazodone 100 mg tablet 50 mg PO QHS Rx Instructions: take 1/2 tablet at QHS dronedarone 400 mg tablet 400 mg PO Q12H Rx Instructions: must administer with a meal/food gabapentin 100 mg capsule 100 mg PO TID Rx Instructions: can have 2 caps TID metoprolol tartrate 50 mg tablet 50 mg PO BID memantine 10 mg tablet See Rx Instructions .ROUTE .COMPLEX Qty: 180 4RF Rx Instructions: 1 tablet twice a day; donepezil 10 mg tablet 10 mg PO QHS Qty: 90 4RF nitroglycerin 0.4 mg tablet, sublingual 0.4 mg sublingual Q5M PRN (Reason: Chest Pain) Rx Instructions: do not exceed 3 doses per episode furosemide 40 mg tablet 40 mg PO DAILY buspirone 10 mg tablet 10 mg PO BID lovastatin 20 mg tablet 20 mg PO HS duloxetine 30 mg capsule,delayed release(DR/EC) 30 mg PO DAILY Eliquis 5 mg Tablet 5 mg PO Q12HR Qty: 60 2RF levothyroxine [Euthyrox] 175 mcg tablet 175 mcg PO DAILY ropinirole 1 mg Tablet 1 mg PO HS Jardiance 10 mg tablet 10 mg PO DAILY Qty: 30 11RF Follow-up/Referrals: David,GIN Mcdonald [Primary Care Provider] -
[2024-07-30 16:14] VITALS: BP 130/77; PULSE 81; RESP 18; TEMP 36.5; O2SAT 97
== END 2024-07-30 16:16 | disposition home or self-care (01) ==
PROVIDERS: Emergency Provider Emergency Medicine; PCP Physician Assistant
DX: S00.12XA Contusion of left eyelid and periocular area, initial encounter (principal); S00.83XA Contusion of other part of head, initial encounter; I48.92 Unspecified atrial flutter; I12.9 Hypertensive chronic kidney disease with stage 1 through stage 4 chronic kidney disease, or unspecified chronic kidney disease; N18.32 Chronic kidney disease, stage 3b; G30.9 Alzheimer's disease, unspecified; F02.80 Dementia in other diseases classified elsewhere, unspecified severity, without behavioral disturbance, psychotic disturbance, mood disturbance, and anxiety; E78.5 Hyperlipidemia, unspecified; E03.9 Hypothyroidism, unspecified; G25.81 Restless legs syndrome; F41.9 Anxiety disorder, unspecified; F32.A Depression, unspecified; Z96.641 Presence of right artificial hip joint; Z96.651 Presence of right artificial knee joint; Z90.710 Acquired absence of both cervix and uterus; Z90.81 Acquired absence of spleen; Z90.49 Acquired absence of other specified parts of digestive tract; Z79.01 Long term (current) use of anticoagulants; Z79.899 Other long term (current) drug therapy; Z79.84 Long term (current) use of oral hypoglycemic drugs; W18.39XA Other fall on same level, initial encounter
CPT/HCPCS: 70450; 70486; 71250; 72125; 99284